=== PATIENT | female | born 1995 | race Caucasian/White ===

== ENCOUNTER 2023-05-21 21:19 | Outpatient (REF) | payer OTHER, SELFPAY | END 2023-05-21 21:20 | disposition home or self-care (01) | LOC: LAB 21:19 | PROVIDERS: Visit Provider Physician Assistant | DX: N64.52 Nipple discharge (principal) | CPT/HCPCS: 87070; 87075 ==

== ENCOUNTER 2023-05-25 13:10 | Outpatient (OUT) | payer SELFPAY ==
--- NOTE | 2023-05-25 | MM_ITS ---
Patient: RAPHAEL RICHARDSON Exam Date: 05/25/2023 : 1995 Gender:F Ordering : DR Keith Cervantes . Admission #: [id number] Family : MRS. DEBBIE COLE . Order #: [id number] CLICK HERE TO VIEW EXAM RADIOLOGY REPORT PROCEDURE: MM TOMOSYNTHESIS DIAGNOSTIC BI, 05/25/2023, 14:09 US BREAST LT LIMITED, 05/25/2023, 13:26 COMPARISON: None. INDICATIONS: LEFT BREAST MASS/ NIPPLE DISCHARGE N 63.20 N 64.52 Calculator Name NCI Breast Cancer Risk Assessment Tool 5 Year Breast Cancer Risk Not Applicable. Lifetime Breast Cancer Risk Not Applicable. Personal Breast Cancer No Personal Ovarian Cancer No Treatments None Family Cancers Grandmother-maternal with breast cancer at age 34; Mother with breast cancer at age 46; Mother with cervical cancer at age 39. LOCATION: [facility] BREAST COMPOSITION: Heterogeneously dense,which may obscure small masses. FINDINGS: DIAGNOSTIC CATEGORY 1--NEGATIVE. RIGHT BREAST: No significant suspicious finding. No significant change has occurred. LEFT BREAST: No significant suspicious finding. No significant change has occurred. No suspicious ultrasound findings in area of patient's palpable lump. RECOMMENDATIONS: CLINICAL EVALUATION. PLEASE NOTE: A NORMAL MAMMOGRAM DOES NOT EXCLUDE THE POSSIBILITY OF BREAST CANCER. A CLINICALLY SUSPICIOUS PALPABLE LUMP SHOULD BE BIOPSIED. Dictated by: Henri Rogers M.D. on 05/25/2023 at 14:41 Approved by: Henri Rogers M.D. on 05/25/2023 at 14:47
== END 2023-05-25 13:11 | disposition home or self-care (01) ==
LOC: US 13:14
PROVIDERS: PCP Nurse Practitioner; Visit Provider Obstetrics & Gynecology
DX: N63.20 Unspecified lump in the left breast, unspecified quadrant (principal); N64.52 Nipple discharge; Z80.3 Family history of malignant neoplasm of breast; Z80.8 Family history of malignant neoplasm of other organs or systems
CPT/HCPCS: 76642; 77066; G0279

== ENCOUNTER 2023-10-17 09:50 | Emergency (ER) | payer BC, SELFPAY ==
[2023-10-17 09:52] VITALS: BP 142/88; PULSE 84; RESP 18; TEMP 36.8; O2SAT 97; BMI 36.7
--- NOTE | 2023-10-17 11:06 | CT_ITS ---
The [address] [address] Patient Name: RAPHAEL RICHARDSON MRN: [id number] date: 1995 Sex: F Assigned Patient Location: ER Current Patient Location: ER Accession/Order Number: [id number] Exam Date: 10/17/2023 11:40 Report Date: 10/17/2023 12:18 At the request of: RAMÓN GARCIA Procedure: CT abdomen pelvis w con EXAM: CT abdomen pelvis w con HISTORY: left cva flank pain COMPARISON: CT abdomen and pelvis 07/11/2016. TECHNIQUE: Following intravenous administration of 99 cc of Omnipaque 300, axial soft tissue windows of the abdomen and pelvis were performed with coronal and sagittal reformats. CT dose reduction technique was used including Automated Exposure Control. Findings: ABDOMEN: Hepatic low-attenuation lesion, too small to characterize. The liver is enlarged. The gallbladder is surgically absent. The spleen, pancreas, adrenal glands and kidneys are unremarkable. The bilateral ureters are nondilated. Evaluation of the bowel is limited given the absence of oral contrast. No bowel obstruction. The appendix is nondilated. The aorta is normal caliber. No enlarged abdominal lymph nodes or free abdominal fluid. Pelvis: Mild circumferential bladder wall thickening. The bladder is nondistended likely relating to the wall thickening. No bladder calculi. The uterus is present and unremarkable within the limits of CT. No enlarged pelvic lymph nodes or free pelvic fluid. No aggressive sclerotic or lytic osseous lesions. CT/CT abdomen pelvis w con IMPRESSION: 1. No acute abdominal or pelvic abnormality. Electronically authenticated by: SOLE WELDON Date: 10/17/2023 12:18
--- NOTE | 2023-10-17 11:22 | ED.GENADUL1 ---
HPI - General Adult General Chief complaint: Skin/Abscess/Foreign Body Stated complaint: FEVER/L LEG SWELLING Time Seen by Provider: 10/17/23 10:34 Source: patient Mode of arrival: walk-in Limitations: no limitations History of Present Illness HPI narrative: Patient is a 28-year-old female who is presenting to the ER with chief complaint of painful nodules to the left anterior kinney with mild swelling. That started today. It was noted at work that patient had a fever low-grade, by a nurse at the [facility] in [facility]. Patient does not have a fever here. Patient is more concerned about left lower flank pain that radiates to left flank and left lower quadrant intermittently for the past 2 weeks. Patient says that she almost drinks a gallon of water a day. Patient has had decreased urination in the last 2 weeks. Patient states she is only had approximately 5 bowel movements in the past week when normally she goes 2 or 3 times a day with loose stool. Patient says she has had loose stools since she had her gallbladder taken out. Patient had a soft stool today, she has had no signs of constipation in the past 2 weeks. Patient feels like she is not urinating as much as she normally does, she is wondering if she has some type of obstruction or kidney stone. Patient has no history of kidney stone. Patient had uterine ablation, her is fixed, states that she is not . Patient is a G1, P0, patient had . No fever or chills. Patient has mild nausea, no vomiting, no other acute complaints All systems are negative except as noted/marked. All systems reviewed and otherwise negative. Nurses note and vital signs reviewed and patient is not hypoxic. General: The patient appears well and in no apparent distress. Patient is resting comfortably on cart. Patient is not toxic, lethargic, or listless Skin: Warm, dry, no pallor noted. There is no rash noted. No petechiae, purpura. Head: Normocephalic, atraumatic Eye: Normal conjunctiva, no drainage, EOMI. PERRL Ears, Nose, Mouth, and Throat: oral mucosa is moist. Nares patent. Mouth without vesicles. Cardiovascular: Regular Rate and Rhythm, no murmur, gallop, rub Respiratory: Patient is in no distress, no accessory muscle use, lungs are clear to auscultation, no wheezing, rales or rhonchi Back: non-tender, no right CVA tenderness to percussion. No CT LS midline pain GI: Patient has mild left CVA tenderness palpation, mild left flank tenderness to palpation, mild left lower quadrant tenderness to palpation, otherwise no tenderness to palpation, no masses appreciated. No rebound, guarding, or rigidity noted. No distention Musculoskeletal: Patient has full range of motion of all of the extremities, no motor, sensory, or focal neurological deficits Neurological: A&O x4, normal speech Psychiatric: Cooperative Related Data Allergies Allergy/AdvReac Type Severity Reaction Status Date / Time No Known Drug Allergies Allergy Verified 10/17/23 09:52 PFSH PFS Social History Smoking status: Current every day smoker Exam Constitutional Vital Signs, click to edit/add: Last Vital Signs Temp 98.2 F 10/17/23 09:52 Pulse 84 10/17/23 09:52 Resp 18 10/17/23 09:52 BP 142/88 H 10/17/23 09:52 Pulse Ox 97 10/17/23 09:52 O2 Del Method Room Air 10/17/23 09:52 Course Vital Signs Vital signs: Vital Signs Temperature 98.2 F 10/17/23 09:52 Pulse Rate 84 10/17/23 09:52 Respiratory Rate 18 10/17/23 09:52 Blood Pressure 142/88 H 10/17/23 09:52 Pulse Oximetry 97 10/17/23 09:52 Oxygen Delivery Method Room Air 10/17/23 09:52 Temperature 98.2 F 10/17/23 09:52 Pulse Rate 84 10/17/23 09:52 Respiratory Rate 18 10/17/23 09:52 Blood Pressure 142/88 H 10/17/23 09:52 Pulse Oximetry 97 10/17/23 09:52 Oxygen Delivery Method Room Air 10/17/23 09:52 Medical Decision Making MDM Narrative Medical decision making narrative: Patient's urine, lab work, urine and CT shows no acute findings. Patient will follow-up with PCP. Education was done at bedside and erythema nodosum, I do not have any instructions to print for that. Patient will follow-up with Dr. Pollack or Mckayla if needed. Patient will continue increase fluids, no questions at discharge. Lab Data Lab results reviewed: Yes I reviewed the patient's lab results Labs: Lab Results 10/17/23 10/17/23 10/17/23 Range/Units 11:15 11:18 11:19 WBC 11.9 H (4.0-11.0) 10^3/uL RBC 4.21 (4.20-5.40) 10^6/uL Hgb 12.6 (12.0-16.0) g/dL Hct 37.8 (36.0-48.0) % MCV 89.8 (81.0-99.0) fL MCH 29.9 (26.7-34.0) pg MCHC 33.3 (29.9-35.2) g/dL RDW 11.9 (11.0-15.0) % Plt Count 384 (150-450) 10^3/uL MPV 10.7 (9.5-13.5) fL Neut % (Auto) 55.2 (43.0-75.0) % Lymph % (Auto) 32.0 (20.5-60.0) % Luce % (Auto) 5.5 (1.7-12.0) % Eos % (Auto) 5.9 (0.9-7.0) % Baso % (Auto) 1.1 (0.2-2.0) % Neut # (Auto) 6.6 H (1.4-6.5) 10^3/uL Lymph # (Auto) 3.8 (1.2-3.8) 10^3/uL Luce # (Auto) 0.7 (0.3-0.8) 10^3/uL Eos # (Auto) 0.7 (0.0-0.7) 10^3/uL Baso # (Auto) 0.1 (0.0-0.1) 10^3/uL Abs Immat Gran (auto) 0.04 H (0.00-0.03) 10^3/uL Imm/Tot Granulo (auto) 0.3 (0.0-0.5) % Sodium 132 L (136-145) mmol/L Potassium 4.2 (3.5-5.1) mmol/L Chloride 102 (98-107) mmol/L Carbon Dioxide 26.2 (21.0-32.0) mmol/L Anion Gap 8.0 BUN 8.0 (7.0-18.0) mg/dL Creatinine 0.75 (0.55-1.02) mg/dL Est GFR ( Amer) >60 (>=60) Est GFR (Non-Af Amer) >60 (>=60) BUN/Creatinine Ratio 10.7 Glucose 94 (74-106) mg/dL Lactate 1.0 (0.4-2.0) mmol/L Calcium 8.7 (8.5-10.1) mg/dL Total Bilirubin 0.5 (0.2-1.0) mg/dL AST 37 (15-37) U/L ALT 34 (14-59) U/L Alkaline Phosphatase 56 (46-116) U/L Total Protein 7.0 (6.4-8.2) g/dL Albumin 3.4 (3.4-5.0) g/dL Globulin 3.6 g/dL Albumin/Globulin Ratio 0.9 Lipase 31.0 (16.0-77.0) U/L Urine HCG, Qual Negative (NEGATIVE) Imaging Data CT scan - abdomen: Radiologist's impression: ITS Impressions Abdomen/Pelvis CT 10/17/23 11:06 IMPRESSION: 1. No acute abdominal or pelvic abnormality. Electronically authenticated by: SOLE WELDON Date: 10/17/2023 12:18 Discharge Plan Discharge Chief Complaint: Skin/Abscess/Foreign Body Clinical Impression: Lower back pain, Left leg pain Patient Disposition: Home, Self-Care Time of Disposition Decision: 12:37 Condition: Fair Instructions: Acute Low Back Pain (ED), Leg Pain (ED) Additional Instructions: Continue to increase fluids. I do not have any printable education on erythema nodosum. This is a possible diagnosis for the pain to her left kinney and bumps that have occurred. This could be very painful. Continue to use anti-inflammatories, ibuprofen, Advil, or Motrin 800 mg 3 times a day. Use ice. Follow-up with PCP. Use ICE as well. If you continue to have any type of urological concerns, follow-up with Dr. Pollack or Dr. Block. Referrals: Ritesh Pollack MD [Physician] - 1 week DEBBIE COLE [Primary Care Provider] - 1 week Stand Alone Forms: Work/School Release, Portal Instructions
[2023-10-17 11:31] LABS: HCG Qualitative Urine* NEGATIVE (NEGATIVE)
[2023-10-17] MEDS: KETOROLAC TROMETHAMINE 30 MG/ML VIAL 15 MG IVP (11:32)
[2023-10-17] MEDS: 0.9 % SODIUM CHLORIDE 1,000 ML 999 ML IV (11:32)
[2023-10-17] MEDS: ONDANSETRON PF 4 MG/2 ML VIAL IV (11:32)
[2023-10-17 11:35] LABS: Basophils Absolute Auto 0.1 10^3/uL (0.0-0.1); Basophils Percent Auto 1.1 % (0.2-2.0); Eosinophils Absolute Auto 0.7 10^3/uL (0.0-0.7); Eosinophils Percent Auto 5.9 % (0.9-7.0); Hematocrit 37.8 % (36.0-48.0); Hemoglobin 12.6 g/dL (12.0-16.0); Immature Granulocytes Abs Auto 0.04 10^3/uL (0.00-0.03); Immature Granulocytes Pct Auto 0.3 % (0.0-0.5); Lymphocytes Absolute Auto 3.8 10^3/uL (1.2-3.8); Mean Corpuscular HGB Conc 33.3 g/dL (29.9-35.2); Mean Corpuscular Hemoglobin 29.9 pg (26.7-34.0); Mean Corpuscular Volume 89.8 fL (81.0-99.0); Mean Platelet Volume 10.7 fL (9.5-13.5); Monocytes Absolute Auto 0.7 10^3/uL (0.3-0.8); Monocytes Percent Auto 5.5 % (1.7-12.0); Neutrophils Absolute Auto 6.6 10^3/uL (1.4-6.5); Neutrophils Percent Auto 55.2 % (43.0-75.0); Platelet Count 384 10^3/uL (150-450); Red Blood Count 4.21 10^6/uL (4.20-5.40); Red Cell Distribution Width 11.9 % (11.0-15.0); White Blood Count 11.9 10^3/uL (4.0-11.0)
[2023-10-17 11:41] LABS: Alanine Aminotransferase 34 U/L (14-59); Albumin Globulin Ratio 0.9; Albumin Level 3.4 g/dL (3.4-5.0); Alkaline Phosphatase 56 U/L (46-116); Aspartate Amino Transferase 37 U/L (15-37); BUN Creatinine Ratio 10.7; Bilirubin Total 0.5 mg/dL (0.2-1.0); Calcium 8.7 mg/dL (8.5-10.1); Carbon Dioxide 26.2 mmol/L (21.0-32.0); Chloride 102 mmol/L (98-107); Estimated GFR (African America >60 (>=60); Estimated GFR (Non-African Ame >60 (>=60); Globulin 3.6 g/dL; Glucose 94 mg/dL (74-106); Potassium 4.2 mmol/L (3.5-5.1); Sodium 132 mmol/L (136-145)
[2023-10-17 12:50] VITALS: BP 113/76; PULSE 77; RESP 18; O2SAT 98
== END 2023-10-17 12:52 | disposition home or self-care (01) ==
PROVIDERS: Emergency Provider Emergency Medicine; PCP Nurse Practitioner
DX: M54.50 Low back pain, unspecified (principal); M79.605 Pain in left leg; Z90.49 Acquired absence of other specified parts of digestive tract; F17.200 Nicotine dependence, unspecified, uncomplicated
CPT/HCPCS: 36415; 74177; 80053; 83605; 83690; 84703; 85025; 96374; 96375; 99284; Q9967

== ENCOUNTER 2024-01-18 11:23 | Outpatient (OUT) | payer BC, SELFPAY ==
--- NOTE | 2024-01-18 11:25 | US_ITS ---
The [address] [address] Patient Name: RAPHAEL RICHARDSON MRN: [id number] date: 1995 Sex: F Assigned Patient Location: Current Patient Location: Accession/Order Number: [id number] Exam Date: 01/18/2024 11:26 Report Date: 01/21/2024 04:49 At the request of: PAULY CHAPMAN Procedure: US pelvis w/ transvaginal EXAMINATION: US pelvis w/ transvaginal HISTORY: Cyst of left ovary N83.202 COMPARISON: CT abdomen pelvis 10/17/2023, ultrasound pelvis 05/24/2022 TECHNIQUE: Transabdominal and/or transvaginal sonographic examination was performed as indicated by examination type. FINDINGS: UTERUS: Normal size and appearance. Uterus size: 7.0 x 3.9 x 4.1 cm ENDOMETRIUM: Normal homogeneous appearance. Endometrial thickness: 3 mm RIGHT OVARY: Contains a 1.6 cm dominant follicle versus cyst. Duplex Doppler demonstrates normal waveform and flow; resistive index 0.5. Ovary size: 4.4 x 2.9 x 3.2 cm LEFT OVARY: Not seen. No suspicious adnexal findings. CUL-DE-SAC: Unremarkable. No significant free fluid. BLADDER: Unremarkable. OTHER: None. US/US pelvis w/ transvaginal IMPRESSION: 1. The left ovary could not be identified during today's study. The ovary was also not able to be seen on the prior ultrasound study. 2. No suspicious pelvic findings. Electronically authenticated by: CHANCE ARMAS Date: 01/21/2024 04:49
[2024-01-18 12:20] LABS: Basophils Absolute Auto 0.1 10^3/uL (0.0-0.1); Basophils Percent Auto 0.8 % (0.2-2.0); Eosinophils Absolute Auto 0.4 10^3/uL (0.0-0.7); Eosinophils Percent Auto 3.4 % (0.9-7.0); Hematocrit 38.2 % (36.0-48.0); Hemoglobin 12.7 g/dL (12.0-16.0); Immature Granulocytes Abs Auto 0.06 10^3/uL (0.00-0.03); Immature Granulocytes Pct Auto 0.5 % (0.0-0.5); Lymphocytes Absolute Auto 3.5 10^3/uL (1.2-3.8); Lymphocytes Percent Auto 29.6 % (20.5-60.0); Mean Corpuscular HGB Conc 33.2 g/dL (29.9-35.2); Mean Corpuscular Hemoglobin 28.8 pg (26.7-34.0); Mean Corpuscular Volume 86.6 fL (81.0-99.0); Monocytes Absolute Auto 0.8 10^3/uL (0.3-0.8); Monocytes Percent Auto 6.4 % (1.7-12.0); Neutrophils Absolute Auto 7.1 10^3/uL (1.4-6.5); Neutrophils Percent Auto 59.3 % (43.0-75.0); Platelet Count 307 10^3/uL (150-450); Red Blood Count 4.41 10^6/uL (4.20-5.40); Red Cell Distribution Width 11.6 % (11.0-15.0)
[2024-01-18 12:25] LABS: Estimated Average Glucose 108 mg/dL; Glycohemoglobin A1C 5.4 % (4.5-6.2)
[2024-01-18 12:49] LABS: Free T4 0.88 ng/dL (0.76-1.46)
[2024-01-18 13:19] LABS: HCG Quantitative <1 mIU/mL; Thyroid Stimulating Hormone 2.063 uIU/mL (0.358-3.740)
[2024-01-19 04:08] LABS: FSH 4.6 mIU/mL (.); Luteinizing Hormone(LH) 13.8 mIU/mL (.)
== END 2024-01-18 11:24 | disposition home or self-care (01) ==
LOC: US 11:23
PROVIDERS: PCP Nurse Practitioner; Visit Provider Obstetrics & Gynecology
DX: N83.202 Unspecified ovarian cyst, left side (principal); R10.2 Pelvic and perineal pain; R63.5 Abnormal weight gain
CPT/HCPCS: 36415; 76830; 76856; 82626; 82627; 83001; 83002; 83036; 84439; 84443; 84702; 85025

== ENCOUNTER 2024-02-27 15:50 | Outpatient (REF) | payer BC, SELFPAY | END 2024-02-27 15:51 | disposition home or self-care (01) | LOC: LAB 15:50 | PROVIDERS: PCP Nurse Practitioner; Visit Provider Obstetrics & Gynecology | DX: N84.0 Polyp of corpus uteri (principal) | CPT/HCPCS: 88305 ==

== ENCOUNTER 2024-03-13 09:45 | Outpatient (OUT) | payer BC, SELFPAY ==
--- OUTSIDE RECORDS SUMMARY | 2024-03-13 09:53 | XMS_ITS | CCD ---
Author Organization [facility] Care Team Providers Care Shipping Clerk/Admin Name Role Phone Atiya Huerta Unavailable AN LR Attending Unavailable SELF, REFERRED Primary Care Unavailable SELF, REFERRED Referring Unavailable MEG, AN Admitting Unavailable MEG, AN Surgeon Unavailable [place] Procedure Practitioner Unavailab MIKE Griffiths Admitting Unavailable REQUEST, NONE LISTED Primary Care Unavaila MIKE Garcia Attending Unavailable MIKE PLATT Consulting Unavailable KARASIK ., DR FERNANDEZ Admitting Unavailabl e REQUEST, NONE LISTED Primary Care Unavaila ble KARASIK ., DR FERNANDEZ Attending Unavailabl e KARASIK ., DR FERNANDEZ Consulting Unavailabl e KARASIK ., DR FERNANDEZ Admitting Unavailabl e REQUEST, NONE LISTED Primary Care Unavaila ble KARASIK ., DR FERNANDEZ Attending Unavailabl e KARASIK ., DR FERNANDEZ Consulting Unavailabl e KARASIK ., DR FERNANDEZ Admitting Unavailabl e REQUEST, DR NONE LISTED Primary Care Unavaila ble KARASIK ., DR FERNANDEZ Attending Unavailleona e RAPHAEL ERAZO Consulting Unavailable CEZAR DIAMOND Consulting Unavailable KARASIK ., DR FERNANDEZ Attending Unavailabl e KARASIK ., DR FERNANDEZ Consulting Unavailabl e REQUEST, DR NONE LISTED Primary Care Unavaila ble KARASIK ., DR FERNANDEZ Admitting Unavailabl e KARASIK ., DR FERNANDEZ Attending Unavailabl e KARASIK ., DR FERNANDEZ Consulting Unavailabl e REQUEST, DR NONE LISTED Primary Care Unavaila ble KARASIK ., DR FERNANDEZ Admitting Unavailabl e ZIEBER, DR CHANCE Frank Consulting Unavailable HAY ., DR SHEN Admitting Unavailable REQUEST, NONE LISTED Primary Care Unavaila ble HAY ., DR SHEN Attending Unavailable HAY ., DR SHEN Consulting Unavailable GLENNY COLON Consulting Unavailable SHERIDAN, CHARLENE Attending Unavailable SHERIDAN, CHARLENE Attending Unavailable SHERIDAN, CHARLENE Attending Unavailable SHERIDAN, CHARLENE Referring Unavailable WAQAR MARS Referring Unavailable SHERIDAN, CHARLENE Attending Unavailable SHERIDAN, CHARLENE Attending Unavailable ALESIA APARICIO Attending Unavailable MADISYN, WAQAR Referring Unavailable Douglas, Debbie Butler Primary Care Physician Douglas, Debbie Butler Attending Unavailable Douglas, Debbie L Attending Unavailable Douglas, Debbie L Attending Unavailable Douglas, Debbie L Attending Unavailable Douglas, Debbie L Attending Unavailable Douglas, Debbie L Attending Unavailable Douglas, Debbie L Attending Unavailable Douglas, Debbie L Admitting Unavailable Douglas, Debbie L Attending Unavailable Douglas, Debbie L Attending Unavailable Douglas, Debbie L Admitting Unavailable Juanjose Toscano Attending Unavailable DOUGLAS, DEBBIE L Referring Unavailable NO PCP, NO PCP Primary Care Unavailable NO PCP, NO PCP Primary Care Unavailable ABRAHAM TORRES Attending Unavailable BRIAN, ABRAHAM Attending Unavailable ABRAHAM TORRES Referring Unavailable NO PCP, NO PCP Primary Care Unavailable NO PCP, NO PCP Primary Care Unavailable CHANCE HUIZAR Attending Unavailable NO FAMILY, PHYSICIAN Primary Care Provider Unava ilable DO Keith Cervantes Attending Provider KEITH CERVANTES Attending Unavailable KEITH CERVANTES Attending Unavailable NO FAMILY, PHYSICIAN Primary Care Unavailable Keith Cervantes Attending Unavailable Keith Cervantes Admitting Unavailable Allergies Allergy Classification Reported Allergen(s) Allergy Type Date of Onset Reaction(s) Facility (1 source) nickel Drug Allergy rash CryptoSeal Other (1 source) nickel Drug Allergy 06-20-2021 [facility] Repository Medications Current Medications Medication Drug Class(es) Dates Sig (Normalized) Sig (Original) [id number] 200 actuat albuterol 0.09 mg/actuat metered dose inhaler (1 source) beta2-Adrenergic Agonist Start: 06-20-2021 doxycycline monohydrate 100 mg oral tablet (1 source) Tetracycline-class Drug Start: 09-21-2023 End: 10-01-2023 take 1 tablet by mouth twice daily doxycycline monohydrate 100 mg oral tablet 100 mg = 1 tab(s), Oral, BID, X 10 day(s), # 20 tab(s), Refills(s) 0, Pharmacy: [facility]/pharmacy #[id number], 165.1, cm, 09/21/23 8:51:00 EST, Height/Length Dosing, 97.9, kg, 09/21/23 8:51:00 EST, Weight Dosing Start Date: 09/21/23 Stop Date: 10/01/23 Status: Ordered medroxyPROGESTERone (1 source) Progestin naproxen 500 mg delayed release oral tablet (2 sources) Nonsteroidal Anti-inflammatory Drug Start: 09-06-2023 take 1 tablet by mouth twice daily naproxen 500 mg oral enteric coated tablet 500 mg = 1 tab(s), Oral, BID, # 60 tab(s), Refills(s) 0, [id number] 164, cm, 08/07/23 9:50:00 EST, Height/Length Dosing, 96.4, kg, 08/07/23 9:50:00 EST, Weight Dosing Start Date: 09/06/23 Status: Ordered phentermine hydrochloride 37.5 mg oral tablet (2 sources) Sympathomimetic Amine Anorectic Start: 08-07-2023 take 1 tablet by mouth once daily phentermine 37.5 mg Tab 37.5 mg = 1 tab(s), Oral, Daily, # 30 tab(s), Refills(s) 0, [id number], 164, cm, 08/07/23 9:50:00 EST, Height/Length Dosing, 96.4, kg, 08/07/23 9:50:00 EST, Weight Dosing Start Date: 08/07/23 Status: Ordered Completed/Discontinued Medications Medication Drug Class(es) Dates Sig (Normalized) Sig (Original) cephalexin 500 mg oral capsule (1 source) Cephalosporin Antibacterial Start: 09-21-2023 take 1 capsule by mouth three times daily Keflex 500 mg Cap 500 mg = 1 cap(s), Oral, TID, Take one capsule by mouth three times a day for ten days, # 30 cap(s), Refills(s) 0, Pharmacy: [facility]/pharmacy #[id number], 165.1, cm, 09/21/23 8:51:00 EST, Height/Length Dosing, 97.9, kg, 09/21/23 8:51:00 EST, Weight Dosing Start Date: 09/21/23 Status: Ordered Vitamin D 50,000 intl units (1.25 mg) oral capsule (1 source) Start: 09-10-2023 take 1 capsule by mouth every week Vitamin D 50,000 intl units (1.25 mg) oral capsule 50,000 International_Uni t = 1 cap(s), Oral, qWeek, # 12 cap(s), Refills(s) 3, Pharmacy: [facility]/pharmacy #[id number], 164, cm, 09/07/23 8:25:00 EST, Height/Length Dosing, 98.6, kg, 09/07/23 8:25:00 EST, Weight Dosing Start Date: 09/10/23 Status: Ordered Problems Active Problems Problem Classification Problem Date Documented Date Episodic/Chronic Conditions associated with dizziness or vertigo (2 sources) Dizziness 09-07-2023 Episodic Diabetes mellitus without complication (2 sources) Hyperglycemia 09-07-2023 Episodic E Codes: Natural/environment (1 source) Bitten or stung by nonvenomous insect and other nonvenomous arthropods, initial encounter; Translations: [Bitten or stung by nonvenomous insect and other nonvenomous arthropods, initial encounter] Onset: 02-01-2024 Episodic Genitourinary symptoms and ill-defined conditions (3 sources) Polyuria 05-25-2023 Episodic Immunizations and screening for infectious disease (2 sources) Contact with and (suspected) exposure to other viral communicable diseases; Translations: [Encounter for screening for human papillomavirus (HPV)] Onset: 06-20-2021 Resolved: 06-20-2021 Episodic Malaise and fatigue (3 sources) Fatigue 05-25-2023 Episodic Menstrual disorders (5 sources) Excessive and frequent menstruation with regular cycle; Translations: [EXCESS FREQ MENSTRUATION W/REG CYCL] Onset: 04-30-2022 Chronic Other connective tissue disease (2 sources) Neuralgia and neuritis, unspecified; Translations: [Neuralgia and neuritis, unspecified] Onset: 12-08-2022 Episodic Other connective tissue disease (2 sources) Pain in right arm; Translations: [Pain in right arm] Onset: 12-15-2022 Episodic Other connective tissue disease (2 sources) Pain in left arm; Translations: [Pain in left arm] Onset: 12-15-2022 Episodic Other connective tissue disease (1 source) Pain in calf 09-21-2023 Episodic Other lower respiratory disease (2 sources) Cough 07-10-2023 Episodic Other nervous system disorders (2 sources) Carpal tunnel syndrome, right upper limb; Translations: [Carpal tunnel syndrome, right upper limb] Onset: 03-01-2023 Chronic Other nervous system disorders (2 sources) Other chronic pain; Translations: [Other chronic pain] Onset: 12-15-2022 Chronic Other nervous system disorders (2 sources) Complex regional pain syndrome I of left upper limb; Translations: [Complex regional pain syndrome i of left upper limb] Onset: 12-07-2022 Chronic Other nutritional; endocrine; and metabolic disorders (3 sources) Excessive thirst 05-25-2023 Episodic Other nutritional; endocrine; and metabolic disorders (2 sources) Abnormal weight gain 06-08-2023 Episodic Other screening for suspected conditions (not mental disorders or infectious disease) (4 sources) Encounter for screening for malignant neoplasm of cervix; Translations: [ENC SCREENING MALIG NEOPLASM CERV] Onset: 12-08-2022 Episodic Other skin disorders (2 sources) Mass of lower limb 08-07-2023 Episodic Other skin disorders (2 sources) Mass of subcutaneous tissue of right lower leg 08-07-2023 Episodic Other skin disorders (1 source) Localized swelling of left lower leg 09-21-2023 Episodic Other upper respiratory infections (2 sources) Sinusitis 07-10-2023 Chronic Residual codes; unclassified (3 sources) Family history of diabetes mellitus 05-25-2023 Episodic Skin and subcutaneous tissue infections (1 source) Cellulitis; Translations: [Cellulitis, unspecified] Onset: 09-21-2023 Episodic Spondylosis; intervertebral disc disorders; other back problems (5 sources) Radiculopathy, cervical region; Translations: [Dorsalgia, unspecified] Onset: 10-23-2022 Episodic Substance-related disorders (2 sources) Nicotine dependence, cigarettes, uncomplicated; Translations: [Smoker] Onset: 05-22-2022 09-21-2023 Chronic Comment on above: Added secondary to d ocumentation in Social History. Superficial injury; contusion (3 sources) Insect bite (nonvenomous) of right shoulder, initial encounter; Translations: [Insect bite (nonvenomous) of left shoulder, initial encounter] Onset: 02-01-2024 Episodic Unclassified (1 source) CONTACT W/AND (SUSP) EXPOS COVID-19; Translations: [CONTACT W/AND (SUSP) EXPOS COVID-19] Onset: 05-08-2022 Unclassified (2 sources) COUGH, UNSPECIFIED; Translations: [COUGH, UNSPECIFIED] Onset: 12-30-2021 Unclassified (2 sources) Presence of neurostimulator; Translations: [Presence of neurostimulator] Onset: 12-07-2022 Unclassified (5 sources) Patient encounter status 05-25-2023 Unclassified (1 source) Rash Onset: 02-01-2024 Past or Other Problems Problem Classification Problem Date Documented Date Episodic/Chronic Abdominal pain (8 sources) Left lower quadrant pain; Translations: [Pelvic and perineal pain] Onset: 05-15-2022 Episodic Benign neoplasm of uterus (1 source) Leiomyoma of uterus, unspecified; Translations: [LEIOMYOMA OF UTERUS UNSPECIFIED] Onset: 05-27-2022 Episodic Complication of device; implant or graft (2 sources) Other mechanical complication of implanted electronic neurostimulator of spinal cord electrode (lead), initial encounter; Translations: [Other mechanical complication of implanted electronic neurostimulator of spinal cord electrode (lead), initial encounter] Onset: 10-23-2022 Episodic Other connective tissue disease (2 sources) Impingement syndrome of left shoulder; Translations: [Impingement syndrome of left shoulder] Onset: 10-17-2022 Episodic Other skin disorders (1 source) Localized swelling, mass and lump, lower limb, bilateral; Translations: [Localized swelling, mass and lump, lower limb, bilateral] Onset: 08-08-2023 Episodic Other skin disorders (1 source) Localized swelling, mass and lump, right lower limb; Translations: [Localized swelling, mass and lump, right lower limb] Onset: 08-08-2023 Episodic Other upper respiratory infections (1 source) Acute upper respiratory infection, unspecified; Translations: [ACUTE UP RESPIRATORY INFECTION UNS] Onset: 12-30-2021 Episodic Residual codes; unclassified (1 source) Other specified postprocedural states; Translations: [OTH SPECIFIED POSTPROCEDURAL STATES] Onset: 05-17-2022 Episodic Residual codes; unclassified (1 source) Acquired absence of other specified parts of digestive tract; Translations: [ACQ ABSENCE OTH PART DIGESTV TRACT] Onset: 05-22-2022 Episodic Unclassified (1 source) COUGH, UNSPECIFIED; Translations: [COUGH, UNSPECIFIED] Onset: 12-29-2021 Viral infection (1 source) COVID-19 Onset: 06-20-2021 Resolved: 06-20-2021 Results Test Name Value Interpretation Reference Range Facility [facility] 02-27-2024 L Specimen: [id number] Received: 02/28/24 Status: KOFI Bergerkraig Num: [id number] Spec Type: Surgical Subm Dr: Keith Cervantes Tissues: A Endometrium - Biopsy (EMBX) Procedures: HE/2, Gross/Micro L4 Age/ Patient Sex Location Account Attending Physician Raphael Meehan / LABELL [id number] Keith Cervantes SPEC NUM: [id number] RECD: 02/28/24 STATUS: KOFI BERGERKraig NUM: [id number] [place]: 02/27/[address] [facility] [address]: Keith Cervantes ENTERED: 02/28/[address] [facility] [address]: [place],Lab SPEC TYPE: Surgical DEPT: [facility] ORDERED: HE/2, Gross/Micro L4 ORDERED: HE/2, Gross/Micro L4 Pathological Diagnosis Endometrium, biopsy: Features consistent with endometrial polyp(s). Clinical Information Failed ablation. Gross Description Received in formalin labeled with the patient's name, date of and EMB (per requisition) are multiple aguilar tissue fragments admixed with mucus measuring in aggregate 2.3 x 0.5 x 0.1 cm, entirely submitted in A1. CPT Codes 27632 -------- -------- Specimen: [id number] Received: 02/28/24-1250 Status: KOFI Nicolas Num: [id number] Spec Type: Surgical Subm Dr: Keith Cervantes Tissues: A Endometrium - Biopsy (EMBX) Procedures: HE/Ernestina, Gross/Micro L4 -------- Patient: Raphael Meehan [id number] (Continued) -------- Signed (signature on file) Diana Massey MD 03/03/24 175 Normal [facility] RAD - Ultrasound Reporton RAD - Ultrasound Report [id number]. 00TIFF Normal [facility] HCG ( test) Ql (U)o n 01-15-2024 Beta HCG ( test) Ql (U) Negative Normal NEG [facility] Comment on above: Performed By: #### 2 106-3 #### [facility] ([id number]) [address] [place] [address] 22144 URN MACROSCOPIC NURon 2023 BILIRUBIN DAINA Negative Normal NEG [facility] Comment on above: Performed By: #### N UM #### [facility] ([id number]) [address] [place] [address] 23862 BLOOD/HGB DAINA Small Abnormal NEG [facility] Comment on above: Performed By: #### N UM #### [facility] ([id number]) [address] [place] [address] 21834 GLUCOSE DAINA Negative Normal NEG [facility] Comment on above: Performed By: #### N UM #### [facility] ([id number]) [address] [place] [address] 46409 KETONES DAINA Negative Normal NEG [facility] Comment on above: Performed By: #### N UM #### [facility] ([id number]) [address] [place] [address] [place] [address] LEUKOCYTE ESTERASE DAINA Negative Normal NEG [facility] Comment on above: Performed By: #### N UM #### [facility] ([id number]) [address] [place] [address] 42403 NITRITE DAINA Negative Normal NEG [facility] Comment on above: Performed By: #### N UM #### [facility] ([id number]) [address] [place] [address] 64951 PH DAINA 6.5 Normal 5.0-8.[address] [facility] Comment on above: Performed By: #### N UM #### [facility] ([id number]) [address] [place] [address] 22130 PROTEIN DAINA Negative Normal NEG [facility] Comment on above: Performed By: #### N UM #### [facility] ([id number]) [address] [place] [address] 60701 SPECIFIC GRAVITY DAINA 1.025 Normal 1.003-1.035 [facility] Comment on above: Performed By: #### N UM #### [facility] ([id number]) [address] [place] [address] 56748 UROBILINOGEN DAINA 0.2 eu/dL Normal <1.1 [facility] Comment on above: Performed By: #### N UM #### [facility] ([id number]) [address] [place] [address] 00124 XR SPINE LUMBAR 2 OR 3 VWSon 01-15-2024 XR SPINE LUMBAR 2 OR 3 VWS XR SPINE LUMBAR 2 OR 3 VWS 2 views of the lumbar spine dated 01/15/2024 at 1:10 PM INDICATION: Back pain persisting for a few weeks. FINDINGS: Comparison is 02/03/2019. There is a dorsal stimulating device in place. Normal alignment of the lumbar spine. No acute fractures or subluxations. No lytic or sclerotic lesions. The intervertebral disc spaces are preserved. IMPRESSION: 1. No acute osseous abnormality seen in the lumbar spine. Finalized by Roro Galvez MD on 01/15/2024 1:20 PM Normal [facility] ED Note-Physicianon 10-17-19 ED Note-Physician [id number] .00TIFF Normal [facility] RAD - CT Reporton 10-17-2023 RAD - CT Report [id number] .00TIFF Normal [facility] ED Note-Physicianon 09-22-19 ED Note-Physician Basic Information Time Seen: Reece Oh PA-C 09/21/2023 08:52 Chief Complaint Pt reports LLE pain and swelling for 2-3 months. Patient reports skin lesions on LLE that are itchy. PCP concerned with increase in swelling. History of Present Illness 28-year old female comes to the ED for evaluation of leg pain. This has been a waxing waning issue for months. She been following with her PCP. She had increased swelling and redness recently. No trauma to the area. No fever, chills, nausea or vomiting. Her PCP was concerned with increased swelling and possibility of DVT and that is why she presents to the ED today. She has no DVT risk factors, non-smoker, no control, no other complaints or concerns. Review of Systems A 10 point review of systems is negative except as noted above. Medical and Surgical History: Reviewed and noted Social history: Lives at home Tobacco: Denies Physical Exam Vitals & Measurements T: 36.9 ?C(Oral) HR: 106(Peripheral) RR: 16 BP: 150/90 SpO2: 100% HT: 165.1 cm WT: 97.9 kg BMI: 35.92 Nurses notes and vital signs reviewed and patient is not hypoxic. General: The patient appears well, resting comfortably. Skin: Warm, dry. Head: Atraumatic. Neck: No JVD. Eye: Normal conjunctiva. Ears, Nose, Mouth, and Throat: Moist mucous membranes. Cardiovascular: Strong distal pulses. Chest wall: Respiratory: Respirations are nonlabored. Back: Normal range of motion. Musculoskeletal: Tenderness along the left leg with some mild soft tissue swelling. There are few discrete raised erythematous lesions over the tibia. These are tender. There is no fluctuance or induration. There is splotchy erythema about the leg. No significant calf swelling. Good distal pulses. Gastrointestinal: Urological: Neurological: Awake and alert. No focal deficits. Follows commands. Psychiatric: Cooperative. Medical Decision Making Patient resents with left leg swelling and erythema. This sounds to have been waxing waning but progressive over the last couple of months. On exam she does not appear to have acute neurovascular compromise. She has good distal pulses. There is no significant swelling. Ultrasound is negative for DVT. She started antibiotics for cellulitis and is discharged home with PCP follow-up. Patient was encouraged to return to the ED if symptoms worsen or change. Assessment/Plan Cellulitis (L03.90: Cellulitis, unspecified) Orders: cephalexin, 500 mg = 1 cap(s), Oral, TID, Take one capsule by mouth three times a day for ten days, # 30 cap(s), Refills(s) 0, Pharmacy: [facility]/pharmacy #[id number], 165.1, cm, 09/21/23 8:51:00 EST, Height/Length Dosing, 97.9, kg, 09/21/23 8:51:00 EST, Weight Dosing doxycycline, 100 mg = 1 tab(s), Oral, BID, X 10 day(s), # 20 tab(s), Refills(s) 0, Pharmacy: [facility]/pharmacy #[id number], 165.1, cm, 09/21/23 8:51:00 EST, Height/Length Dosing, 97.9, kg, 09/21/23 8:51:00 EST, Weight Dosing US LE Venous Duplex Left Disposition Plan Patient Discharge Condition Disposition: Discharged home Condition: Improved and stable Counseled: Patient and/or family were counseled to workup, results, treatment plan and follow-up recommendations Discharge Prescription List Prescriptions doxycycline monohydrate 100 mg oral tablet, 100 mg= 1 tab(s), Oral, BID Keflex 500 mg Cap, 500 mg= 1 cap(s), Oral, TID Follow-up With When Contact Information Debbie Cole In 3 days 09/24/[address] [facility] (1) Additional Instructions: Patient Education Cellulitis, Adult Attestation I performed a substantive part of the MDM during the patient?s E/M visit. I personally made or approved the documented management plan and acknowledge its risk of complications. (Independent Interpretation) My (EKG/X-Ray/US/CT) interpretation as above. (Discussion) Management/test interpretation discussed with APC. This report was transcribed using voice recognition software. Every effort was made to ensure accuracy, however, inadvertently computerized grinding wheel dresser mistakes may be present. Appropriate healthcare PPE was used in evaluating this patient. Problem List/Past Medical History Ongoing Abnormal weight gain Blood glucose elevated Cough Dizziness Encounter for weight management Excessive thirst Family history of diabetes mellitus Fatigue Localized swelling of left lower leg Pain of left calf Polyuria Sinusitis Smoker Subcutaneous mass of both lower legs Subcutaneous mass of right lower leg Wellness examination Historical No qualifying data Procedure/Surgical History Ablation, Cholecystectomy, Surgery, Surgery, Surgery. Medications Inpatient No active inpatient medications Home doxycycline monohydrate 100 mg oral tablet, 100 mg= 1 tab(s), Oral, BID Keflex 500 mg Cap, 500 mg= 1 cap(s), Oral, TID naproxen 500 mg oral enteric coated tablet, 500 mg= 1 tab(s), Oral, BID phentermine 37.5 mg Tab, 37.5 mg= 1 tab(s), Oral, Chloe (more content not included)... [facility] Comment on above: Result Comment: Elec tronically Signed By: Reece Oh PA-C\.br\Date and Time Signed: 09/21/23 09:59 EST\.br\Electronically Co-Signed By: Juanjose Toscano DO\.br\Date and Time Co-Signed: 09/22/23 07:13 EST Ambulatory Visit Summaryon 0 09-21-2023 Ambulatory Visit Summary PAT MEEHANDawson Butler :1995 Visit Date:09/21/2023 Ambulatory Visit Instructions Your Diagnosis BMI 35.0-35.9,adult Smoker Your Care Team Attending Physician - Debbie Bui Primary Care Physician - Debbie Bui This Is Your Medications List ergocalciferol (Vitamin D 50,000 intl units (1.25 mg) oral capsule) naproxen (naproxen 500 mg oral enteric coated tablet) phentermine (phentermine 37.5 mg Tab) Procedures Performed Ablation, Cholecystectomy, Surgery, Surgery, Surgery. Discharge Vitals Temperature (Tympanic) 36.6 ?C Heart Rate (Peripheral) 98 Respiratory Rate 18 Blood Pressure 130/84 Height 164 cm Height 65 in Weight 96.7 kg Weight 212.74 lb BMI 35.95 What to do next Scheduled Follow-Up Appointments Sunday 3:40 PM EST With: Debbie Bui Where: [facility] [place] [facility] Consent for Treatmenton Consent for Treatment [id number] .00TIFF [facility] Discharge Instructionson Discharge Instructions [id number] .00TIFF [facility] ED Clinical Summaryon 2023 ED Clinical Summary [place] [id number] ED Clinical Summary Person Information Name: RAPHAEL MEEHAN [facility] Age: 28 Years : 1995 Sex: Female Language: Sierra Leonean PCP: Debbie Bui Marital Status: Single Visit Id: Visit Reason: Skin problem; Leg pain-swelling; DR. COLE SENT OVER. POS BLOODCLOT IN LEFT LEG Speciality: Acuity: 4 Enc Type: Emergency Med Service: Emergency Arrival: 09/21/2023 08:45:38 Discharge: 09/21/2023 10:00:27 LOS: 000 01:15 Checkin: 09/21/2023 08:45:38 Checkout: 09/21/2023 10:00:27 Dispo Type: Home (Routine DC) EVENTS: Event Name Event Status Request Date/Time Start Date/Time Complete Date/Time Arrive Complete 09/21/2023 08:45:38 09/21/2023 08:45:38 09/21/2023 08:45:38 Document Home Meds Request 09/21/2023 08:45:38 Triage Complete 09/21/2023 08:45:38 09/21/2023 08:51:43 09/21/2023 08:51:43 Bed Assign Complete 09/21/2023 08:47:57 09/21/2023 08:47:57 09/21/2023 08:47:57 Dr Exam Complete 09/21/2023 08:47:57 09/21/2023 08:52:08 09/21/2023 08:52:08 RN Exam Complete 09/21/2023 08:47:57 09/21/2023 08:53:03 09/21/2023 08:53:03 Registration Complete 09/21/2023 08:48:50 09/21/2023 08:48:50 09/21/2023 08:48:50 Reg Complete Request 09/21/2023 08:48:50 Reg Bed Request Complete 09/21/2023 08:48:50 09/21/2023 08:48:50 09/21/2023 08:48:50 Registration Request 09/21/2023 08:52:08 US Complete 09/21/2023 08:52:26 09/21/2023 08:54:46 09/21/2023 09:31:34 Dr Exam Complete 09/21/2023 08:54:34 09/21/2023 08:54:34 09/21/2023 08:54:34 Discharge Complete 09/21/2023 09:53:29 09/21/2023 10:00:31 09/21/2023 10:00:31 Transfer Complete 09/21/2023 10:00:31 09/21/2023 10:00:31 09/21/2023 10:00:31 ADDRESS: [address] [place] [id number] PHYS DOC NOTES: MEDICAL INFORMATION: Prescriptions Given: New Medications [id number], [address], [place] [id number], [phone] cephalexin (Keflex 500 mg Cap) 1 Capsules By Mouth 3 times a day. Take one capsule by mouth three times a day for ten days. Refills: 0. doxycycline (doxycycline monohydrate 100 mg oral tablet) 1 Tablets By Mouth 2 times a day for 10 Days. Refills: 0. Medications to Continue with No Changes Other Medications ergocalciferol (Vitamin D 50,000 intl units (1.25 mg) oral capsule) 1 Capsules By Mouth every week. Refills: 3. naproxen (naproxen 500 mg oral enteric coated tablet) 1 Tablets By Mouth 2 times a day. Refills: 0. phentermine (phentermine 37.5 mg Tab) 1 Tablets By Mouth every day. Refills: 0. PATIENT EDUCATION INFORMATION: Instructions: Cellulitis, Adult Follow up: With: Address: When: Debbiejosh Lewisab [address] [place] [address] Business (1) In 3 days 09/24/2023 DIAGNOSIS: Cellulitis Normal [facility] ED Patient Education Noteon 09-21-2023 ED Patient Education Note Infectious Disease Cellulitis, Adult Cellulitis is a skin infection. The infected area is usually warm, red, swollen, and tender. This condition occurs most often in the arms and lower legs. The infection can travel to the muscles, blood, and underlying tissue and become serious. It is very important to get treated for this condition. What are the causes? Cellulitis is caused by bacteria. The bacteria enter through a break in the skin, such as a cut, burn, insect bite, open sore, or crack. What increases the risk? This condition is more likely to occur in people who: ? Have a weak body defense system (immune system). ? Have open wounds on the skin, such as cuts, garcia, bites, and scrapes. Bacteria can enter the body through these open wounds. ? Are older than 60 years of age. ? Have diabetes. ? Have a type of long-lasting (chronic) liver disease (cirrhosis) or kidney disease. ? Are obese. ? Have a skin condition such as: ? Itchy rash (eczema). ? Slow movement of blood in the veins (venous stasis). ? Fluid buildup below the skin (edema). ? Have had radiation therapy. ? Use IV drugs. What are the signs or symptoms? Symptoms of this condition include: ? Redness, streaking, or spotting on the skin. ? Swollen area of the skin. ? Tenderness or pain when an area of the skin is touched. ? Warm skin. ? A fever. ? Chills. ? Blisters. How is this diagnosed? This condition is diagnosed based on a medical history and physical exam. You may also have tests, including: ? Blood tests. ? Imaging tests. How is this treated? Treatment for this condition may include: ? Medicines, such as antibiotic medicines or medicines to treat allergies (antihistamines). ? Supportive care, such as rest and application of cold or warm cloths (compresses) to the skin. ? Hospital care, if the condition is severe. The infection usually starts to get better within 1?2 days of treatment. Follow these instructions at home: Medicines ? Take lmzw-gnn-wapcmkt and prescription medicines only as told by your health care provider. ? If you were prescribed an antibiotic medicine, take it as told by your health care provider. Do not stop taking the antibiotic even if you start to feel better. General instructions ? Drink enough fluid to keep your urine pale yellow. ? Do not touch or rub the infected area. ? Raise (elevate) the infected area above the level of your heart while you are sitting or lying down. ? Apply warm or cold compresses to the affected area as told by your health care provider. ? Keep all follow-up visits as told by your health care provider. This is important. These visits let your health care provider make sure a more serious infection is not developing. Contact a health care provider if: ? You have a fever. ? Your symptoms do not begin to improve within 1?2 days of starting treatment. ? Your bone or joint underneath the infected area becomes painful after the skin has healed. ? Your infection returns in the same area or another area. ? You notice a swollen bump in the infected area. ? You develop new symptoms. ? You have a general ill feeling (malaise) with muscle aches and pains. Get help right away if: ? Your symptoms get worse. ? You feel very sleepy. ? You develop vomiting or diarrhea that persists. ? You notice red streaks coming from the infected area. ? Your red area gets larger or turns dark in color. These symptoms may represent a serious problem that is an emergency. Do not wait to see if the symptoms will go away. Get medical help right away. Call your local emergency services (911 in the [place] Do not drive yourself to the hospital. Summary ? Cellulitis is a skin infection. This condition occurs most often in the arms and lower legs. ? Treatment for this condition may include medicines, such as antibiotic medicines or antihistamines. ? Take ukzo-ded-jgtcuhs and prescription medicines only as told by your health care provider. If you were prescribed an antibiotic medicine, do not stop taking the antibiotic even if you start to feel better. ? Contact a health care provider if your symptoms do not begin to improve within 1?2 days of starting treatment or your symptoms get worse. ? Keep all follow-up visits as told by your health care provider. This is important. These visits let your health care provider make sure that a more serious infection is not developing. This information is not intended to replace advice given to you by your health care provider. Make sure you discuss any questions you have with your health care provider. Document Revised: 05/10/2022 Document Reviewed: 05/11/2022 Elsevier Patient Education ? 2022 [employer] Normal [facility] ED Patient Summaryon 024 ED Patient Summary [address] [address] Patient Discharge Instructions Person Information Name: RAPHAEL MEEHAN Age: 28 Years Arrival Date: 09/21/2023 08:45:38 Discharge Diagnosis: Cellulitis Primary Care Physician: Debbie Bui Provider Information Primary Provider: Juanjose Toscano DO Advanced Baby Sitter:Reece Oh PA-C The exam and treatment you received in the Emergency Department were for an urgent problem and are not intended as complete care. It is important that you follow up with a doctor, nurse practitioner, or physician?s carpenter's assistant for ongoing care. If your symptoms become worse or you do not improve as expected and you are unable to reach your usual health care provider, you should return to the Emergency Department. We are available 24 hours a day. RAPHAEL MEEHAN has been given the following list of patient education materials, prescriptions and follow-up instructions: Follow-up Instructions: With: Address: When: Debbie Cole [address] [place], [place] [id number] Business (1) In 3 days 09/24/2023 In the event that this physician does not participate in your insurance network, please consult with your insurance company to find a nearby participating provider. Patient Education Materials: Cellulitis, Adult A MESSAGE TO ALL PATIENTS REGARDING OPIOIDS PRESCRIPTION OPIOIDS: WHAT YOU NEED TO KNOW Prescription opioids can be used to help relieve beydzxpf-kz-npifnf pain and are often prescribed following a surgery or injury, or for certain health conditions. These medications can be an important part of the treatment but also come with serious risks. It is important to work with your healthcare provider to make sure you are getting the safest, most effective care. WHAT ARE THE RISKS AND SIDE EFFECTS OF OPIOID USE? Prescription opioids carry serious risks of addiction and overdose, especially with prolonged use. An opioid overdose, often marked by slowed breathing, can cause sudden . The use of prescription opioids can have a number of side effects as well, even when taken as directed: ? Tolerance?meaning you might need to take more of the medication for the same pain relief ? Physical dependence?meaning you have symptoms of withdrawal when a medication is stopped ? Increased sensitivity to pain ? Constipation ? Nausea, vomiting, and dry mouth ? Sleepiness and dizziness ? Confusion ? Depression ? Low levels of testosterone that can result in lower sex drive, energy, and strength ? Itching and sweating RISKS ARE GREATER WITH: ? History of drug misuse, substance use disorder, or overdose ? Mental health conditions (such as depression or anxiety) ? Sleep apnea ? Older age (65 years and older) ? Avoid alcohol while taking prescription opioids. Also, unless specifically advised by your health care provider, medications to avoid include: ? Benzodiazepines (such as Xanax or Valium) ? Muscle relaxants (such as Soma or Flexeril) ? Hypnotics (such as Ambien or Lunesta) ? Other prescription opioids KNOW YOUR OPTIONS Talk to your health care provider about ways to manage your pain that don?t involve prescription opioids. Some of these options may actually work better and have fewer risks and side effects. Options may include: ? Pain relievers such as acetaminophen, ibuprofen, and naproxen ? Some medication that are also used for depression or seizures ? Physical therapy and exercise ? Cognitive behavioral therapy, a psychological, goal-directed approach, in which patients learn how to modify physical, behavioral, and emotional triggers of pain and stress. IF YOU ARE PRESCRIBED OPIOIDS FOR PAIN: ? Never take opioids in greater amounts or more often than prescribed. ? Follow up with your primary health care provider. o Work together to create a plan on how to manage your pain. o Talk about ways to help manage your pain that don?t involve prescription opioids. o Talk about any and all concerns and side effects. ? Help prevent misuse and abuse o Never sell or share prescription opioids. o Never use another person?s prescription opioids. ? Store prescription opioids in a secure place and out of reach of others (this may include visitors, children, friends, and family). ? Safely dispose of unused prescription opioids: Find your community drug take-back program or your pharmacy mail-back program, or flush them down the toilet, following guidance from the Food and Drug Administration (www.fda.gov/Drugs/Re sourcesForYou). ? Visit www.cdc.gov/drugoverd ose to learn about the risks of opioids abuse and overdose. ? If you believe you may be struggling with addiction, tell your health janitor caretaker and ask for guidance or call [facility]S National Helpline at 4-465-224-AQXD. v Source: [place] (more content not included)... Normal [facility] Medicine Office/Clini c Noteon 09-21-2023 Family Medicine Office/Clinic Note HPI Staff Raphael is a 28 year old female presenting for leg swelling Onset: 4 days ago Location: left leg No injury noted, has raised red rash to middle kinney c/o a lot of sharp/aching pain to area and itching. Swelling started when rash appeared and pain and rash has been getting worse. Tenderness to back of calf and throbbing to back of knee. feels leg gets very tight History of Present Illness pt presents today with red raised rash on kinney of left leg as well as redness, warmth, swelling and pain left lower thigh medially right above the knee. left calf is also very painful. positive Estrada's sign Review of Systems PHQ Score Initial Depression Screen Score: 0 SCORE ROS - Provider Constitutional: no fever, no chills, no sweats, no fatigue Respiratory: no shortness of breath, no cough, no orthopnea, no wheezing. Cardiovascular: no chest pain, no palpitations, no edema. Neurologic: no headache, no dizziness, no numbness, no weakness. Physical Exam Vitals & Measurements T: 36.6 ?C(Tympanic) HR: 98(Peripheral) RR: 18 BP: 130/84 SpO2: 98% HT: 65 in HT: 164 cm WT: 96.7 kg WT: 212.74 lb BMI: 35.95 General: alert, no acute distress ENMT: oral mucosa moist, no pharyngeal erythema or exudate Cardiovascular: regular rate and rhythm, normal peripheral perfusion Respiratory: Lungs CTA, respirations non labored Extremities: no deformity, no trauma Neurological: oriented x 4, LOC appropriate for age, CN II-XII intact, motor strength equal & normal bilaterally, speech normal Assessment/Plan 1. Pain of left calf (M79.662: Pain in left lower leg) positive Luciana's sign, will send pt to ER for vascular u/s of left leg to rule out DVT. not provided to excuse her from work today 2. Localized swelling of left lower leg (R22.42: Localized swelling, mass and lump, left lower limb) left mid to lower leg swollen on medial side. area is red, warm, swollen and painful. very painful to walk on it 3. BMI 35.0-35.9,adult (Z68.35: Body mass index [BMI] 35.0-35.9, adult) BMI education cmpleter 4. Smoker (F17.200: Nicotine dependence, unspecified, uncomplicated) consider not smoking Follow-up No qualifying data available Problem List/Past Medical History Ongoing Abnormal weight gain Blood glucose elevated Cough Dizziness Encounter for weight management Excessive thirst Family history of diabetes mellitus Fatigue Localized swelling of left lower leg Pain of left calf Polyuria Sinusitis Subcutaneous mass of both lower legs Subcutaneous mass of right lower leg Wellness examination Historical No qualifying data Procedure/Surgical History Ablation, Cholecystectomy, Surgery, Surgery, Surgery. Medications naproxen 500 mg oral enteric coated tablet, 500 mg= 1 tab(s), Oral, BID phentermine 37.5 mg Tab, 37.5 mg= 1 tab(s), Oral, Daily Vitamin D 50,000 intl units (1.25 mg) oral capsule, [address] International_Unit= 1 cap(s), Oral, qWeek, 3 refills Allergies No Known Allergies Social History Tobacco 5-9 cigarettes (between 1/4 to 1/2 pack)/day in last 30 days Tobacco Use:. Never Smokeless Tobacco Use:. Cigarettes, Ready to change: Yes. Household tobacco concerns: No. Yes, 09/21/2023 Family History Diabetes mellitus type 2: Brother, Grandparent and Uncle. Hypertension: Mother and Grandparent. Primary malignant neoplasm of female breast: Mother and Grandparent. Immunizations Vaccine Date Status Comments influenza virus vaccine, inactivated - Not Given Patient Refuses diphtheria/pertussis, acel/tetanus adult 07/09/2017 Recorded Normal [facility] Comment on above: Result Comment: Elec tronically Signed By: Debbie Bui\.br\Date and Time Signed: 09/21/23 08:30 EST Provider Letteron 09-21-2023 Provider Letter September 21, 2023 RAPHAEL MEEHAN [address] [place] [phone] : 1995 To Whom It May Concern, Please excuse above patient from work. Date of Illness: From: 09/21/2023 To: 09/21/2023 May Return to Work On: 09/24/2023 Restrictions: _ Comments: _ Sincerely, [place] [id number] Normal [facility] US LE Venous Duplex Lefton 0 09-21-2023 LE Venous Duplex Left Exam Date/Time: 09/21/2023 09:31 EST Reason for Exam: Swelling Report IMPRESSION: NO EVIDENCE OF VENOUS THROMBOSIS INVOLVING VISUALIZED DEEP VEINS OF THE LEFT LEG. CLINICAL HISTORY: Swelling COMMENT: On the left, the greater saphenous vein, common femoral vein, deep femoral vein, femoral vein, and popliteal vein demonstrate spontaneous phasic venous flow, with augmentation, competence, non-pulsatility, and compressibility every 2 cm. The left posterior tibial and peroneal veins of the deep venous system compress. The contralateral right common femoral vein demonstrates spontaneous phasic venous flow. Ordering Provider: Reece Oh FINAL REPORT Dictated: 09/21/2023 9:56 am Isaias Palma MD Signed (Electronic Signature): 09/21/2023 9:56 am Signed by: Isaias Palma MD Transcribed by: ILDA Technologist: [facility] Ambulatory Visit Summaryon 0 09-07-2023 Ambulatory Visit Summary RAPHAEL MEEHAN :1995 Visit Date:09/07/2023 Ambulatory Visit Instructions Your Diagnosis Dizziness Excessive thirst BMI 36.0-36.9,adult Fatigue Blood glucose elevated Your Care Team Attending Physician - Debbie Bui Primary Care Physician - Debbie Bui This Is Your Medications List naproxen (naproxen 500 mg oral enteric coated tablet) phentermine (phentermine 37.5 mg Tab) Procedures Performed Ablation, Cholecystectomy, Surgery, Surgery, Surgery. Discharge Vitals Heart Rate (Peripheral) 88 Respiratory Rate 18 Blood Pressure 128/86 Height 164.0 cm Height 65 in Weight 98.6 kg Weight 216.92 lb BMI 36.66 What to do next Scheduled Follow-Up Appointments Sunday 3:40 PM EST With: Debbie Bui Where: [facility] CBC w/ Auto Diffon 4 Basophil Absolute 0.1 E9/L Normal 0.0-0.2 [facility] Comment on above: Performed By: #### 2 [id number], [id number], [id number], 1906457, 8901169, [id number] ####[address] [address] Basophils/100 WBC (Bld) 0.8 % Normal 0.0-2.0 [facility] Comment on above: Performed By: #### 2 376544, 40070264, 128923658, 4692293, 7901165, [id number] ####[address] [address] Eos Absolute 0.9 E9/L High 0.0-0.5 [facility] Comment on above: Performed By: #### 2 180450, 56775102, 832875105, 3250117, 6638044, [id number] ####[address] [address] Eosinophils/100 WBC (Bld) 6.8 % Normal 0.0-8.0 [facility] Comment on above: Performed By: #### 2 535756, 48283817, 910205654, 5887468, 1666262, 327706593 ####[address] [address] Erythrocyte distribution width (RBC) [Ratio] 13.1 % Normal 10.9-14.2 [facility] Comment on above: Performed By: #### 2 191507, 10897801, 593794762, 5492810, 9361562, 810409077 ####[address] [address] Hematocrit (Bld) [Volume fraction] 39.0 % Normal 34.0-46.0 [facility] Comment on above: Performed By: #### 2 844606, 24617098, 831928728, 2529508, 3856357, [id number] ####[facility] [address] [place] [address] Hemoglobin (Bld) [Mass/Vol] 12.7 g/dL Normal 12.0-16.0 [facility] Comment on above: Performed By: #### 2 113267, 00594094, 076426910, 8557435, 0593444, 824881032 ####[address] [address] Lymph Absolute 4.0 E9/L Normal 1.0-4.0 [facility] Comment on above: Performed By: #### 2 606869, 70967891, 411713112, 7835003, 9880907, 311378865 ####[address] [address] Lymphocytes/100 WBC (Bld) 30.3 % Normal 14.0-50.0 [facility] Comment on above: Performed By: #### 2 858287, 27629016, 096703114, 6995490, 3162308, 125695772 ####[address] [address] MCH (RBC) [Entitic mass] 29.2 pg Normal 27.0-34.0 [facility] Comment on above: Performed By: #### 2 404565, 76712240, 925752988, 2350814, 6837401, 168020160 ####[address] [address] MCHC (RBC) [Mass/Vol] 32.7 g/dL Normal 31.4-36.0 [facility] Comment on above: Performed By: #### 2 495529, 40652865, 166931462, 7722604, 7098402, 905589617 ####[address] [address] MCV (RBC) [Entitic vol] 89.3 fL Normal 80.0-100.0 [facility] Comment on above: Performed By: #### 2 820005, 34100361, 726364856, 0919011, 4538711, 612622121 ####[facility] [address] [place] [address] [place] Absolute 0.9 E9/L Normal 0.2-1.0 [facility] Comment on above: Performed By: #### 2 723029, 03375658, 482181025, 0807872, 2755174, 402659294 ####[address] [address] Monocytes/100 WBC (Bld) 6.9 % Normal 4.0-14.0 [facility] Comment on above: Performed By: #### 2 860410, 18877854, 330714026, 6196188, 8925334, 109847807 ####[address] [address] Neutro Absolute 7.3 E9/L Normal 2.0-7.5 [facility] Comment on above: Performed By: #### 2 580025, 95027598, 311143900, 3205746, 0780650, 165007087 ####[address] [address] Neutro Auto 55.2 % Normal 36.0-75.0 [facility] Comment on above: Performed By: #### 2 207789, 95775088, 016926739, 3040888, 2396085, 783841414 ####[place] [address] [place] [address] Platelet 327.0 E9/L Normal 150.0-500.0 [facility] Comment on above: Performed By: #### 2 876511, 23670109, 644262720, 6559544, 3754392, 582329040 ####[facility] [address] [place] [address] Platelet mean volume (Bld) [Entitic vol] 8.8 fL Normal 6.4-10.8 [facility] Comment on above: Performed By: #### 2 875533, 33660989, 304774163, 0286612, 7156554, 097187632 ####[facility] [address] [place] [address] RBC 4.4 E12/L Normal 4.3-5.9 [facility] Comment on above: Performed By: #### 2 270750, 54809429, 709674004, 1902590, 6122568, 691197639 ####[facility] [address] [place] [address] WBC 13.2 E9/L High 4.0-11.0 [facility] Comment on above: Performed By: #### 2 242453, 68628998, 687802898, 7960586, 1677154, 488945900 ####[facility] [address] [place] [address] CHEMISTRYOrdered By: SYSTEM SYSTEM on 09-07-2023 Albumin [Mass/Vol] 3.6 g/dL Normal 3.3 - 5.0 gm/dL Remisol Chem Albumin/Globulin [Mass ratio] 1.9 {ratio} Normal 1.1 - 2.2 Remisol Chem Alk Phos 41 [iU]/d Normal 21 - 98 Int._Unit/L Remisol Chem ALT 29 [iU]/d Normal 6 - 46 Int._Unit/L Remisol Chem Anion gap [Moles/Vol] 12 mmol/L Normal 6 - 16 mEq/L R emisol Chem AST 25 [iU]/d Normal 5 - 43 Int._Unit/L Remisol Chem Bili Total 0.4 mg/dL Normal 0.0 - 1.1 mg/dL Remisol Chem Calcium [Mass/Vol] 8.3 mg/dL Low 8.9 - 11. 1 mg/dL Remisol Chem Chloride [Moles/Vol] 107 mmol/L Normal 101 - 1 11 mmol/L Remisol Chem CO2 [Moles/Vol] 24 mmol/L Normal 21 - 31 mmol/L Remisol Chem Cobalamin (Vitamin B12) [Mass/Vol] 294 pg/mL Normal 50 - 1500 pg/mL Remisol Chem Creatinine [Mass/Vol] 0.7 mg/dL Normal 0.5 - 1.3 mg/dL Remisol Chem eGFR 121 mL/min/1.73 m2 Normal >=59mL/mi n/1 .73 m2 Remisol Chem Globulin (S) [Mass/Vol] 1.9 g/dL Normal 1.4 - 4.0 gm/dL Remisol Chem Glucose [Mass/Vol] 91 mg/dL Normal 55 - 199 mg/dL Remisol Chem Potassium [Moles/Vol] 4.3 mmol/L Normal 3.5 - 5.3 mmol/L Remisol Chem Protein [Mass/Vol] 5.5 g/dL Low 6.0 - 7.8 gm/dL Remisol Chem Sodium [Moles/Vol] 139 mmol/L Normal 135 - 145 mmol/L Remisol Chem Urea nitrogen [Mass/Vol] 7 mg/dL Normal 5 - 21 mg/dL Remisol Chem Urea nitrogen/Creatinine [Mass ratio] 10 mg/mg Normal 10 - 20 Remisol Chem Vitamin D 25 Hydroxy 9.8 ng/mL Low 30.0 - 100.0 ng/mL Remisol Chem CHEMISTRYOrdered By: Dale reddy on 09-07-2023 HbA1c (Bld) [Mass fraction] 5.2 % Normal <=5.9% [facility] ChemAutoSS CMPon 09-07-2023 Albumin [Mass/Vol] 3.6 g/dL Normal 3.3-5.0 [facility] Comment on above: Performed By: #### 2 047355, 55021815, 799654839, 4788785, 1435560, 250863299 ####[facility] [address] [place] [address] Albumin/Globulin [Mass ratio] 1.9 {ratio} Normal 1.1-2.2 [facility] Comment on above: Performed By: #### 2 826029, 38062462, 933821870, 8825399, 7550653, 331062284 ####[facility] [address] [place] [address] Alk Phos 41 Int._Unit/L Normal 21-98 [facility] Comment on above: Performed By: #### 2 647534, 66961097, 939250396, 0053943, 7066458, 563962309 ####[facility] [address] [place] [address] ALT 29 Int._Unit/L Normal 6-46 [facility] Comment on above: Performed By: #### 2 659587, 12186620, 146932313, 0093686, 1826076, [id number] ####[facility] [address] [place] [address] Anion gap [Moles/Vol] 12 mmol/L Normal 6-16 [facility] Comment on above: Performed By: #### 2 328889, 48731655, [id number], [id number], [id number], [id number] ####[address] [place] [address] AST 25 Int._Unit/L Normal 5-43 [facility] Comment on above: Performed By: #### 2 041447, [id number], [id number], [id number], 7320631, [id number] ####[facility] [address] [place] [address] Bili Total 0.4 mg/dL Normal 0.0-1.1 [facility] Comment on above: Performed By: #### 2 959674, [id number], [id number], 1921174, 7992911, [id number] ####[facility] [address] [place] [address] BUN/Creat Ratio 10 No Units Normal 10-20 [facility] Comment on above: Performed By: #### 2 487044, 62913435, [id number], 0743483, 4908502, [id number] ####[facility] [address] [place] [address] Calcium [Mass/Vol] 8.3 mg/dL Low 8.9-11.1 [facility] Comment on above: Performed By: #### 2 182600, 15572341, [id number], 4685136, 9433105, [id number] ####[facility] [address] [place] [address] Chloride [Moles/Vol] 107 mmol/L Normal 101-111 [facility] Comment on above: Performed By: #### 2 468304, [id number], [id number], 0534980, 9171931, [id number] ####[facility] [address] [place] [address] CO2 [Moles/Vol] 24 mmol/L Normal 21-31 [facility] Comment on above: Performed By: #### 2 735173, 75298589, 858497231, 2239281, 6710168, [id number] ####[facility] [address] [place] [address] Creatinine [Mass/Vol] 0.7 mg/dL Normal 0.5-1.3 [facility] Comment on above: Performed By: #### 2 953089, 87440914, [id number], 7081395, 1817289, [id number] ####[facility] [address] [place] [address] Globulin (S) [Mass/Vol] 1.9 g/dL Normal 1.4-4.0 [facility] Comment on above: Performed By: #### 2 195421, 17602053, [id number], 3007253, 3584310, [id number] ####[facility] [address] [place] [address] Glucose [Mass/Vol] 91 mg/dL Normal 55-199 [facility] Comment on above: Performed By: #### 2 109337, 89773746, 212517751, 1755702, 7606022, [id number] ####[facility] [address] [place] [address] Potassium [Moles/Vol] 4.3 mmol/L Normal 3.5-5.3 [facility] Comment on above: Performed By: #### 2 579825, 35730591, [id number], 1143232, 5765743, [id number] ####[facility] [address] [place] [address] Protein [Mass/Vol] 5.5 g/dL Low 6.0-7.8 [facility] Comment on above: Performed By: #### 2 832010, 48212725, 694091649, 4541393, 1296374, [id number] ####[facility] [address] [place] [address] Sodium [Moles/Vol] 139 mmol/L Normal 135-145 [facility] Comment on above: Performed By: #### 2 199751, 24830400, 838625932, 8634017, 9533644, [id number] ####[facility] [address] [place] [address] Urea nitrogen [Mass/Vol] 7 mg/dL Normal 5-21 [facility] Comment on above: Performed By: #### 2 052519, 00252462, [id number], 0762474, 3969968, [id number] ####[facility] [address] [place] [address] Family Medicine Office/Clini c Noteon 09-07-2023 Family Medicine Office/Clinic Note HPI Staff Raphael is a 28 year old female presenting for 1 month follow up Weight management: Started Phentermine on 06/08/23 Sleeping well:Yes, 6-8 hours Chest pain:No Tremors:No Headaches:No Heart fluttering:No Blurred Vision:No Beginning weight: 224.4Ibs/ 102.0Kg Previous weight: 212.08/96.4kg Today's weight: 216.92 Ibs CARINA 08/07/23 Subcutaneous mass of both lower legs order US Bilateral LE. testing showed possible lipomas pt ordered anti-inflammatory and steroid Pt feels the lipomas are going down and then now more are appearing pt states she was at work 3 days ago and was seeing stars at work and nurse at work checked blood sugar and is over 500 , pt went to [facility] and states she just have iv fluids placed and the didn't check any lab work. pt states for about 2 years she will feel shaky and clammy and always thirsty. History of Present Illness pt having episodes of dizziness. BS was checked at she was told it was over 500. Went to [place] [facility] gave her IV fluids. Feels shaky, clammy and always thirsty Review of Systems PHQ Score Initial Depression Screen Score: 0 SCORE ROS - Provider Constitutional: no fever, no chills, no sweats, no fatigue Respiratory: no shortness of breath, no cough, no orthopnea, no wheezing. Cardiovascular: no chest pain, no palpitations, no edema. Neurologic: no headache, no dizziness, no numbness, no weakness. Physical Exam Vitals & Measurements HR: 88(Peripheral) RR: 18 BP: 128/86 SpO2: 98% HT: 65 in HT: 164.0 cm WT: 98.6 kg WT: 216.92 lb BMI: 36.66 General: alert, no acute distress ENMT: oral mucosa moist, no pharyngeal erythema or exudate Cardiovascular: regular rate and rhythm, normal peripheral perfusion Respiratory: Lungs CTA, respirations non labored Extremities: no deformity, no trauma Neurological: oriented x 4, LOC appropriate for age, CN II-XII intact, motor strength equal & normal bilaterally, speech normal Assessment/Plan 1. Dizziness (R42: Dizziness and giddiness) episodes of dizziness. will check labs today Ordered: CBC w/ Auto Diff Comprehensive Metabolic Panel HgbA1c Lab Specimen Collect 32396 Vitamin B12 Level Vitamin D 25 Hydroxy 2. Excessive thirst (R63.1: Polydipsia) excessively thirsty. will check labs today Ordered: CBC w/ Auto Diff Comprehensive Metabolic Panel HgbA1c Lab Specimen Collect 23527 Vitamin B12 Level Vitamin D 25 Hydroxy 3. Blood glucose elevated (R73.9: Hyperglycemia, unspecified) pt was dizzy at work. nurse checked BS ans was above 500. went to ER. received IV fluids. will check HGBA1C. last check was WNL Ordered: CBC w/ Auto Diff Comprehensive Metabolic Panel HgbA1c Lab Specimen Collect 23694 Vitamin B12 Level Vitamin D 25 Hydroxy 4. Fatigue (R53.83: Other fatigue) c/o worsening fatigue Ordered: CBC w/ Auto Diff Comprehensive Metabolic Panel HgbA1c Lab Specimen Collect 82477 Vitamin B12 Level Vitamin D 25 Hydroxy 5. BMI 36.0-36.9,adult (Z68.36: Body mass index [BMI] 36.0-36.9, adult) BMI educatoin complete Ordered: CBC w/ Auto Diff Comprehensive Metabolic Panel HgbA1c Vitamin B12 Level Vitamin D 25 Hydroxy Follow-up No qualifying data available Problem List/Past Medical History Ongoing Abnormal weight gain Blood glucose elevated Cough Dizziness Encounter for weight management Excessive thirst Family history of diabetes mellitus Fatigue Polyuria Sinusitis Subcutaneous mass of both lower legs Subcutaneous mass of right lower leg Wellness examination Historical No qualifying data Procedure/Surgical History Ablation, Cholecystectomy, Surgery, Surgery, Surgery. Medications naproxen 500 mg oral enteric coated tablet, 500 mg= 1 tab(s), Oral, BID phentermine 37.5 mg Tab, 37.5 mg= 1 tab(s), Oral, Daily Allergies No Known Allergies Social History Tobacco 5-9 cigarettes (between 1/4 to 1/2 pack)/day in last 30 days Tobacco Use:. Never Smokeless Tobacco Use:. Cigarettes, Ready to change: Yes. Household tobacco concerns: No. Yes, 09/07/2023 Family History Diabetes mellitus type 2: Brother, Grandparent and Uncle. Hypertension: Mother and Grandparent. Primary malignant neoplasm of female breast: Mother and Grandparent. Immunizations Vaccine Date Status Comments influenza virus vaccine, inactivated - Not Given Patient Refuses diphtheria/pertussis, acel/tetanus adult 07/09/2017 Recorded Normal [facility] Comment on above: Result Comment: Elec tronically Signed By: Debbie Bui\.br\Date and Time Signed: 09/07/23 12:26 EST HEMATOLOGYOrdered By: SYSTEM SYSTEM on 09-07-2023 Basophil Absolute 0.1 E9/L Normal 0.0 - 0.2 E9/L Remisol Heme Basophils/100 WBC (Bld) 0.8 % Normal 0.0 - 2.0 % Remisol Heme Eos Absolute 0.9 E9/L High 0.0 - 0.5 E9/L Remisol Heme Eosinophils/100 WBC (Bld) 6.8 % Normal 0.0 - 8.0 % Remisol Heme Erythrocyte distribution width (RBC) [Ratio] 13.1 % Normal 10.9 - 14.2 % Remisol Heme Hematocrit (Bld) [Volume fraction] 39.0 % Normal 34.0 - 46.0 % Remisol Heme Hemoglobin (Bld) [Mass/Vol] 12.7 g/dL Normal 12.0 - 16.0 gm/dL Remisol Heme Lymph Absolute 4.0 E9/L Normal 1.0 - 4.0 E9/L Remisol Heme Lymphocytes/100 WBC (Bld) 30.3 % Normal 14.0 - 50.0 % Remisol Heme MCH (RBC) [Entitic mass] 29.2 pg Normal 27.0 - 34.0 pg Remisol Heme MCHC (RBC) [Mass/Vol] 32.7 g/dL Normal 31.4 - 36.0 gm/dL Remisol Heme MCV (RBC) [Entitic vol] 89.3 fL Normal 80.0 - 100.0 fL Remisol Heme [place] Absolute 0.9 E9/L Normal 0.2 - 1.0 E9/L Remisol Heme Monocytes/100 WBC (Bld) 6.9 % Normal 4.0 - 14.0 % Remisol Heme Neutro Absolute 7.3 E9/L Normal 2.0 - 7.5 E9/L Remisol Heme Neutro Auto 55.2 % Normal 36.0 - 75.0 % Remisol Heme Platelet 327.0 E9/L Normal 150.0 - 500.0 E9/L Remisol Heme Platelet mean volume (Bld) [Entitic vol] 8.8 fL Normal 6.4 - 10.8 fL Remisol Heme RBC 4.4 E12/L Normal 4.3 - 5.9 E12/L Remisol Heme WBC 13.2 E9/L High 4.0 - 11.0 E9/L Remisol Heme DilP8xch 09-07-2023 HbA1c (Bld) [Mass fraction] 5.2 % Normal <=5.9 [facility] Comment on above: Performed By: #### 2 540614, [id number], [id number], 4982990, 7293991, [id number] ####[facility] [address] [place] [address] Vit B12on 09-07-2023 Cobalamin (Vitamin B12) [Mass/Vol] 294 pg/mL Normal 50-1500 [facility] Comment on above: Performed By: #### 2 379024, 38069141, [id number], 2657015, 3946735, [id number] ####[facility] [address] [place] [address] Vitamin D 25 Hydroxyon 09-07 Vitamin D 25 Hydroxy 9.8 ng/mL Low 30.0-100.0 [facility] Comment on above: Performed By: #### 2 152967, 00495700, 060165197, 8769131, 7325284, [id number] ####[facility] [address] [place] [address] eGFRon 09-07-2023 eGFR 121 mL/min/1.73 m2 Normal >=59 [facility] Comment on above: Order Comment: Order added by Discern Expert. Performed By: #### 2 702354, 72660463, 052348013, 2422042, 2535036, [id number] ####[facility] [address] [place] [address] RAD - Ultrasound Reporton RAD - Ultrasound Report [id number] Normal [facility] US EXT NON-VASC LT LIMITEDon 08-08-2023 US EXT NON-VASC LT LIMITED US EXT NON-VASC LT LIMITED History: Bilateral lower leg palpable lumps. Patient reports these are increasing in size and number. Exam/Technique: Focused ultrasound of bilateral lower leg palpable abnormalities. Comparison: None Findings: At the sites of palpable finding there appear to be multiple solid slightly hyperechoic nodules in the subcutaneous tissues with variably defined borders. The largest of these in the right leg measures 1.5 cm in its greatest dimension and on the left 2.0 cm IMPRESSION: Nonspecific prominence to palpable nodules in the left leg but appearance would be compatible with multiple small lipomas. Ultrasound cannot definitively distinguish fatty from other solid tissue. Finalized by Dedrick Granger MD on 08/08/2023 1:38 PM Normal [facility] US EXT NON-VASC RT LIMITEDon 08-08-2023 US EXT NON-VASC RT LIMITED US EXT NON-VASC RT LIMITED Clinical history: Palpable lumps for 5 months Findings: Multiplanar sonography was performed the area concern in each of the lower extremities. The palpable findings correspond to 2 masses just below the skin surface there isoechoic to surrounding fat. The first measures 1.5 x 1.3 x 0.7 cm and is located in the right lower extremity. The second is located within the left lower extremity measuring 2.0 x 1.7 x 2.7 cm. These masses are likely lipomas. No subcutaneous edema nor drainable fluid collection. Impression: Sonographically findings likely representing lipomas. Finalized by Dexter Valero MD on 08/08/2023 12:20 PM Normal [facility] Ambulatory Visit Summaryon 1 10-08-2022 Ambulatory Visit Summary AUGUSTINA MEEHANTANDawson Butler :1995 Visit Date:08/07/2023 Ambulatory Visit Instructions Your Diagnosis BMI 35.0-35.9,adult Non-smoker Subcutaneous mass of both lower legs Tests Performed US Extremity Non-Vascular Limited Left -- Results Pending -- US Extremity Non-Vascular Limited Right -- Results Pending -- Please visit your patient portal for your results or contact your primary care physician. Your Care Team Attending Physician - Debbie Bui Primary Care Physician - Debbie Bui This Is Your Medications List azithromycin (azithromycin 250 mg Tab) methylPREDNISolone (methylPREDNISolone 4 mg tab dosepak) phentermine (phentermine 37.5 mg Tab) Procedures Performed Ablation, Cholecystectomy, Surgery, Surgery, Surgery. Discharge Vitals Heart Rate (Peripheral) 70 Respiratory Rate 16 Blood Pressure 126/88 Height 164 cm Height 65 in Weight 96.4 kg Weight 212.08 lb BMI 35.84 What to do next Scheduled Follow-Up Appointments Sunday 3:20 PM EST With: Debbie Bui Where: [facility] [place] Normal [facility] Family Medicine Office/Clini c Noteon 08-07-2023 Family Medicine Office/Clinic Note HPI Staff Eldridge is a 28 year old female presenting for 1 month follow up Weight management: Started Phentermine on 06/08/23 Sleeping well:Yes, 6-8 hours Chest pain:No Tremors:No Headaches:No Heart fluttering:No Blurred Vision:No Beginning weight: 224.4Ibs/102.0kg Previous weight: 217.58Ibs/ 98.9kg Today's weight: 212.08Ibs/ 96.4 kg Questions/Concerns: Onset: 5 months Started having small red areas appearing all over bilateral legs pt states areas are hard and tender to touch. Denies any injury. History of Present Illness pt presents today for weight management. also c/o tender lumps on both lower legs. the area looks bruised/red above the lumps Review of Systems PHQ Score Initial Depression Screen Score: 0 SCORE ROS - Provider Constitutional: no fever, no chills, no sweats, no fatigue Respiratory: no shortness of breath, no cough, no orthopnea, no wheezing. Cardiovascular: no chest pain, no palpitations, no edema. Neurologic: no headache, no dizziness, no numbness, no weakness. Physical Exam Vitals & Measurements HR: 70(Peripheral) RR: 16 BP: 126/88 SpO2: 99% HT: 65 in HT: 164 cm WT: 96.4 kg WT: 212.08 lb BMI: 35.84 General: alert, no acute distress ENMT: oral mucosa moist, no pharyngeal erythema or exudate Cardiovascular: regular rate and rhythm, normal peripheral perfusion Respiratory: Lungs CTA, respirations non labored Extremities: no deformity, no trauma Neurological: oriented x 4, LOC appropriate for age, CN II-XII intact, motor strength equal & normal bilaterally, speech normal Assessment/Plan 1. Encounter for weight management (Z76.89: Persons encountering health services in other specified circumstances) pt presents today for weight management. has lost another 5 pounds. doing well. RTC 4 weeks 2. Subcutaneous mass of both lower legs (R22.43: Localized swelling, mass and lump, lower limb, bilateral) pt has has tender lumps of both lower legs for about 5 months. will order u/s of STEPHEN lower legs. Ordered: US Extremity Non-Vascular Limited Left US Extremity Non-Vascular Limited Right 3. BMI 35.0-35.9,adult (Z68.35: Body mass index [BMI] 35.0-35.9, adult) BMI education complete Ordered: US Extremity Non-Vascular Limited Right 4. Non-smoker (Z78.9: Other specified health status) continue not smoking Ordered: US Extremity Non-Vascular Limited Right Follow-up No qualifying data available Problem List/Past Medical History Ongoing Abnormal weight gain Cough Encounter for weight management Excessive thirst Family history of diabetes mellitus Fatigue Polyuria Sinusitis Subcutaneous mass of both lower legs Subcutaneous mass of right lower leg Wellness examination Historical No qualifying data Procedure/Surgical History Ablation, Cholecystectomy, Surgery, Surgery, Surgery. Medications azithromycin 250 mg Tab, 1 packet(s), Oral, As Directed methylPREDNISolone 4 mg tab dosepak, 1 packet(s), Oral, Once phentermine 37.5 mg Tab, 37.5 mg= 1 tab(s), Oral, Daily Allergies No Known Allergies Social History Tobacco 5-9 cigarettes (between 1/4 to 1/2 pack)/day in last 30 days Tobacco Use:. Never Smokeless Tobacco Use:. Cigarettes, Ready to change: Yes. Household tobacco concerns: No. Yes, 08/07/2023 Family History Diabetes mellitus type 2: Brother, Grandparent and Uncle. Hypertension: Mother and Grandparent. Primary malignant neoplasm of female breast: Mother and Grandparent. Immunizations Vaccine Date Status Comments influenza virus vaccine, inactivated - Not Given Patient Refuses diphtheria/pertussis, acel/tetanus adult 07/09/2017 Recorded Normal [facility] Comment on above: Result Comment: Elec tronically Signed By: Debbie Bui\.br\Date and Time Signed: 08/07/23 10:53 EST Family Medicine Office/Clini c Noteon 07-10-2023 Family Medicine Office/Clinic Note HPI Staff Raphael is a 28 year old female presenting for 1 month follow up Weight management: Started Phentermine on 06/08/23 Sleeping well:Yes, 6-8 hours Chest pain:No Tremors:No Headaches:No Heart fluttering:No Blurred Vision:No Beginning weight: 224.4Ibs/102.0kg Previous weight: same as above Today's weight:98.9k/ Questions/Concerns: Said she is concerned she is getting bronchitis today. also ?s about spots/red johnson on legs. History of Present Illness pt presents today for weight management. also having sinus symptoms and red areas on legs Review of Systems PHQ Score Initial Depression Screen Score: 0 SCORE ROS - Provider Constitutional: no fever, no chills, no sweats, no fatigue Respiratory: no shortness of breath, yes cough, no orthopnea, no wheezing., nasal congestion sinus pressure Cardiovascular: no chest pain, no palpitations, no edema. Neurologic: no headache, no dizziness, no numbness, no weakness. Physical Exam Vitals & Measurements HR: 97(Peripheral) RR: 18 BP: 128/82 SpO2: 97% HT: 65 in HT: 164 cm WT: 98.9 kg WT: 217.58 lb BMI: 36.77 General: alert, no acute distress ENMT: oral mucosa moist, no pharyngeal erythema or exudate Cardiovascular: regular rate and rhythm, normal peripheral perfusion Respiratory: Lungs CTA, respirations non labored Extremities: no deformity, no trauma Neurological: oriented x 4, LOC appropriate for age, CN II-XII intact, motor strength equal & normal bilaterally, speech normal Assessment/Plan 1. Encounter for weight management (Z76.89: Persons encountering health services in other specified circumstances) pt is down 7 more pounds. doing well. denies side effects Ordered: phentermine, 37.5 mg = 1 tab(s), Oral, Daily, # 30 tab(s), Refills(s) 0, Pharmacy: [facility]/pharmacy #[id number], 164, cm, 07/09/23 15:22:00 EST, Height/Length Dosing, 98.9, kg, 07/09/23 15:22:00 EST, Weight Dosing phentermine, 37.5 mg = 1 tab(s), Oral, Daily, # 30 tab(s), Refills(s) 0, Pharmacy: [facility]/pharmacy #[id number], 164.4, cm, 06/08/23 10:01:00 EDT, Height/Length Dosing, 102, kg, 06/08/23 10:01:00 EDT, Weight Dosing 2. Sinusitis (J32.9: Chronic sinusitis, unspecified) nasal congestion, sinus tenderness. will send antibiotics and medrol dose pack 3. Cough (R05.9: Cough, unspecified) will send medrol dose pack BMI 37.0-37.9, adult (Z68.37: Body mass index [BMI] 37.0-37.9, adult) bmi education complete Ordered: phentermine, 37.5 mg = 1 tab(s), Oral, Daily, # 30 tab(s), Refills(s) 0, [id number] 164, cm, 07/09/23 15:22:00 EST, Height/Length Dosing, 98.9, kg, 07/09/23 15:22:00 EST, Weight Dosing phentermine, 37.5 mg = 1 tab(s), Oral, Daily, # 30 tab(s), Refills(s) 0, [id number], 164.4, cm, 06/08/23 10:01:00 EDT, Height/Length Dosing, 102, kg, 06/08/23 10:01:00 EDT, Weight Dosing Smoker (F17.200: Nicotine dependence, unspecified, uncomplicated) consider not smoking Ordered: phentermine, 37.5 mg = 1 tab(s), Oral, Daily, # 30 tab(s), Refills(s) 0, Pharmacy: [facility] #[id number], 164, cm, 07/09/23 15:22:00 EST, Height/Length Dosing, 98.9, kg, 07/09/23 15:22:00 EST, Weight Dosing phentermine, 37.5 mg = 1 tab(s), Oral, Daily, # 30 tab(s), Refills(s) 0, Pharmacy: [facility] #[id number], 164.4, cm, 06/08/23 10:01:00 EDT, Height/Length Dosing, 102, kg, 06/08/23 10:01:00 EDT, Weight Dosing Orders: azithromycin, = 1 packet(s), Oral, As Directed, as directed on package labeling, X 5 day(s), # 6 tab(s), Refills(s) 0, [id number], 164, cm, 07/09/23 15:22:00 EST, Height/Length Dosing, 98.9, kg, 07/09/23 15:22:00 EST, Weight Dosing methylPREDNISolone, = 1 packet(s), Oral, As Directed, as directed on package labeling, X 6 day(s), # 21 tab(s), Refills(s) 0, Pharmacy: [facility]/pharmacy #[id number], 164, cm, 07/09/23 15:22:00 EST, Height/Length Dosing, 98.9, kg, 07/09/23 15:22:00 EST, Weight Dosing Follow-up No qualifying data available Problem List/Past Medical History Ongoing Abnormal weight gain Cough Encounter for weight management Excessive thirst Family history of diabetes mellitus Fatigue Polyuria Sinusitis Wellness examination Historical No qualifying data Procedure/Surgical History Ablation, Cholecystectomy, Surgery, Surgery, Surgery. Medications azithromycin 250 mg Tab, 1 packet(s), Oral, As Directed Medrol 4 mg Tab, 1 packet(s), Oral, As Directed phentermine 37.5 mg Tab, 37.5 mg= 1 tab(s), Oral, Daily Allergies No Known Allergies Social History Tobacco 5-9 cigarettes (between 1/4 to 1/2 pack)/day in last 30 days Tobacco Use:. Never Smokeless Tobacco Use:. Cigarettes, Ready to change: Yes. Household tobacco concerns: No. Yes, 07/09/2023 Family History Diabetes mellitus type 2: Brother, Grandparent and Uncle. Hypertension: Mother and Grandparent. Primary malignant neoplasm of female breast: Mother and Grandparent. Immunizations Vaccine Date Status Comments influenza virus vaccine, inactivated - Not Given P (more content not included)... Normal [facility] Comment on above: Result Comment: Elec tronically Signed By: Debbie Bui\.br\Date and Time Signed: 07/10/23 10:53 EST Ambulatory Visit Summaryon 1 09-08-2022 Ambulatory Visit Summary RAPHAEL MEEHAN :1995 Visit Date:07/09/2023 Ambulatory Visit Instructions Your Diagnosis BMI 37.0-37.9, adult Encounter for weight management Smoker Your Care Team Attending Physician - Debbie Bui Primary Care Physician - Debbie Bui This Is Your Medications List azithromycin (azithromycin 250 mg Tab) methylPREDNISolone (Medrol 4 mg Tab) phentermine (phentermine 37.5 mg Tab) Procedures Performed Ablation, Cholecystectomy, Surgery, Surgery, Surgery. Discharge Vitals Heart Rate (Peripheral) 97 Respiratory Rate 18 Blood Pressure 128/82 Height 164 cm Height 65 in Weight 98.9 kg Weight 217.58 lb BMI 36.77 What to do next Scheduled Follow-Up Appointments Sunday 3:00 PM EST With: Debbie Bui Where: [facility] Ambulatory Visit Summaryon 1 Ambulatory Visit Summary RAPHAEL MEEHAN :1995 Visit Date:06/08/2023 Ambulatory Visit Instructions Your Diagnosis Encounter for weight management Abnormal weight gain BMI 37.0-37.9, adult Smoker Your Care Team Attending Physician - Debbie Bui Primary Care Physician - Debbie Bui This Is Your Medications List phentermine (phentermine 37.5 mg Tab) Procedures Performed Ablation, Cholecystectomy, Surgery, Surgery, Surgery. Discharge Vitals Heart Rate (Peripheral) 78 Respiratory Rate 18 Blood Pressure 122/78 Height 164.4 cm Height 65 in Weight 102.0 kg Weight 224.4 lb BMI 37.74 What to do next Scheduled Follow-Up Appointments Sunday 3:20 PM EST With: Debbie Bui Where: [facility] Family Medicine Office/Clini c Noteon 06-08-2023 Family Medicine Office/Clinic Note HPI Staff Raphael is a 28 year old female presenting for 2 week check up Weight management: pt would like to discuss weight Sleeping well:Yes, 6-8 hours Chest pain:No Tremors:No Headaches:No Heart fluttering:No Blurred Vision:No Today's weight: Questions/Concerns: pt would like to go over labs from 05/25/23 pt states she is still feeling fatigued all the time and is drinking over a gallon of water a day Onset: 1 week ago felt a lump under right side of ear, denies any pain Onset: 4 days ago noticed 2 bumps on left kinney area is redness and does have some pain with touching area History of Present Illness pt presents today to go over labs and to discuss weight loss Review of Systems PHQ Score Initial Depression Screen Score: 0 ROS - Provider Constitutional: no fever, no chills, no sweats, yes fatigue Respiratory: no shortness of breath, no cough, no orthopnea, no wheezing. Cardiovascular: no chest pain, no palpitations, no edema. Neurologic: no headache, no dizziness, no numbness, no weakness. Physical Exam Vitals & Measurements HR: 78(Peripheral) RR: 18 BP: 122/78 SpO2: 97% HT: 65 in HT: 164.4 cm WT: 102.0 kg WT: 224.4 lb BMI: 37.74 General: alert, no acute distress ENMT: oral mucosa moist, no pharyngeal erythema or exudate Cardiovascular: regular rate and rhythm, normal peripheral perfusion Respiratory: Lungs CTA, respirations non labored Extremities: no deformity, no trauma Neurological: oriented x 4, LOC appropriate for age, CN II-XII intact, motor strength equal & normal bilaterally, speech normal Assessment/Plan 1. Encounter for weight management (Z76.89: Persons encountering health services in other specified circumstances) pt presents today to discuss weight management. pt would like to try adipex. medication agreement signed. pt encouaraged to make healthy food choices, smaller portions, increase water and exercise. all questions answered. RTC 4 weeks. pt still fatigued and excessively thirsty Ordered: phentermine, 37.5 mg = 1 tab(s), Oral, Daily, # 30 tab(s), Refills(s) 0, Pharmacy: [facility]/pharmacy #[id number], 164.4, cm, 06/08/23 10:01:00 EDT, Height/Length Dosing, 102, kg, 06/08/23 10:01:00 EDT, Weight Dosing 2. Abnormal weight gain (R63.5: Abnormal weight gain) see above 3. BMI 37.0-37.9, adult (Z68.37: Body mass index [BMI] 37.0-37.9, adult) BMI education complete Ordered: phentermine, 37.5 mg = 1 tab(s), Oral, Daily, # 30 tab(s), Refills(s) 0, Pharmacy: [facility]/pharmacy #[id number], 164.4, cm, 06/08/23 10:01:00 EDT, Height/Length Dosing, 102, kg, 06/08/23 10:01:00 EDT, Weight Dosing 4. Smoker (F17.200: Nicotine dependence, unspecified, uncomplicated) consider not smoking Ordered: phentermine, 37.5 mg = 1 tab(s), Oral, Daily, # 30 tab(s), Refills(s) 0, Pharmacy: [facility]/pharmacy #[id number], 164.4, cm, 06/08/23 10:01:00 EDT, Height/Length Dosing, 102, kg, 06/08/23 10:01:00 EDT, Weight Dosing Follow-up No qualifying data available Problem List/Past Medical History Ongoing Abnormal weight gain Encounter for weight management Excessive thirst Family history of diabetes mellitus Fatigue Polyuria Wellness examination Historical No qualifying data Procedure/Surgical History Ablation, Cholecystectomy, Surgery, Surgery, Surgery. Medications phentermine 37.5 mg Tab, 37.5 mg= 1 tab(s), Oral, Daily Allergies No Known Allergies Social History Tobacco 5-9 cigarettes (between 1/4 to 1/2 pack)/day in last 30 days Tobacco Use:. Ready to change: Yes. Household tobacco concerns: No. Yes, 06/08/2023 Family History Diabetes mellitus type 2: Brother, Grandparent and Uncle. Hypertension: Mother and Grandparent. Primary malignant neoplasm of female breast: Mother and Grandparent. Immunizations Vaccine Date Status Comments influenza virus vaccine, inactivated - Not Given Patient Refuses diphtheria/pertussis, acel/tetanus adult 07/09/2017 Recorded Normal [facility] Comment on above: Result Comment: Elec tronically Signed By: Debbie Bui\.br\Date and Time Signed: 06/08/23 10:34 EDT Medication Consenton 023 Medication Consent [id number] .[id number] Normal [facility] Outside Mammographyon 2022 Outside Mammography [id number] .00TIFF Normal [facility] Auto Diffon 05-25-2023 Basophils/100 WBC (Bld) 1.0 % Normal 0.0-2.0 [facility] Comment on above: Order Comment: Order Added by Discern Expert. Performed By: #### 2 759160, 65880288, 1708868, 323934373, 1256167, 2443519, 9248055 ####[facility] [address] [place] [address] Basophils/Leukocytes Auto (Bld) [Pure # fraction] 0.1 E9/L Normal 0.0-0.2 [facility] Comment on above: Order Comment: Order Added by Discern Expert. Performed By: #### 2 789328, 83173070, 5423785, 670978520, 2890369, 4178028, 2908973 ####[address] [address] Eosinophils/100 WBC (Bld) 2.9 % Normal 0.0-8.0 [facility] Comment on above: Order Comment: Order Added by Discern Expert. Performed By: #### 2 347026, 62042409, 9252908, 646772190, 8527717, 5632078, 0582749 ####[address] [address] Eosinophils/Leukocyte s Auto (Bld) [Pure # fraction] 0.3 E9/L Normal 0.0-0.5 [facility] Comment on above: Order Comment: Order Added by Kimberly Expert. Performed By: #### 2 564443, 78892149, 6182290, 827333658, 3135797, 2137365, 3499247 ####[address] [address] Lymphocytes/100 WBC (Bld) 35.4 % Normal 14.0-50.0 [facility] Comment on above: Order Comment: Order Added by Discern Expert. Performed By: #### 2 894686, 50063272, 8153124, 287856222, 9280912, 5617046, 7334451 ####[address] [address] Lymphocytes/Leukocyte s Auto (Bld) [Pure # fraction] 4.0 E9/L Normal 1.0-4.0 [facility] Comment on above: Order Comment: Order Added by Discern Expert. Performed By: #### 2 555261, 10098084, 9337439, 461305942, 4652234, 8001412, 9220065 ####[facility] [address] [place] [address] Monocytes/100 WBC (Bld) 8.2 % Normal 4.0-14.0 [facility] Comment on above: Order Comment: Order Added by Discern Expert. Performed By: #### 2 154765, 00334325, 5057491, 392640209, 5502278, 3688946, 4174405 ####[address] [place] [address] Monocytes/Leukocytes Auto (Bld) [Pure # fraction] 0.9 E9/L Normal 0.2-1.0 [facility] Comment on above: Order Comment: Order Added by Discern Expert. Performed By: #### 2 481954, 29511878, 5011620, 944071065, 1196695, 3815391, 8279357 ####[address] [address] Neutrophils/100 WBC (Bld) 52.5 % Normal 36.0-75.0 [facility] Comment on above: Order Comment: Order Added by Kimberly Expert. Performed By: #### 2 558127, 48685757, 6138374, 941186770, 0222093, 5688569, 1107364 ####[address] [place] [address] Neutrophils/Leukocyte s Auto (Bld) [Pure # fraction] 5.9 E9/L Normal 2.0-7.5 [facility] Comment on above: Order Comment: Order Added by Discern Expert. Performed By: #### 2 618192, 47531721, 1718155, 956451457, 8407080, 7144417, 2170797 ####[address] [address] Bili Directon 05-25-2023 Bilirubin.direct [Mass/Vol] mg/dL Normal 0.1-0.4 [facility] Comment on above: Order Comment: Order Added by Kimberly Expert. Performed By: #### 2 435892, 10684564, 4964865, 934953952, 7269032, 8888969, 7178346 ####[address] [place] [address] CBC w/ Auto Diffon 3 Erythrocyte distribution width (RBC) [Ratio] 12.4 % Normal 10.9-14.2 [facility] Comment on above: Performed By: #### 2 813571, 38727088, 0582826, 333547602, 9816635, 6145006, 1759424 ####[address] [place] [address] Hematocrit (Bld) [Volume fraction] 40.6 % Normal 34.0-46.0 [facility] Comment on above: Performed By: #### 2 755767, 19637452, 5470211, 601572025, 0809326, 6350804, 0867925 ####[address] [place] [address] Hemoglobin (Bld) [Mass/Vol] 13.4 g/dL Normal 12.0-16.0 [facility] Comment on above: Performed By: #### 2 595827, 71144377, 0963868, 708708078, 4093427, 9105413, 8141813 ####[address] [place] [address] MCH (RBC) [Entitic mass] 28.9 pg Normal 27.0-34.0 [facility] Comment on above: Performed By: #### 2 578884, 71936992, 4693901, 811411264, 0974815, 8862940, 1181243 ####[address] [place] [address] MCHC (RBC) [Mass/Vol] 33.0 g/dL Normal 31.4-36.0 [facility] Comment on above: Performed By: #### 2 431671, 15238595, 9799156, 344550931, 0538026, 9980349, 1573620 ####[address] [place] [address] MCV (RBC) [Entitic vol] 87.5 fL Normal 80.0-100.0 [facility] Comment on above: Performed By: #### 2 985769, 55466673, 8691978, 946415974, 1134807, 4190756, 9888110 ####[address] [address] Platelet mean volume (Bld) [Entitic vol] 8.7 fL Normal 6.4-10.8 [facility] Comment on above: Performed By: #### 2 850898, 39354398, 6534371, 619873247, 1633010, 9905079, 8598839 ####[address] Platelets (Bld) [#/Vol] 337.0 E9/L Normal 150.0-500.0 [facility] Comment on above: Performed By: #### 2 680764, 63679083, 1784196, 493778903, 3157111, 3018927, 7055578 ####[address] [address] RBC (Bld) [#/Vol] 4.6 E12/L Normal 4.3-5.9 [facility] Comment on above: Performed By: #### 2 783358, 19822056, 5761013, 238808944, 5604174, 0445386, 8885930 ####[address] [address] WBC corrected for nucl RBC Auto (Bld) [#/Vol] 11.3 E9/L High 4.0-11.0 [facility] Comment on above: Performed By: #### 2 955962, 41345932, 9774220, 905443695, 4295251, 4281810, 4608360 ####[address] [address] CHEMISTRYOrdered By: SYSTEM SYSTEM on 05-25-2023 Albumin [Mass/Vol] 3.3 g/dL Normal 3.3 - 5.0 gm/dL [facility] Albumin/Globulin [Mass ratio] 0.9 {ratio} Low 1.1 - 2.2 [facility] ALP [Catalytic activity/Vol] 43 [iU]/d Normal 21 - 98 Int._Unit/L [facility] ALT No additional P-5'-P [Catalytic activity/Vol] 29 [iU]/d Normal 6 - 46 Int._Unit/L [facility] Anion gap [Moles/Vol] 11 mmol/L Normal 6 - 16 mEq/L F [facility] AST [Catalytic activity/Vol] 27 [iU]/d Normal 5 - 43 Int._Unit/L [facility] Bilirubin [Mass/Vol] 0.3 mg/dL Normal 0.0 - 1 .1 mg/dL [facility] Bilirubin.direct [Mass/Vol] mg/dL Normal 0.1 - 0.4 mg/dL [facility] Calcium [Mass/Vol] 9.5 mg/dL Normal 8.9 - 11. 1 mg/dL [facility] Chloride [Moles/Vol] 111 mmol/L Normal 101 - 1 11 mmol/L [facility] CO2 [Moles/Vol] 26 mmol/L Normal 21 - 31 mmol/L [facility] Creatinine [Mass/Vol] 0.9 mg/dL Normal 0.5 - 1.3 mg/dL [facility] GFR/1.73 sq M.predicted among non-blacks MDRD (S/P/Bld) [Vol rate/Area] 90 mL/min/1.73 m2 Normal >=59mL/min/1 .73 m2 [facility] Comment on above: Interpretive Data: C hronic kidney disease could be indicated at eGFR's of less than 60 mL/min/1.73m2. Kidney failure is indicated at less than 15 mL/min/1.73m2. Globulin (S) [Mass/Vol] 3.6 g/dL Normal 1.4 - 4.0 gm/dL [facility] Glucose [Mass/Vol] 81 mg/dL Normal 55 - 199 mg/dL [facility] Comment on above: Interpretive Data: I f this glucose result represents a fasting glucose, interpretation should refer to the following reference range: 55-99 mg/dL Potassium [Moles/Vol] 4.4 mmol/L Normal 3.5 - 5.3 mmol/L [facility] Protein [Mass/Vol] 6.9 g/dL Normal 6.0 - 7.8 gm/dL [facility] Sodium [Moles/Vol] 144 mmol/L Normal 135 - 145 mmol/L [facility] TSH Qn 1.88 m[IU]/L Normal 0.34 - 5.60 mcIU/mL [facility] Urea nitrogen [Mass/Vol] 10 mg/dL Normal 5 - 21 mg/dL [facility] Urea nitrogen/Creatinine [Mass ratio] 11 mg/mg Normal 10 - 20 [facility] Remisol CHEMISTRYOrdered By: Debbie Brush on 05-25-2023 HbA1c (Bld) [Mass fraction] 5.3 % Normal <=5.9% [facility] ChemAutoSS CMPon 05-25-2023 Albumin [Mass/Vol] 3.3 g/dL Normal 3.3-5.0 [facility] Comment on above: Performed By: #### 2 430172, 66708479, 2068626, 460741498, 3159288, 7365048, 5369412 ####[facility] [address] [place] [address] Albumin/Globulin (S) [Mass conc ratio] 0.9 Low 1.1-2.2 [facility] Comment on above: Performed By: #### 2 751420, 65671489, 9895440, 882127705, 1132381, 3845527, 8645793 ####[facility] [address] [place] [address] ALP [Catalytic activity/Vol] 43 Int._Unit/L Normal 21-98 [facility] Comment on above: Performed By: #### 2 522335, 30468911, 5091246, 857935845, 3893862, 7547430, 4501505 ####[facility] [address] [place] [address] ALT No additional P-5'-P [Catalytic activity/Vol] 29 Int._Unit/L Normal 6-46 [facility] Comment on above: Performed By: #### 2 658326, 67755070, 4036813, 690796798, 8296994, 3308447, 7427709 ####[facility] [address] [place] [address] Anion gap [Moles/Vol] 11 mmol/L Normal 6-16 [facility] Comment on above: Performed By: #### 2 434967, 36137418, 0387725, 489459936, 5185760, 6210685, 4940535 ####[facility] [address] [place] [address] AST [Catalytic activity/Vol] 27 Int._Unit/L Normal 5-43 [facility] Comment on above: Performed By: #### 2 065392, 53226184, 0813142, 453239988, 8624890, 5966540, 5005612 ####[facility] [address] [place] [address] Bilirubin [Mass/Vol] 0.3 mg/dL Normal 0.0-1.1 [facility] Comment on above: Performed By: #### 2 749811, 68339665, 6292741, 117266108, 7533457, 5600895, 9684374 ####[address] [place] [address] Calcium [Mass/Vol] 9.5 mg/dL Normal 8.9-11.1 [facility] Comment on above: Performed By: #### 2 092560, 29369385, 3902746, 813015091, 5376195, 4248908, 5188670 ####[facility] [address] [place] [address] Chloride [Moles/Vol] 111 mmol/L Normal 101-111 [facility] Comment on above: Performed By: #### 2 550063, 26737075, 9869105, 540717242, 9137964, 5803704, 6548545 ####[facility] [address] [place] [address] CO2 [Moles/Vol] 26 mmol/L Normal 21-31 [facility] Comment on above: Performed By: #### 2 130404, 66926497, 2120004, 761251814, 7065583, 5143709, 0986456 ####[facility] [address] [place] [address] Creatinine [Mass/Vol] 0.9 mg/dL Normal 0.5-1.3 [facility] Comment on above: Performed By: #### 2 747567, 86167748, 5650289, 546366581, 7619889, 8692707, 0584153 ####[facility] [address] [place] [address] Globulin (S) [Mass/Vol] 3.6 g/dL Normal 1.4-4.0 [facility] Comment on above: Performed By: #### 2 210128, 68164771, 3321546, 888369800, 4314331, 7363491, 3033077 ####[facility] [address] [place] [address] Glucose [Mass/Vol] 81 mg/dL Normal 55-199 [facility] Comment on above: Result Comment: If t his glucose result represents a fasting glucose, interpretation should refer to the following reference range: 55-99 mg/dL Performed By: #### 2 979759, 91373003, 4526816, 938811744, 1677030, 3634435, 8754360 ####[facility] [address] [place] [address] Potassium [Moles/Vol] 4.4 mmol/L Normal 3.5-5.3 [facility] Comment on above: Performed By: #### 2 764367, 36250672, 0756799, 601706497, 1962055, 1088794, 9284192 ####[facility] [address] [place] [address] Protein [Mass/Vol] 6.9 g/dL Normal 6.0-7.8 [facility] Comment on above: Performed By: #### 2 075107, 49773738, 1995950, 791328211, 3045119, 3024318, 0370505 ####[facility] [address] [place] [address] Sodium [Moles/Vol] 144 mmol/L Normal 135-145 [facility] Comment on above: Performed By: #### 2 509176, 83552975, 7074954, 423060718, 6267552, 5356240, 0849161 ####[facility] [address] [place] [address] Urea nitrogen [Mass/Vol] 10 mg/dL Normal 5-21 [facility] Comment on above: Performed By: #### 2 018184, 57068635, 5466616, 833821029, 4591299, 5306169, 1386118 ####[facility] [address] [place] [address] Urea nitrogen/Creatinine [Mass ratio] 11 No Units Normal 10-20 [facility] Comment on above: Performed By: #### 2 085822, 00955999, 0375851, 062005285, 0648203, 0097647, 8701216 ####[facility] [address] [place] [address] Family Medicine Office/Clini c Noteon 05-25-2023 Family Medicine Office/Clinic Note HPI Staff Eldridge is a 28 year old female presenting to establish care Establish Care: History: Any previous diagnosis: n/a History of seeing any specialist: When was your last doctors visit: 13 years ago or more Last provider: unknown Any recent labs: none Flu: refused Health Maintenance UTD: Colonoscopy: no Mammogram: Has appt today for nikole has lump on left breast Pelvic/Pap: 01/2023 normal Acute: Current issues/complaints: Family Hx diabetes, pt states she can drink a lot of still be thirsty and after eating feels like she could go to sleep. Weight management: pt would like to discuss options for losing weight History of Present Illness pt presents today to establish care. has not been to a doctor since she was in [employer] Review of Systems PHQ Score Initial Depression Screen Score: 0 ROS - Provider Constitutional: no fever, no chills, no sweats, no fatigue Respiratory: no shortness of breath, no cough, no orthopnea, no wheezing. Cardiovascular: no chest pain, no palpitations, no edema. Neurologic: no headache, no dizziness, no numbness, no weakness. excessive thirst, fatigue, increased urination Physical Exam Vitals & Measurements HR: 76(Peripheral) RR: 18 BP: 146/90 SpO2: 98% HT: 65 in HT: 164.4 cm WT: 101.967 kg WT: 224.327 lb BMI: 37.73 General: alert, no acute distress ENMT: oral mucosa moist, no pharyngeal erythema or exudate Cardiovascular: regular rate and rhythm, normal peripheral perfusion Respiratory: Lungs CTA, respirations non labored Extremities: no deformity, no trauma Neurological: oriented x 4, LOC appropriate for age, CN II-XII intact, motor strength equal & normal bilaterally, speech normal Assessment/Plan 1. Wellness examination (Z00.00: Encounter for general adult medical examination without abnormal findings) pt has not seen provider since [facility]. pt concerned about diabetes. her 30 year old brother was just diagnosed with diabetes and is on insulin. pt has increased thirst, fatigue after eating and polyuria. will order labs today. pt will return in 2 weeks to go over labs and to discuss weight loss Ordered: CBC w/ Auto Diff Comprehensive Metabolic Panel HgbA1c Thyroid Stimulating Hormone 2. Fatigue (R53.83: Other fatigue) TSH checked today Ordered: CBC w/ Auto Diff Comprehensive Metabolic Panel HgbA1c Thyroid Stimulating Hormone 3. Excessive thirst (R63.1: Polydipsia) labs drawn in office today Ordered: CBC w/ Auto Diff Comprehensive Metabolic Panel HgbA1c Thyroid Stimulating Hormone 4. Polyuria (R35.89: Other polyuria) see above Ordered: CBC w/ Auto Diff Comprehensive Metabolic Panel HgbA1c Thyroid Stimulating Hormone 5. Family history of diabetes mellitus (Z83.3: Family history of diabetes mellitus) will check HGBA1C today Ordered: CBC w/ Auto Diff Comprehensive Metabolic Panel HgbA1c Thyroid Stimulating Hormone 6. BMI 37.0-37.9, adult (Z68.37: Body mass index [BMI] 37.0-37.9, adult) BMI education complete Ordered: CBC w/ Auto Diff Comprehensive Metabolic Panel HgbA1c Thyroid Stimulating Hormone 7. Non-smoker (Z78.9: Other specified health status) continue not smokiing Ordered: CBC w/ Auto Diff Comprehensive Metabolic Panel HgbA1c Thyroid Stimulating Hormone Follow-up No qualifying data available Problem List/Past Medical History Ongoing Excessive thirst Family history of diabetes mellitus Fatigue Polyuria Wellness examination Historical No qualifying data Procedure/Surgical History Ablation, Cholecystectomy, Surgery, Surgery, Surgery. Medications No active medications Allergies No Known Allergies Social History Tobacco Never (less than 100 in lifetime) Tobacco Use:. Never Smokeless Tobacco Use:. Household tobacco concerns: No., 05/25/2023 Family History Diabetes mellitus type 2: Brother, Grandparent and Uncle. Hypertension: Mother and Grandparent. Primary malignant neoplasm of female breast: Mother and Grandparent. Immunizations Vaccine Date Status Comments influenza virus vaccine, inactivated - Not Given Patient Refuses diphtheria/pertussis, acel/tetanus adult 07/09/2017 Recorded Normal [facility] Comment on above: Result Comment: Elec tronically Signed By: Debbie Bui\.br\Date and Time Signed: 05/25/23 10:50 EDT HEMATOLOGYOrdered By: SYSTEM SYSTEM on 05-25-2023 Basophils/100 WBC (Bld) 1.0 % Normal 0.0 - 2.0 % [facility]eAutoSS Basophils/Leukocytes Auto (Bld) [Pure # fraction] 0.1 E9/L Normal 0.0 - 0.2 E9/L [facility]eAutoSS Eosinophils/100 WBC (Bld) 2.9 % Normal 0.0 - 8.0 % [facility]eAutoSS Eosinophils/Leukocyte s Auto (Bld) [Pure # fraction] 0.3 E9/L Normal 0.0 - 0.5 E9/L [facility] HemeAutoSS Lymphocytes/100 WBC (Bld) 35.4 % Normal 14.0 - 50.0 % [facility]eAuto[facility] Lymphocytes/Leukocyte s Auto (Bld) [Pure # fraction] 4.0 E9/L Normal 1.0 - 4.0 E9/L [facility]eAutoSS Monocytes/100 WBC (Bld) 8.2 % Normal 4.0 - 14.0 % [facility]eAutoSS Monocytes/Leukocytes Auto (Bld) [Pure # fraction] 0.9 E9/L Normal 0.2 - 1.0 E9/L [facility]eAutoSS Neutrophils/100 WBC (Bld) 52.5 % Normal 36.0 - 75.0 % [facility]eAutoSS Neutrophils/Leukocyte s Auto (Bld) [Pure # fraction] 5.9 E9/L Normal 2.0 - 7.5 E9/L [facility] HemeAutoSS HEMATOLOGYOrdered By: Audelia Brush on 05-25-2023 Erythrocyte distribution width (RBC) [Ratio] 12.4 % Normal 10.9 - 14.2 % [facility]eAuto[facility] Hematocrit (Bld) [Volume fraction] 40.6 % Normal 34.0 - 46.0 % [facility]eAuto[facility] Hemoglobin (Bld) [Mass/Vol] 13.4 g/dL Normal 12.0 - 16.0 gm/dL [facility]eAuto[facility] MCH (RBC) [Entitic mass] 28.9 pg Normal 27.0 - 34.0 pg [facility]eAutoSS MCHC (RBC) [Mass/Vol] 33.0 g/dL Normal 31.4 - 36.0 gm/dL [facility]eAuto[facility] MCV (RBC) [Entitic vol] 87.5 fL Normal 80.0 - 100.0 fL [facility]eAuto[facility] Platelet mean volume (Bld) [Entitic vol] 8.7 fL Normal 6.4 - 10.8 fL [facility] HemeAutoSS Platelets (Bld) [#/Vol] 337.0 E9/L Normal 150.0 - 500.0 E9/L [facility]eAutoSS RBC (Bld) [#/Vol] 4.6 E12/L Normal 4.3 - 5.9 E12/L [facility]eAuto[facility] WBC corrected for nucl RBC Auto (Bld) [#/Vol] 11.3 E9/L High 4.0 - 11.0 E9/L [facility]eAutoSS [id number] 05-25-2023 HbA1c (Bld) [Mass fraction] 5.3 % Normal <=5.9 [facility] Comment on above: Performed By: #### 2 665653, 58139599, 9865403, 589534017, 5776181, 3028681, 4239604 ####[facility] [address] [place] [address] TSHon 05-25-2023 TSH Qn 1.88 m[IU]/L Normal 0.34-5.60 [facility] Comment on above: Performed By: #### 2 699325, 23609854, 5627583, 642081076, 0144963, 9482184, 9689333 ####[facility] [address] [place] [address] eGFRon 05-25-2023 GFR/1.73 sq M.predicted among non-blacks MDRD (S/P/Bld) [Vol rate/Area] 90 mL/min/1.73 m2 Normal >=59 [facility] Comment on above: Order Comment: Order added by Discern Expert. Result Comment: [employer] saleem kidney disease could be indicated at eGFR's of less than 60 mL/min/1.73m2. Kidney failure is indicated at less than 15 mL/min/1.73m2. Performed By: #### 2 989527, 84730862, 3608672, 784603812, 8451550, 6056943, 8778194 ####[facility] [address] [place] [address] HPon 01-16-2023 HP H&P reviewed. The patient was examined and there are no changes to the H&P. [facility] Orders Onlyon 01-15-2023 Orders Only [id number] Pat Meehany L 1995 F Date Provider Department Center 01/15/2023 ROM ORTEGA PAIN Medical [facility] Family History Family history unknown: Yes Normal [facility] Follow-Upon 01-04-2023 Follow-Up [id number] Meehan,Raphael L 1995 F Date Provider Department Center 01/04/2023 CHARLENE BYNUM PAIN [facility] Family History Family history unknown: Yes Level of Service:21210 [place] OFFICE/OUTPATIENT ESTABLISHED MOD MDM 30-39 MIN Reason for Visit and Comments: Shoulder Pain [859219] - Left shoulder down the arm Follow-up [402186] Normal [facility] HPon 01-04-2023 Pain Medicine [facility] [address] [place] [address] Subjective Patient ID: Raphael Meehan is a 27 y.o. female. Date:01/04/23 01/04/23 CC: Chief Complaint Patient presents with Shoulder Pain Left shoulder down the arm Follow-up SUBJECTIVE: Raphael Meehan is a 27 y.o. female who presents for follow up with a chief complaint of chronic neck and upper extremity pain. Since last visit patient reports pain is worsening. Most recently patient underwent a EMG/NCV with evidence of mild carpal tunnel on right WNL on the left. She states her SCS device does provide approx 50-60% pain relief of her radiating neck and arm pain but that her charge will at work and she is currently not allowed to take time to charge. She states she charges approx 1x per week but that her charge has been reduced requiring charging during the day. No side effects with recent start of gabapentin also no significant relief but slightly improved sleep. Right hand and wrist pain is the worst at this time and interferes with work. She has paperwork to fill to allow for office visits FMLA as well is requesting restrictions at work to allow for charging of her cervical SCS device when needed. Pain Assessment Pain Assessment: 0-10 Pain Score: 6 Pain Type: Chronic pain Pain Location: Shoulder Pain Orientation: Left Pain Radiating Towards: down the arm Pain Descriptors: Tingling, Throbbing, Numbness, Other (Comment) (weakness) Pain Frequency: Constant/continuous Pain Onset: Ongoing Clinical Progression: Not changed Aggravating Factors: Other (Comment) (lifting and laying down) Result of Injury: Yes Work-Related Injury: Yes Pain Interventions: Rest Past Medical History: Diagnosis Date Shoulder pain Past Surgical History: Procedure Laterality Date SPINAL CORD STIMULATOR IMPLANT Left Shoulder No Known Allergies Objective Ht 1.651 m (5' 5 ) Wt 96.6 kg (213 lb) BMI 35.45 kg/m??? General: well developed, well nourished, no acute distress Head: normocephalic and atraumatic Eyes: anicteric sclera, normal eye movements Ears: normal hearing Chest/Lungs: quiet, easy, unlabored breathing. Heart: no clubbing, cyanosis, edema Skin: intact without suspicious lesions or rashes Neuropsych: alert and cooperative; normal mood/affect articulates well RIGHT UE: + tinels + phalen, good capillary refill ROM full with pain on extension. Duck Bill Operator strength preserved. Gait: normal PROCEDURE NOTE: Risks and benefits of the EMG / NCS were discussed verbally including bleeding, infection and pain. Patient was agreeable to proceed with testing. Please see the scanned copy of the EMG report int he chart for additional details regarding the findings on today's electrodiagnostic study. Median: Right prolonged sensory latency and decreased amplitude. R motor and L sensory motor study intact. Ulnar: Intact bilateral sensory and motor study Needle study: No neurogenic findings in upper extremities Impression: Right mild carpal tunnel syndrome There is no other evidence of peripheral nerve entrapment, plexopathy, radiculopathy or peripheral neuropathy. Assessment/Plan Diagnoses and all orders for this visit: Carpal tunnel syndrome of right wrist Neuralgia and neuritis Comments: Pending EMG. Restart gabapentin lowest effecitve dose. Complex regional pain syndrome type 1 of left upper extremity Presence of neurostimulator Discussed chronic pain, medication use, treatment goals. Medication risk and benefits discussed. The Spine Diagram and Test results were used to explain the condition. PLAN: 1. Right wrist median nerve injection with ultrasound guidance 2. Gabapentin refill 300mg at bedtime 1 refill 3. MAPS/OARRS pulled and reviewed. 4. FMLA paperwork for ongoing Dr Garcia q2-3 months needs date on paperwork and fax to number on form. Okay to include allowance for SCS charging once per week. 5. Discussed role of carpal tunnel release surgery with Dr Blair should conservative measures fail 6. RTC in 6-8 weeks All questions are answered, and the patient expresses a full understanding. Available imaging was reviewed with patient. Discussed medication dosage, usage, goals of therapy, and side effects. Written instructions and verbal health teaching given to patient, patient verbalizes understanding and agrees with the treatment plan. Please note that portions of this note were generated using voice recognition M*Modal dictation software. Although every effort was made to ensure the accuracy of this automated grinding wheel dresser, some errors in grinding wheel dresser may have occurred. Normal [facility] PAP ACOG PANEL 2: 21 to 29on 12-18-2022 . . Normal [facility] Comment on above: Result Comment: Perf ormed at: [facility] Performed By: #### [id number] #### [facility] [address] [place] [address] Dr. Michele Gallo Age Gdln ACOG Testing 21-29 Normal [facility] Comment on above: Performed By: #### [id number] #### [facility] [address] [place] [address] Dr. Michele Gallo DIAGNOSIS: Comment Normal [facility] Comment on above: Result Comment: NEGA TIVE FOR INTRAEPITHELIAL LESION OR MALIGNANCY. Performed at: [facility] Performed By: #### [id number] #### [facility] [address] [place] [address] Dr. Michele Gallo Methodology: Comment Normal [facility] Comment on above: Result Comment: This liquid based ThinPrep(R) pap test was screened with the use of an image guided system. Performed at: [facility] Performed By: #### [id number] #### [facility] [address] [place] [address] Dr. Michele Gallo Note: Comment Normal [facility] Comment on above: Result Comment: The Pap smear is a screening test designed to aid in the detection of premalignant and malignant conditions of the uterine cervix. It is not a diagnostic procedure and should not be used as the sole means of detecting cervical cancer. Both false-positive and false-negative reports do occur. . Performed at: [facility] Performed By: #### [id number] #### [facility] [address] [place] [address] Dr. Michele Gallo Performed by: Comment Normal [facility] Comment on above: Result Comment: [employer] (ASCP) Performed at: [facility] Performed By: #### [id number] #### [facility] [address] [place] [address] Dr. Michele Gallo Reflex Criteria: Comment [facility] Comment on above: Result Comment: The HPV DNA reflex criteria were not met with this specimen result therefore, no HPV testing was performed. . Performed at: [facility] Performed By: #### [id number] #### [facility] [address] [place] [address] Dr. Michele Gallo Specimen adequacy: Comment Normal [facility] Comment on above: Result Comment: Sati sfactory for evaluation. Endocervical and/or squamous metaplastic cells (endocervical component) are present. Performed at: [facility] Performed By: #### [id number] #### [facility] [address] [place] [address] Dr. Michele Gallo Procedure Visiton 12-15-2022 Procedure Visit [id number] Raphael Meehan 1995 F Date Provider Department Center 12/15/2022 ALESIA PAGE MP PHYS [facility] Family History Family history unknown: Yes Level of Service:04026 [place] OFFICE/OUTPT VISIT,PROCEDURE ONLY Reason for Visit and Comments: EMG [Other] - BUE [facility] Follow-Upon 12-07-2022 Follow-Up [id number] Raphael Meehan Carrie 1995 Provider Department Center 12/07/2022 CHARLENE BYNUM MP PAIN [facility] Family History Family history unknown: Yes Level of Service:63571 [place] OFFICE/OUTPATIENT ESTABLISHED MOD MDM 30-39 MIN Reason for Visit and Comments: Follow-up [478834] - SCS (BS) follow up [facility] Follow-Upon 10-23-2022 Follow-Up [id number] Raphael Meehan 1995 Provider Department Center 10/23/2022 CHARLENE BYNUM MP PAIN [facility] Family History Family history unknown: Yes Level of Service:02988 [place] OFFICE/OUTPATIENT ESTABLISHED LOW MDM 20-29 MIN Reason for Visit and Comments: Follow-up [055472] - SCS (BS) [facility] US PELVIS AND TRANSVAGon US PELVIS AND TRANSVAG EXAMINATION: US PELVIS AND TRANSVAG HISTORY: Pelvic and perineal pain ; left lower quadrant pain since an lesion on 05/08/2022 COMPARISON: Ultrasound pelvis 05/15/2022 TECHNIQUE: Transabdominal and transvaginal sonographic examination. FINDINGS: UTERUS: Small right and left fundal myometrial leiomyomas, 0.8 and 1.5 cm in diameter. Uterus size: 8.5 x 3.5 x 5.6 cm ENDOMETRIUM: Trace amount of fluid within endometrial cavity. Endometrial thickness: 5 mm RIGHT OVARY: Normal size and appearance. Duplex Doppler demonstrates normal waveform and flow; resistive index 0.6. Ovary size: 4.5 x 2.2 x 3.8 cm LEFT OVARY: Not seen. No suspicious adnexal findings. CUL-DE-SAC: Unremarkable. No significant free fluid. BLADDER: Unremarkable. OTHER: None. IMPRESSION: 1. Trace amount of endometrial fluid, nonspecific; decreased since prior study. 2. 2 small fundal myometrial leiomyomas. Electronically authenticated by: CHANCE ARMAS Date: 2022-05-24 13:13 Normal [facility] CBC AUTO DIFFon 05-15-2022 BASO # 0.1 103/ul Normal 0.0-0.1 [facility] Comment on above: Performed By: #### P REG #### [facility] [address] [place] [address] Dr. Michele Gallo Basophils/100 WBC (Bld) 1.0 % Normal 0.2-2.0 [facility] Comment on above: Performed By: #### P REG #### [facility] [address] [place] [address] Dr. Michele Gallo EO # 0.3 103/ul Normal 0.0-0.7 [facility] Comment on above: Performed By: #### P REG #### [facility] [address] [place] [address] Dr. Michele Gallo Eosinophils/100 WBC (Bld) 2.0 % Normal 0.9-7.0 [facility] Comment on above: Performed By: #### P REG #### [facility] [address] [place] [address] Dr. Michele Gallo Erythrocyte distribution width (RBC) [Ratio] 11.7 % Normal 11.0-15.0 [facility] Comment on above: Performed By: #### P REG #### [facility] [address] [place] [address] Dr. Michele Gallo Hematocrit (Bld) [Volume fraction] 39.4 % Normal 36.0-48.0 [facility] Comment on above: Performed By: #### P REG #### [facility] [address] [place] [address] Dr. Michele Gallo Hemoglobin (Bld) [Mass/Vol] 13.2 g/dL Normal 12.0-16.0 [facility] Comment on above: Performed By: #### P REG #### [facility] [address] [address] [address] Michele Gallo IG # 0.11 10e3/ul Critically high 0.00-0.03 [facility] Comment on above: Performed By: #### P REG #### [facility] [address] [address] [address] Michele Gallo IG % 0.8 % Critically high 0.0-0.5 [facility] Comment on above: Performed By: #### P REG #### [facility] [address] [place] [address] Dr. Michele Gallo LYMPH # 4.5 103/ul Critically high 1.2-3.8 [facility] Comment on above: Performed By: #### P REG #### [facility] [address] [place] [address] Dr. Michele Gallo Lymphocytes/100 WBC (Bld) 33.3 % Normal 20.5-60.0 [facility] Comment on above: Performed By: #### P REG #### [facility] [address] [place] [address] Dr. Michele Gallo MANUAL DIFF REQ NO Normal [facility] Comment on above: Performed By: #### P REG #### [facility] [address] [place] [address] Dr. Michele Gallo MCH (RBC) [Entitic mass] 29.7 pg Normal 26.7-34.0 [facility] Comment on above: Performed By: #### P REG #### [facility] [address] [place] [address] Dr. Michele Gallo MCHC (RBC) [Mass/Vol] 33.5 g/dL Normal 29.9-35.2 [facility] Comment on above: Performed By: #### P REG #### [facility] [address] [place] [address] Dr. Michele Gallo MCV (RBC) [Entitic vol] 88.7 fL Normal 81.0-99.0 [facility] Comment on above: Performed By: #### P REG #### [facility] [address] [place] [address] Dr. Michele Gallo MONO # 0.8 103/ul Normal 0.3-0.8 [facility] Comment on above: Performed By: #### P REG #### [facility] [address] [place] [address] Dr. Michele Gallo Monocytes/100 WBC (Bld) 6.3 % Normal 1.7-12.0 [facility] Comment on above: Performed By: #### P REG #### [facility] [address] [place] [address] Dr. Michele Gallo NEUT # 7.6 103/ul Critically high 1.4-6.5 [facility] Comment on above: Performed By: #### P REG #### [facility] [address] [place] [address] Dr. Michele Gallo Neutrophils/100 WBC (Bld) 56.6 % Normal 43.0-75.0 [facility] Comment on above: Performed By: #### P REG #### [facility] [address] [place] [address] Dr. Michele Gallo Platelet mean volume (Bld) [Entitic vol] 10.3 fL Normal 9.5-13.5 [facility] Comment on above: Performed By: #### P REG #### [facility] [address] [place] [address] Dr. Michele Gallo PLT 363 103/ul Normal 150-450 [facility] Comment on above: Performed By: #### P REG #### [facility] [address] [place] [address] Dr. Michele Gallo RBC 4.44 106/ul Normal 4.20-5.40 [facility] Comment on above: Performed By: #### P REG #### [facility] [address] [place] [address] Dr. Michele Gallo WBC 13.4 103/ul Critically high 4.0-11.0 [facility] Comment on above: Performed By: #### P REG #### [facility] [address] [place] [address] Dr. Michele Gallo CULTURE BLOODon 05-15-2022 Microscopic examination of blood, culture Culture Observations: No growth at 5 days. Normal [facility] Comment on above: Performed By: #### P REG #### [facility] [address] [place] [address] Dr. Michele Gallo Microscopic examination of blood, culture Culture Observations: No growth at 5 days. Normal [facility] Comment on above: Performed By: #### B [id number] #### [facility] [address] [place] [address] Dr. Michele Gallo ER URINE PROFILEon Bilirubin Ql (U) Negative Normal NEGATIVE [facility] Comment on above: Performed By: #### U MICRO, ERUR #### [facility] [address] [place] [address] Dr. Michele Gallo Clarity (U) CLEAR Normal CLEAR [facility] Comment on above: Performed By: #### U MICRO, ERUR #### [facility] [address] [place] [address] Dr. Michele Gallo Color (U) LT. YELLOW Normal YELLOW [facility] Comment on above: Performed By: #### U MICRO, ERUR #### [facility] [address] [place] [address] Dr. Michele Gallo ERUAHD A micrscopic examination will be performed if indicated. Normal [facility] Comment on above: Performed By: #### U MICRO, ERUR #### [facility] [address] [place] [address] Dr. Michele Gallo Glucose Ql (U) Negative Normal NEGATIVE [facility] Comment on above: Performed By: #### U MICRO, ERUR #### [facility] [address] [place] [address] Dr. Michele Gallo Hemoglobin Ql (U) MODERATE Abnormal NEGATIVE [facility] Comment on above: Performed By: #### U MICRO, ERUR #### [facility] [address] [place] [address] Dr. Michele Gallo Ketones Ql (U) Negative Normal NEGATIVE [facility] Comment on above: Performed By: #### U MICRO, ERUR #### [facility] [address] [address] [address] Michele Gallo LEUKOCYTES Negative Normal NEGATIVE [facility] Comment on above: Performed By: #### U MICRO, ERUR #### [facility] [address] [address] [address] Michele Gallo Nitrite Ql (U) Negative Normal NEGATIVE [facility] Comment on above: Performed By: #### U MICRO, ERUR #### [facility] [address] [address] [address] Michele Gallo pH (U) 7.0 [pH] Normal 5-9 [facility] Comment on above: Performed By: #### U MICRO, ERUR #### [facility] [address] [place] [address] Dr. Michele Gallo SPEC GRAVITY 1.020 Normal 1.005-<=1.02 5 [facility] Comment on above: Performed By: #### U MICRO, ERUR #### [facility] [address] [address] [address] Michele Gallo UA PROTEIN TRACE Normal NEGATIVE/ TRACE [facility] Comment on above: Performed By: #### U MICRO, ERUR #### [facility] [address] [place] [address] Dr. Michele Gallo UR MICRO IND INDICATED Normal [facility] Comment on above: Performed By: #### U MICRO, ERUR #### [facility] [address] [place] [address] Dr. Michele Gallo Urobilinogen Qn (U) 0.2 {Norm'U}/dL Normal 0.2 - 1. 0 [facility] Comment on above: Performed By: #### U MICRO, ERUR #### [facility] [address] [place] [address] Dr. Michele Gallo PROF CHEM 8 (BAS METB)on Anion gap [Moles/Vol] 14.8 mmol/L Normal [facility] Comment on above: Performed By: #### B MP #### [facility] [address] [address] [address] Michele Gallo Calcium [Mass/Vol] 9.0 mg/dL Normal 8.5-10.1 [facility] Comment on above: Performed By: #### B MP #### [facility] [address] [address] [address] Michele Gallo Chloride [Moles/Vol] 102 mmol/L Normal 98-107 [facility] Comment on above: Performed By: #### B MP #### [facility] [address] [address] [address] Michele Gallo CO2 [Moles/Vol] 24.2 mmol/L Normal 21.0-32.0 [facility] Comment on above: Performed By: #### B MP #### [facility] [address] [address] [address] Michele Gallo Creatinine [Mass/Vol] 0.89 mg/dL Normal 0.55-1.02 [facility] Comment on above: Performed By: #### B MP #### [facility] [address] [address] [address] Michele Gallo EGFR-AF GERMAN >60 Normal >=60 [facility] Comment on above: Performed By: #### B MP #### [facility] [address] [address] [address] Michele Gallo EGFR-NON AF GERMAN >60 Normal >=60 [facility] Comment on above: Performed By: #### B MP #### [facility] [address] [address] [address] Michele Gallo Glucose [Mass/Vol] 100 mg/dL Normal 74-106 [facility] Comment on above: Performed By: #### B MP #### [facility] [address] [address] [address] Michele Gallo Potassium [Moles/Vol] 4.0 mmol/L Normal 3.5-5.1 [facility] Comment on above: Performed By: #### B MP #### [facility] [address] [address] [address] Michele Gallo Sodium [Moles/Vol] 137 mmol/L Normal 136-145 [facility] Comment on above: Performed By: #### B MP #### [facility] [address] [place] [address] Dr. Michele Gallo Urea nitrogen [Mass/Vol] 15.0 mg/dL Normal 7.0-18.0 [facility] Comment on above: Performed By: #### B MP #### [facility] [address] [place] [address] Dr. Michele Gallo Urea nitrogen/Creatinine [Mass ratio] 16.9 mg/mg Normal [facility] Comment on above: Performed By: #### B MP #### [facility] [address] [place] [address] Dr. Michele Gallo URINE MICROSCOPIC ONLYon BACTERIA NONE SEEN Normal NONE SEEN [facility] Comment on above: Performed By: #### U MICRO, ERUR #### [facility] [address] [place] [address] Dr. Michele Gallo Bacteria identified Cx Nom (U) NOT INDICATED Normal [facility] Comment on above: Performed By: #### U MICRO, ERUR #### [facility] [address] [place] [address] Dr. Michele Gallo CAST NONE SEEN Normal NONE SEEN [facility] Comment on above: Performed By: #### U MICRO, ERUR #### [facility] [address] [place] [address] Dr. Michele Gallo Crystals LM Nom (Urine sed) NONE SEEN Normal NONE SEEN [facility] Comment on above: Performed By: #### U MICRO, ERUR #### [facility] [address] [place] [address] Dr. Michele Gallo Epithelial cells LM Ql (Urine sed) MANY Abnormal NONE SEEN /RARE [facility] Comment on above: Performed By: #### U MICRO, ERUR #### [facility] [address] [place] [address] Dr. Michele Gallo MUCOUS TRACE Abnormal NONE SEEN [facility] Comment on above: Performed By: #### U MICRO, ERUR #### [facility] [address] [address] [address] Michele Gallo RBC 10- Abnormal 0-2 [facility] Comment on above: Performed By: #### U MICRO, ERUR #### [facility] [address] [address] [address] Michele Gallo WBC NONE SEEN Normal NONE SEEN [facility] Comment on above: Performed By: #### U MICRO, ERUR #### [facility] [address] [address] [address] Michele Gallo US PELVIS TRANSVAGon 022 US PELVIS TRANSVAG PELVIC ULTRASOUND. HISTORY: Acute pelvic pain COMPARISON: None available. TECHNIQUE: Transabdominal and endovaginal pelvic ultrasound. FINDINGS: UTERUS: 8.3 x 3.8 x 5.0 cm. No intrauterine masses are identified. ENDOMETRIUM: 10 mm. There is no increased color Doppler flow. There is a small amount of hypoechoic heterogeneous fluid. RIGHT OVARY: 1.9 x 2.2 x 1.8 cm. Normal echotexture, without cysts or masses. Normal arterial and venous blood flow. LEFT OVARY: Not visualized. ADNEXA: No masses. No free fluid. IMPRESSION: 1. Small amount of heterogeneous fluid in the endometrial canal, which is nonspecific and may represent blood products. 2. Unremarkable right ovary. 3. Left ovary is not visualized Electronically authenticated by: GLENNY COLON Date: 2022-05-15 14:07 Normal [facility] CBC AUTO DIFFon 05-08-2022 BASO # 0.1 103/ul Normal 0.0-0.1 [facility] Comment on above: Performed By: #### C BC #### [facility] [address] [address] [address] Michele Gallo Basophils/100 WBC (Bld) 1.3 % Normal 0.2-2.0 [facility] Comment on above: Performed By: #### C BC #### [facility] [address] [address] [address] Michele Gallo EO # 0.4 103/ul Normal 0.0-0.7 [facility] Comment on above: Performed By: #### C BC #### [facility] [address] [place] [address] Dr. Michele Gallo Eosinophils/100 WBC (Bld) 3.9 % Normal 0.9-7.0 [facility] Comment on above: Performed By: #### C BC #### [facility] [address] [place] [address] Dr. Michele Gallo Erythrocyte distribution width (RBC) [Ratio] 11.6 % Normal 11.0-15.0 [facility] Comment on above: Performed By: #### C BC #### [facility] [address] [place] [address] Dr. Michele Gallo Hematocrit (Bld) [Volume fraction] 37.3 % Normal 36.0-48.0 [facility] Comment on above: Performed By: #### C BC #### [facility] [address] [place] [address] Dr. Michele Gallo Hemoglobin (Bld) [Mass/Vol] 12.6 g/dL Normal 12.0-16.0 [facility] Comment on above: Performed By: #### C BC #### [facility] [address] [place] [address] Dr. Michele Gallo IG # 0.05 10e3/ul Critically high 0.00-0.03 [facility] Comment on above: Performed By: #### C BC #### [facility] [address] [place] [address] Dr. Michele Gallo IG % 0.5 % Normal 0.0-0.5 [facility] Comment on above: Performed By: #### C BC #### [facility] [address] [place] [address] Dr. Michele Gallo LYMPH # 3.1 103/ul Normal 1.2-3.8 [facility] Comment on above: Performed By: #### C BC #### [facility] [address] [place] [address] Dr. Michele aGllo Lymphocytes/100 WBC (Bld) 30.3 % Normal 20.5-60.0 [facility] Comment on above: Performed By: #### C BC #### [facility] [address] [place] [address] Dr. Michele Gallo MANUAL DIFF REQ NO Normal [facility] Comment on above: Performed By: #### C BC #### [facility] [address] [place] [address] Dr. Michele Gallo MCH (RBC) [Entitic mass] 29.9 pg Normal 26.7-34.0 [facility] Comment on above: Performed By: #### C BC #### [facility] [address] [place] [address] Dr. Michele Gallo MCHC (RBC) [Mass/Vol] 33.8 g/dL Normal 29.9-35.2 [facility] Comment on above: Performed By: #### C BC #### [facility] [address] [place] [address] Dr. Michele Gallo MCV (RBC) [Entitic vol] 88.6 fL Normal 81.0-99.0 [facility] Comment on above: Performed By: #### C BC #### [facility] [address] [place] [address] Dr. Michele Gallo MONO # 0.7 103/ul Normal 0.3-0.8 [facility] Comment on above: Performed By: #### C BC #### [facility] [address] [place] [address] Dr. Michele Gallo Monocytes/100 WBC (Bld) 7.2 % Normal 1.7-12.0 [facility] Comment on above: Performed By: #### C BC #### [facility] [address] [place] [address] Dr. Michele Gallo NEUT # 5.8 103/ul Normal 1.4-6.5 [facility] Comment on above: Performed By: #### C BC #### [facility] [address] [place] [address] Dr. Michele Gallo Neutrophils/100 WBC (Bld) 56.8 % Normal 43.0-75.0 [facility] Comment on above: Performed By: #### C BC #### [facility] [address] [address] [address] Michele Gallo Platelet mean volume (Bld) [Entitic vol] 10.0 fL Normal 9.5-13.5 [facility] Comment on above: Performed By: #### C BC #### [facility] [address] [place] [address] Dr. Michele Gallo PLT 311 103/ul Normal 150-450 [facility] Comment on above: Performed By: #### C BC #### [facility] [address] [place] [address] Dr. Michele Gallo RBC 4.21 106/ul Normal 4.20-5.40 [facility] Comment on above: Performed By: #### C BC #### [facility] [address] [place] [address] Dr. Michele Gallo WBC 10.3 103/ul Normal 4.0-11.0 [facility] Comment on above: Performed By: #### C BC #### [facility] [address] [place] [address] Dr. Michele Gallo PREG HCG QUALon 05-08-2022 , QUAL Negative Normal NEGATIVE [facility] Comment on above: Performed By: #### P REG #### [facility] [address] [place] [address] Dr. Michele Gall[facility] SARS-CoV-2 (COVID-19) RNA TARAH+probe Ql (Unsp spec) Not detected Normal NOT DETECTED [facility] Comment on above: Result Comment: This test is not yet approved or cleared by the [place] FDA. When there are no FDA-approved or cleared tests available, and other criteria are met, FDA can make tests available under an emergency access mechanism called an Emergency Use Authorization (EUA). The EUA for this test is supported by the Photoresist Contact Printer of Health and Human Service's (HHS's) declaration that circumstances exist to justify the emergency use of in vitro diagnostics for the detection and/or diagnosis of the virus that causes COVID-19. This EUA will remain in effect (meaning this test can be used) for the duration of the COVID-19 declaration justifying emergency of IVDs, unless it is terminated or revoked by FDA (after which the test may no longer be used). When diagnostic testing is negative, the possibility of a false negative should be considered in the context of a patient's recent exposures and the presence of clinical signs and symptoms consistent with SARS-CoV-2. Performed By: #### C VDTB #### [facility] [address] [place] [address] Dr. Michele Gallo COVID Quick Testingon 2020 Result Positive [facility] Other Operative Reporton 1 Operative Report MR#: [id number] [facility] Pt. Name: Raphael Meehan Room #: 0C Discharge Date: Birthdate: 1995 OPERATIVE REPORT DATE OF SURGERY: 04/26/2021 SURGEON: An Lr M.D. ASSISTANTS: None SEDATION: Monitored Anesthesia Care provided by Anesthesiology service.. PREOPERATIVE DIAGNOSIS: Complex regional pain syndrome Type 1 of the left upper limb PROCEDURE: 1. Spinal cord stimulator implant.with placement of octad electrodes x2 to the top of C2 vertebra. 2. Placement of a pulse generator. 3. Examination under fluoroscopy. 4. Intraoperative and postoperative programming, complex. POSTOPERATIVE DIAGNOSIS: Complex regional pain syndrome Type 1 of the left upper limb ESTIMATED BLOOD COUNT: Minimal COMPLICATIONS: None. SPECIMENS: None. MONITORS: Standard ASA monitors were placed during the entire procedure and the immediate postoperative period. The patient was communicating with us throughout the whole entire procedure. PREPARATION OF THE PROCEDURE: Oxygen saturation and vital signs were monitored continuously throughout the entire procedure in order to interact and give feedback. The x-ray crystal growing technician was supervised and instructed to operate the fluoroscopy machine. PROCEDURE: After written consent was obtained, the patient was brought to the procedure room and was placed in the prone position with all pressure points padded appropriately. The patient was prepped and draped in the usual sterile fashion using chlorhexidine, and Ioban dressing was placed over the skin. After appropriate time-out and confirmation of preoperative antibiotics, fluoroscopy was used to identify the T4-T5 interlaminar space, which was the planned entry point and was marked out approximately 5 cm on the skin. This area was then anesthetized with 20 mL of equal mixture of 1% lidocaine and 0.25% bupivacaine through a 27-gauge needle in the track leading towards the prevertebral fascia and also under the subcutaneous skin. Then a 10-blade scalpel was used to incise the skin. Then sharp and blunt dissection was done down to the prevertebral fascia using electrocautery for hemostasis. Once the prevertebral fascia was encountered, there were two 14-gauge Tuohy needles that were used to advance into the epidural space using loss of resistance to air and using fluoroscopic guidance to place the needle tips in the AP and lateral views. Once the epidural space was entered, there was advancement of the 2 electrodes under live fluoroscopy to the intervertebral space to the top of the C2 vertebra. The electrodes were then connected and programmed to cover the patient's painful areas, which were functioning appropriately. The needles and stylets from the leads were then removed with confirmation of no lead migration using fluoroscopy. Then 2 anchors were advanced over the electrodes and secured to the electrodes using the torque wrench provided by commercial litigation associate and then they were secured to the prevertebral fascia using fixate device provided by commercial litigation associate on each anchor. Then a planned left lateral pocket site was created for the pulse generator. Another 10 mL of 1% lidocaine plus 0.25% bupivacaine was injected through a 27-gauge needle in approximately a 6-cm long planned incision in the subcutaneous skin and also deep to the skin. The skin was incised with a 10-blade. Then sharp and blunt dissection was performed with electrocautery for hemostasis to create a pocket approximately the size of pulse generator, approximately 1-inch deep to the skin. The pocket was then connected to the midline incision using a tunneler provided by commercial litigation associate. The permanent leads were then tunneled through to the pocket, to the generator site, connected to the generator with confirmation, and the entire system was working. The permanent leads were then secured to the generator using the torque wrench provided by [employer] and both pockets were then irrigated with bacitracin solution. Care was taken to ensure that there was hemostasis, which was adequate. Then there was closure of both pockets with interrupted 2-0 Vicryl, followed by continuous running 3-0 biosyn, followed by skin glue at the skin. The impedances were then also confirmed to be functioning appropriately and the system was functioning entirely after closure of the pockets. The patient was placed in the supine position with an abdominal binder and taken to the recovery room for postoperative programming. The patient tolerated the procedure well, received monitored anesthesia care, and was hemodynamically stable throughout the entire process. POSTPROCEDURE INSTRUCTIONS: Postprocedure vital signs and oximetry were stable. The patient was discharged with instructions to ice the injection site as needed for 15-20 minutes, as frequently as twice per hour for the next day and to avoid (more content not included)... Normal [facility] POC GLUCOSE LABon 04-26-2021 Glucose [Mass/Vol] 111 mg/dL High 70-100 [facility] Comment on above: Performed By: #### 8 [id number] #### [address] POC URINE PREGNANCYon 2020 Beta HCG ( test) Ql (U) Negative Normal NEGATIVE [facility] Comment on above: Result Comment: Perf ormed in PACU Performed By: #### 8 [id number] #### [address] THORACIC SPINEon 04-26-2021 THORACIC SPINE [facility] Department of Radiology [address] [place] [id number] Patient Name: RAPHAEL MEEHAN : 1995 Sex: F Age: Race: White Pt. Location: OUT Patient Status: Ordered Date: 04/26/2021 2:30:00 PM Completed Date: 04/26/2021 04:26 PM Requesting Provider: AN LR Attending Provider: AN LR Report Copy To: Signs & Symptoms: SPINAL CORD STIMULATOR PLACEMENT History: Comments: SPINAL CORD STIMULATOR PLACEMENT Exam: THORACIC SPINE THORACIC SPINE 04/26/2021 4:26 PM CLINICAL INDICATIONS: SPINAL CORD STIMULATOR PLACEMENT TECHNOLOGIST COMMENTS: SPINAL CORD STIMULATOR PLACEMENT with Dr. Lr. fluoro time 4 minutes and 12 seconds. 11 images,9.3056 mGY. bronze c-arm. QUESTION FOR THE RADIOLOGIST: SPINAL CORD STIMULATOR PLACEMENT PROTOCOL: AP(PA) and Lateral views were obtained. COMPARISON: None FINDINGS: 7 fluoroscopic images were obtained during spinal cord stimulator placement using fluoroscopic guidance. Total prostate time is 4 minutes and 12 seconds. Total radiation exposure is 9.3 mGy. Images are referred to the clinical service for correlation. IMPRESSION: Images are obtained for documentation purposes. Electronically signed: Bill Rapp. Transcribed by: [email or web address], User Resident: Electronically Signed by: BILL RAPP @ 04/27/2021 03:18 PM Normal [facility] Comment on above: Order Comment: SPINA L CORD STIMULATOR PLACEMENT *MRSA/MSSA DNA NASALon 04-14 *MRSA/MSSA DNA NASAL Clinical Report: (D ) Specimen: NASAL SWAB Collected: 04/14/2021 08:50 Status: Final Last Updated: 04/14/2021 15:28 MSSA DNA (Final) Negative MRSA DNA (Final) Negative Normal [facility] Comment on above: Performed By: #### 3 1595 #### [place] [address] [place] [address], [facility] APTTon 04-14-2021 aPTT Coag (Bld) [Time] 26.3 s Normal 25.0-35.0 [facility] Comment on above: Result Comment: ALL RESULTS MUST BE INTERPRETED WITH RESPECT TO BLOOD DRAWING ARTIFACT OR DILUTION ERROR OF ANTICOAGULANT AT THE TIME OF SAMPLING. THE APTT SHOULD NOT BE USED TO MONITOR UNFRACTIONATED HEPARIN THERAPY, THIS LABORATORY NO LONGER HAS AN ESTABLISHED THERAPEUTIC RANGE BASED ON THE APTT. IT IS RECOMMENDED THAT THE UFH - HEPARIN ASSAY (ANTI-XA ACTIVITY) BE USED FOR THIS PURPOSE. Performed By: #### 5 [id number], [id number] #### [place] [address] [place] [address], [facility] BASIC METABOLIC PANELon 09-0 -2020 Calcium [Mass/Vol] 9.2 mg/dL Normal 8.6-10.3 [facility] Comment on above: Performed By: #### 0 0071 #### [place] [address] [place] [address], [facility] Chloride [Moles/Vol] 107 mmol/L Normal 98-107 [facility] Comment on above: Performed By: #### 0 0071 #### [place] [address] [place] [address], [facility] CO2 [Moles/Vol] 23 mmol/L Normal 21-31 [facility] Comment on above: Performed By: #### 0 0071 #### [place] [address] [place] [address], [facility] Creatinine [Mass/Vol] 0.90 mg/dL Normal 0.60-1.20 [facility] Comment on above: Performed By: #### 0 0071 #### [place] [address] [place] [address], [facility] GFR/1.73 sq M.predicted among blacks MDRD (S/P/Bld) [Vol rate/Area] mL/min/{1.73_m2} Normal >60 [facility] Comment on above: Performed By: #### 0 0071 #### [place] [address] [place] [id number], [facility] GFR/1.73 sq M.predicted among non-blacks MDRD (S/P/Bld) [Vol rate/Area] mL/min/{1.73_m2} Normal >60 [facility] Comment on above: Performed By: #### 0 0071 #### [place] [address] [place] [id number], [facility] Glucose [Mass/Vol] 94 mg/dL Normal 70-100 The [facility] Comment on above: Performed By: #### 0 0071 #### [place] [address] [place] [id number], [facility] Potassium [Moles/Vol] 4.2 mmol/L Normal 3.5-5.1 [facility] Comment on above: Performed By: #### 0 1 #### [place] [address] [facility] [place] [address], [facility] Sodium [Moles/Vol] 139 mmol/L Normal 136-145 [facility] Comment on above: Performed By: #### 0 1 #### [place] [address] [facility] [place] [address], [facility] Urea nitrogen [Mass/Vol] 8 mg/dL Normal 7-25 [facility] Comment on above: Performed By: #### 0 1 #### [place] [address] [facility] [place] [address], [facility] CBC W/DIFFon 04-14-2021 ABS IMM GRANS 0.1 10*3/uL Normal 0.0-0.[address] [facility] Comment on above: Performed By: #### 5 102 #### [place] [address] [place] [address], [facility] ABS NEUTROPHILS 5.5 10*3/uL Normal 1.6-7.6 [facility] Comment on above: Performed By: #### 102 #### [place] [address] [place] [address], [facility] Basophils (Bld) [#/Vol] 0.1 10*3/uL Normal 0.0-0.2 [facility] Comment on above: Performed By: #### 5 102 #### [place] [address] [facility] [place] [address], [facility] Basophils/100 WBC (Bld) 1.4 % High 0.0-1.0 [facility] Comment on above: Performed By: #### 5 0103 #### [place] [address] [facility] [place] [address], [facility] Eosinophils (Bld) [#/Vol] 0.5 10*3/uL Normal 0.0-0.5 [facility] Comment on above: Performed By: #### 5 0103 #### [place] [address] [place] [address], [facility] Eosinophils/100 WBC (Bld) 4.7 % Normal 0.0-6.0 [facility] Comment on above: Performed By: #### 5 3 #### [place] [address] Erythrocyte distribution width (RBC) [Ratio] 11.9 % Normal 11.5-15.0 [facility] Comment on above: Performed By: #### 5 0103 #### [place] [address] Hematocrit (Bld) [Volume fraction] 45.7 % High 36.0-45.0 [facility] Comment on above: Performed By: #### 5 3 #### [place] [address] Hemoglobin (Bld) [Mass/Vol] 15.6 g/dL High 12.0-15.0 [facility] Comment on above: Performed By: #### 5 0103 #### [place] [address] [place] [address], [facility] IMMATURE GRANS 0.7 % Normal 0.0-1.0 [facility] Comment on above: Performed By: #### 5 3 #### [place] [address] [facility] [place] [address], [facility] Lymphocytes (Bld) [#/Vol] 2.9 10*3/uL Normal 1.2-4.0 [facility] Comment on above: Performed By: #### 5 102 #### [place] [address] [facility] [place] [address], [facility] Lymphocytes/100 WBC (Bld) 29.2 % Normal 20.0-45.0 [facility] Comment on above: Performed By: #### 5 3 #### [place] [address] [place] [address], [facility] MCH (RBC) [Entitic mass] 30.2 pg Normal 27.0-33.0 [facility] Comment on above: Performed By: #### 102 #### [place] [address] [facility]. [address] MCHC (RBC) [Mass/Vol] 34.1 g/dL Normal 32.0-35.0 [facility] Comment on above: Performed By: #### 5 102 #### [place] [address] [place] [address], [facility] MCV (RBC) [Entitic vol] 88.6 fL Normal 82.0-98.0 [facility] Comment on above: Performed By: #### 5 3 #### [place] [address] [facility] [address], [facility] Monocytes (Bld) [#/Vol] 1.0 10*3/uL Normal 0.1-1.0 [facility] Comment on above: Performed By: #### 5 3 #### [place] [address] [facility] [address], [facility] MONOS 9.4 % Normal 5.0-12.0 [facility] Comment on above: Performed By: #### 5 3 #### [place] [address] [place] [address], [facility] Neutrophils/100 WBC (Bld) 54.6 % Normal 40.0-72.0 [facility] Comment on above: Performed By: #### 5 0103 #### [place] [address] [place] [address], [facility] Nucleated RBC/100 WBC (Bld) [Ratio] 0 % Normal 0-0 [facility] Comment on above: Performed By: #### 5 0103 #### [place] [address] [place] [address], [facility] PLAT CNT 290 10*3/uL Normal 150-400 [facility] Comment on above: Performed By: #### 5 0103 #### [place] [address] [place] [address], [facility] RBC (Bld) [#/Vol] 5.16 10*6/uL High 3.80-5.00 [facility] Comment on above: Performed By: #### 5 0103 #### [place] [address] [place] [address], [facility] WBC (Bld) [#/Vol] 10.07 10*3/uL Normal 4.00-10.60 [facility] Comment on above: Performed By: #### 5 0103 #### [place] [address] PROTHROMBIN TIMEon 1 INR Coag (PPP) [Relative time] 0.98 {INR} Normal 0.91-1.16 [facility] Comment on above: Result Comment: ACCC P RECOMMENDED INR FOR WARFARIN THERAPY -------- ------- CONDITION INR PROPHYLAXIS OF VENOUS THROMBOSIS 2-3 (HIGH-RISK SURGERY) TREATMENT OF VENOUS THROMBOSIS 2-3 TREATMENT OF PULMONARY EMBOLISM 2-3 PREVENTION OF SYSTEMIC EMBOLISM: 2-3 ACUTE MYOCARDIAL INFARCTION TISSUE HEART VALVES VALVULAR HEART DISEASE ATRIAL FIBRILLATION RECURRENT SYSTEMIC EMBOLISM MECHANICAL HEART VALVE 2.5-3.5 FROM: ORAL ANTICOAGULANTS. MECHANISM OF ACTION, CLINICAL EFFECTIVENESS, AND OPTIMAL THERAPEUTIC RANGE. CHEST 1995;108:231S-246S. Performed By: #### 5 [id number], [id number] #### [place] [address] [facility]. [address] PT Coag (PPP) [Time] 13.0 s Normal 12.3-14.8 [facility] Comment on above: Result Comment: ALL RESULTS MUST BE INTERPRETED WITH RESPECT TO BLOOD DRAWING ARTIFACT OR DILUTION ERROR OF ANTICOAGULANT AT THE TIME OF SAMPLING. Performed By: #### 5 7307, [id number] #### [place] [address] [employer] [address] Vital Signs Date Time Vital Sign Value Performing Clinician Facility 09-21-2023 08:48-0500 Body temperature 98.42 [degF] Juanjose De Jesuse [facility] 09-21-2023 08:48-0500 Diastolic blood pressure 90 mm[Hg] Juanjose De Jesuse [facility] 09-21-2023 08:48-0500 Heart rate 106 /min Juanjose [employer] [facility] 09-21-2023 08:48-0500 Respiratory rate 16 /min Juanjose De Jesuse [facility] 09-21-2023 08:48-0500 SaO2% (BldA) [Mass fraction] 100 % Juanjose [employer] [facility] 09-21-2023 08:48-0500 Systolic blood pressure 150 mm[Hg] Juanjose Toscano [facility] 06-20-2021 12:15-0500 Body height 165.1 cm Atiya Huerta Other [facility] Other 06-20-2021 12:15-0500 Body mass index (BMI) [Ratio] 35.94 kg/m2 Atiya Gilault Other [facility] Other 06-20-2021 12:15-0500 Body temperature 100.3 [degF] Atiya Gilault Other [facility] Other 06-20-2021 12:15-0500 Body weight 97.98 kg Atiya Gilault Other [facility] Other 06-20-2021 12:15-0500 SaO2% (BldA) [Mass fraction] 98 % Atiya Huerta Other [facility] Other Encounters Encounter Date Encounter Type Care Provider Facility Start: 02-27-2024 End: 02-27-2024 Departed Referred PHYSICIAN NO [facility] Start: 02-27-2024 End: 02-27-2024 ambulatory PHYSICIAN NO [facility] Work Phone: Start: 02-01-2024 End: 02-01-2024 Emergency department patient visit NO PCP NO PCP [facility] Start: 01-16-2024 End: 01-16-2024 ambulatory KEITH CERVANTES Not Available Start: 01-15-2024 End: 01-16-2024 Emergency department patient visit ABRAHAM TORRES [facility] Start: 10-16-2023 End: 10-16-2023 ambulatory Debbie Cole Facility:[facility] Verónica glass Start: 09-21-2023 End: 09-21-2023 Emergency department patient visit Juanjose Toscano [facility] Start: 09-21-2023 End: 09-21-2023 ambulatory Debbie L Douglas Facility: [facility] Start: 09-07-2023 End: 09-07-2023 Lab Drop off Debbie L Douglas [facility] Start: 09-07-2023 End: 09-07-2023 ambulatory Debbie L Douglas Facility:[facility] Start: 08-08-2023 End: 08-08-2023 ambulatory DEBBIE L DOUGLAS [facility] Start: 08-07-2023 End: 08-07-2023 ambulatory Debbie L Douglas Facility: [facility] Start: 08-02-2023 ambulatory Debbie Douglas Facility:[facility] Start: 07-09-2023 End: 07-09-2023 ambulatory Debbie L Douglas Facility: [facility] Start: 06-08-2023 End: 06-08-2023 ambulatory Debbie L Douglas Facility: [facility] Start: 05-25-2023 End: 05-25-2023 Lab Drop off Debbie L Douglas [facility] Start: 05-25-2023 End: 05-25-2023 ambulatory Debbie L Douglas Facility:[facility] Start: 03-01-2023 End: 03-01-2023 ambulatory [facility] Start: 01-16-2023 End: 01-17-2023 ambulatory [facility] Start: 01-04-2023 ambulatory [facility] Start: 12-15-[address] [facility] Start: 12-08-2022 End: 12-08-[address] REBECCA MANN . Facility: Start: 12-07-[address] [facility] Start: 10-23-2022 End: 10-24-2022 ambulatory WAQAR MADISYN [facility] Start: 05-24-2022 End: 05-25-[address] REBECCA MANN . Facility:[facility] Start: 05-15-2022 End: 05-15-[address] HERMELINDA JACKSON . Facility:[facility] Start: 05-08-2022 Encounter for preprocedural laboratory examination DR REBECCA MANN . [facility] Start: 05-08-2022 End: 05-08-[address] REBECCA MANN . Facility:[facility] Start: 05-04-2022 End: 05-05-[address] REBECCA MANN . Facility:[facility] Start: 05-04-2022 End: 05-05-2022 Encounter for preprocedural laboratory examination DR REBECCA MANN . Facility:[facility] Start: 04-30-2022 Encounter for other preprocedural examination DR REBECCA MANN . [facility] Start: 04-26-2022 End: 04-27-[address] REBECCA MANN . Facility:[facility] Start: 04-26-2022 End: 04-27-2022 Encounter for other preprocedural examination DR REBECCA MANN . Facility:[facility] Start: 12-29-2021 End: 12-29-2021 ambulatory MIKE PLATT Facility: Start: 06-20-2021 (URG) Urgent Care Visit Atiya loving [facility] Start: 06-20-2021 End: 06-20-2021 ambulatory Atiya Huerta Other [facility] Other Start: 04-26-2021 End: 04-27-2021 ambulatory AN LR Facility:[facility] Procedures Date Procedure Procedure Detail Performing Clinician Start: 04-26-2021 ANESTH PERC IMG TX SP PROC AN LR Start: 04-26-2021 IMPLANT NEUROELECTRODES AN LR Start: 04-26-2021 INSRT/REDO SPINE N GENERATOR AN LR Ablation - action (q ualifier value) Debbie Cole Cholecystectomy Debbie Douglas Surgery (qualifier value) Yolis di Douglas Surgical procedure Debbie Schw ab Immunizations Immunization Date Immunization Notes Care Provider Garry patterson 07-09-2017 tetanus toxoid, reduced diphtheria toxoid, and acellular pertussis vaccine, adsorbed Debbie Douglas [facility] NEGATED: Highlighted row has not occurred!05-25-2023 influenza virus vaccine, unspecified formulation Debbie Douglas [facility] Payers Date Payer Category Payer Self-pay 2023 Unknown [id number] 1996 Unknown [id number] [id number] 1996 Unknown [id number] 2.16.840.1.342211.3.579.2.593 1996 Unknown [id number] 2.16.840.1.695142.3.579.2.593 1996 Unknown [id number] 2.16.840.1.067955.3.579.2.593 1996 Unknown [id number] 2.16.840.1.145091.3.579.2.593 1996 Unknown [id number] 2.16.840.1.130924.3.579.2.593 1996 Unknown [id number] 2.16.840.1.522798.3.579.2.593 1996 Unknown [id number] 2.16.840.1.802817.3.579.2.593 1996 Unknown [id number] 2.16.840.1.260668.3.579.2.727 1996 Unknown [id number] 2.16.840.1.513925.3.579.2. 1996 Unknown [id number] 2.16.840.1.084498.3.579.2. 1996 Unknown [id number] 2.16.840.1.390370.3.579.2. 1996 Unknown [id number] 2.16.840.1.628148.3.579.2. 1996 Unknown [id number] 2.16.840.1.180928.3.579.2. 1996 Unknown [id number] 2.16.840.1.642975.3.579.2. 1996 Unknown [id number] 2.16840.1.474947.3.579.2. 1996 Unknown [id number] 2.16840.1.106305.3.579.2. 1996 Unknown [id number] 2.16840.1.987977.3.579.2. 1996 Unknown [id number] 2.16.840.1.545691.3.579.2.1285 1996 Unknown [id number] 2.16.840.1.511952.3.579.2.1285 1996 Unknown [id number] 2.16840.1.692653.3.579.2.1285 1996 Unknown [id number] 2.16840.1.403575.3.579.2.1285 1996 Unknown [id number] 2.16.840.1.539251.3.579.2.1258 1996 Unknown [id number] 2.16840.1.548699.3.579.2.9 1959 Unknown [id number] 2.16. 840.1.710025.19 Unknown [facility] [id number] Unknown Financial Counselor [id number] a Unknown HCAP/HFA/FAP Active [id number] Unknown [id number] 2.16.840.1.703395.3.579.2.531 Social History Date Type Detail Facility Unknown if ever smoked [facility] Other Start: 05-25-2023 Tobacco smoking status Never s moked tobacco (finding) [facility] Tobacco smoking status Never [facility] Sex Assigned At Female [facility] Start: 09-07-2023 End: 09-21-2023 Tobacco smoking status Light tobacco smoker (finding) [facility] Start: 1995 Sex Assigned At Female F [facility] Functional Status Date Assessment Result Facility 09-21-2023 Functional Status N/A [facility] Clinical Notes 10-23-2022 to 09-21-2023 Note Date & Type Note Facility 09-21-2023 Hospital Discharge instructions Patient Education 09/21/2023 10:00:32 Cellulitis, Adult Cellulitis, Adult Cellulitis is a skin infection. The infected area is usually warm, red, swollen, and tender. This condition occurs most often in the arms and lower legs. The infection can travel to the muscles, blood, and underlying tissue and become serious. It is very important to get treated for this condition. What are the causes? Cellulitis is caused by bacteria. The bacteria enter through a break in the skin, such as a cut, burn, insect bite, open sore, or crack. What increases the risk? This condition is more likely to occur in people who: Have a weak body defense system (immune system). Have open wounds on the skin, such as cuts, garcia, bites, and scrapes. Bacteria can enter the body through these open wounds. Are older than 60 years of age. Have diabetes. Have a type of long-lasting (chronic) liver disease (cirrhosis) or kidney disease. Are obese. Have a skin condition such as: ?Itchy rash (eczema). ?Slow movement of blood in the veins (venous stasis). ?Fluid buildup below the skin (edema). Have had radiation therapy. Use IV drugs. What are the signs or symptoms? Symptoms of this condition include: Redness, streaking, or spotting on the skin. Swollen area of the skin. Tenderness or pain when an area of the skin is touched. Warm skin. A fever. Chills. Blisters. How is this diagnosed? This condition is diagnosed based on a medical history and physical exam. You may also have tests, including: Blood tests. Imaging tests. How is this treated? Treatment for this condition may include: Medicines, such as antibiotic medicines or medicines to treat allergies (antihistamines). Supportive care, such as rest and application of cold or warm cloths (compresses) to the skin. Hospital care, if the condition is severe. The infection usually starts to get better within 1 2 days of treatment. Follow these instructions at home: Medicines Take koal-ety-tjrekwh and prescription medicines only as told by your health care provider. If you were prescribed an antibiotic medicine, take it as told by your health care provider. Do not stop taking the antibiotic even if you start to feel better. General instructions Drink enough fluid to keep your urine pale yellow. Do not touch or rub the infected area. Raise (elevate) the infected area above the level of your heart while you are sitting or lying down. Apply warm or cold compresses to the affected area as told by your health care provider. Keep all follow-up visits as told by your health care provider. This is important. These visits let your health care provider make sure a more serious infection is not developing. Contact a health care provider if: You have a fever. Your symptoms do not begin to improve within 1 2 days of starting treatment. Your bone or joint underneath the infected area becomes painful after the skin has healed. Your infection returns in the same area or another area. You notice a swollen bump in the infected area. You develop new symptoms. You have a general ill feeling (malaise) with muscle aches and pains. Get help right away if: Your symptoms get worse. You feel very sleepy. You develop vomiting or diarrhea that persists. You notice red streaks coming from the infected area. Your red area gets larger or turns dark in color. These symptoms may represent a serious problem that is an emergency. Do not wait to see if the symptoms will go away. Get medical help right away. Call your local emergency services (911 in the [place] Do not drive yourself to the hospital. Summary Cellulitis is a skin infection. This condition occurs most often in the arms and lower legs. Treatment for this condition may include medicines, such as antibiotic medicines or antihistamines. Take gvsa-otl-qrgmzvx and prescription medicines only as told by your health care provider. If you were prescribed an antibiotic medicine, do not stop taking the antibiotic even if you start to feel better. Contact a health care provider if your symptoms do not begin to improve within 1 2 days of starting treatment or your symptoms get worse. Keep all follow-up visits as told by your health care provider. This is important. These visits let your health care provider make sure that a more serious infection is not developing. This information is not intended to replace advice given to you by your health care provider. Make sure you discuss any questions you have with your health care provider. Document Revised: 05/10/2022 Document Reviewed: 05/11/2022 [employer] Patient Education 2022 [employer]. Follow Up Care 09/21/2023 08:47:27 With:Debbie Cole Address: [address] [place] [address] Business (1) When:09/24/2023 09:54:01 [facility] 01-17-2023 Note Subjective s/p Rt wr ist inj median nerve Patient reports Pain Level 2. Pre-procedure pain level 7 on 01/16/23. Denies complications, side effects, problems, or any questions about discharge instruction. Next appointment on 03/01/23 at 1300. [facility] 01-04-2023 Note Pain Medicine Medical [address] [address] Subjective Patient ID: Raphael Meehan is a 27 y.o. female. Date:01/04/23 01/04/23 CC: Chief Complaint Patient presents with Shoulder Pain Left shoulder down the arm Follow-up SUBJECTIVE: Raphael Meehan is a 27 y.o. female who presents for follow up with a chief complaint of chronic neck and upper extremity pain. Since last visit patient reports pain is worsening. Most recently patient underwent a EMG/NCV with evidence of mild carpal tunnel on right WNL on the left. She states her SCS device does provide approx 50-60% pain relief of her radiating neck and arm pain but that her charge will at work and she is currently not allowed to take time to charge. She states she charges approx 1x per week but that her charge has been reduced requiring charging during the day. No side effects with recent start of gabapentin also no significant relief but slightly improved sleep. Right hand and wrist pain is the worst at this time and interferes with work. She has paperwork to fill to allow for office visits FMLA as well is requesting restrictions at work to allow for charging of her cervical SCS device when needed. Pain Assessment Pain Assessment: 0-10 Pain Score: 6 Pain Type: Chronic pain Pain Location: Shoulder Pain Orientation: Left Pain Radiating Towards: down the arm Pain Descriptors: Tingling, Throbbing, Numbness, Other (Comment) (weakness) Pain Frequency: Constant/continuous Pain Onset: Ongoing Clinical Progression: Not changed Aggravating Factors: Other (Comment) (lifting and laying down) Result of Injury: Yes Work-Related Injury: Yes Pain Interventions: Rest Past Medical History: Diagnosis Date Shoulder pain Past Surgical History: Procedure Laterality Date SPINAL CORD STIMULATOR IMPLANT Left Shoulder No Known Allergies Objective Ht 1.651 m (5' 5 ) Wt 96.6 kg (213 lb) BMI 35.45 kg/m??? General: well developed, well nourished, no acute distress Head: normocephalic and atraumatic Eyes: anicteric sclera, normal eye movements Ears: normal hearing Chest/Lungs: quiet, easy, unlabored breathing. Heart: no clubbing, cyanosis, edema Skin: intact without suspicious lesions or rashes Neuropsych: alert and cooperative; normal mood/affect articulates well RIGHT UE: + tinels + phalen, good capillary refill ROM full with pain on extension. Duck Bill Operator strength preserved. Gait: normal PROCEDURE NOTE: Risks and benefits of the EMG / NCS were discussed verbally including bleeding, infection and pain. Patient was agreeable to proceed with testing. Please see the scanned copy of the EMG report int he chart for additional details regarding the findings on today's electrodiagnostic study. Median: Right prolonged sensory latency and decreased amplitude. R motor and L sensory motor study intact. Ulnar: Intact bilateral sensory and motor study Needle study: No neurogenic findings in upper extremities Impression: Right mild carpal tunnel syndrome There is no other evidence of peripheral nerve entrapment, plexopathy, radiculopathy or peripheral neuropathy. Assessment/Plan Diagnoses and all orders for this visit: Carpal tunnel syndrome of right wrist Neuralgia and neuritis Comments: Pending EMG. Restart gabapentin lowest effecitve dose. Complex regional pain syndrome type 1 of left upper extremity Presence of neurostimulator Discussed chronic pain, medication use, treatment goals. Medication risk and benefits discussed. The Spine Diagram and Test results were used to explain the condition. PLAN: 1. Right wrist median nerve injection with ultrasound guidance 2. Gabapentin refill 300mg at bedtime 1 refill 3. MAPS/OARRS pulled and reviewed. 4. FMLA paperwork for ongoing Dr Garcia q2-3 months needs date on paperwork and fax to number on form. Okay to include allowance for SCS charging once per week. 5. Discussed role of carpal tunnel release surgery with Dr Blair should conservative measures fail 6. RTC in 6-8 weeks All questions are answered, and the patient expresses a full understanding. Available imaging was reviewed with patient. Discussed medication dosage, usage, goals of therapy, and side effects. Written instructions and verbal health teaching given to patient, patient verbalizes understanding and agrees with the treatment plan. Please note that portions of this note were generated using voice recognition [employer] dictation software. Although every effort was made to ensure the accuracy of this automated grinding wheel dresser, some errors in grinding wheel dresser may have occurred. [facility] 12-15-2022 Note Attestation signed by Alesia Aparicio MD at 12/15/2022 9:46 AM By using the attestations below, the signing clinician agrees that I have read and verify that the documentation has been personally reviewed by me and ensure that the documentation accurately reflects the encounter. Office Visit Attestation GC: I personally saw this patient on the day of the encounter, performed the alberto portion(s) of the service and participated in the management and confirm the resident's documentation. Please note there may be an additional personal documentation from me. Procedure Attestation Level of Attending Supervision for Procedure I was present for the entire procedure Performed with Dr. Johnson Agree with above. Patient is a 27-year-old female with bilateral upper extremity pain presenting for EMG/NCS of the bilateral upper extremities. Testing was consistent with mild right carpal tunnel syndrome. Left upper extremity testing was within normal limits. ASSESSMENT/PLAN: Assessment: 27 y/o F referred by Dr. Sheridan for bilateral upper extremity EMG #Right mild carpal tunnel syndrome There is no other evidence of peripheral nerve entrapment, plexopathy, radiculopathy or peripheral neuropathy. Plan: Follow up with Dr. Sheridan for further management. Risks, benefits, and alternatives to all new medications were discussed with patient. Continue all other medications as prescribed. All questions answered to patient's satisfaction. The patient was instructed to call if symptoms are worsening or not improving. The patient was counseled regarding impressions, instructions for management and importance of compliance with treatment. No follow-ups on file. Jean Johnson MD SUBJECTIVE: Raphael Meehan is a 27 y.o. female who presents to [facility] today for bilateral upper extremity EMG HPI: 27 y/o F with work related LUE injury with resulting CRPS s/p 04/[address] 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 No hx of T2DM Review of Systems (+) for bilateral upper extremity numbness Patient Active Problem List Diagnosis Biceps tendinitis Impingement syndrome of left shoulder region Neuralgia and neuritis Presence of neurostimulator Complex regional pain syndrome type 1 of left upper extremity Outpatient Medications Prior to Visit Medication Sig Dispense Refill azithromycin (Zithromax) 250 mg tablet TAKE 2 TABLETS THE FIRST DAY THEN 1 TABLET EVERY DAY FOR 4 DAYS. benzonatate (Tessalon) 100 mg capsule TAKE 1 CAP BY MOUTH IN THE MORNING, AT NOON, & IN THE EVENING NEEDED FOR COUGH FOR UP TO 30 DAYS. dimethicone (4-N-1 No Rinse Wash) 1 % cream Topical Cream #4 CMPD Colchicine 0.01%, Topiramate 3%, Verapamil 5%, Lidocaine 2%, Prilocaine 2%, DMSO 3.5% Topical Cream Apply 0.5-1 gm to area of pain BID-QID PRN massaging in well. Repeat application after 10 minutes. gabapentin (Neurontin) 300 mg capsule Take 1 capsule (300 mg) by mouth at bedtime. 30 capsule 0 ibuprofen 800 mg tablet Take 800 mg by mouth every 6 (six) hours if needed. predniSONE (Deltasone) 10 mg tablet TAKE 4 TABLETS BY MOUTH DAILY FOR 3 DAYS, THEN 3 TABS 3 DAYS, 2 TABS FOR 3 DAYS, 1 TAB FOR 3 DAYS No facility-administered medications prior to visit. No Known Allergies OBJECTIVE: Vitals: 12/15/22 0808 BP: 131/90 BP Location: Right arm Patient Position: Sitting BP Cuff Size: Adult Pulse: 71 Weight: 96.6 kg (213 lb) Height: 1.651 m (5' 5 ) Body mass index is 35.45 kg/m???. Physical Exam: General: Pleasant, sitting comfortably in the room in no acute distress HEENT:No obvious deformities CVS: extremities well perfused, no peripheral cyanosis in exposed areas Lung: normal effort of breathing, no accessory muscle usage Psyche: mood and affect appropriate and normal Skin: there is no petechiae, purpura noted.Skin is also warm and dry to touch. Neurologically: Alert, oriented, followed commands Musculoskeletal exam: Moves all extremities spontaneously. Studies: PROCEDURE NOTE: Risks and benefits of the EMG / NCS were discussed verbally including bleeding, infection and pain. Patient was agreeable to proceed with testing. Please see the scanned copy of the EMG report int he chart for additional details regarding the findings on today's electrodiagnostic study. Median: Right prolonged sensory latency and decreased amplitude. R motor and L sensory motor study intact. Ulnar: Intact bilateral sensory and motor study Needle study: No neurogenic findings in upper extremities Impression: Right mild carpal tunnel syndrome There is no other evide (more content not included)... [facility] 12-07-2022 Note Pain Medicine Medical [address] [address] Subjective Patient ID: Raphael Meehan is a 27 y.o. female. Date:12/08/22 12/08/22 CC: Chief Complaint Patient presents with Follow-up SCS (BS) follow up SUBJECTIVE: Raphael Meehan is a 27 y.o. female who presents for follow up with a chief complaint of numbness and tingling in bilateral arms. Since last visit patient reports pain in her left shoulder and arm with the use of her cervical SCS but she reports severe numbness that is concerning her the most. This numbness is constant and in no dermatomal distrubution in both upper extremities. She has turned her SCS off and it has not improved as well as her neuropathic pain worsening during the time without stimulation. She does have upcoming EMG/NCV. She denies any focal weakness, balance issues or bowel or bladder dysfunction. We reviewed her Cervical films xrays and MRI in office today. Pain Assessment Pain Assessment: 0-10 Pain Score: 4 Pain Type: Chronic pain Pain Location: Shoulder Pain Orientation: Left Pain Radiating Towards: Arm Pain Descriptors: Tingling, Throbbing, Numbness, Other (Comment) (Weakness) Pain Frequency: Constant/continuous Pain Onset: Ongoing Clinical Progression: Gradually improving Aggravating Factors: Other (Comment) (Lifting and lying down) Pain Interventions: Other (Comment) (Sitting) Response to Interventions: SCS Past Medical History: Diagnosis Date Shoulder pain Past Surgical History: Procedure Laterality Date SPINAL CORD STIMULATOR IMPLANT Left Shoulder No Known Allergies Objective BP 125/76 (BP Location: Right arm, Patient Position: Sitting, BP Cuff Size: Large adult) Pulse 89 Ht 1.651 m (5' 5 ) Wt 96.6 kg (213 lb) BMI 35.45 kg/m??? General: well developed, well nourished, no acute distress Head: normocephalic and atraumatic Eyes: anicteric sclera, normal eye movements Ears: normal hearing Chest/Lungs: quiet, easy, unlabored breathing. Heart: no clubbing, cyanosis, edema Skin: intact without suspicious lesions or rashes Neuropsych: alert and cooperative; normal mood/affect articulates well Cervical SPINE ROM: Cervical spine reveals there is not restriction in forward flexion to chin to chest. There is no restriction in right rotation, There is no restriction in left rotation. There is no restriction in extension. There is no pain in extension/rotation/flexion. PALPATION: Paravertebral spasm is not present. There is not central spine pain to palpation. There is not facet tenderness. There is not paraspinal tenderness. SKIN: Intact without rashes, lesions or ulcerations. NEURO: Spurlings test is negative. Tinels test is negative. Neurologic exam reveals 2+/4 triceps reflexes, 1+/4 Biceps reflexes, 1+/4 brachioradialis. Focal neurologic deficits are not Noted symmetric manager garden strength VASC: Cap refill less than 2 sec. Radial pulse +2 equal MUSC: Left UE - 5/5 Deltoid, 5/5 Triceps, 5/5 Biceps, 5/5 Wrist flexion, 5/5 Wrist Extension, 5/5 Finger extension, 5/5 Intrinsics, 4/5 Duck Bill Operator Right UE -5/5 Deltoid, 5/5 Triceps, 5/5 Biceps, 5/5 Wrist flexion, 5/5 Wrist Extension, 5/5 Finger extension, 5/5 Intrinsics, 4/5 Duck Bill Operator GAIT: The patient stands with a normal spinal contour. The patient walks with normal, balanced GAIT. SPECIAL TESTS: negative Hoffmans reflex, negative Babinski, negative Clonus, negative Lhermittes sign. Waddells signs is not present. Assessment/Plan Diagnoses and all orders for this visit: Neuralgia and neuritis Comments: Pending EMG. Restart gabapentin lowest effecitve dose. Orders: - gabapentin (Neurontin) 300 mg capsule; Take 1 capsule (300 mg) by mouth at bedtime. Presence of neurostimulator Comments: [employer] cervical SCS functioning properly Complex regional pain syndrome type 1 of left upper extremity Comments: chronic stable. Cervical SCS with >80% pain reduction. Progressive numbness without weakness continue to monitor Discussed chronic pain, medication use, treatment goals. Medication risk and benefits discussed. The Spine Diagram and Test results were used to explain the condition. PLAN: 1. Start Gabapentin 300mg at bedtime 1 week increase to 600mg if ineffective 2. [facility] paperwork for medical evaluations, doctors visits, PT and testing 3. MAPS/OARRS pulled and reviewed. 4. EMG next week. Continue SCS optimization. Will consider advanced imaging pending EMG results 5. Continue lumbar and core strengthening 6. RTC in 4 weeks All questions are answered, and the patient expresses a full understanding. Available imaging was reviewed with patient. Discussed medication dosage, usage, goals of therapy, and side effects. Written instructions and verbal health teaching given to patient, patient verbalizes understanding and agrees with the treatment plan. Please note that portions of this note were ge (more content not included)... [facility] 10-23-2022 Note HPI: Raphael Meehan is a 27 y.o. 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 She had a spinal cord stimulator placed in 04/26/2021 with [employer] in which she got 90% relief. She states she recently have noticed a bulge in her incision. She states when she pushes on it it causes shocks in her arms. She states she also has noted that she is waking up with numbness in both her arms after sleeping. She states she works with her hands and she get numbness at times in her arms. Her current pain level is a 4/10 in her left shoulder that is constant but is relieved by SCS and rest. 10/23/22 CC: Chief Complaint Patient presents with Follow-up SCS (BS) Pain Assessment Pain Assessment: 0-10 Pain Score: 4 Pain Type: Chronic pain Pain Location: Shoulder Pain Orientation: Left Pain Descriptors: Sharp, Stabbing, Shooting, Tingling, Throbbing, Numbness Pain Frequency: Constant/continuous Pain Onset: Ongoing Clinical Progression: Gradually improving Aggravating Factors: Other (Comment) (Lifting) Result of Injury: No Work-Related Injury: No Pain Interventions: Medication (See MAR), Rest, Other (Comment) (Sitting and lying down) Response to Interventions: SCS Past History of Treatments: Patient has tried other professional care of PT, orthopedics eval. Medications: Currently taking: ibuprofen Procedures performed previously: - 06/2020 left shoulder arthroscopy, subacromial decompression with bursectomy, and open biceps tenodesis - 10/2020 left stellate ganglion block x 3 with short-lived relief - 02/16/2021 SCS trial with 90% relief - 04/26/21 SCS implant [employer] with > 90% relief Imaging: XR CERVICAL SPINE 2-3 VIEWS 10/23/2022 8:34 AM CLINICAL INDICATIONS: Chronic cervical neck pain spinal stimulator COMPARISON: 04/26/2020 FINDINGS: Cervical spine stimulator device in place (level of the C2 posterior elements. No prevertebral soft tissue swelling or acute process. IMPRESSION: Electrical stimulator leads in place without evidence of acute process. 05/2020 MRI C-spine: Negative/normal cervical spine MRI. OARRS: checked and reviewed last medication filled Physical Exam Gen: NAD, sitting comfortably in chair. HEENT: EOMI CVS: extremities well perfused, no peripheral cyanosis in exposed areas Lung: normal effort of breathing, no accessory muscle usage MSK: RUE strength 5/5, LUE strength 5/5 + tinel's test and Phalen test bilateral Gait: WNL Skin: no erythema, swelling or ecchymosis appreciated in exposed areas Neuro: sensation intact to light touch. Psych: normal mood and affect Assessment: 27 year old female with CRPS type 1 in left upper extremity with SCS. Nehemiah in office to optimize SCS and determine if SCS causing numbness. She states she continues to have numbness in her bilateral arms when waking up and certain activities at work cause her numbness. She had xray cervical spine done today which did not show lead migrations. Nehemiah states SCS optimized and no conduction problems. ordered EMG testing to further investigate numbness in bilateral arms consider MRI cervical spine. Assessment/Plan Diagnoses and all orders for this visit: Malfunction of spinal cord stimulator, initial encounter ([facility]) Impingement syndrome of left shoulder region Plan: Physical Therapy- completed. Imaging- xray cervical spine reviewed, no lead migration noted. Consults-none Interventions- ordered EMG testing and consider MRI cervical to determine if other pathology causing numbness in bilateral arms. Medications- none Return to clinic-4 weeks OARRS reviewed [facility] Evaluation + Plan note Future Appointments Appointment Date:06/08/2023 10:00:00 AM Scheduled Provider:Debbie Bui Location:[facility] [place] Appointment Type:[facility] Evaluation + Plan note Future Appointments Appointment Date:10/10/2023 03:40:00 PM Scheduled Provider:Debbie Bui Location:[facility] ([facility] Appointment Type: Open [facility] Evaluation note [facility] [employer] Other Evaluation note No assessment inform ation available [facility] Work Phone: History general Narrative - Reported [facility] [employer] Other Hospital course Narrative No data available for this section [facility] Hospital Discharge instructions No data available for this section [facility] Progress note No data available for this section [facility] Summary Purpose Family History No Family History Records Found Relationship Condition Age at Onset Recorded Date/T tong mother Hypertension Unknown Advance Directives No Advanced Directives Records FoundNo Advanced Directives Records FoundNo Advanced Directives Records FoundNo Advanced Directives Records FoundNo Advanced Directives Records FoundNo Advanced Directives Records FoundNo Advanced Directives Records Found Additional Source Comments INFORMATION SOURCE (unrecogn ized section and content) DATE CREATED AUTHOR 03/02/2022 [facility] DATE CREATED AUTHOR AUTHOR'S ORGANIZ ATION 12/19/2022 [facility] DATE CREATED AUTHOR AUTHOR'S ORGANIZ ATION 03/02/2023 [facility] DATE CREATED AUTHOR AUTHOR'S ORGANIZ ATION 01/21/2024 [facility] DATE CREATED AUTHOR AUTHOR'S ORGANIZ ATION 02/03/2024 [facility] DATE CREATED AUTHOR AUTHOR'S ORGANIZ ATION 03/02/2024 [facility] DATE CREATED AUTHOR AUTHOR'S ORGANIZ ATION 03/06/2024 [facility] Patient Care team informatio n (unrecognized section and content) Team Status: Active Member Role Status Dates PHYSICIAN NO FAMILY Primary Care Provider Active Team Status: Inactive Member Role Status Dates PHYSICIAN NO FAMILY Primary Care Provider Active Start: February 27, 2024 End: February 27, 2024 Keith Cervantes DO Attending Provider Active Start : February 27, 2024 End: February 27, 2024 Goals (unrecognized section and content) Goals may be documented in a n alternate section FOR RECORDS PERTAINING TO PATIENTS WHO ARE OR HAVE BEEN ENROLLED IN A CHEMICAL DEPENDENCY/SUBSTANCEABUSE PROGRAM, SOME INFORMATION MAY BE OMITTED. This clinical summary was aggregated from multiple sources. Caution should be exercised in using it in the provision of clinical care. This summary normalizes information from multiple sources, and as a consequence, information in this document may materially change the coding, format and clinical context of patient data. In addition, data may be omitted in some cases. CLINICAL DECISIONS SHOULD BE BASED ON THE PRIMARY CLINICAL RECORDS. [employer] [facility] provides no warranty or guarantee of the accuracy or completeness of information in this document.
[2024-03-13 10:48] LABS: Basophils Absolute Auto 0.1 10^3/uL (0.0-0.1); Eosinophils Absolute Auto 0.3 10^3/uL (0.0-0.7); Hematocrit 39.7 % (36.0-48.0); Hemoglobin 13.5 g/dL (12.0-16.0); Immature Granulocytes Abs Auto 0.06 10^3/uL (0.00-0.03); Immature Granulocytes Pct Auto 0.6 % (0.0-0.5); Lymphocytes Absolute Auto 3.2 10^3/uL (1.2-3.8); Lymphocytes Percent Auto 31.2 % (20.5-60.0); Mean Corpuscular Hemoglobin 30.3 pg (26.7-34.0); Mean Platelet Volume 10.7 fL (9.5-13.5); Monocytes Absolute Auto 0.8 10^3/uL (0.3-0.8); Monocytes Percent Auto 8.2 % (1.7-12.0); Neutrophils Absolute Auto 5.7 10^3/uL (1.4-6.5); Platelet Count 317 10^3/uL (150-450); Red Blood Count 4.46 10^6/uL (4.20-5.40); Red Cell Distribution Width 12.3 % (11.0-15.0); White Blood Count 10.1 10^3/uL (4.0-11.0)
[2024-03-13 11:04] LABS: BUN Creatinine Ratio 10.1; Calcium 8.9 mg/dL (8.5-10.1); Carbon Dioxide 24.3 mmol/L (21.0-32.0); Chloride 104 mmol/L (98-107); Estimated GFR (African America >60 (>=60); Estimated GFR (Non-African Ame >60 (>=60); Glucose 92 mg/dL (74-106); Potassium 4.3 mmol/L (3.5-5.1); Sodium 138 mmol/L (136-145)
[2024-03-13 11:16] LABS: INR 0.96; Partial Thromboplastin Time 26.2 sec (22.3-36.2); Prothrombin Time 10.2 sec (9.0-11.6)
[2024-03-13 11:25] LABS: Alanine Aminotransferase 47 U/L (14-59); Albumin Globulin Ratio 1.2; Albumin Level 3.5 g/dL (3.4-5.0); Alkaline Phosphatase 47 U/L (46-116); Aspartate Amino Transferase 26 U/L (15-37); Bilirubin Direct 0.1 mg/dL (0.0-0.2); Bilirubin Total 0.4 mg/dL (0.2-1.0); Total Protein 6.5 g/dL (6.4-8.2)
== END 2024-03-13 09:46 | disposition home or self-care (01) ==
LOC: PST 09:46
PROVIDERS: PCP Nurse Practitioner; Visit Provider Obstetrics & Gynecology
DX: Z01.812 Encounter for preprocedural laboratory examination (principal); N92.0 Excessive and frequent menstruation with regular cycle; R10.2 Pelvic and perineal pain; N94.6 Dysmenorrhea, unspecified; N94.10 Unspecified dyspareunia
CPT/HCPCS: 80048; 80076; 85025; 85610; 85730

== ENCOUNTER 2024-03-25 15:03 | Outpatient (OUT) | payer BC, SELFPAY | END 2024-03-25 15:04 | disposition home or self-care (01) | LOC: LAB 15:03 | PROVIDERS: PCP Nurse Practitioner; Visit Provider Obstetrics & Gynecology | DX: Z01.812 Encounter for preprocedural laboratory examination (principal); N92.0 Excessive and frequent menstruation with regular cycle; R10.2 Pelvic and perineal pain; N94.6 Dysmenorrhea, unspecified; N94.10 Unspecified dyspareunia | CPT/HCPCS: 36415; 86850; 86900; 86901 ==

== ENCOUNTER 2024-03-27 11:14 | Day surgery (SDC) | payer BC, SELFPAY ==
[2024-03-13 10:40] VITALS: BP 127/86; PULSE 85; TEMP 36.6; O2SAT 97; BMI 38.5
[2024-03-27] VITALS (14 sets, daily range): BP systolic 119–141; BP diastolic 74–103; PULSE 80–111; TEMP 36.1–36.8; O2SAT 93–97; BMI 38.5
[2024-03-27 11:22] LABS: Basophils Absolute Auto 0.1 10^3/uL (0.0-0.1); Basophils Percent Auto 0.9 % (0.2-2.0); Eosinophils Absolute Auto 0.4 10^3/uL (0.0-0.7); Eosinophils Percent Auto 2.8 % (0.9-7.0); Hematocrit 39.2 % (36.0-48.0); Hemoglobin 13.4 g/dL (12.0-16.0); Immature Granulocytes Abs Auto 0.17 10^3/uL (0.00-0.03); Immature Granulocytes Pct Auto 1.2 % (0.0-0.5); Lymphocytes Absolute Auto 4.4 10^3/uL (1.2-3.8); Lymphocytes Percent Auto 31.8 % (20.5-60.0); Mean Corpuscular HGB Conc 34.2 g/dL (29.9-35.2); Mean Corpuscular Hemoglobin 30.1 pg (26.7-34.0); Mean Corpuscular Volume 88.1 fL (81.0-99.0); Mean Platelet Volume 10.2 fL (9.5-13.5); Monocytes Percent Auto 7.1 % (1.7-12.0); Neutrophils Absolute Auto 7.7 10^3/uL (1.4-6.5); Neutrophils Percent Auto 56.2 % (43.0-75.0); Platelet Count 344 10^3/uL (150-450); Red Blood Count 4.45 10^6/uL (4.20-5.40); Red Cell Distribution Width 11.8 % (11.0-15.0); White Blood Count 13.7 10^3/uL (4.0-11.0)
--- OUTSIDE RECORDS SUMMARY | 2024-03-27 11:24 | XMS_ITS | CCD ---
Author Organization [facility] Care Team Providers Care Chopped Strand Operator Name Role Phone Atiya Huerta Unavailable AN LR Attending Unavailable SELF, REFERRED Primary Care Unavailable SELF, REFERRED Referring Unavailable MEG, AN Admitting Unavailable MEG, AN Surgeon Unavailable MS Procedure Practitioner Unavailab MIKE Griffiths Admitting Unavailable [...] Unava ilable DO Keith Cervantes Attending Provider [phone] KEITH CERVANTES Attending Unavailable KEITH CERVANTES Attending Unavailable NO FAMILY, PHYSICIAN Primary Care Unavailable Keith Cervantes Attending Unavailable Keith Cervantes Admitting Unavailable Allergies Allergy Classification Reported Allergen(s) Allergy Type Date of Onset Reaction(s) Facility (1 source) nickel Drug Allergy rash Razz Other (1 source) nickel Drug Allergy 06-20-2021 [facility] Repository Medications Current Medications Medication Drug Class(es) Dates Sig (Normalized) Sig (Original) [id number] 200 actuat albuterol 0.09 mg/actuat metered dose inhaler (1 source) beta2-Adrenergic Agonist Start: 06-20-2021 doxycycline monohydrate 100 mg oral tablet (1 source) Tetracycline-class Drug Start: 09-21-2023 End: 10-01-2023 take 1 tablet by mouth twice daily doxycycline monohydrate 100 mg oral tablet 100 mg = 1 tab(s), Oral, BID, X 10 day(s), # 20 tab(s), Refills(s) 0, Pharmacy: [facility]/pharmacy #[id number], 165.1, cm, 09/21/23 8:51:00 EST, Height/Length [...] BID, # 60 tab(s), Refills(s) 0, [id number], 164, cm, 08/07/23 9:50:00 EST, Height/Length Dosing, 96.4, kg, 08/07/23 9:50:00 EST, Weight Dosing Start Date: 09/06/23 Status: Ordered phentermine hydrochloride 37.5 mg oral tablet (2 sources) Sympathomimetic Amine Anorectic Start: 08-07-2023 take 1 tablet by mouth once daily phentermine 37.5 mg Tab 37.5 mg = 1 tab(s), Oral, Daily, # 30 tab(s), Refills(s) 0, [id number], 164, cm, 08/07/23 9:50:00 EST, Height/Length [...] # 30 cap(s), Refills(s) 0, Pharmacy: [facility]/pharmacy #[id number], 165.1, cm, 09/21/23 8:51:00 EST, Height/Length [...] # 12 cap(s), Refills(s) 3, Pharmacy: [facility]/pharmacy #[id number], 164, cm, 09/07/23 8:25:00 EST, Height/Length [...] Test Name Value Interpretation Reference Range Facility [facility] 02-27-2024 L Specimen: [id number] Received: 02/28/24 Status: KOFI Bergerkraig Num: [id number] Spec Type: Surgical Subm Dr: Keith Cervantes Tissues: A Endometrium - Biopsy (EMBX) Procedures: HE/2, Gross/Micro L4 Age/ Patient Sex Location Account Attending Physician Raphael Meehan / LABELL [id number] Keith Cervantes SPEC NUM: [id number] RECD: 02/28/24 STATUS: KOFI BERGERKraig NUM: [id number] [place]: 02/27/[address] [facility] [address]: Keith Cervantes ENTERED: 02/28/[address] [facility] [address]: [place],Lab SPEC TYPE: Surgical DEPT: [facility] [...] cm, entirely submitted in A1. CPT Codes 73526 -------- -------- Specimen: [id number] Received: 02/28/24-1250 Status: KOFI Nicolas Num: [id number] Spec Type: Surgical Subm Dr: Keith Cervantes Tissues: A Endometrium - Biopsy (EMBX) Procedures: HE/Ernestina, Gross/Micro L4 -------- Patient: Raphael Meehan [id number] (Continued) -------- Signed (signature on file) Diana Massey MD 03/03/24 175 Normal [facility] RAD - Ultrasound Reporton RAD - Ultrasound Report [id number]. 00TIFF Normal [facility] HCG ( test) Ql (U)o n 01-15-2024 Beta HCG ( test) Ql (U) Negative Normal NEG [facility] Comment on above: Performed By: #### 2 106-3 #### [facility] ([id number]) [address] [place] [address] 56788 URN MACROSCOPIC NURon 2023 BILIRUBIN DAINA Negative Normal NEG [facility] Comment on above: Performed By: #### N UM #### [facility] ([id number]) [address] [place] [address]289 BLOOD/HGB DAINA Small Abnormal NEG [facility] Comment on above: Performed By: #### N UM #### [facility] ([id number]) [address] [place] [address] 87848 GLUCOSE DAINA Negative Normal NEG [facility] Comment on above: Performed By: #### N UM #### [facility] ([id number]) [address] [place] [address] 48198 KETONES DAINA Negative Normal NEG [facility] Comment on above: Performed By: #### N UM #### [facility] ([id number]) [address] [place] [address] [place] [address] LEUKOCYTE ESTERASE DAINA Negative Normal NEG [facility] Comment on above: Performed By: #### N UM #### [facility] ([id number]) [address] [place] [address] 30563 NITRITE DAINA Negative Normal NEG [facility] Comment on above: Performed By: #### N UM #### [facility] ([id number]) [address] [place] [address] 71340 PH DAINA 6.5 Normal 5.0-8.5 [facility] Comment on above: Performed By: #### N UM #### [facility] ([id number]) [address] [place] [address] 36850 PROTEIN DAINA Negative Normal NEG [facility] Comment on above: Performed By: #### N UM #### [facility] ([id number]) [address] [place] [address] 06589 SPECIFIC GRAVITY DAINA 1.025 Normal 1.003-1.035 [facility] Comment on above: Performed By: #### N UM #### [facility] ([id number]) [address] [place] [address] 68856 UROBILINOGEN DAINA 0.2 eu/dL Normal <1.1 [facility] Comment on above: Performed By: #### N UM #### [facility] ([id number]) [address] [place] [address] 35675 XR SPINE LUMBAR 2 OR 3 VWSon [...] Galvez MD on 01/15/2024 1:20 PM Normal [facility] ED Note-Physicianon 10-17-19 ED Note-Physician [id number] .00TIFF Normal [facility] RAD - CT Reporton 10-17-2023 RAD - CT Report [id number]#1 .00TIFF Normal [facility] ED Note-Physicianon 09-22-19 ED Note-Physician Basic [...] # 30 cap(s), Refills(s) 0, Pharmacy: [facility]/pharmacy #[id number], 165.1, cm, 09/21/23 8:51:00 EST, Height/Length Dosing, 97.9, kg, 09/21/23 8:51:00 EST, Weight Dosing doxycycline, 100 mg = 1 tab(s), Oral, BID, X 10 day(s), # 20 tab(s), Refills(s) 0, Pharmacy: [facility]/pharmacy #[id number], 165.1, cm, 09/21/23 8:51:00 EST, Height/Length [...] Information Debbie Cole In 3 days 09/24/[address] [facility] (1) Additional Instructions: Patient Education Cellulitis, Adult [...] made to ensure accuracy, however, inadvertently computerized game trapper mistakes may be present. Appropriate healthcare PPE [...] tab(s), Oral, Chloe (more content not included)... [facility] Comment on above: Result Comment: Elec tronically [...] 3:40 PM EST With: Debbie Bui Where: [facility] [place] [facility] Consent for Treatmenton Consent for Treatment [id number] .00TIFF [facility] Discharge Instructionson Discharge Instructions [id number] .00TIFF [facility] ED Clinical Summaryon 2023 ED Clinical Summary [place] [id number] ED Clinical Summary Person Information Name: [facility] Age: 28 Years : 1995 Sex: Female Language: St Helenian PCP: Debbie Bui Marital Status: Single Visit [...] 09/21/2023 10:00:31 09/21/2023 10:00:31 09/21/2023 10:00:31 ADDRESS: [address] [place] [id number] PHYS DOC NOTES: MEDICAL INFORMATION: Prescriptions Given: New Medications [id number], [address], [place] [id number], [phone] cephalexin (Keflex 500 mg Cap) 1 Capsules [...] Follow up: With: Address: When: Debbiejosh Lewisab [address] [place] [address] Business (1) In 3 days 09/24/2023 DIAGNOSIS: Cellulitis Normal [facility] ED Patient Education Noteon 09-21-2023 ED [...] these instructions at home: Medicines ? Take ubui-wri-ihrjtza and prescription medicines only as told by [...] as antibiotic medicines or antihistamines. ? Take fttk-rfa-xfiggnt and prescription medicines only as told by [...] Reviewed: 05/11/2022 Elsevier Patient Education ? 2022 [employer] Normal [facility] ED Patient Summaryon 024 ED Patient Summary [address] [address] Patient Discharge Instructions Person Information Name: RAPHAEL MEEHAN Age: 28 Years Arrival Date: 09/21/2023 08:45:38 Discharge Diagnosis: Cellulitis Primary Care Physician: Debbie Bui Provider Information Primary Provider: Juanjose Toscano DO Advanced Fundraising Director:Reece Oh PA-C The exam and treatment you received in the Emergency Department were for an urgent problem and are not intended as complete care. It is important that you follow up with a doctor, nurse practitioner, or physician?s medical office assistant for ongoing care. If your symptoms [...] Follow-up Instructions: With: Address: When: Debbie Cole [address] [place], [place] [id number] Business (1) In 3 days 09/24/2023 In the event that this physician does not participate in your insurance network, please consult with your insurance company to find a nearby participating provider. Patient Education Materials: Cellulitis, Adult A MESSAGE TO ALL PATIENTS REGARDING OPIOIDS PRESCRIPTION OPIOIDS: WHAT YOU NEED TO KNOW Prescription opioids can be used to help relieve jhxccnnn-eg-gffzxi pain and are often prescribed following a [...] be struggling with addiction, tell your health live in caregiver and ask for guidance or call [facility]S National Helpline at 2-153-368-BBZT. v Source: [place] (more content not included)... Normal [facility] Medicine Office/Clini c Noteon 09-21-2023 Family [...] 50,000 intl units (1.25 mg) oral capsule, 6[address] International_Unit= 1 cap(s), Oral, qWeek, 3 refills [...] Refuses diphtheria/pertussis, acel/tetanus adult 07/09/2017 Recorded Normal [facility] Comment on above: Result Comment: Elec tronically Signed By: Debbie Bui\.br\Date and Time Signed: 09/21/23 08:30 EST Provider Letteron 09-21-2023 Provider Letter September 21, 2023 RAPHAEL MEEHAN [address] [place] [id number] : 1995 To Whom It May Concern, Please excuse above patient from work. Date of Illness: From: 09/21/2023 To: 09/21/2023 May Return to Work On: 09/24/2023 Restrictions: _ Comments: _ Sincerely, [place] [id number] Normal [facility] US LE Venous Duplex Lefton 0 [...] Isaias Palma MD Transcribed by: ILDA Technologist: [facility] Ambulatory Visit Summaryon 0 09-07-2023 Ambulatory [...] 3:40 PM EST With: Debbie Bui Where: [facility]3] CBC w/ Auto Diffon 4 Basophil Absolute 0.1 E9/L Normal 0.0-0.2 [facility] Comment on above: Performed By: #### 2 485000, 74143574, 776919993, 8199893, 5026332, 905396041 ####[address] [address] Basophils/100 WBC (Bld) 0.8 % Normal 0.0-2.0 [facility] Comment on above: Performed By: #### 2 153894, 82170818, 328843642, 2374513, 1830225, 391597566 ####[address] [address] Eos Absolute 0.9 E9/L High 0.0-0.5 [facility] Comment on above: Performed By: #### 2 612941, 25117729, 991609682, 3102853, 1926153, 136405671 ####[address] [address] Eosinophils/100 WBC (Bld) 6.8 % Normal 0.0-8.0 [facility] Comment on above: Performed By: #### 2 473962, 90379500, 018420048, 0219800, 6202691, 844066556 ####[address] [address] Erythrocyte distribution width (RBC) [Ratio] 13.1 % Normal 10.9-14.2 [facility] Comment on above: Performed By: #### 2 199213, 72769560, 204409988, 1397637, 1525197, 038116404 ####[address] [address] Hematocrit (Bld) [Volume fraction] 39.0 % Normal 34.0-46.0 [facility] Comment on above: Performed By: #### 2 652953, 91131433, 492726328, 4539441, 8715103, 820792654 ####[facility] [address] [place] [address] Hemoglobin (Bld) [Mass/Vol] 12.7 g/dL Normal 12.0-16.0 [facility] Comment on above: Performed By: #### 2 419083, 82016035, 485968178, 5598367, 7105664, 984550824 ####[address] [address] Lymph Absolute 4.0 E9/L Normal 1.0-4.0 [facility] Comment on above: Performed By: #### 2 483963, 40852861, 457181253, 7851150, 5541725, 968663585 ####[address] [address] Lymphocytes/100 WBC (Bld) 30.3 % Normal 14.0-50.0 [facility] Comment on above: Performed By: #### 2 014874, 28181338, 505243667, 2948456, 3779756, 068122599 ####[address] [address] MCH (RBC) [Entitic mass] 29.2 pg Normal 27.0-34.0 [facility] Comment on above: Performed By: #### 2 147947, 72761623, 880057943, 9548923, 9009354, 430164418 ####[address] [address] MCHC (RBC) [Mass/Vol] 32.7 g/dL Normal 31.4-36.0 [facility] Comment on above: Performed By: #### 2 790575, 32599920, 029746844, 3412138, 3767717, 991002138 ####[address] [address] MCV (RBC) [Entitic vol] 89.3 fL Normal 80.0-100.0 [facility] Comment on above: Performed By: #### 2 437015, 99424787, 579448772, 8709820, 2776347, 054304405 ####[facility] [address] [place] [address] Boundary Absolute 0.9 E9/L Normal 0.2-1.0 [facility] Comment on above: Performed By: #### 2 775765, 16680564, 030302743, 2481735, 4010173, 246464702 ####[address] [address] Monocytes/100 WBC (Bld) 6.9 % Normal 4.0-14.0 [facility] Comment on above: Performed By: #### 2 482731, 66588629, 659636126, 2089189, 5946470, 473920670 ####[address] [address] Neutro Absolute 7.3 E9/L Normal 2.0-7.5 [facility] Comment on above: Performed By: #### 2 646817, 21703899, 080059736, 2891833, 4491152, 697918494 ####[address] [address] Neutro Auto 55.2 % Normal 36.0-75.0 [facility] Comment on above: Performed By: #### 2 592319, 63862915, 631174068, 9157125, 9453575, 060741123 ####[place] [address] [place] [address] Platelet 327.0 E9/L Normal 150.0-500.0 [facility] Comment on above: Performed By: #### 2 841414, 42580288, 265814923, 3757603, 1963491, 019874265 ####[facility] [address] [place] [address] Platelet mean volume (Bld) [Entitic vol] 8.8 fL Normal 6.4-10.8 [facility] Comment on above: Performed By: #### 2 622558, 21631660, 092998100, 5089793, 2350985, 065815131 ####[facility] [address] [place] [address] RBC 4.4 E12/L Normal 4.3-5.9 [facility] Comment on above: Performed By: #### 2 479885, 95497960, 455478679, 4875703, 3963408, 514216329 ####[facility] [address] [place] [address] WBC 13.2 E9/L High 4.0-11.0 [facility] Comment on above: Performed By: #### 2 989947, 98064518, 180180154, 5698603, 9330528, 857286287 ####[facility] [address] [place] [address] CHEMISTRYOrdered By: SYSTEM SYSTEM on 09-07-2023 Albumin [...] (Bld) [Mass fraction] 5.2 % Normal <=5.9% [facility] ChemAutoSS CMPon 09-07-2023 Albumin [Mass/Vol] 3.6 g/dL Normal 3.3-5.0 [facility] Comment on above: Performed By: #### 2 993872, 78512329, 199900372, 1681875, 0088659, 699896212 ####[facility] [address] [place] [address] Albumin/Globulin [Mass ratio] 1.9 {ratio} Normal 1.1-2.2 [facility] Comment on above: Performed By: #### 2 102858, 03482758, 007438506, 2554808, 6284130, 510315401 ####[facility] [address] [place] [address] Alk Phos 41 Int._Unit/L Normal 21-98 [facility] Comment on above: Performed By: #### 2 998579, 12685188, 915106153, 8099946, 1520705, 376401750 ####[facility] [address] [place] [address] ALT 29 Int._Unit/L Normal 6-46 [facility] Comment on above: Performed By: #### 2 129951, 85600855, 709630589, 3053074, 8368713, 879564295 ####[facility] [address] [place] [address] Anion gap [Moles/Vol] 12 mmol/L Normal 6-16 [facility] Comment on above: Performed By: #### 2 722503, 85833507, 572850192, 6692280, 3166031, 820180714 ####[place] [address] [place] [address] AST 25 Int._Unit/L Normal 5-43 [facility] Comment on above: Performed By: #### 2 593618, 26432641, 124228674, 2697596, 1257363, 572431065 ####[facility] [address] [place] [address] Bili Total 0.4 mg/dL Normal 0.0-1.1 [facility] Comment on above: Performed By: #### 2 936047, 66639612, 819046589, 9369251, 6205736, 995082802 ####[facility] [address] [place] [address] BUN/Creat Ratio 10 No Units Normal 10-20 [facility] Comment on above: Performed By: #### 2 876589, 29522883, 974845010, 4313378, 3657913, 145658966 ####[facility] [address] [place] [address] Calcium [Mass/Vol] 8.3 mg/dL Low 8.9-11.1 [facility] Comment on above: Performed By: #### 2 432038, 17656865, 333067841, 8034029, 3749460, 334002050 ####[facility] [address] [place] [address] Chloride [Moles/Vol] 107 mmol/L Normal 101-111 [facility] Comment on above: Performed By: #### 2 753403, 27443991, 737922569, 5340159, 1460939, 196253875 ####[facility] [address] [place] [address] CO2 [Moles/Vol] 24 mmol/L Normal 21-31 [facility] Comment on above: Performed By: #### 2 815176, 91240545, 014048623, 7343877, 3647105, 121891523 ####[facility] [address] [place] [address] Creatinine [Mass/Vol] 0.7 mg/dL Normal 0.5-1.3 [facility] Comment on above: Performed By: #### 2 798231, 10202091, 003005744, 3700444, 2768539, 465962893 ####[facility] [address] [place] [address] Globulin (S) [Mass/Vol] 1.9 g/dL Normal 1.4-4.0 [facility] Comment on above: Performed By: #### 2 840175, 51660980, 198330919, 1339300, 5838843, 411033367 ####[facility] [address] [place] [address] Glucose [Mass/Vol] 91 mg/dL Normal 55-199 [facility] Comment on above: Performed By: #### 2 619140, 74575928, 507750322, 6151318, 9096865, 828486208 ####[facility] [address] [place] [address] Potassium [Moles/Vol] 4.3 mmol/L Normal 3.5-5.3 [facility] Comment on above: Performed By: #### 2 822586, 22379825, 325197025, 7303318, 6504660, 638507248 ####[facility] [address] [place] [address] Protein [Mass/Vol] 5.5 g/dL Low 6.0-7.8 [facility] Comment on above: Performed By: #### 2 559348, 60203448, 147129182, 3991176, 8245928, 998651147 ####[facility] [address] [place] [address] Sodium [Moles/Vol] 139 mmol/L Normal 135-145 [facility] Comment on above: Performed By: #### 2 596566, 06860426, 818411587, 7842773, 0783124, 141009301 ####[facility] [address] [place] [address] Urea nitrogen [Mass/Vol] 7 mg/dL Normal 5-21 [facility] Comment on above: Performed By: #### 2 914469, 47052428, 510912712, 6741696, 6944919, 395783074 ####[facility] [address] [place] [address] Family Medicine Office/Clini c Noteon 09-07-2023 Family [...] is over 500 , pt went to [facility] and states she just have iv fluids placed and the didn't check any lab work. pt states for about 2 years she will feel shaky and clammy and always thirsty. History of Present Illness pt having episodes of dizziness. BS was checked at she was told it was over 500. Went to [place] [facility] gave her IV fluids. Feels shaky, [...] Comprehensive Metabolic Panel HgbA1c Lab Specimen Collect 72564 Vitamin B12 Level Vitamin D 25 Hydroxy 2. Excessive thirst (R63.1: Polydipsia) excessively thirsty. will check labs today Ordered: CBC w/ Auto Diff Comprehensive Metabolic Panel HgbA1c Lab Specimen Collect 03690 Vitamin B12 Level Vitamin D 25 Hydroxy 3. Blood glucose elevated (R73.9: Hyperglycemia, unspecified) pt was dizzy at work. nurse checked BS ans was above 500. went to ER. received IV fluids. will check HGBA1C. last check was WNL Ordered: CBC w/ Auto Diff Comprehensive Metabolic Panel HgbA1c Lab Specimen Collect 19108 Vitamin B12 Level Vitamin D 25 Hydroxy 4. Fatigue (R53.83: Other fatigue) c/o worsening fatigue Ordered: CBC w/ Auto Diff Comprehensive Metabolic Panel HgbA1c Lab Specimen Collect 30735 Vitamin B12 Level Vitamin D 25 Hydroxy [...] Refuses diphtheria/pertussis, acel/tetanus adult 07/09/2017 Recorded Normal [facility] Comment on above: Result Comment: Elec [...] Normal 80.0 - 100.0 fL Remisol Heme Boundary Absolute 0.9 E9/L Normal 0.2 - 1.0 [...] High 4.0 - 11.0 E9/L Remisol Heme [id number] 09-07-2023 HbA1c (Bld) [Mass fraction] 5.2 % Normal <=5.9 [facility] Comment on above: Performed By: #### 2 537052, 27482839, 806000473, 9504809, 3335290, 766215238 ####[facility] [address] [place] [address] Vit B12on 09-07-2023 Cobalamin (Vitamin B12) [Mass/Vol] 294 pg/mL Normal 50-1500 [facility] Comment on above: Performed By: #### 2 419039, 14751641, 651718003, 3388257, 9329414, 000755569 ####[facility] [address] [place] [address] Vitamin D 25 Hydroxyon 09-07 Vitamin D 25 Hydroxy 9.8 ng/mL Low 30.0-100.0 Fish [facility] Comment on above: Performed By: #### 2 551788, 62506047, 604039071, 2144409, 8307774, 710081474 ####[facility] [address] [place] [address] eGFRon 09-07-2023 eGFR 121 mL/min/1.73 m2 Normal >=59 [facility] Comment on above: Order Comment: Order added by Discern Expert. Performed By: #### 2 140634, 23812190, 121338378, 0755254, 8316045, 134033876 ####[facility] [address] [place] [address] RAD - Ultrasound Reporton RAD - Ultrasound Report [id number] .00TIFF Normal [facility] US EXT NON-VASC LT LIMITEDon 08-08-2023 [...] Granger MD on 08/08/2023 1:38 PM Normal [facility] US EXT NON-VASC RT LIMITEDon 08-08-2023 US [...] Valero MD on 08/08/2023 12:20 PM Normal [facility] Ambulatory Visit Summaryon 1 10-08-2022 Ambulatory Visit [...] 3:20 PM EST With: Debbie Bui Where: [facility] [place] Normal [facility] Family Medicine Office/Clini c Noteon 08-07-2023 [...] Refuses diphtheria/pertussis, acel/tetanus adult 07/09/2017 Recorded Normal [facility] Comment on above: Result Comment: Elec [...] # 30 tab(s), Refills(s) 0, Pharmacy: [facility]/pharmacy #3471, 164, cm, 07/09/23 15:22:00 EST, Height/Length Dosing, 98.9, kg, 07/09/23 15:22:00 EST, Weight Dosing phentermine, 37.5 mg = 1 tab(s), Oral, Daily, # 30 tab(s), Refills(s) 0, [facility] [facility]/pharmacy #[id number], 164.4, cm, 06/08/23 10:01:00 EDT, Height/Length [...] Daily, # 30 tab(s), Refills(s) 0, [id number], 164, cm, 07/09/23 15:22:00 EST, Height/Length Dosing, 98.9, kg, 07/09/23 15:22:00 EST, Weight Dosing phentermine, 37.5 mg = 1 tab(s), Oral, Daily, # 30 tab(s), Refills(s) 0, [id number], 164.4, cm, 06/08/23 10:01:00 EDT, Height/Length Dosing, 102, kg, 06/08/23 10:01:00 EDT, Weight Dosing Smoker (F17.200: Nicotine dependence, unspecified, uncomplicated) consider not smoking Ordered: phentermine, 37.5 mg = 1 tab(s), Oral, Daily, # 30 tab(s), Refills(s) 0, Pharmacy: [facility] #[id number], 164, cm, 07/09/23 15:22:00 EST, Height/Length Dosing, 98.9, kg, 07/09/23 15:22:00 EST, Weight Dosing phentermine, 37.5 mg = 1 tab(s), Oral, Daily, # 30 tab(s), Refills(s) 0, Pharmacy: [facility] #[id number], 164.4, cm, 06/08/23 10:01:00 EDT, Height/Length Dosing, 102, kg, 06/08/23 10:01:00 EDT, Weight Dosing Orders: azithromycin, = 1 packet(s), Oral, As Directed, as directed on package labeling, X 5 day(s), # 6 tab(s), Refills(s) 0, [id number], 164, cm, 07/09/23 15:22:00 EST, Height/Length [...] Given P (more content not included)... Normal [facility] Comment on above: Result Comment: Elec [...] 3:00 PM EST With: Debbie Bui Where: [facility] Ambulatory Visit Summaryon 1 Ambulatory Visit [...] 3:20 PM EST With: Debbie Bui Where: [facility] Family Medicine Office/Clini c Noteon 06-08-2023 [...] Daily, # 30 tab(s), Refills(s) 0, Pharmacy: [facility]/pharmacy #[id number], 164.4, cm, 06/08/23 10:01:00 EDT, Height/Length Dosing, 102, kg, 06/08/23 10:01:00 EDT, Weight Dosing 2. Abnormal weight gain (R63.5: Abnormal weight gain) see above 3. BMI 37.0-37.9, adult (Z68.37: Body mass index [BMI] 37.0-37.9, adult) BMI education complete Ordered: phentermine, 37.5 mg = 1 tab(s), Oral, Daily, # 30 tab(s), Refills(s) 0, Pharmacy: [facility]/pharmacy #3471, 164.4, cm, 06/08/23 10:01:00 EDT, Height/Length Dosing, 102, kg, 06/08/23 10:01:00 EDT, Weight Dosing 4. Smoker (F17.200: Nicotine dependence, unspecified, uncomplicated) consider not smoking Ordered: phentermine, 37.5 mg = 1 tab(s), Oral, Daily, # 30 tab(s), Refills(s) 0, Pharmacy: [facility]/pharmacy #[id number], 164.4, cm, 06/08/23 10:01:00 EDT, Height/Length [...] Refuses diphtheria/pertussis, acel/tetanus adult 07/09/2017 Recorded Normal [facility] Comment on above: Result Comment: Elec tronically Signed By: Debbie Bui\.br\Date and Time Signed: 06/08/23 10:34 EDT Medication Consenton 023 Medication Consent [id number] .[id number] Normal [facility] Outside Mammographyon 2022 Outside Mammography [id number] .00TIFF Normal [facility] Auto Diffon 05-25-2023 Basophils/100 WBC (Bld) 1.0 % Normal 0.0-2.0 [facility] Comment on above: Order Comment: Order Added by Discern Expert. Performed By: #### 2 654104, 09761290, 6566159, 098761589, 4351199, 5732677, 4421563 ####[facility] [address] [place] [address] Basophils/Leukocytes Auto (Bld) [Pure # fraction] 0.1 E9/L Normal 0.0-0.2 [facility] Comment on above: Order Comment: Order Added by Discern Expert. Performed By: #### 2 350048, 69191117, 5111031, 905538360, 3299911, 6286807, 4557047 ####[address] [address] Eosinophils/100 WBC (Bld) 2.9 % Normal 0.0-8.0 [facility] Comment on above: Order Comment: Order Added by Discern Expert. Performed By: #### 2 082554, 77829906, 0222443, 854548377, 3312844, 0475980, 9714404 ####[address] [address] Eosinophils/Leukocyte s Auto (Bld) [Pure # fraction] 0.3 E9/L Normal 0.0-0.5 [facility] Comment on above: Order Comment: Order Added by Kimberly Expert. Performed By: #### 2 119961, 30459234, 0170395, 737284669, 2328868, 9635004, 6090033 ####[address] [address] Lymphocytes/100 WBC (Bld) 35.4 % Normal 14.0-50.0 [facility] Comment on above: Order Comment: Order Added by Discern Expert. Performed By: #### 2 898850, 30058190, 3923089, 762356772, 9789431, 5140494, 9157024 ####[address] [address] Lymphocytes/Leukocyte s Auto (Bld) [Pure # fraction] 4.0 E9/L Normal 1.0-4.0 [facility] Comment on above: Order Comment: Order Added by Discern Expert. Performed By: #### 2 805014, 26970151, 9878579, 913260515, 1694870, 7982412, 2625723 ####[facility] [address] [place] [address] Monocytes/100 WBC (Bld) 8.2 % Normal 4.0-14.0 [facility] Comment on above: Order Comment: Order Added by Discern Expert. Performed By: #### 2 681397, 41459094, 6940162, 087841731, 2969320, 4035528, 2927535 ####[address] [place] [address] Monocytes/Leukocytes Auto (Bld) [Pure # fraction] 0.9 E9/L Normal 0.2-1.0 [facility] Comment on above: Order Comment: Order Added by Discern Expert. Performed By: #### 2 663741, 76868924, 1492944, 558071398, 0658869, 5717575, 1007071 ####[address] [address] Neutrophils/100 WBC (Bld) 52.5 % Normal 36.0-75.0 [facility] Comment on above: Order Comment: Order Added by Kimberly Expert. Performed By: #### 2 346789, 83593292, 0331235, 200029670, 0230350, 4757096, 7739368 ####[address] [place] [address] Neutrophils/Leukocyte s Auto (Bld) [Pure # fraction] 5.9 E9/L Normal 2.0-7.5 [facility] Comment on above: Order Comment: Order Added by Discern Expert. Performed By: #### 2 651926, 72013817, 8353167, 291392293, 3499276, 2717290, 6480676 ####[address] [address] Bili Directon 05-25-2023 Bilirubin.direct [Mass/Vol] mg/dL Normal 0.1-0.4 [facility] Comment on above: Order Comment: Order Added by Kimberly Expert. Performed By: #### 2 746076, 35260724, 6172597, 407209622, 8892924, 4200597, 8187664 ####[address] [place] [address] CBC w/ Auto Diffon 3 Erythrocyte distribution width (RBC) [Ratio] 12.4 % Normal 10.9-14.2 [facility] Comment on above: Performed By: #### 2 368067, 06993972, 9760152, 086290617, 9281987, 7690728, 1915118 ####[address] [place] [address] Hematocrit (Bld) [Volume fraction] 40.6 % Normal 34.0-46.0 [facility] Comment on above: Performed By: #### 2 350661, 55643146, 5006767, 472068946, 9353558, 1259727, 6466981 ####[address] [place] [address] Hemoglobin (Bld) [Mass/Vol] 13.4 g/dL Normal 12.0-16.0 [facility] Comment on above: Performed By: #### 2 582150, 75809325, 6295824, 937044973, 8359558, 1929771, 0414053 ####[address] [place] [address] MCH (RBC) [Entitic mass] 28.9 pg Normal 27.0-34.0 [facility] Comment on above: Performed By: #### 2 636789, 78973264, 6247648, 878856747, 4608165, 7312589, 6959755 ####[address] [place] [address] MCHC (RBC) [Mass/Vol] 33.0 g/dL Normal 31.4-36.0 [facility] Comment on above: Performed By: #### 2 175909, 88957165, 9373657, 529153127, 2004174, 6113953, 9676718 ####[address] [place] [address] MCV (RBC) [Entitic vol] 87.5 fL Normal 80.0-100.0 [facility] Comment on above: Performed By: #### 2 250353, 31765841, 0974615, 144526326, 3128771, 0114928, 3918359 ####[address] [address] Platelet mean volume (Bld) [Entitic vol] 8.7 fL Normal 6.4-10.8 [facility] Comment on above: Performed By: #### 2 041229, 96544329, 3029154, 157302196, 7116428, 9997436, 3316379 ####[address] Platelets (Bld) [#/Vol] 337.0 E9/L Normal 150.0-500.0 [facility] Comment on above: Performed By: #### 2 822687, 48027539, 3188520, 651703688, 8783696, 5128527, 0510343 ####[address] [address] RBC (Bld) [#/Vol] 4.6 E12/L Normal 4.3-5.9 [facility] Comment on above: Performed By: #### 2 927143, 70732479, 9423517, 774864243, 8680594, 4213683, 5427192 ####[address] [address] WBC corrected for nucl RBC Auto (Bld) [#/Vol] 11.3 E9/L High 4.0-11.0 [facility] Comment on above: Performed By: #### 2 025028, 50700753, 0956723, 770425468, 6118331, 5500036, 7637528 ####[address] [address] CHEMISTRYOrdered By: SYSTEM SYSTEM on 05-25-2023 Albumin [...] 90 mL/min/1.73 m2 Normal >=59mL/min/1 .73 m2 [facility] Comment on above: Interpretive Data: [...] ratio] 11 mg/mg Normal 10 - 20 [facility] Remisol CHEMISTRYOrdered By: Debbie Brush on 05-25-2023 HbA1c (Bld) [Mass fraction] 5.3 % Normal <=5.9% [facility] ChemAutoSS CMPon 05-25-2023 Albumin [Mass/Vol] 3.3 g/dL Normal 3.3-5.0 [facility] Comment on above: Performed By: #### 2 822421, 60855647, 8808121, 078605218, 1052981, 9612717, 1185532 ####[facility] [address] [place] [address] Albumin/Globulin (S) [Mass conc ratio] 0.9 Low 1.1-2.2 [facility] Comment on above: Performed By: #### 2 562476, 31089222, 0601615, 532943068, 2170198, 3937955, 4160520 ####[facility] [address] [place] [address] ALP [Catalytic activity/Vol] 43 Int._Unit/L Normal 21-98 [facility] Comment on above: Performed By: #### 2 658160, 23106472, 0238541, 284083312, 4100717, 1501064, 4299352 ####[facility] [address] [place] [address] ALT No additional P-5'-P [Catalytic activity/Vol] 29 Int._Unit/L Normal 6-46 [facility] Comment on above: Performed By: #### 2 516927, 11639882, 4065458, 509773472, 9514043, 3486093, 4838190 ####[facility] [address] [place] [address] Anion gap [Moles/Vol] 11 mmol/L Normal 6-16 [facility] Comment on above: Performed By: #### 2 866604, 25929949, 8325165, 796145949, 8663938, 2856964, 4071878 ####[facility] [address] [place] [address] AST [Catalytic activity/Vol] 27 Int._Unit/L Normal 5-43 [facility] Comment on above: Performed By: #### 2 178359, 06506465, 0639483, 017902415, 6757712, 6470592, 5979629 ####[facility] [address] [place] [address] Bilirubin [Mass/Vol] 0.3 mg/dL Normal 0.0-1.1 [facility] Comment on above: Performed By: #### 2 183924, 46782495, 1538131, 685472515, 7774254, 0400780, 1985259 ####[address] [place] [address] Calcium [Mass/Vol] 9.5 mg/dL Normal 8.9-11.1 [facility] Comment on above: Performed By: #### 2 381286, 92696379, 9790543, 459010499, 4441038, 0377626, 3205074 ####[facility] [address] [place] [address] Chloride [Moles/Vol] 111 mmol/L Normal 101-111 [facility] Comment on above: Performed By: #### 2 384528, 68696556, 9548748, 546296221, 9479873, 8984934, 7329767 ####[facility] [address] [place] [address] CO2 [Moles/Vol] 26 mmol/L Normal 21-31 [facility] Comment on above: Performed By: #### 2 591036, 13458845, 9906504, 649328710, 1415924, 8566297, 1275695 ####[facility] [address] [place] [address] Creatinine [Mass/Vol] 0.9 mg/dL Normal 0.5-1.3 [facility] Comment on above: Performed By: #### 2 190029, 45728584, 5060355, 308840652, 3865798, 9371663, 3101019 ####[facility] [address] [place] [address] Globulin (S) [Mass/Vol] 3.6 g/dL Normal 1.4-4.0 [facility] Comment on above: Performed By: #### 2 063574, 16099359, 4239242, 878414356, 2076612, 8699043, 4727940 ####[facility] [address] [place] [address] Glucose [Mass/Vol] 81 mg/dL Normal 55-199 [facility] Comment on above: Result Comment: If t his glucose result represents a fasting glucose, interpretation should refer to the following reference range: 55-99 mg/dL Performed By: #### 2 170310, 22991017, 4642715, 844353660, 4074927, 9815175, 6651072 ####[facility] [address] [place] [address] Potassium [Moles/Vol] 4.4 mmol/L Normal 3.5-5.3 [facility] Comment on above: Performed By: #### 2 259319, 79156777, 5158673, 892501760, 1715592, 2528018, 0661971 ####[facility] [address] [place] [address] Protein [Mass/Vol] 6.9 g/dL Normal 6.0-7.8 [facility] Comment on above: Performed By: #### 2 764447, 78667499, 1201669, 934423638, 3794713, 3787830, 6820666 ####[facility] [address] [place] [address] Sodium [Moles/Vol] 144 mmol/L Normal 135-145 [facility] Comment on above: Performed By: #### 2 115240, 40916934, 4220923, 830197413, 2618787, 2525748, 4886256 ####[facility] [address] [place] [address] Urea nitrogen [Mass/Vol] 10 mg/dL Normal 5-21 [facility] Comment on above: Performed By: #### 2 502250, 33431610, 0897223, 093119777, 5418020, 5059126, 3697738 ####[facility] [address] [place] [address] Urea nitrogen/Creatinine [Mass ratio] 11 No Units Normal 10-20 [facility] Comment on above: Performed By: #### 2 590287, 24903063, 2536008, 293322336, 7655861, 8605472, 6418341 ####[facility] [address] [place] [address] Family Medicine Office/Clini c Noteon 05-25-2023 Family [...] findings) pt has not seen provider since [facility]. pt concerned about diabetes. her 31 [...] Refuses diphtheria/pertussis, acel/tetanus adult 07/09/2017 Recorded Normal [facility] Comment on above: Result Comment: Elec [...] High 4.0 - 11.0 E9/L [facility] HemeAutoSS [id number] 05-25-2023 HbA1c (Bld) [Mass fraction] 5.3 % Normal <=5.9 [facility] Comment on above: Performed By: #### 2 262786, 82412620, 5144125, 963871787, 0673724, 3465690, 1183580 ####[facility] [address] [place] [address] TSHon 05-25-2023 TSH Qn 1.88 m[IU]/L Normal 0.34-5.60 [facility] Comment on above: Performed By: #### 2 712109, 80874597, 0897677, 030745668, 5350003, 7191440, 0188608 ####[facility] [address] [place] [address] eGFRon 05-25-2023 GFR/1.73 sq M.predicted among non-blacks MDRD (S/P/Bld) [Vol rate/Area] 90 mL/min/1.73 m2 Normal >=59 [facility] Comment on above: Order Comment: Order added by Discern Expert. Result Comment: Child Care Lead Teacher saleem kidney disease could be indicated at eGFR's of less than 60 mL/min/1.73m2. Kidney failure is indicated at less than 15 mL/min/1.73m2. Performed By: #### 2 632363, 17374842, 2692342, 919188982, 3498710, 5689678, 2693745 ####[facility] [address] [place] [address] HPon 01-16-2023 HP H&P reviewed. The patient was examined and there are no changes to the H&P. [facility] Orders Onlyon 01-15-2023 Orders Only [id number] Pat Meehany L 1995 F Date Provider Department Center 01/15/2023 ROM ORTEGA PAIN Medical [facility] Family History Family history unknown: Yes Normal [facility] Follow-Upon 01-04-2023 Follow-Up [id number] Meehan,Raphael L 1995 F Date Provider Department Center 01/04/2023 CHARLENE BYNUM PAIN [facility] Family History Family history unknown: Yes Level of Service:62368 MS OFFICE/OUTPATIENT ESTABLISHED MOD MDM 30-39 MIN Reason for Visit and Comments: Shoulder Pain [502918] - Left shoulder down the arm Follow-up [959474] Normal [facility] HPon 01-04-2023 Pain Medicine Medical [place] [address] [place] [address] Subjective Patient ID: Raphael Meehan is a [...] refill ROM full with pain on extension. Welfare Specialist strength preserved. Gait: normal PROCEDURE NOTE: Risks [...] to ensure the accuracy of this automated game trapper, some errors in game trapper may have occurred. Normal [facility] PAP ACOG PANEL 2: 22 to 29on 12-18-2022 . . Normal [facility] Comment on above: Result Comment: Perf ormed at: [facility] Performed By: #### 4 414863 #### [facility] [address] [place] [address] Dr. Michele Gallo Age Gdln ACOG Testing 21-29 Normal [facility] Comment on above: Performed By: #### 4 569809 #### [facility] [address] [place] [address] Dr. Michele Gallo DIAGNOSIS: Comment Normal [facility] Comment on above: Result Comment: NEGA TIVE FOR INTRAEPITHELIAL LESION OR MALIGNANCY. Performed at: [facility] Performed By: #### 4 587393 #### [facility] [address] [place] [address] Dr. Michele Gallo Methodology: Comment Normal [facility] Comment on above: Result Comment: This liquid based ThinPrep(R) pap test was screened with the use of an image guided system. Performed at: [facility] Performed By: #### 4 369502 #### [facility] [address] [place] [address] Dr. Michele Gallo Note: Comment Normal [facility] Comment on above: Result Comment: The Pap smear is a screening test designed to aid in the detection of premalignant and malignant conditions of the uterine cervix. It is not a diagnostic procedure and should not be used as the sole means of detecting cervical cancer. Both false-positive and false-negative reports do occur. . Performed at: [facility] Performed By: #### 4 212471 #### [facility] [address] [place] [address] Dr. Micheel Gallo Performed by: Comment Normal [facility] Comment on above: Result Comment: Elmer Collins Crop Adjuster (ASCP) Performed at: [facility] Performed By: #### 4 622464 #### [facility] [address] [place] [address] Dr. Michele Gallo Reflex Criteria: Comment [facility] Comment on above: Result Comment: The HPV DNA reflex criteria were not met with this specimen result therefore, no HPV testing was performed. . Performed at: [facility] Performed By: #### 4 097074 #### [facility] [address] [place] [address] Dr. Mcihele Gallo Specimen adequacy: Comment Normal [facility] Comment on above: Result Comment: Sati sfactory for evaluation. Endocervical and/or squamous metaplastic cells (endocervical component) are present. Performed at: [facility] Performed By: #### 4 961041 #### [facility] [address] [place] [address] Dr. Michele Gallo Procedure Visiton 12-15-2022 Procedure Visit [id number] Raphael Meehan 1995 F Date Provider Department Center 12/15/2022 ALESIA PAGE MP PHYS MED [facility] Family History Family history unknown: Yes Level of Service:47851 MS OFFICE/OUTPT VISIT,PROCEDURE ONLY Reason for Visit and Comments: EMG [Other] - BUE [facility] Follow-Upon 12-07-2022 Follow-Up [id number] Raphael Meehan Carrie 1995 Provider Department Center 12/07/2022 CHARLENE BYNUM MP PAIN [facility] Family History Family history unknown: Yes Level of Service:98181 MS OFFICE/OUTPATIENT ESTABLISHED MOD MDM 30-39 MIN Reason for Visit and Comments: Follow-up [386514] - SCS (BS) follow up [facility] Follow-Upon 10-23-2022 Follow-Up [id number] Raphael Meehan 1995 Provider Department Center 10/23/2022 CHARLENE BYNUM MP PAIN [facility] Family History Family history unknown: Yes Level of Service:21978 MS OFFICE/OUTPATIENT ESTABLISHED LOW MDM 20-29 MIN Reason for Visit and Comments: Follow-up [486529] - SCS (BS) [facility] US PELVIS AND TRANSVAGon US PELVIS AND [...] small fundal myometrial leiomyomas. Electronically authenticated by: CAHNCE ARMAS Date: 2022-05-24 13:13 Normal [facility] CBC AUTO DIFFon 05-15-2022 BASO # 0.1 103/ul Normal 0.0-0.1 [facility] Comment on above: Performed By: #### P REG #### [facility] [address] [place] [address] Dr. Michele Gallo Basophils/100 WBC (Bld) 1.0 % Normal 0.2-2.0 [facility] Comment on above: Performed By: #### P REG #### [facility] [address] [place] [address] Dr. Michele Gallo EO # 0.3 103/ul Normal 0.0-0.7 [facility] Comment on above: Performed By: #### P REG #### [facility] [address] [place] [address] Dr. Michele Gallo Eosinophils/100 WBC (Bld) 2.0 % Normal 0.9-7.0 [facility] Comment on above: Performed By: #### P REG #### [facility] [address] [place] [address] Dr. Michele Gallo Erythrocyte distribution width (RBC) [Ratio] 11.7 % Normal 11.0-15.0 [facility] Comment on above: Performed By: #### P REG #### [facility] [address] [place] [address] Dr. Michele Gallo Hematocrit (Bld) [Volume fraction] 39.4 % Normal 36.0-48.0 [facility] Comment on above: Performed By: #### P REG #### [facility] [address] [place] [address] Dr. Michele Gallo Hemoglobin (Bld) [Mass/Vol] 13.2 g/dL Normal 12.0-16.0 [facility] Comment on above: Performed By: #### P REG #### [facility] [address] [address] [address] Michele Gallo IG # 0.11 10e3/ul Critically high 0.00-0.03 [facility] Comment on above: Performed By: #### P REG #### [facility] [address] [address] [address] Michele Gallo IG % 0.8 % Critically high 0.0-0.5 [facility] Comment on above: Performed By: #### P REG #### [facility] [address] [place] [address] Dr. Michele Gallo LYMPH # 4.5 103/ul Critically high 1.2-3.8 [facility] Comment on above: Performed By: #### P REG #### [facility] [address] [place] [address] Dr. Michele Gallo Lymphocytes/100 WBC (Bld) 33.3 % Normal 20.5-60.0 [facility] Comment on above: Performed By: #### P REG #### [facility] [address] [place] [address] Dr. Michele Gallo MANUAL DIFF REQ NO Normal [facility] Comment on above: Performed By: #### P REG #### [facility] [address] [place] [address] Dr. Michele Gallo MCH (RBC) [Entitic mass] 29.7 pg Normal 26.7-34.0 [facility] Comment on above: Performed By: #### P REG #### [facility] [address] [place] [address] Dr. Michele Gallo MCHC (RBC) [Mass/Vol] 33.5 g/dL Normal 29.9-35.2 [facility] Comment on above: Performed By: #### P REG #### [facility] [address] [place] [address] Dr. Michele Gallo MCV (RBC) [Entitic vol] 88.7 fL Normal 81.0-99.0 [facility] Comment on above: Performed By: #### P REG #### [facility] [address] [place] [address] Dr. Michele Gallo MONO # 0.8 103/ul Normal 0.3-0.8 [facility] Comment on above: Performed By: #### P REG #### [facility] [address] [place] [address] Dr. Michele Gallo Monocytes/100 WBC (Bld) 6.3 % Normal 1.7-12.0 [facility] Comment on above: Performed By: #### P REG #### [facility] [address] [place] [address] Dr. Michele Gallo NEUT # 7.6 103/ul Critically high 1.4-6.5 [facility] Comment on above: Performed By: #### P REG #### [facility] [address] [place] [address] Dr. Michele Gallo Neutrophils/100 WBC (Bld) 56.6 % Normal 43.0-75.0 [facility] Comment on above: Performed By: #### P REG #### [facility] [address] [place] [address] Dr. Michele Gallo Platelet mean volume (Bld) [Entitic vol] 10.3 fL Normal 9.5-13.5 [facility] Comment on above: Performed By: #### P REG #### [facility] [address] [place] [address] Dr. Michele Gallo PLT 363 103/ul Normal 150-450 [facility] Comment on above: Performed By: #### P REG #### [facility] [address] [place] [address] Dr. Michele Gallo RBC 4.44 106/ul Normal 4.20-5.40 [facility] Comment on above: Performed By: #### P REG #### [facility] [address] [place] [address] Dr. Michele Gallo WBC 13.4 103/ul Critically high 4.0-11.0 [facility] Comment on above: Performed By: #### P REG #### [facility] [address] [place] [address] Dr. Michele Gallo CULTURE BLOODon 05-15-2022 Microscopic examination of blood, culture Culture Observations: No growth at 5 days. Normal [facility] Comment on above: Performed By: #### P REG #### [facility] [address] [place] [address] Dr. Michele Gallo Microscopic examination of blood, culture Culture Observations: No growth at 5 days. Normal [facility] Comment on above: Performed By: #### B LDCX1 #### [facility] [address] [place] [address] Dr. Michele Gallo ER URINE PROFILEon Bilirubin Ql (U) Negative Normal NEGATIVE [facility] Comment on above: Performed By: #### U MICRO, ERUR #### [facility] [address] [place] [address] Dr. Michele Gallo Clarity (U) CLEAR Normal CLEAR [facility] Comment on above: Performed By: #### U MICRO, ERUR #### [facility] [address] [place] [address] Dr. Michele Gallo Color (U) LT. YELLOW Normal YELLOW [facility] Comment on above: Performed By: #### U MICRO, ERUR #### [facility] [address] [place] [address] Dr. Michele Gallo ERUAHD A micrscopic examination will be performed if indicated. Normal [facility] Comment on above: Performed By: #### U MICRO, ERUR #### [facility] [address] [place] [address] Dr. Michele Gallo Glucose Ql (U) Negative Normal NEGATIVE [facility] Comment on above: Performed By: #### U MICRO, ERUR #### [facility] [address] [place] [address] Dr. Michele Gallo Hemoglobin Ql (U) MODERATE Abnormal NEGATIVE [facility] Comment on above: Performed By: #### U MICRO, ERUR #### [facility] [address] [place] [address] Dr. Michele Gallo Ketones Ql (U) Negative Normal NEGATIVE [facility] Comment on above: Performed By: #### U MICRO, ERUR #### [facility] [address] [address] [address] Michele Gallo LEUKOCYTES Negative Normal NEGATIVE [facility] Comment on above: Performed By: #### U MICRO, ERUR #### [facility] [address] [address] [address] Michele Gallo Nitrite Ql (U) Negative Normal NEGATIVE [facility] Comment on above: Performed By: #### U MICRO, ERUR #### [facility] [address] [address] [address] Michele Gallo pH (U) 7.0 [pH] Normal 5-9 [facility] Comment on above: Performed By: #### U MICRO, ERUR #### [facility] [address] [place] [address] Dr. Michele Gallo SPEC GRAVITY 1.020 Normal 1.005-<=1.02 5 [facility] Comment on above: Performed By: #### U MICRO, ERUR #### [facility] [address] [address] [address] Michele Gallo UA PROTEIN TRACE Normal NEGATIVE/ TRACE [facility] Comment on above: Performed By: #### U MICRO, ERUR #### [facility] [address] [place] [address] Dr. Michele Gallo UR MICRO IND INDICATED Normal [facility] Comment on above: Performed By: #### U MICRO, ERUR #### [facility] [address] [place] [address] Dr. Michele Gallo Urobilinogen Qn (U) 0.2 {Norm'U}/dL Normal 0.2 - 1. 0 [facility] Comment on above: Performed By: #### U MICRO, ERUR #### [facility] [address] [place] [address] Dr. Michele Gallo PROF CHEM 8 (BAS METB)on Anion gap [Moles/Vol] 14.8 mmol/L Normal Th [facility] Comment on above: Performed By: #### B MP #### [facility] [address] [address] [address] Michele Gallo Calcium [Mass/Vol] 9.0 mg/dL Normal 8.5-10.1 [facility] Comment on above: Performed By: #### B MP #### [facility] [address] [address] [address] Michele Gallo Chloride [Moles/Vol] 102 mmol/L Normal 98-107 [facility] Comment on above: Performed By: #### B MP #### [facility] [address] [address] [address] Michele Gallo CO2 [Moles/Vol] 24.2 mmol/L Normal 21.0-32.0 [facility] Comment on above: Performed By: #### B MP #### [facility] [address] [address] [address] Michele Gallo Creatinine [Mass/Vol] 0.89 mg/dL Normal 0.55-1.02 [facility] Comment on above: Performed By: #### B MP #### [facility] [address] [address] [address] Michele Gallo EGFR-AF TURKS AND [place] ISLANDER >60 Normal >=60 [facility] Comment on above: Performed By: #### B MP #### [facility] [address] [address] [address] Michele Gallo EGFR-NON AF TURKS AND CA[place] ISLANDER >60 Normal >=60 [facility] Comment on above: Performed By: #### B MP #### [facility] [address] [address] [address] Michele Gallo Glucose [Mass/Vol] 100 mg/dL Normal 74-106 [facility] Comment on above: Performed By: #### B MP #### [facility] [address] [address] [address] Michele Gallo Potassium [Moles/Vol] 4.0 mmol/L Normal 3.5-5.1 [facility] Comment on above: Performed By: #### B MP #### [facility] [address] [address] [address] Michele Gallo Sodium [Moles/Vol] 137 mmol/L Normal 136-145 [facility] Comment on above: Performed By: #### B MP #### [facility] [address] [place] [address] Dr. Michele Gallo Urea nitrogen [Mass/Vol] 15.0 mg/dL Normal 7.0-18.0 [facility] Comment on above: Performed By: #### B MP #### [facility] [address] [place] [address] Dr. Michele Gallo Urea nitrogen/Creatinine [Mass ratio] 16.9 mg/mg Normal [facility] Comment on above: Performed By: #### B MP #### [facility] [address] [place] [address] Dr. Michele Gallo URINE MICROSCOPIC ONLYon BACTERIA NONE SEEN Normal NONE SEEN [facility] Comment on above: Performed By: #### U MICRO, ERUR #### [facility] [address] [place] [address] Dr. Michele Gallo Bacteria identified Cx Nom (U) NOT INDICATED Normal [facility] Comment on above: Performed By: #### U MICRO, ERUR #### [facility] [address] [place] [address] Dr. Michele Gallo CAST NONE SEEN Normal NONE SEEN [facility] Comment on above: Performed By: #### U MICRO, ERUR #### [facility] [address] [place] [address] Dr. Michele Gallo Crystals LM Nom (Urine sed) NONE SEEN Normal NONE SEEN [facility] Comment on above: Performed By: #### U MICRO, ERUR #### [facility] [address] [place] [address] Dr. Michele Gallo Epithelial cells LM Ql (Urine sed) MANY Abnormal NONE SEEN /RARE [facility] Comment on above: Performed By: #### U MICRO, ERUR #### [facility] [address] [place] [address] Dr. Michele Gallo MUCOUS TRACE Abnormal NONE SEEN [facility] Comment on above: Performed By: #### U MICRO, ERUR #### [facility] [address] [address] [address] Michele Gallo RBC 10- Abnormal 0-2 [facility] Comment on above: Performed By: #### U MICRO, ERUR #### [facility] [address] [address] [address] Michele Gallo WBC NONE SEEN Normal NONE SEEN [facility] Comment on above: Performed By: #### U MICRO, ERUR #### [facility] [address] [address] [address] Michele Gallo US PELVIS TRANSVAGon 022 [...] GLENNY COLON Date: 2022-05-15 14:07 Normal [facility] CBC AUTO DIFFon 05-08-2022 BASO # 0.1 103/ul Normal 0.0-0.1 [facility] Comment on above: Performed By: #### C BC #### [facility] [address] [address] [address] Michele Gallo Basophils/100 WBC (Bld) 1.3 % Normal 0.2-2.0 [facility] Comment on above: Performed By: #### C BC #### [facility] [address] [address] [address] Michele aGllo EO # 0.4 103/ul Normal 0.0-0.7 [facility] Comment on above: Performed By: #### C BC #### [facility] [address] [place] [address] Dr. Michele Gallo Eosinophils/100 WBC (Bld) 3.9 % Normal 0.9-7.0 [facility] Comment on above: Performed By: #### C BC #### [facility] [address] [place] [address] Dr. Michele Gallo Erythrocyte distribution width (RBC) [Ratio] 11.6 % Normal 11.0-15.0 [facility] Comment on above: Performed By: #### C BC #### [facility] [address] [place] [address] Dr. Michele Gallo Hematocrit (Bld) [Volume fraction] 37.3 % Normal 36.0-48.0 [facility] Comment on above: Performed By: #### C BC #### [facility] [address] [place] [address] Dr. Michele Gallo Hemoglobin (Bld) [Mass/Vol] 12.6 g/dL Normal 12.0-16.0 [facility] Comment on above: Performed By: #### C BC #### [facility] [address] [place] [address] Dr. Michele Gallo IG # 0.05 10e3/ul Critically high 0.00-0.03 [facility] Comment on above: Performed By: #### C BC #### [facility] [address] [place] [address] Dr. Michele Gallo IG % 0.5 % Normal 0.0-0.5 [facility] Comment on above: Performed By: #### C BC #### [facility] [address] [place] [address] Dr. Michele Gallo LYMPH # 3.1 103/ul Normal 1.2-3.8 [facility] Comment on above: Performed By: #### C BC #### [facility] [address] [place] [address] Dr. Michele Gallo Lymphocytes/100 WBC (Bld) 30.3 % Normal 20.5-60.0 [facility] Comment on above: Performed By: #### C BC #### [facility] [address] [place] [address] Dr. Michele Gallo MANUAL DIFF REQ NO Normal [facility] Comment on above: Performed By: #### C BC #### [facility] [address] [place] [address] Dr. Michele Gallo MCH (RBC) [Entitic mass] 29.9 pg Normal 26.7-34.0 [facility] Comment on above: Performed By: #### C BC #### [facility] [address] [place] [address] Dr. Michele Gallo MCHC (RBC) [Mass/Vol] 33.8 g/dL Normal 29.9-35.2 [facility] Comment on above: Performed By: #### C BC #### [facility] [address] [place] [address] Dr. Michele Gallo MCV (RBC) [Entitic vol] 88.6 fL Normal 81.0-99.0 [facility] Comment on above: Performed By: #### C BC #### [facility] [address] [place] [address] Dr. Michele Gallo MONO # 0.7 103/ul Normal 0.3-0.8 [facility] Comment on above: Performed By: #### C BC #### [facility] [address] [place] [address] Dr. Michele Gallo Monocytes/100 WBC (Bld) 7.2 % Normal 1.7-12.0 [facility] Comment on above: Performed By: #### C BC #### [facility] [address] [place] [address] Dr. Michele Gallo NEUT # 5.8 103/ul Normal 1.4-6.5 [facility] Comment on above: Performed By: #### C BC #### [facility] [address] [place] [address] Dr. Michele Gallo Neutrophils/100 WBC (Bld) 56.8 % Normal 43.0-75.0 [facility] Comment on above: Performed By: #### C BC #### [facility] [address] [address] [address] Michele Gallo Platelet mean volume (Bld) [Entitic vol] 10.0 fL Normal 9.5-13.5 [facility] Comment on above: Performed By: #### C BC #### [facility] [address] [place] [address] Dr. Michele Gallo PLT 311 103/ul Normal 150-450 [facility] Comment on above: Performed By: #### C BC #### [facility] [address] [place] [address] Dr. Michele Gallo RBC 4.21 106/ul Normal 4.20-5.40 [facility] Comment on above: Performed By: #### C BC #### [facility] [address] [place] [address] Dr. Michele Gallo WBC 10.3 103/ul Normal 4.0-11.0 [facility] Comment on above: Performed By: #### C BC #### [facility] [address] [place] [address] Dr. Michele Gallo PREG HCG QUALon 05-08-2022 , QUAL Negative Normal NEGATIVE [facility] Comment on above: Performed By: #### P REG #### [facility] [address] [place] [address] Dr. Michele Gallo [facility] SARS-CoV-2 (COVID-19) RNA TARAH+probe Ql (Unsp spec) Not detected Normal NOT DETECTED [facility] Comment on above: Result Comment: This test is not yet approved or cleared by the [place] FDA. When there are no FDA-approved or cleared tests available, and other criteria are met, FDA can make tests available under an emergency access mechanism called an Emergency Use Authorization (EUA). The EUA for this test is supported by the [place] Operator of Health and Human Service's (HHS's) declaration [...] SARS-CoV-2. Performed By: #### C VDTB #### [facility] [address] [place] [address] Dr. Michele Gallo COVID Quick Testingon 2020 Result Positive Razz Other Operative Reporton 1 Operative Report MR#: [id number] [facility] Pt. Name: Raphael Meehan Room #: [...] to interact and give feedback. The x-ray paint laboratory technician was supervised and instructed to operate [...] electrodes using the torque wrench provided by community resource consultant and then they were secured to the prevertebral fascia using fixate device provided by community resource consultant on each anchor. Then a planned left [...] midline incision using a tunneler provided by community resource consultant. The permanent leads were then tunneled through to the pocket, to the generator site, connected to the generator with confirmation, and the entire system was working. The permanent leads were then secured to the generator using the torque wrench provided by [employer] and both pockets were then irrigated with [...] avoid (more content not included)... Normal [facility] POC GLUCOSE LABon 04-26-2021 Glucose [Mass/Vol] 111 mg/dL High 70-100 [facility] Comment on above: Performed By: #### 8 [id number] #### [address] POC URINE PREGNANCYon 2020 Beta HCG ( test) Ql (U) Negative Normal NEGATIVE [facility] Comment on above: Result Comment: Perf ormed in PACU Performed By: #### 8 [id number] #### [address] THORACIC SPINEon 04-26-2021 THORACIC SPINE [facility] Department of Radiology [address] [place] [id number] Patient Name: RAPHAEL MEEHAN : 1995 [...] purposes. Electronically signed: Bill Rapp. Transcribed by: [email or web address], User Resident: Electronically Signed by: BILL RAPP @ 04/27/2021 03:18 PM Normal [facility] Comment on above: Order Comment: SPINA L CORD STIMULATOR PLACEMENT *MRSA/MSSA DNA NASALon 04-14 *MRSA/MSSA DNA NASAL Clinical Report: (D ) Specimen: NASAL SWAB Collected: 04/14/2021 08:50 Status: Final Last Updated: 04/14/2021 15:28 MSSA DNA (Final) Negative MRSA DNA (Final) Negative Normal [facility] Comment on above: Performed By: #### 3 [id number] #### [facility] [address] [place] [address], [facility] APTTon 04-14-2021 aPTT Coag (Bld) [Time] 26.3 s Normal 25.0-35.0 [facility] Comment on above: Result Comment: ALL [...] THIS PURPOSE. Performed By: #### 5 [id number], [id number] #### [facility] [address] [place] [address], [facility] BASIC METABOLIC PANELon 09-0 -2020 Calcium [Mass/Vol] 9.2 mg/dL Normal 8.6-10.3 [facility] Comment on above: Performed By: #### 0 0071 #### [facility] [address] [place] [address], [facility] Chloride [Moles/Vol] 107 mmol/L Normal 98-107 [facility] Comment on above: Performed By: #### 0 0071 #### [facility] [address] [place] [address], [facility] CO2 [Moles/Vol] 23 mmol/L Normal 21-31 [facility] Comment on above: Performed By: #### 0 0071 #### [facility] [address] [place] [address], [facility] Creatinine [Mass/Vol] 0.90 mg/dL Normal 0.60-1.20 [facility] Comment on above: Performed By: #### 0 0071 #### [facility] [address] [place] [address], [facility] GFR/1.73 sq M.predicted among blacks MDRD (S/P/Bld) [Vol rate/Area] mL/min/{1.73_m2} Normal >60 [facility] Comment on above: Performed By: #### 0 0071 #### [facility] [address] [place] [id number], [facility] GFR/1.73 sq M.predicted among non-blacks MDRD (S/P/Bld) [Vol rate/Area] mL/min/{1.73_m2} Normal >60 [facility] Comment on above: Performed By: #### 0 0071 #### [facility] [address] [place] [id number], [facility] Glucose [Mass/Vol] 94 mg/dL Normal 70-[address] [facility] Comment on above: Performed By: #### 0 0071 #### [facility] [address] [place] [id number], [facility] Potassium [Moles/Vol] 4.2 mmol/L Normal 3.5-5.1 [facility] Comment on above: Performed By: #### 0 1 #### [facility] [address] [place] [address], [facility] Sodium [Moles/Vol] 139 mmol/L Normal 136-[address] [facility] Comment on above: Performed By: #### 0 1 #### [facility] [address] [place] [address], [facility] Urea nitrogen [Mass/Vol] 8 mg/dL Normal 7-25 [facility] Comment on above: Performed By: #### 0 1 #### [facility] [address] [place] [address], [facility] CBC W/DIFFon 04-14-2021 ABS IMM GRANS 0.1 10*3/uL Normal 0.0-0.2 [facility] Comment on above: Performed By: #### 5 102 #### [facility] [address] [place] [address], [facility] ABS NEUTROPHILS 5.5 10*3/uL Normal 1.6-7.6 [facility] Comment on above: Performed By: #### 102 #### [facility] [address] [place] [address], [facility] Basophils (Bld) [#/Vol] 0.1 10*3/uL Normal 0.0-0.2 [facility] Comment on above: Performed By: #### 5 102 #### [facility] [address] [address], [facility] Basophils/100 WBC (Bld) 1.4 % High 0.0-1.0 [facility] Comment on above: Performed By: #### 5 0103 #### [facility] [address] [place] [address], [facility] Eosinophils (Bld) [#/Vol] 0.5 10*3/uL Normal 0.0-0.5 [facility] Comment on above: Performed By: #### 5 0103 #### [facility] [address] [place] [address], [facility] Eosinophils/100 WBC (Bld) 4.7 % Normal 0.0-6.0 [facility] Comment on above: Performed By: #### 5 3 #### [facility] [address] Erythrocyte distribution width (RBC) [Ratio] 11.9 % Normal 11.5-15.0 [facility] Comment on above: Performed By: #### 5 0103 #### [facility] [address] Hematocrit (Bld) [Volume fraction] 45.7 % High 36.0-45.0 [facility] Comment on above: Performed By: #### 5 3 #### [facility] [address] Hemoglobin (Bld) [Mass/Vol] 15.6 g/dL High 12.0-15.0 [facility] Comment on above: Performed By: #### 5 0103 #### [facility] [address] [place] [address], [facility] IMMATURE GRANS 0.7 % Normal 0.0-1.0 [facility] Comment on above: Performed By: #### 5 3 #### [facility] [address] [address], [facility] Lymphocytes (Bld) [#/Vol] 2.9 10*3/uL Normal 1.2-4.0 [facility] Comment on above: Performed By: #### 5 102 #### [facility] [address] [facility] [place] [address], [facility] Lymphocytes/100 WBC (Bld) 29.2 % Normal 20.0-45.0 [facility] Comment on above: Performed By: #### 5 3 #### [facility] [address] [place] [address], [facility] MCH (RBC) [Entitic mass] 30.2 pg Normal 27.0-33.0 [facility] Comment on above: Performed By: #### 102 #### [facility] [address] [facility]. [address] MCHC (RBC) [Mass/Vol] 34.1 g/dL Normal 32.0-35.0 [facility] Comment on above: Performed By: #### 5 102 #### [facility] [address] [place] [address], [facility] MCV (RBC) [Entitic vol] 88.6 fL Normal 82.0-98.0 [facility] Comment on above: Performed By: #### 5 3 #### [facility] [address] [facility] [place] [address], [facility] Monocytes (Bld) [#/Vol] 1.0 10*3/uL Normal 0.1-1.0 [facility] Comment on above: Performed By: #### 5 3 #### [facility] [address] [facility] [place] [address], [facility] MONOS 9.4 % Normal 5.0-12.0 [facility] Comment on above: Performed By: #### 5 3 #### [facility] [address] [place] [address], [facility] Neutrophils/100 WBC (Bld) 54.6 % Normal 40.0-72.0 [facility] Comment on above: Performed By: #### 5 0103 #### [facility] [address] [place] [address], [facility] Nucleated RBC/100 WBC (Bld) [Ratio] 0 % Normal 0-0 [facility] Comment on above: Performed By: #### 5 0103 #### [facility] [address] [place] [address], [facility] PLAT CNT 290 10*3/uL Normal 150-400 [facility] Comment on above: Performed By: #### 5 0103 #### [facility] [address] [place] [address], [facility] RBC (Bld) [#/Vol] 5.16 10*6/uL High 3.80-5.[address] [facility] Comment on above: Performed By: #### 5 [id number] #### [facility] [address] [place] [address], [facility] WBC (Bld) [#/Vol] 10.07 10*3/uL Normal 4.00-10.60 [facility] Comment on above: Performed By: #### 5 0103 #### [facility] [address] PROTHROMBIN TIMEon 1 INR Coag (PPP) [Relative time] 0.98 {INR} Normal 0.91-1.16 [facility] Comment on above: Result Comment: ACCC [...] CHEST 1995;108:231S-246S. Performed By: #### 5 [id number], 70986 #### [facility] 3000 [facility]. [address] PT Coag (PPP) [Time] 13.0 s Normal 12.3-14.8 [facility] Comment on above: Result Comment: ALL RESULTS MUST BE INTERPRETED WITH RESPECT TO BLOOD DRAWING ARTIFACT OR DILUTION ERROR OF ANTICOAGULANT AT THE TIME OF SAMPLING. Performed By: #### 5 [id number], 09286 #### [facility] [address] [employer] Vital Signs Date Time Vital Sign Value Performing Clinician Facility 09-21-2023 08:48-0500 Body temperature 98.42 [degF] Juanjose De Jesuse [facility] 09-21-2023 08:48-0500 Diastolic blood pressure 90 mm[Hg] Juanjose De Jesuse [facility] 09-21-2023 08:48-0500 Heart rate 106 /min Juanjose [facility] 09-21-2023 08:48-0500 Respiratory rate 16 /min Juanjose De Jesuse [facility] 09-21-2023 08:48-0500 SaO2% (BldA) [Mass fraction] 100 % Juanjose Bath [facility] 09-21-2023 08:48-0500 Systolic blood pressure 150 mm[Hg] Juanjose Toscano [facility] 06-20-2021 12:15-0500 Body height 165.1 cm Atiya Huerta Other [facility] 06-20-2021 12:15-0500 Body mass index (BMI) [Ratio] 35.94 kg/m2 Atiya Gilault Other [facility] 06-20-2021 12:15-0500 Body temperature 100.3 [degF] Atiya Gilault Other [facility] 06-20-2021 12:15-0500 Body weight 97.98 kg Atiya Gilault Other [facility] 06-20-2021 12:15-0500 SaO2% (BldA) [Mass fraction] 98 % Atiya Huerta Other [facility] Other Encounters Encounter Date Encounter Type Care Provider Facility Start: 02-27-2024 End: 02-27-2024 Departed Referred PHYSICIAN NO [facility] Start: 02-27-2024 End: 02-27-2024 ambulatory PHYSICIAN NO [facility] Work Phone: Start: 02-01-2024 End: 02-01-2024 Emergency department patient visit NO PCP NO PCP [facility] Start: 01-16-2024 End: 01-16-2024 ambulatory KEITH CERVANTES Not Available Start: 01-15-2024 End: 01-16-2024 Emergency department patient visit ABRAHAM TORRES [facility] Start: 10-16-2023 End: 10-16-2023 ambulatory Debbie Cole Facility:[facility] Verónica glass Start: 09-21-2023 End: 09-21-2023 Emergency department patient visit Juanjose Toscano [facility] Start: 09-21-2023 End: 09-21-2023 ambulatory Debbie L Douglas Facility: [facility] Start: 09-07-2023 End: 09-07-2023 Lab Drop off Debbie L Douglas [facility] Start: 09-07-2023 End: 09-07-2023 ambulatory Debbie L Douglas [facility] Start: 08-08-2023 End: 08-08-2023 ambulatory DEBBIE L DOUGLAS [facility] Start: 08-07-2023 End: 08-07-2023 ambulatory Debbie L Douglas Facility: [facility] Start: 08-02-2023 ambulatory Debbie Douglas Facility:[facility] Start: 07-09-2023 End: 07-09-2023 ambulatory Debbie L Douglas [facility]: [facility] Start: 06-08-2023 End: 06-08-2023 ambulatory Debbie L Douglas Facility: [facility] Start: 05-25-2023 End: 05-25-2023 Lab Drop off Debbie L Douglas [facility] Start: 05-25-2023 End: 05-25-2023 ambulatory Debbie L Douglas Facility:[facility] Start: 03-01-2023 End: 03-01-2023 ambulatory [facility] Start: 01-16-2023 End: 01-17-2023 ambulatory [facility] Start: 01-04-2023 ambulatory [facility] Start: 12-15-2022 ambulatory ALESIA APARICIO [facility] Start: 12-08-2022 End: 12-08-[address] REBECCA MANN . Facility: Start: 12-07-2022 ambulatory [facility] Start: 10-23-2022 End: 10-24-2022 ambulatory WAQAR MADISYN [facility] Start: 05-24-2022 End: 05-25-[address] REBECCA MANN . Facility:[facility] Start: 05-15-2022 End: 05-15-[address] HERMELINDA JACKSON . Facility:[facility] Start: 05-08-2022 Encounter for preprocedural laboratory examination DR REBECCA MANN . [facility] Start: 05-08-2022 End: 05-08-[address] REBECCA MANN . Facility:[facility] Start: 05-04-2022 End: 05-05-[address] REBECCA MANN . Facility:[facility] Start: 05-04-2022 End: 05-05-2022 Encounter for preprocedural laboratory examination DR REBECCA MANN . Facility:[facility] Start: 04-30-2022 Encounter for other preprocedural examination DR REBECCA MANN . [facility] Start: 04-26-2022 End: 04-27-[address] REBECCA MANN . Facility:[facility] Start: 04-26-2022 End: 04-27-2022 Encounter for other preprocedural examination DR REBECCA MANN . Facility:[facility] Start: 12-29-2021 End: 12-29-2021 ambulatory MIKE PLATT Facility: Start: 06-20-2021 (URG) Urgent Care Visit Aitya loving [facility] Start: 06-20-2021 End: 06-20-2021 ambulatory Atiya Huerta Other [facility] Other Start: 04-26-2021 End: 04-27-2021 ambulatory AN LR Facility:[facility] Procedures Date Procedure Procedure Detail Performing Clinician [...] and acellular pertussis vaccine, adsorbed Debbie Douglas [facility] NEGATED: Highlighted row has not occurred!05-25-2023 influenza virus vaccine, unspecified formulation Debbie Douglas [facility] Payers Date Payer Category Payer Self-pay 2023 Unknown [id number] 1996 Unknown [id number] 1996 Unknown [id number] 2.16.840.1.192484.3.579.2.593 1996 Unknown [id number] 2.16.840.1.206616.3.579.2.593 1996 Unknown [id number] 2.16.840.1.721929.3.579.2.593 1996 Unknown [id number] 2.16.840.1.132030.3.579.2.593 1996 Unknown [id number] 2.16.840.1.231551.3.579.2.593 1996 Unknown [id number] 2.16.840.1.612211.3.579.2.593 1996 Unknown [id number] 2.16.840.1.758194.3.579.2.593 1996 Unknown [id number] 2.16.840.1.062171.3.579.2.727 1996 Unknown [id number] 2.16.840.1.890481.3.579.2. 1996 Unknown [id number] 2.16.840.1.867435.3.579.2. 1996 Unknown [id number] 2.16.840.1.760125.3.579.2. 1996 Unknown [id number] 2.16.840.1.502858.3.579.2. 1996 Unknown [id number] 2.16.840.1.232721.3.579.2. 1996 Unknown [id number] 2.16.840.1.939771.3.579.2. 1996 Unknown [id number] 2.16840.1.101286.3.579.2. 1996 Unknown [id number] 2.16840.1.353165.3.579.2. 1996 Unknown [id number] 2.16840.1.453952.3.579.2. 1996 Unknown [id number] 2.16.840.1.867676.3.579.2.1285 1996 Unknown [id number] 2.16.840.1.598659.3.579.2.1285 1996 Unknown [id number] 2.16840.1.125648.3.579.2.1285 1996 Unknown [id number] 2.16840.1.791694.3.579.2.1285 1996 Unknown [id number] 2.16.840.1.741087.3.579.2.1258 1996 Unknown [id number] 2.16840.1.375796.3.579.2.9 1959 Unknown [id number] 2.16. 840.1.549008.19 Unknown [facility] [id number] Unknown Financial Counselor [id number] a Unknown HCAP/HFA/FAP Active [id number] Unknown [id number] 2.16.840.1.370267.3.579.2.531 Social History Date Type Detail Facility Unknown if ever smoked [facility] Other Start: 05-25-2023 Tobacco smoking status Never s moked tobacco (finding) [facility] Tobacco smoking status Never [facility] Sex Assigned At Female [facility] Start: 09-07-2023 End: 09-21-2023 Tobacco smoking status Light tobacco smoker (finding) [facility] Start: 1995 Sex Assigned At Female F [facility] Functional Status Date Assessment Result Facility 09-21-2023 Functional Status N/A [facility] Clinical Notes 10-23-2022 to 09-21-2023 Note Date [...] Follow these instructions at home: Medicines Take ymmi-jap-qamnxvw and prescription medicines only as told by [...] such as antibiotic medicines or antihistamines. Take gqpk-dzv-orrdrbj and prescription medicines only as told by [...] provider. Document Revised: 05/10/2022 Document Reviewed: 05/11/2022 [employer] Patient Education 2022 [employer]. Follow Up Care 09/21/2023 08:47:27 With:Debbie Cole Address: [address] [place] [address] Business (1) When:09/24/2023 09:54:01 [facility] 01-17-2023 Note Subjective s/p Rt wr ist inj median nerve Patient reports Pain Level 2. Pre-procedure pain level 7 on 01/16/23. Denies complications, side effects, problems, or any questions about discharge instruction. Next appointment on 03/01/23 at 1300. [facility] 01-04-2023 Note Pain Medicine Medical [address] [address] Subjective Patient ID: Raphael Meehan is a [...] refill ROM full with pain on extension. Welfare Specialist strength preserved. Gait: normal PROCEDURE NOTE: Risks [...] this note were generated using voice recognition [employer] dictation software. Although every effort was made to ensure the accuracy of this automated game trapper, some errors in game trapper may have occurred. [facility] 12-15-2022 Note Attestation signed by Alesia Aparicio MD at 12/15/2022 9:46 AM By using the attestations below, the signing clinician agrees that I have read and verify that the documentation has been personally reviewed by me and ensure that the documentation accurately reflects the encounter. Office Visit Attestation GC: I personally saw this patient on the day of the encounter, performed the alebrto portion(s) of the service and participated in [...] a 27 y.o. female who presents to [facility] today for bilateral upper [...] no other evide (more content not included)... [facility] 12-07-2022 Note Pain Medicine Medical [address] [address] Subjective Patient ID: Raphael Meehan is a [...] Focal neurologic deficits are not Noted symmetric audiovisual production specialist strength VASC: Cap refill less than 2 sec. Radial pulse +2 equal MUSC: Left UE - 5/5 Deltoid, 5/5 Triceps, 5/5 Biceps, 5/5 Wrist flexion, 5/5 Wrist Extension, 5/5 Finger extension, 5/5 Intrinsics, 4/5 Welfare Specialist Right UE -5/5 Deltoid, 5/5 Triceps, 5/5 Biceps, 5/5 Wrist flexion, 5/5 Wrist Extension, 5/5 Finger extension, 5/5 Intrinsics, 4/5 Welfare Specialist GAIT: The patient stands with a normal [...] mouth at bedtime. Presence of neurostimulator Comments: [employer] cervical SCS functioning properly Complex regional [...] week increase to 600mg if ineffective 2. [facility] paperwork for medical evaluations, doctors visits, PT [...] note were ge (more content not included)... [facility] 10-23-2022 Note HPI: Raphael Meehan is a 27 y.o. 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 She had a spinal cord stimulator placed in 04/26/2021 with [employer] in which she got 90% relief. She [...] with 90% relief - 04/26/21 SCS implant [employer] with > 90% relief Imaging: XR [...] Malfunction of spinal cord stimulator, initial encounter ([facility]) Impingement syndrome of left shoulder region Plan: Physical Therapy- completed. Imaging- xray cervical spine reviewed, no lead migration noted. Consults-none Interventions- ordered EMG testing and consider MRI cervical to determine if other pathology causing numbness in bilateral arms. Medications- none Return to clinic-4 weeks OARRS reviewed [facility] Evaluation + Plan note Future Appointments Appointment Date:06/08/2023 10:00:00 AM Scheduled Provider:Debbie Bui Location:[facility] Appointment Type:[facility] Evaluation + Plan note Future Appointments Appointment Date:10/10/2023 03:40:00 PM Scheduled Provider:Debbie Bui Location:[facility] Appointment Type: Open [facility] Evaluation note [facility] [employer] Other Evaluation note No assessment inform ation available [facility] Work Phone: History general Narrative - Reported [facility] [employer] Other Hospital course Narrative No data available [...] and content) DATE CREATED AUTHOR 03/02/2022 [facility] DATE CREATED AUTHOR AUTHOR'S ORGANIZ ATION 12/19/2022 [facility] DATE CREATED AUTHOR AUTHOR'S ORGANIZ ATION 03/02/2023 [facility] DATE CREATED AUTHOR AUTHOR'S ORGANIZ ATION 01/21/2024 [facility] DATE CREATED AUTHOR AUTHOR'S ORGANIZ ATION 02/03/2024 [facility] DATE CREATED AUTHOR AUTHOR'S ORGANIZ ATION 03/02/2024 [facility] DATE CREATED AUTHOR AUTHOR'S ORGANIZ ATION 03/06/2024 [facility] ysician [facility] Patient Care team informatio n [...] BE BASED ON THE PRIMARY CLINICAL RECORDS. [employer] [facility]. provides no warranty or guarantee of the accuracy or completeness of information in this document.
[2024-03-27 11:44] LABS: HCG Quantitative <1 mIU/mL
[2024-03-27] MEDS: LACTATED RINGER'S SOLUTION 1,000 ML 50 ML IV ×2 (12:00→13:55)
[2024-03-27] MEDS: CEFAZOLIN SODIUM 2 GM/50 ML D5W PREMIX IV (12:38)
--- NOTE | 2024-03-27 15:05 | P.ON_ITS ---
Brief Operative Note Date of procedure: 03/27/24 Pre-op diagnosis general: pelvic pain, dysmenorrhea, dyspareunia, aub, lt ovar jorgito cyst Post-op diagnosis: same as pre-op Procedure: NAME OF PROCEDURE: ? Robotic assisted laparoscopic hysterectomy with cystoscopy, bilateral salpingectomy, lt ovarian cystectomy PROCEDURE:? The patient was taken back to the operating room, where she was prepped and draped in the normal sterile fashion after being placed in the dorsal lithotomy position.? Patient?s anesthesia was found to be adequate.? Surgical timeout was performed using two patient identifiers.? SCDs were on and in place.? Two grams of Ancef were given prior to the surgery.? Sterile Morton catheter was inserted.? Standard size VCare was secured to the uterine cervix and the surgeon changed gloves.? Attention then was turned to the patient's abdomen, where a supraumbilical incision was then made.? Two S retractors were used to identify the patient?s fascia.? The fascia was then tented up using Debbie clamps and the patient?s fascia was incised sharply.? Patient?s abdomen was identified and entered bluntly.? The patient had the trocar placed and a pneumoperitoneum was obtained.? Approximately 4 liters of CO2 gas was used.? The camera was then placed through the trocar.? At this time, two robot trocars were placed in the patient?s left and right side, two hand widths from the midline, and this was placed under direct visualization.? The patient?s tube on the right side was tented up and the vessel sealer was then used to come across the mesosalpinx, and this was carried down to the uterine ovarian ligament.? The vessel sealer was carried down serially to the broad ligament, to the area of the bladder flap, which was then created anteriorly, and the uterine arteries were skeletonized and sealed using the vessel sealer.? The colpotomy was made using the monopolar cautery on cut, and this was carried circumferentially, posteriorly to anteriorly, until the uterus was amputated.? The specimen was then removed intact through the vagina, without difficulty.? The vagina was then closed using two running V-Loc in a non-lock fashion.? The robot was undocked.? The abdomen was desufflated.? The skin defects were closed using 4-0 Vicryl.? Please note, the fascia was closed using 0 Vicryl.? Sponge, lap and needle counts were correct x2.? Patient was taken to recovery room in stable condition.? The patient was awakened by Anesthesia first.? Patient tolerated procedure well.??Please note left ovarian cystectomy was performed using the vessel sealer Anesthesia: JONES Surgeon: Keith Cervantes Roll Forming Machine Set Up Mechanic: Yasmin Fang Estimated blood loss (mL): 50 Pathology: other (uterus, cervix, tubes, lt ovarian cyst wall) Condition: stable Disposition: PACU Urinary Catheter Management Urinary Catheter Management Urethral: Cath placed during this visit: no
[2024-03-27] MEDS: HYDROMORPHONE HCL 0.5 MG/0.5 ML SYRINGE IV ×2 (15:40→15:50)
[2024-03-27] MEDS: LACTATED RINGER'S SOLUTION 1,000 ML 125 ML IV (15:41)
--- NOTE | 2024-03-27 16:10 | PC.NURSE ---
gave prescriptions to pts significant other per pts wishes.
[2024-03-27] MEDS: OXYCODONE HCL/ACETAMINOPHEN 5MG/325MG 2 TAB PO (17:23)
[2024-03-27] MEDS: CEFAZOLIN SODIUM/DEXTROSE,ISO 2 GM/50 ML PIGGYBACK IV (19:50)
[2024-03-27] MEDS: KETOROLAC TROMETHAMINE 30 MG/ML VIAL IVP (20:53)
[2024-03-27 21:08] LABS: Basophils Absolute Auto 0.1 10^3/uL (0.0-0.1); Basophils Percent Auto 0.4 % (0.2-2.0); Eosinophils Percent Auto 0.1 % (0.9-7.0); Hematocrit 35.7 % (36.0-48.0); Hemoglobin 11.9 g/dL (12.0-16.0); Immature Granulocytes Abs Auto 0.14 10^3/uL (0.00-0.03); Immature Granulocytes Pct Auto 0.7 % (0.0-0.5); Lymphocytes Absolute Auto 1.7 10^3/uL (1.2-3.8); Lymphocytes Percent Auto 8.7 % (20.5-60.0); Mean Corpuscular HGB Conc 33.3 g/dL (29.9-35.2); Mean Corpuscular Hemoglobin 29.8 pg (26.7-34.0); Mean Corpuscular Volume 89.3 fL (81.0-99.0); Mean Platelet Volume 10.4 fL (9.5-13.5); Monocytes Absolute Auto 0.9 10^3/uL (0.3-0.8); Monocytes Percent Auto 4.4 % (1.7-12.0); Neutrophils Absolute Auto 17.1 10^3/uL (1.4-6.5); Neutrophils Percent Auto 85.7 % (43.0-75.0); Platelet Count 314 10^3/uL (150-450); Red Cell Distribution Width 11.9 % (11.0-15.0); White Blood Count 19.9 10^3/uL (4.0-11.0)
--- NOTE | 2024-03-27 21:38 | PC.NURSE ---
pt given discharge packet and educated on activity restriction, and signs of infection. RN told pt she could call the doctor's office or the hospital if she has any concerns or questions. Pt denied questions at this time. Belle wheeled patient down to family member's car at this time.
== END 2024-03-27 21:40 | disposition home or self-care (01) ==
LOC: SURGOUT 15:12 → MS 16:46
PROVIDERS: PCP Nurse Practitioner; Visit Provider Obstetrics & Gynecology
PROC: (CPT 840; principal; 2024-03-27 12:30)
DX: N92.0 Excessive and frequent menstruation with regular cycle (principal); R10.2 Pelvic and perineal pain; N94.6 Dysmenorrhea, unspecified; N94.10 Unspecified dyspareunia; N83.202 Unspecified ovarian cyst, left side; N93.9 Abnormal uterine and vaginal bleeding, unspecified; N80.03 Adenomyosis of the uterus; F17.210 Nicotine dependence, cigarettes, uncomplicated; Z90.49 Acquired absence of other specified parts of digestive tract; K21.9 Gastro-esophageal reflux disease without esophagitis
CPT/HCPCS: 58571; 58662; 36415; 84702; 85025; 88307; 94667; J0131; J0690; J1100; J1170; J1885; J2250; J2371; J2405; J2704; J3010

== ENCOUNTER 2024-04-18 16:07 | Emergency (ER) | payer BC, SELFPAY ==
[2024-04-18 16:12] VITALS: BP 152/105; PULSE 88; TEMP 37.1; O2SAT 96; BMI 38.3
--- OUTSIDE RECORDS SUMMARY | 2024-04-18 16:15 | XMS_ITS | CCD ---
Author Organization [facility] Care Team Providers Care Faculty I On Call Medical Assistant Name Role Phone Atiya Huerta Unavailable AN LR Attending Unavailable SELF, REFERRED Primary Care Unavailable SELF, REFERRED Referring Unavailable MEG, AN Admitting Unavailable MEG AN Surgeon Unavailable IA Procedure Practitioner Unavailab MIKE Griffiths Admitting Unavailable [...] SHEN Consulting Unavailable GLENNY COLON Consulting Unavailable SHERIDANCHARLENE TOTH Attending Unavailable SHERIDAN, CHARLENE Attending Unavailable SHERIDAN, CHARLENE Attending Unavailable SHERIDAN, CHARLENE Referring Unavailable WAQAR MARS Referring Unavailable SHERIDAN, CHARLENE Attending Unavailable SHERIDAN, CHARLENE Attending Unavailable ALESIA APARICIO Attending Unavailable MADISYN, WAQAR Referring Unavailable DouglasDebbie vincent Primary Care Physician Douglas, Debbie Butler Attending [...] Unava ilable DO Keith Cervantes Attending Provider BILLYISABELLA BAGLEYY Attending Unavailable BILLY, KEITH Attending Unavailable LORENE REEVES Attending Unavailable Billy, Keith Admitting Unavailable Billy, Keith Attending Unavailable NO FAMILY, PHYSICIAN Primary Care Unavailable Billy, Keith Admitting Unavailable Billy, Keith Attending Unavailable Allergies Allergy Classification Reported Allergen(s) Allergy Type Date of Onset Reaction(s) Facility (1 source) [facility] Drug Allergy rash [facility] Other (1 source) nickel Drug Allergy 06-20-2021 [facility] Repository Medications Current Medications Medication Drug Class(es) Dates Sig (Normalized) Sig (Original) [id number] 200 actuat albuterol 0.09 mg/actuat metered dose inhaler (1 source) beta2-Adrenergic Agonist Start: 06-20-2021 doxycycline monohydrate 100 mg oral tablet (1 source) Tetracycline-class Drug Start: 09-21-2023 End: 10-01-2023 take 1 tablet by mouth twice daily doxycycline monohydrate 100 mg oral tablet 100 mg = 1 tab(s), Oral, BID, X 10 day(s), # 20 tab(s), Refills(s) 0, [id number] 165.1, cm, 09/21/23 8:51:00 EST, Height/Length [...] BID, # 60 tab(s), Refills(s) 0, [id number], 164, cm, 08/07/23 9:50:00 EST, Height/Length Dosing, 96.4, kg, 08/07/23 9:50:00 EST, Weight Dosing Start Date: 09/06/23 Status: Ordered phentermine hydrochloride 37.5 mg oral tablet (2 sources) Sympathomimetic Amine Anorectic Start: 08-07-2023 take 1 tablet by mouth once daily phentermine 37.5 mg Tab 37.5 mg = 1 tab(s), Oral, Daily, # 30 tab(s), Refills(s) 0, [id number], 164, cm, 08/07/23 9:50:00 EST, Height/Length [...] days, # 30 cap(s), Refills(s) 0, [facility], 165.1, cm, 09/21/23 8:51:00 EST, Height/Length [...] # 12 cap(s), Refills(s) 3, [facility]: [id number], 164, cm, 09/07/23 8:25:00 EST, Height/Length [...] Test Name Value Interpretation Reference Range Facility [facility] 03-30-2024 L Specimen: [id number] Received: 03/31/24 Status: KOFI Req Num: [id number] Spec Type: Surgical Subm Dr: Keith Cervantes Tissues: A Uterus w/ or w/o tubes ovaries except neoplastic or prolap (UTERUS, CERVIX B Soft Tissue Mass - Biopsy (LEFT OVARIAN CYST WALL) Procedures: HE/13, Gross/Micro L5/2 Age/ Patient Sex Location Account Attending Physician Raphael Meeahn 29/F LABELL [id number] Keith Cervantes SPEC NUM: [id number] RECD: 03/31/24 STATUS: KOFI BERGER NUM: [id number] CHELSEA: 03/30/[address]: Keith Cervantes ENTERED: 03/31/24 [facility] DR: SPEC TYPE: Surgical DEPT: [facility] ENTERED BY: [id number] RECV BY: [id number] ORDERED: HE/13, Gross/Micro L5/2 ORDERED: HE/13, Gross/Micro L5/2 Pathological Diagnosis Uterus, Cervix, Bilateral Tubes, Hysterectomy: Uterus: Leiomyomata. Adenomyosis. Cervix: Unremarkable. Fallopian Tubes: Unremarkable. Hemorrhagic corpus luteum. Clinical Information Menorrhagia, pelvic pain, dyspareunia, path pending. Gross Description Part A was received in formalin with the patient's name and uterus and cervix, bilateral fallopian tubes and consists of a 97 g uterus and cervix measuring 8.5 from superior to inferior 5.5 cm from cornu to cornu, 4.0 cm from anterior to posterior. The serosal surface is aguilar-pink smooth with 2 subserosal leiomyomas measuring 0.4 and 0.6 cm in greatest dimension. The cervix measures 4.0 cm in length with a diameter of 3.7 cm. The mucosal surface of the cervix is aguilar-pink and focally hemorrhagic with a external os measuring 1.3 cm in diameter. The endocervical canal has a length of 4.5 cm. The endometrial cavity measures 2.0 cm from superior to inferior and 1.1 cm from cornu to cornu. The anterior endomyometrium has a thickness of 2.2 cm and the posterior has a thickness of 2.3 cm. The endometrium has a thickness of 0.2 cm throughout. Received in the same container are 2 unattached fimbriated fallopian tubes. The first -------- Specimen: [id number] Received: 03/31/24 Status: KOFI Nicolas Num: [id number] Spec Type: Surgical Subm Dr: Keith Cervantes Tissues: A Uterus w/ or w/o tubes ovaries except neoplastic or prolap (UTERUS, CERVIX B Soft Tissue Mass - Biopsy (LEFT OVARIAN CYST WALL) Procedures: HAMIDA/Brigida, Gross/Micro L5/2 -------- Patient: Raphael Meehan [id number] (Continued) -------- Specimen: [id number] Received: 03/31/24 (Continued) Gross Description (Continued) Signed (signature on file) Diana Massey MD 04/03/24 1648 -------- Specimen: [id number] Received: 03/31/24 Status: KOFI Nicolas Num: [id number] Spec Type: Surgical Subm Dr: Keith Cervantes Tissues: A Uterus w/ or w/o tubes ovaries except neoplastic or prolap (UTERUS, CERVIX B Soft Tissue Mass - Biopsy (LEFT OVARIAN CYST WALL) Procedures: , Gross/Micro L5/2 -------- Patient: Raphael Meehan [id number] (Continued) -------- Specimen: [id number] Received: 03/31/24 (Continued) Gross Description (Continued) fallopian tube measures 6.0 cm in length with diameter 0.5 cm, and the fimbria measures 1.5 x 0.5 x 0.5 cm. There is a paratubal cyst measuring 0.6 cm in greatest dimension filled with a clear fluid. The second fallopian tube measures 6.5 cm in length with a diameter of 0.9 cm, and the fimbria measures 2.0 x 1.5 x 1.0 cm. Orthotics Technician sections are as follows: A1 anterior cervix A2 calcified vessels from the anterior cervix A3 anterior endomyometrium A4 anterior leiomyomas A5 posterior cervix A6 posterior endomyometrium A7 posterior leiomyomas A8 first fimbria serially sectioned A 9 technical service representative sections of the first fallopian tube A 10-second fimbria serially sectioned A11 technical service representative sections of the second fallopian tube Part B received in formalin with the patient's name and left ovarian cyst wall and consists of 2 irregular shaped portions of aguilar fibrous soft tissue ranging in size from 0.5 to 1.5 cm in greatest dimension. The largest portions is trisected. The specimen is entirely submitted in cassette B1. CPT Codes 09747 -------- -------- Specimen: [id number] Received: 03/31/24 Status: KOFI Nicolas Num: [id number] Spec Type: Surgical (more content not included)... Normal [facility] Physician [facility] 02-27-2024 L Specimen: [id number] Received: 02/28/24 Status: KOFI Nicolas Num: [id number] Spec Type: Surgical Subm Dr: Keith Cervantes Tissues: A Endometrium - Biopsy (EMBX) Procedures: HE/2, Gross/Micro L4 Age/ Patient Sex Location Account Attending Physician MeehanRaphael ledbetter LABELL [id number] Keith Cervantes SPEC NUM: [id number] RECD: 02/28/24 STATUS: KOFI NICOLAS NUM: [id number] CHELSEA: 02/27/[address]: Keith Cervantes ENTERED: 02/28/24 [facility] DR: [place],Lab SPEC TYPE: Surgical DEPT: [facility] [...] cm, entirely submitted in A1. CPT Codes 81775 -------- -------- Specimen: [id number] Received: 02/28/24 Status: KOFI Nicolas Num: [id number] Spec Type: Surgical Subm Dr: Keith Cervantes Tissues: A Endometrium - Biopsy (EMBX) Procedures: HE/2, Gross/Micro L4 -------- Patient: Raphael Meehan [id number] (Continued) -------- Signed (signature on file) Diana Massey MD 03/03/24 1751 Normal [facility] RAD - Ultrasound Reporton RAD - Ultrasound Report [id number]. 00TIFF Normal [facility] HCG ( test) Ql (U)o n 01-15-2024 Beta HCG ( test) Ql (U) Negative Normal [facility] Comment on above: Performed By: #### 2 106-3 #### [facility] ([id number]) [address] [place] [address] 84152 URN MACROSCOPIC NURon 2023 BILIRUBIN DAINA Negative Normal [facility] Comment on above: Performed By: #### N UM #### [facility] ([id number]) [address] [place] [address] 00183 BLOOD/HGB DAINA Small Abnormal [facility] Comment on above: Performed By: #### N UM #### [facility] ([id number]) [address] [place] [address] 96699 GLUCOSE DAINA Negative Normal [facility] Comment on above: Performed By: #### N UM #### [facility] ([id number]) [address] [place] [address] 42339 KETONES DAINA Negative Normal [facility] Comment on above: Performed By: #### N UM #### [facility] ([id number]) [address] [place] [address] 94639 LEUKOCYTE ESTERASE DAINA Negative Normal [facility] Comment on above: Performed By: #### N UM #### [facility] ([id number]) [address] [place] [address] 47438 NITRITE DAINA Negative Normal [facility] Comment on above: Performed By: #### N UM #### [facility] ([id number]) [address] [place] [address] 52365 PH DAINA 6.5 Normal 5.0-8.5 [facility] Comment on above: Performed By: #### N UM #### [facility] ([id number]) [address] [place] [address] 90156 PROTEIN DAINA Negative Normal [facility] Comment on above: Performed By: #### N UM #### [facility] ([id number]) [address] [place] [address] 32044 SPECIFIC GRAVITY DAINA 1.025 Normal 1.003-1.035 [facility] Comment on above: Performed By: #### N UM #### [facility] ([id number]) [address] [place] [address] 25199 UROBILINOGEN DAINA 0.2 eu/dL Normal <1.1 [facility] Comment on above: Performed By: #### N UM #### [facility] ([id number]) [address] [place] [address] 74004 XR SPINE LUMBAR 2 OR 3 VWSon [...] Galvez MD on 01/15/2024 1:20 PM Normal [facility] ED Note-Physicianon 10-17-19 ED Note-Physician [id number] .00TIFF Normal [facility] RAD - CT Reporton 10-17-2023 RAD - CT Report [id number] .00TIFF Normal [facility] ED Note-Physicianon 09-22-19 ED Note-Physician Basic [...] # 30 cap(s), Refills(s) 0, Pharmacy: [facility][id number], 165.1, cm, 09/21/23 8:51:00 EST, Height/Length Dosing, 97.9, kg, 09/21/23 8:51:00 EST, Weight Dosing doxycycline, 100 mg = 1 tab(s), Oral, BID, X 10 day(s), # 20 tab(s), Refills(s) 0, Pharmacy: [facility]/pharmacy #3471, 165.1, cm, 09/21/23 8:51:00 EST, Height/Length [...] Information Debbie Cole In 3 days 09/24/[address] [place] [address] Business (1) Additional Instructions: Patient Education Cellulitis, Adult [...] made to ensure accuracy, however, inadvertently computerized press secretary mistakes may be present. Appropriate healthcare PPE [...] tab(s), Oral, Chloe (more content not included)... Normal [facility] Comment on above: Result Comment: Elec tronically Signed By: Reece Oh PA-C\.br\Date and Time Signed: 09/21/23 09:59 EST\.br\Electronically Co-Signed By: Juanjose Toscano DO\.rudy\Date and Time Co-Signed: 09/22/23 07:13 EST Ambulatory Visit Summaryon 0 09-21-2023 Ambulatory Visit Summary RAPHAEL MEEHAN :1995 Visit Date:09/21/2023 Ambulatory Visit Instructions Your [...] 3:40 PM EST With: Debbie Bui Where: [facility] [place] Normal [facility] Consent for Treatmenton Consent for Treatment [id number] .00TIFF [facility] Discharge Instructionson Discharge Instructions [id number] .00TIFF [facility] ED Clinical Summaryon 2023 ED Clinical Summary [place] [id number] ED Clinical Summary Person Information Name: RAPHAEL MEEHAN [facility] Age: 28 Years : 1995 Sex: Female Language: Uzbek PCP: Debbie Bui Marital Status: Single Visit [...] 09/21/2023 10:00:31 09/21/2023 10:00:31 09/21/2023 10:00:31 ADDRESS: [address] [place] [id number] PHYS DOC NOTES: MEDICAL INFORMATION: Prescriptions Given: New Medications [id number], [address] [place], [place] [id number], [phone] cephalexin (Keflex 500 mg Cap) 1 Capsules [...] Cellulitis, Adult Follow up: With: Address: When: Debbie Cole [address] [place], [place] [id number] Business (1) In 3 days 09/24/2023 DIAGNOSIS: Cellulitis Normal [facility] ED Patient Education Noteon 09-21-2023 ED [...] these instructions at home: Medicines ? Take tqjs-ljy-fystpnq and prescription medicines only as told by [...] as antibiotic medicines or antihistamines. ? Take vryu-faj-shuzzcx and prescription medicines only as told by [...] provider. Document Revised: 05/10/2022 Document Reviewed: 05/11/2022 [employer] Patient Education ? 2022 [employer] Normal [facility] ED Patient Summaryon 024 ED Patient Summary [place] [id number] Patient Discharge Instructions Person Information Name: RAPHAEL MEEHAN Age: 28 Years Arrival Date: 09/21/2023 08:45:38 Discharge Diagnosis: Cellulitis Primary Care Physician: Debbie Bui Provider Information Primary Provider: Juanjose Toscano DO [facility] [employer] Operator:Reece Oh PA-C The exam and treatment you received in the Emergency Department were for an urgent problem and are not intended as complete care. It is important that you follow up with a doctor, nurse practitioner, or physician?s assistant director of nursing for ongoing care. If your symptoms become worse or you do not improve as expected and you are unable to reach your usual health care provider, you should return to the Emergency Department. We are available 24 hours a day. RAPHAEL MEEHAN has been given the following list of patient education materials, prescriptions and follow-up instructions: Follow-up Instructions: With: Address: When: Debbie Cole [address] [place] [address] Business (1) In 3 days 09/24/2023 In the event that this physician does not participate in your insurance network, please consult with your insurance company to find a nearby participating provider. Patient Education Materials: Cellulitis, Adult A MESSAGE TO ALL PATIENTS REGARDING OPIOIDS PRESCRIPTION OPIOIDS: WHAT YOU NEED TO KNOW Prescription opioids can be used to help relieve zonhyekd-sd-vhewtn pain and are often prescribed following a [...] be struggling with addiction, tell your health medication care manager and ask for guidance or call [facility] National Helpline at 6-530-380-HELP. v Source: US Depart (more content not included)... Normal [facility] Family Medicine Office/Clini c Noteon 09-21-2023 Family Medicine [...] 50,000 intl units (1.25 mg) oral capsule, 17207 International_Unit= 1 cap(s), Oral, qWeek, 3 refills [...] Refuses diphtheria/pertussis, acel/tetanus adult 07/09/2017 Recorded Normal [facility] Comment on above: Result Comment: Elec tronically Signed By: Debbie Bui\.br\Date and Time Signed: 09/21/23 08:30 EST Provider Letteron 09-21-2023 Provider Letter September 21, [address] [address] : 1995 To Whom It May Concern, Please excuse above patient from work. Date of Illness: From: 09/21/2023 To: 09/21/2023 May Return to Work On: 09/24/2023 Restrictions: _ Comments: _ Sincerely, [place] [address] Normal [facility] US LE Venous Duplex Lefton 0 [...] Isaias Palma MD Transcribed by: ILDA Technologist: Normal [facility] Ambulatory Visit Summaryon 0 09-07-2023 Ambulatory [...] 3:40 PM EST With: Debbie Bui Where: [facility] [place] Normal [facility] CBC w/ Auto Diffon 4 Basophil Absolute 0.1 E9/L Normal 0.0-0.2 [facility] Comment on above: Performed By: #### 2 382807, 18725328, 482862984, 1199523, 8029366, 923092329 ####[facility] [address] [place] [address] Basophils/100 WBC (Bld) 0.8 % Normal 0.0-2.0 [facility] Comment on above: Performed By: #### 2 286531, 52105451, 894690821, 8348983, 4280377, 897094474 ####[facility] [address] [place] [address] Eos Absolute 0.9 E9/L High 0.0-0.5 [facility] Comment on above: Performed By: #### 2 789840, 60247389, 950532620, 9320567, 6468461, 709552972 ####[address] [address] Eosinophils/100 WBC (Bld) 6.8 % Normal 0.0-8.0 [facility] Comment on above: Performed By: #### 2 011345, 55700878, 780456357, 2170908, 5752505, 211136811 ####[address] [address] Erythrocyte distribution width (RBC) [Ratio] 13.1 % Normal 10.9-14.2 [facility] Comment on above: Performed By: #### 2 736822, 63293491, 240058240, 9967226, 9312446, 904469245 ####[address] [address] Hematocrit (Bld) [Volume fraction] 39.0 % Normal 34.0-46.0 [facility] Comment on above: Performed By: #### 2 301385, 83927942, 619981189, 8760338, 4644065, 587571483 ####[address] [address] Hemoglobin (Bld) [Mass/Vol] 12.7 g/dL Normal 12.0-16.0 [facility] Comment on above: Performed By: #### 2 911102, 54879064, 748773400, 4369938, 3664902, 216409320 ####[address] [address] Lymph Absolute 4.0 E9/L Normal 1.0-4.0 [facility] Comment on above: Performed By: #### 2 918909, 49093691, 046692666, 9481369, 6964742, 477725961 ####[address] [address] Lymphocytes/100 WBC (Bld) 30.3 % Normal 14.0-50.0 [facility] Comment on above: Performed By: #### 2 376704, 82815107, 742863695, 7096263, 8545952, 508071776 ####[address] [address] MCH (RBC) [Entitic mass] 29.2 pg Normal 27.0-34.0 [facility] Comment on above: Performed By: #### 2 990266, 52079577, 458803856, 1264211, 4250853, 077971794 ####[address] [address] MCHC (RBC) [Mass/Vol] 32.7 g/dL Normal 31.4-36.0 [facility] Comment on above: Performed By: #### 2 157641, 16899380, 716979517, 0020221, 5484697, 557264266 ####[address] [address] MCV (RBC) [Entitic vol] 89.3 fL Normal 80.0-100.0 [facility] Comment on above: Performed By: #### 2 177809, 49816390, 810502217, 5080465, 0590355, 488793768 ####[place] [address] [place] [address] Mcpherson Absolute 0.9 E9/L Normal 0.2-1.0 [facility] Comment on above: Performed By: #### 2 396542, 94822151, 613770938, 0665675, 7538498, 104771199 ####[address] [address] Monocytes/100 WBC (Bld) 6.9 % Normal 4.0-14.0 [facility] Comment on above: Performed By: #### 2 487278, 02736131, 882347525, 0880479, 6838632, 755592504 ####[facility] [address] [place] [address] Neutro Absolute 7.3 E9/L Normal 2.0-7.5 [facility] Comment on above: Performed By: #### 2 159760, 55331294, 697697761, 6008863, 6679698, 868511780 ####[place] [address] [place] [address] Neutro Auto 55.2 % Normal 36.0-75.0 [facility] Comment on above: Performed By: #### 2 129637, 65290988, 389480942, 2292649, 4112551, 869678459 ####[address] [address] Platelet 327.0 E9/L Normal 150.0-500.0 [facility] Comment on above: Performed By: #### 2 998626, 39806953, 091979993, 4110504, 2820368, 998687027 ####[address] [address] Platelet mean volume (Bld) [Entitic vol] 8.8 fL Normal 6.4-10.8 [facility] Comment on above: Performed By: #### 2 804045, 34173456, 428276414, 8680727, 4249235, 286363731 ####[place] [address] [place] [address] RBC 4.4 E12/L Normal 4.3-5.9 [facility] Comment on above: Performed By: #### 2 059469, 17967778, 393531411, 5108298, 4073445, 026034598 ####[place] [address] [place] [address] WBC 13.2 E9/L High 4.0-11.0 [facility] Comment on above: Performed By: #### 2 093094, 13397214, 688981254, 9167758, 3267894, 707302575 ####[facility] [address] [place] [address] CHEMISTRYOrdered By: SYSTEM SYSTEM on 09-07-2023 Albumin [...] (Bld) [Mass fraction] 5.2 % Normal <=5.9% [facility] ChemAutoSS CMPon 09-07-2023 Albumin [Mass/Vol] 3.6 g/dL Normal 3.3-5.0 [facility] Comment on above: Performed By: #### 2 833214, 50945171, 559085182, 6923069, 3643882, 145597679 ####[facility] [address] [place] [address] Albumin/Globulin [Mass ratio] 1.9 {ratio} Normal 1.1-2.2 [facility] Comment on above: Performed By: #### 2 184639, 18616462, 847748522, 0620370, 0527998, 804458363 ####[facility] [address] [place] [address] Alk Phos 41 Int._Unit/L Normal 21-98 [facility] Comment on above: Performed By: #### 2 893735, 67878955, 736619841, 0043846, 2826790, 427925644 ####[facility] [address] [place] [address] ALT 29 Int._Unit/L Normal 6-46 [facility] Comment on above: Performed By: #### 2 831125, 12214741, 688434045, 3182038, 4555621, 056440372 ####[facility] [address] [place] [address] Anion gap [Moles/Vol] 12 mmol/L Normal 6-16 [facility] Comment on above: Performed By: #### 2 908506, 91387832, 067030358, 3154975, 7576685, 674591929 ####[facility] [address] [place] [address] AST 25 Int._Unit/L Normal 5-43 [facility] Comment on above: Performed By: #### 2 431304, 00335588, 918100917, 6112189, 3927603, 708585254 ####[facility] [address] [place] [address] Bili Total 0.4 mg/dL Normal 0.0-1.1 [facility] Comment on above: Performed By: #### 2 485718, 63861564, 584973404, 4818088, 9390138, 682983695 ####[facility] [address] [place] [address] BUN/Creat Ratio 10 No Units Normal 10-20 [facility] Comment on above: Performed By: #### 2 073153, 27687090, 739606813, 2488173, 4684079, 576406805 ####[facility] [address] [place] [address] Calcium [Mass/Vol] 8.3 mg/dL Low 8.9-11.1 [facility] Comment on above: Performed By: #### 2 130083, 68178780, 556536899, 2723698, 1090425, 054119211 ####[facility] [address] [place] [address] Chloride [Moles/Vol] 107 mmol/L Normal 101-111 [facility] Comment on above: Performed By: #### 2 250715, 78711910, 531550146, 3407614, 3717337, 624841046 ####[facility] [address] [place] [address] CO2 [Moles/Vol] 24 mmol/L Normal 21-31 [facility] Comment on above: Performed By: #### 2 038445, 07870512, 383572617, 1499041, 1958880, 933973594 ####[facility] [address] [place] [address] Creatinine [Mass/Vol] 0.7 mg/dL Normal 0.5-1.3 [facility] Comment on above: Performed By: #### 2 773700, 59064499, 754659287, 8108311, 3634637, 485853975 ####[facility] [address] [place] [address] Globulin (S) [Mass/Vol] 1.9 g/dL Normal 1.4-4.0 [facility] Comment on above: Performed By: #### 2 189599, 76819514, 290056407, 2119458, 5373776, 194475432 ####[facility] [address] [place] [address] Glucose [Mass/Vol] 91 mg/dL Normal 55-199 [facility] Comment on above: Performed By: #### 2 153142, 22118404, 092242381, 9876400, 4779252, 071832462 ####[place] [address] [place] [address] Potassium [Moles/Vol] 4.3 mmol/L Normal 3.5-5.3 [facility] Comment on above: Performed By: #### 2 574482, 68473116, 894364389, 8334054, 3762296, 477230639 ####[facility] [address] [place] [address] Protein [Mass/Vol] 5.5 g/dL Low 6.0-7.8 [facility] Comment on above: Performed By: #### 2 025721, 07966301, 433843573, 5433600, 0729184, [id number] ####[address] [place] [address] Sodium [Moles/Vol] 139 mmol/L Normal 135-145 [facility] Comment on above: Performed By: #### 2 429208, 94420705, 675338373, 7516371, 3065616, 204362242 ####[facility] [address] [place] [address] Urea nitrogen [Mass/Vol] 7 mg/dL Normal 5-21 [facility] Comment on above: Performed By: #### 2 519553, 00199295, 790485581, 5072185, 2933688, 115245626 ####[facility] [address] [place] [address] Family Medicine Office/Clini c Noteon 09-07-2023 Family [...] is over 500 , pt went to [facility] and states she just have iv fluids placed and the didn't check any lab work. pt states for about 2 years she will feel shaky and clammy and always thirsty. History of Present Illness pt having episodes of dizziness. BS was checked at she was told it was over 500. Went to [place] [facility] gave her IV fluids. Feels shaky, [...] Comprehensive Metabolic Panel HgbA1c Lab Specimen Collect 85118 Vitamin B12 Level Vitamin D 25 Hydroxy 2. Excessive thirst (R63.1: Polydipsia) excessively thirsty. will check labs today Ordered: CBC w/ Auto Diff Comprehensive Metabolic Panel HgbA1c Lab Specimen Collect 20170 Vitamin B12 Level Vitamin D 25 Hydroxy 3. Blood glucose elevated (R73.9: Hyperglycemia, unspecified) pt was dizzy at work. nurse checked BS ans was above 500. went to ER. received IV fluids. will check HGBA1C. last check was WNL Ordered: CBC w/ Auto Diff Comprehensive Metabolic Panel HgbA1c Lab Specimen Collect 69879 Vitamin B12 Level Vitamin D 25 Hydroxy 4. Fatigue (R53.83: Other fatigue) c/o worsening fatigue Ordered: CBC w/ Auto Diff Comprehensive Metabolic Panel HgbA1c Lab Specimen Collect 69933 Vitamin B12 Level Vitamin D 25 Hydroxy [...] Refuses diphtheria/pertussis, acel/tetanus adult 07/09/2017 Recorded Normal [facility] Comment on above: Result Comment: Elec [...] Normal 80.0 - 100.0 fL Remisol Heme Mcpherson Absolute 0.9 E9/L Normal 0.2 - 1.0 [...] High 4.0 - 11.0 E9/L Remisol Heme [id number] 09-07-2023 HbA1c (Bld) [Mass fraction] 5.2 % Normal <=5.9 [facility] Comment on above: Performed By: #### 2 070730, 47626035, 173516019, 8197929, 3126709, 926462134 ####[facility] [address] [place] [address] Vit B12on 09-07-2023 Cobalamin (Vitamin B12) [Mass/Vol] 294 pg/mL Normal 50-1500 [facility] Comment on above: Performed By: #### 2 693213, 57917906, 464180075, 9784696, 7934365, 544385296 ####[facility] [address] [place] [address] Vitamin D 25 Hydroxyon 09-07 Vitamin D 25 Hydroxy 9.8 ng/mL Low 30.0-100.0 [facility] Comment on above: Performed By: #### 2 125715, 41200628, 441644271, 9511669, 1196089, 208967625 ####[facility] [address] [place] [address] eGFRon 09-07-2023 eGFR 121 mL/min/1.73 m2 Normal >=59 [facility] Comment on above: Order Comment: Order added by Discern Expert. Performed By: #### 2 492059, 97522870, 304026571, 9534050, 1674562, 998955029 ####[facility] [address] [place] [address] RAD - Ultrasound Reporton RAD - Ultrasound Report [id number] .00TIFF Normal [facility] US EXT NON-VASC LT LIMITEDon 08-08-2023 [...] Granger MD on 08/08/2023 1:38 PM Normal [facility] US EXT NON-VASC RT LIMITEDon 08-08-2023 [...] Valero MD on 08/08/2023 12:20 PM Normal [facility] Ambulatory Visit Summaryon 1 10-08-2022 Ambulatory Visit Summary RAPHAEL MEEHAN :1995 Visit Date:08/07/2023 Ambulatory Visit Instructions Your [...] 3:20 PM EST With: Debbie Bui Where: [facility] [place] Normal [facility] Family Medicine Office/Clini c Noteon 08-07-2023 Family Medicine Office/Clinic Note HPI Staff Raphael [...] Refuses diphtheria/pertussis, acel/tetanus adult 07/09/2017 Recorded Normal [facility] Comment on above: Result Comment: Elec tronically Signed By: Douglas DYSON, Debbie Butler\.br\Date and Time Signed: 08/07/23 10:53 EST Family [...] # 30 tab(s), Refills(s) 0, [id number], 164, cm, 07/09/23 15:22:00 EST, Height/Length Dosing, 98.9, kg, 07/09/23 15:22:00 EST, Weight Dosing phentermine, 37.5 mg = 1 tab(s), Oral, Daily, # 30 tab(s), Refills(s) 0, [facility], 164.4, cm, 06/08/23 10:01:00 EDT, Height/Length [...] # 30 tab(s), Refills(s) 0, [facility], 164, cm, 07/09/23 15:22:00 EST, Height/Length Dosing, 98.9, kg, 07/09/23 15:22:00 EST, Weight Dosing phentermine, 37.5 mg = 1 tab(s), Oral, Daily, # 30 tab(s), Refills(s) 0, [facility], 164.4, cm, 06/08/23 10:01:00 EDT, Height/Length Dosing, 102, kg, 06/08/23 10:01:00 EDT, Weight Dosing Smoker (F17.200: Nicotine dependence, unspecified, uncomplicated) consider not smoking Ordered: phentermine, 37.5 mg = 1 tab(s), Oral, Daily, # 30 tab(s), Refills(s) 0, [facility], 164, cm, 07/09/23 15:22:00 EST, Height/Length Dosing, 98.9, kg, 07/09/23 15:22:00 EST, Weight Dosing phentermine, 37.5 mg = 1 tab(s), Oral, Daily, # 30 tab(s), Refills(s) 0, [facility], 164.4, cm, 06/08/23 10:01:00 EDT, Height/Length Dosing, 102, kg, 06/08/23 10:01:00 EDT, Weight Dosing Orders: azithromycin, = 1 packet(s), Oral, As Directed, as directed on package labeling, X 5 day(s), # 6 tab(s), Refills(s) 0, [facility], 164, cm, 07/09/23 15:22:00 EST, Height/Length Dosing, 98.9, kg, 07/09/23 15:22:00 EST, Weight Dosing methylPREDNISolone, = 1 packet(s), Oral, As Directed, as directed on package labeling, X 6 day(s), # 21 tab(s), Refills(s) 0, [id number], 164, cm, 07/09/23 15:22:00 EST, Height/Length [...] Not Given P (more content not included)... [facility] Comment on above: Result Comment: Elec tronically Signed By: Debbie Bui\.br\Date and Time Signed: 07/10/23 10:53 EST Ambulatory Visit Summaryon 09-08-2022 Ambulatory Visit Summary RAPHAEL MEEHAN :1995 [...] 3:00 PM EST With: Debbie Bui Where: [facility] Normal [facility] Ambulatory Visit Summaryon 1 Ambulatory Visit [...] 3:20 PM EST With: Debbie Bui Where: [facility] Medicine Office/Clini c Noteon 06-08-2023 Family Medicine [...] Daily, # 30 tab(s), Refills(s) 0, [facility]acy: [facility], 164.4, cm, 06/08/23 10:01:00 EDT, Height/Length Dosing, 102, kg, 06/08/23 10:01:00 EDT, Weight Dosing 2. Abnormal weight gain (R63.5: Abnormal weight gain) see above 3. BMI 37.0-37.9, adult (Z68.37: Body mass index [BMI] 37.0-37.9, adult) BMI education complete Ordered: phentermine, 37.5 mg = 1 tab(s), Oral, Daily, # 30 tab(s), Refills(s) 0, [facility]: [facility], 164.4, cm, 06/08/23 10:01:00 EDT, Height/Length Dosing, 102, kg, 06/08/23 10:01:00 EDT, Weight Dosing 4. Smoker (F17.200: Nicotine dependence, unspecified, uncomplicated) consider not smoking Ordered: phentermine, 37.5 mg = 1 tab(s), Oral, Daily, # 30 tab(s), Refills(s) 0, Pharmacy: [facility], 164.4, cm, 06/08/23 10:01:00 EDT, Height/Length [...] Refuses diphtheria/pertussis, acel/tetanus adult 07/09/2017 Recorded Normal [facility] Comment on above: Result Comment: Elec tronically Signed By: Debbie Bui\.br\Date and Time Signed: 06/08/23 10:34 EDT Medication Consenton 023 Medication Consent [id number] .00TIFF Normal [facility] Outside Mammographyon 2022 Outside Mammography [id number] .00TIFF Normal [facility] Auto Diffon 05-25-2023 Basophils/100 WBC (Bld) 1.0 % Normal 0.0-2.0 [facility] Comment on above: Order Comment: Order Added by Discern Expert. Performed By: #### 2 286526, 54253169, 0052704, 997628571, 6838082, 7380334, 5131077 ####[facility] [address] [place] [address] Basophils/Leukocytes Auto (Bld) [Pure # fraction] 0.1 E9/L Normal 0.0-0.2 [facility] Comment on above: Order Comment: Order Added by Discern Expert. Performed By: #### 2 623729, 05811984, 6210442, 087999918, 5199045, 7370076, 0981572 ####[facility] [address] [place] [address] Eosinophils/100 WBC (Bld) 2.9 % Normal 0.0-8.0 [facility] Comment on above: Order Comment: Order Added by Discern Expert. Performed By: #### 2 981133, 02414837, 7753068, 022994564, 0011937, 3720753, 8059672 ####[address] [place] [address] Eosinophils/Leukocyte s Auto (Bld) [Pure # fraction] 0.3 E9/L Normal 0.0-0.5 [facility] Comment on above: Order Comment: Order Added by Discern Expert. Performed By: #### 2 235313, 15106696, 8218346, 432131678, 4779305, 9623810, 0852557 ####[address] [place] [address] Lymphocytes/100 WBC (Bld) 35.4 % Normal 14.0-50.0 [facility] Comment on above: Order Comment: Order Added by Kimberly Expert. Performed By: #### 2 139302, 34565318, 7775031, 790045981, 7006481, 3492653, 6455427 ####[address] [address] Lymphocytes/Leukocyte s Auto (Bld) [Pure # fraction] 4.0 E9/L Normal 1.0-4.0 [facility] Comment on above: Order Comment: Order Added by Kimberly Expert. Performed By: #### 2 465544, 61987174, 0354922, 757820519, 3685769, 8502602, 9741185 ####[address] [place] [address] Monocytes/100 WBC (Bld) 8.2 % Normal 4.0-14.0 [facility] Comment on above: Order Comment: Order Added by Kimberly Expert. Performed By: #### 2 487805, 04319420, 5716892, 560174589, 3756695, 3004040, 1539284 ####[address] [place] [address] Monocytes/Leukocytes Auto (Bld) [Pure # fraction] 0.9 E9/L Normal 0.2-1.0 [facility] Comment on above: Order Comment: Order Added by Discern Expert. Performed By: #### 2 824047, 51097606, 6679410, 809065686, 5565125, 6321228, 6184435 ####[facility] [address] [place] [address] Neutrophils/100 WBC (Bld) 52.5 % Normal 36.0-75.0 [facility] Comment on above: Order Comment: Order Added by Discern Expert. Performed By: #### 2 894435, 28665282, 4727938, 955755215, 1217182, 5056795, 6189424 ####[facility] [address] [place] [address] Neutrophils/Leukocyte s Auto (Bld) [Pure # fraction] 5.9 E9/L Normal 2.0-7.5 [facility] Comment on above: Order Comment: Order Added by Discern Expert. Performed By: #### 2 368593, 02361099, 3130340, 494611647, 9846295, 1234269, 8829788 ####[facility] [address] [place] [address] Bili Directon 05-25-2023 Bilirubin.direct [Mass/Vol] mg/dL Normal 0.1-0.4 [facility] Comment on above: Order Comment: Order Added by Discern Expert. Performed By: #### 2 895290, 41024210, 2796970, 687528527, 2692054, 7306645, 1521755 ####[facility] [address] [place] [address] CBC w/ Auto Diffon Erythrocyte distribution width (RBC) [Ratio] 12.4 % Normal 10.9-14.2 [facility] Comment on above: Performed By: #### 2 550854, 37928355, 8097936, 186422405, 9700701, 5483117, 5795656 ####[facility] [address] [place] [address] Hematocrit (Bld) [Volume fraction] 40.6 % Normal 34.0-46.0 [facility] Comment on above: Performed By: #### 2 525977, 75451456, 2368383, 528936746, 6110471, 1414754, 8997234 ####[facility] [address] [place] [address] Hemoglobin (Bld) [Mass/Vol] 13.4 g/dL Normal 12.0-16.0 [facility] Comment on above: Performed By: #### 2 585334, 38989468, 1392397, 194378711, 7595782, 6644364, 4764049 ####[address] [place] [address] MCH (RBC) [Entitic mass] 28.9 pg Normal 27.0-34.0 [facility] Comment on above: Performed By: #### 2 492596, 18800219, 6515309, 037421763, 4945904, 5820573, 3439058 ####[facility] [address] [place] [address] MCHC (RBC) [Mass/Vol] 33.0 g/dL Normal 31.4-36.0 [facility] Comment on above: Performed By: #### 2 482702, 21382451, 4398907, 964299441, 7327361, 9643727, 3611578 ####[address] [place] [address] MCV (RBC) [Entitic vol] 87.5 fL Normal 80.0-100.0 [facility] Comment on above: Performed By: #### 2 289789, 94692473, 9731406, 222832776, 9241706, 8265785, 8729975 ####[address] [place] [address] Platelet mean volume (Bld) [Entitic vol] 8.7 fL Normal 6.4-10.8 [facility] Comment on above: Performed By: #### 2 846579, 74775159, 0080339, 429001419, 2949666, 3171508, 0592739 ####[facility] [address] [place] [address] Platelets (Bld) [#/Vol] 337.0 E9/L Normal 150.0-500.0 [facility] Comment on above: Performed By: #### 2 534801, 41967176, 5530635, 411449538, 5364872, 1562320, 1306288 ####[facility] [address] [place] [address] RBC (Bld) [#/Vol] 4.6 E12/L Normal 4.3-5.9 [facility] Comment on above: Performed By: #### 2 041048, 97390240, 5517155, 343557762, 5351099, 7124498, 9698541 ####[facility] [address] [place] [address] WBC corrected for nucl RBC Auto (Bld) [#/Vol] 11.3 E9/L High 4.0-11.0 [facility] Comment on above: Performed By: #### 2 977409, 88503472, 5702414, 627380005, 3314593, 8568018, 1975976 ####[facility] [address] [place] [address] CHEMISTRYOrdered By: SYSTEM SYSTEM on 05-25-2023 Albumin [...] 0.9 mg/dL Normal 0.5 - 1.3 mg/dL [facility] Remisol GFR/1.73 sq M.predicted among non-blacks MDRD (S/P/Bld) [Vol rate/Area] 90 mL/min/1.73 m2 Normal >=59mL/min/1 .73 m2 [facility] Chem S Comment on above: Interpretive Data: [...] 4.4 mmol/L Normal 3.5 - 5.3 mmol/L [facility] Remisol Protein [Mass/Vol] 6.9 g/dL Normal 6.0 - 7.8 gm/dL [facility] Remisol Sodium [Moles/Vol] 144 mmol/L Normal 135 - 145 mmol/L [facility] Remisol TSH Qn 1.88 m[IU]/L Normal 0.34 - 5.60 mcIU/mL [facility] Remisol Urea nitrogen [Mass/Vol] 10 mg/dL Normal 5 - 21 mg/dL [facility] Remisol Urea nitrogen/Creatinine [Mass ratio] 11 mg/mg Normal - [facility] Remisol CHEMISTRYOrdered By: Debbie Brush on 05-25-2023 HbA1c (Bld) [Mass fraction] 5.3 % Normal <=5.9% [facility] ChemAutoSS CMPon 05-25-2023 Albumin [Mass/Vol] 3.3 g/dL Normal 3.3-5.0 [facility] Comment on above: Performed By: #### 2 533219, 01000958, 1027299, 565547025, 6171724, 5608539, 1977842 ####[facility] [address] [place] [address] Albumin/Globulin (S) [Mass conc ratio] 0.9 Low 1.1-2.2 [facility] Comment on above: Performed By: #### 2 846015, 85411040, 3032678, 378659633, 9614575, 6628712, 1077927 ####[facility] [address] [place] [address] ALP [Catalytic activity/Vol] 43 Int._Unit/L Normal 21-98 [facility] Comment on above: Performed By: #### 2 083816, 81088427, 8061182, 231465185, 8820747, 2490696, 5808008 ####[facility] [address] [place] [address] ALT No additional P-5'-P [Catalytic activity/Vol] 29 Int._Unit/L Normal 6-46 [facility] Comment on above: Performed By: #### 2 121615, 21554417, 1632624, 412609307, 7067773, 5067818, 9056415 ####[facility] [address] [place] [address] Anion gap [Moles/Vol] 11 mmol/L Normal 6-16 [facility] Comment on above: Performed By: #### 2 363337, 85323230, 5325843, 821103737, 9443491, 6542828, 4860350 ####[facility] [address] [place] [address] AST [Catalytic activity/Vol] 27 Int._Unit/L Normal 5-43 [facility] Comment on above: Performed By: #### 2 894193, 32506342, 4264278, 489214256, 0142773, 3113923, 3341118 ####[facility] [address] [place] [address] Bilirubin [Mass/Vol] 0.3 mg/dL Normal 0.0-1.1 [facility] Comment on above: Performed By: #### 2 494945, 08497073, 3254200, 501323167, 0440385, 2716287, 2073836 ####[facility] [address] [place] [address] Calcium [Mass/Vol] 9.5 mg/dL Normal 8.9-11.1 [facility] Comment on above: Performed By: #### 2 373673, 74904711, 9692459, 287689501, 0278515, 0765997, 6154234 ####[facility] [address] [place] [address] Chloride [Moles/Vol] 111 mmol/L Normal 101-111 [facility] Comment on above: Performed By: #### 2 737438, 28117411, 4926571, 319200029, 3957013, 7007700, 2801600 ####[facility] [address] [place] [address] CO2 [Moles/Vol] 26 mmol/L Normal 21-31 [facility] Comment on above: Performed By: #### 2 274740, 06533270, 0440288, 011375382, 8620388, 7194660, 8840138 ####[facility] [address] [place] [address] Creatinine [Mass/Vol] 0.9 mg/dL Normal 0.5-1.3 [facility] Comment on above: Performed By: #### 2 100016, 89679821, 7420278, 865728962, 2738547, 6611619, 5891295 ####[facility] [address] [place] [address] Globulin (S) [Mass/Vol] 3.6 g/dL Normal 1.4-4.0 [facility] Comment on above: Performed By: #### 2 023501, 89065764, 0849648, 054856829, 9185566, 6436827, 9515030 ####[facility] [address] [place] [address] Glucose [Mass/Vol] 81 mg/dL Normal 55-199 [facility] Comment on above: Result Comment: If t his glucose result represents a fasting glucose, interpretation should refer to the following reference range: 55-99 mg/dL Performed By: #### 2 653161, 21816608, 7238757, 280832912, 9336035, 2891505, 7608280 ####[facility] [address] [place] [address] Potassium [Moles/Vol] 4.4 mmol/L Normal 3.5-5.3 [facility] Comment on above: Performed By: #### 2 020665, 81201708, 0040527, 949710643, 1417362, 4047921, 1144042 ####[facility] [address] [place] [address] Protein [Mass/Vol] 6.9 g/dL Normal 6.0-7.8 [facility] Comment on above: Performed By: #### 2 231846, 99414949, 9847495, 725401073, 0458076, 0657896, 0318000 ####[facility] [address] [place] [address] Sodium [Moles/Vol] 144 mmol/L Normal 135-145 [facility] Comment on above: Performed By: #### 2 467169, 02603836, 4077646, 003294037, 2975905, 0194459, 3342848 ####[facility] [address] [place] [address] Urea nitrogen [Mass/Vol] 10 mg/dL Normal 5-21 [facility] Comment on above: Performed By: #### 2 881060, 51318633, 0891367, 967503424, 5210797, 6669063, 1209239 ####[facility] [address] [place] [address] Urea nitrogen/Creatinine [Mass ratio] 11 No Units Normal 10-20 [facility] Comment on above: Performed By: #### 2 733759, 92997744, 9251461, 021302867, 0450191, 3571343, 8422031 ####[facility] [address] [place] [address] Family Medicine Office/Clini c Noteon 05-25-2023 Family [...] to a doctor since she was in [facility] Review of Systems PHQ Score Initial Depression [...] findings) pt has not seen provider since Jr. Reich. pt concerned about diabetes. her 31 year [...] Refuses diphtheria/pertussis, acel/tetanus adult 07/09/2017 Recorded Normal [facility] Comment on above: Result Comment: Elec tronically Signed By: Douglas DYSON, Debbie Dennis.br\Date and Time Signed: 05/25/23 10:50 EDT HEMATOLOGYOrdered [...] High 4.0 - 11.0 E9/L [facility] HemeAutoSS [id number] 05-25-2023 HbA1c (Bld) [Mass fraction] 5.3 % Normal <=5.9 [facility] Comment on above: Performed By: #### 2 439493, 84808316, 1133868, 431549768, 9844631, 9202305, 5238430 ####[facility] [address] [place] [address] TSHon 05-25-2023 TSH Qn 1.88 m[IU]/L Normal 0.34-5.60 [facility] Comment on above: Performed By: #### 2 705701, 37524798, 4113571, 257991553, 8357076, 8215324, 5549505 ####[facility] [address] [place] [address] eGFRon 05-25-2023 GFR/1.73 sq M.predicted among non-blacks MDRD (S/P/Bld) [Vol rate/Area] 90 mL/min/1.73 m2 Normal >=59 [facility] Comment on above: Order Comment: Order added by Discern Expert. Result Comment: Forklift Operator saleem kidney disease could be indicated at eGFR's of less than 60 mL/min/1.73m2. Kidney failure is indicated at less than 15 mL/min/1.73m2. Performed By: #### 2 033811, 14149651, 5643030, 965272778, 3644760, 3061908, 1393345 ####[facility] [address] [place] [address] HPon 01-16-2023 H&P reviewed. The patient was examined and there are no changes to the H&P. [facility] Orders Onlyon 01-15-2023 Orders Only [id number] Raphael Meehan 1995 F Date Provider Department Center 01/15/2023 Elvira-ROM FOX PAIN [facility] Family History Family history unknown: Yes [facility] Follow-Upon 01-04-2023 Follow-Up [id number] Raphael Meehan 1995 F Date Provider Department Center 01/04/2023 CHARLENE BYNUM [facility] Family History Family history unknown: Yes Level of Service:51967 [place] OFFICE/OUTPATIENT ESTABLISHED MOD MDM 30-39 MIN Reason for Visit and Comments: Shoulder Pain [681547] - Left shoulder down the arm [facility] [address] [address] Subjective Patient ID: Raphael Meehan is a [...] refill ROM full with pain on extension. University Professor strength preserved. Gait: normal PROCEDURE NOTE: Risks [...] this note were generated using voice recognition [employer] dictation software. Although every effort was made to ensure the accuracy of this automated press secretary, some errors in press secretary may have occurred. Normal [facility] PAP ACOG PANEL 2: 22 to 30on 12-18-2022 . . [facility] Comment on above: Result Comment: Perf ormed at: [facility] Performed By: #### 4 056663 #### [facility] [address] [place] [address] Dr. Michele Gallo Age Gdln ACOG Testing - [facility] Comment on above: Performed By: #### 4 321318 #### [facility] [address] [address] [address] Michele Gallo DIAGNOSIS: Comment [facility] Comment on above: Result Comment: NEGA TIVE FOR INTRAEPITHELIAL LESION OR MALIGNANCY. Performed at: [facility] Performed By: #### 4 219961 #### [facility] [address] [address] [address] Michele Gallo Methodology: Comment [facility] Comment on above: Result Comment: This liquid based ThinPrep(R) pap test was screened with the use of an image guided system. Performed at: [facility] Performed By: #### 4 771007 #### [facility] [address] [place] [address] Dr. Michele Gallo Note: Comment Normal [facility] Comment on above: Result Comment: The Pap smear is a screening test designed to aid in the detection of premalignant and malignant conditions of the uterine cervix. It is not a diagnostic procedure and should not be used as the sole means of detecting cervical cancer. Both false-positive and false-negative reports do occur. . Performed at: [facility] Performed By: #### 4 018540 #### [facility] [address] [place] [address] Dr. Michele Gallo Performed by: Comment Normal [facility] Comment on above: Result Comment: Elmer Collins, Filter Press Pumper (ASCP) Performed at: [facility] Performed By: #### 4 296622 #### [facility] [address] [place] [address] Dr. Michele Gallo Reflex Criteria: Comment Normal [facility] Comment on above: Result Comment: The HPV DNA reflex criteria were not met with this specimen result therefore, no HPV testing was performed. . Performed at: [facility] Performed By: #### 4 899748 #### [facility] [address] [place] [address] Dr. Michele Gallo Specimen adequacy: Comment Normal [facility] Comment on above: Result Comment: Sati sfactory for evaluation. Endocervical and/or squamous metaplastic cells (endocervical component) are present. Performed at: [facility] Performed By: #### 4 824758 #### [facility] [address] [place] [address] Dr. Michele Gallo Procedure Visiton 12-15-2022 Procedure Visit [id number] Raphael Meehan 1995 F Date Provider Department Center 12/15/2022 Elisa-ALESIA APARICIO [facility] [facility] Family History Family history unknown: Yes Level of Service:97760 [place] OFFICE/OUTPT VISIT,PROCEDURE ONLY Reason for Visit and Comments: EMG [Other] - BUE Normal [facility] Follow-Upon 12-07-2022 Follow-Up [id number] Raphael Meehan 1995 F Date Provider Department Center 12/07/2022 CHARLENE BYNUM PAIN [facility] Family History Family history unknown: Yes Level of Service:03690 [place] OFFICE/OUTPATIENT ESTABLISHED MOD MDM 30-39 MIN Reason for Visit and Comments: Follow-up [10991013] - SCS (BS) follow up Normal [facility] Follow-Upon 10-23-2022 Follow-Up [id number] Raphael Meehan 1995 F Date Provider Department Center 10/23/2022 CHARLENE BYNUM PAIN [facility] Family History Family history unknown: Yes Level of Service:69754 [place] OFFICE/OUTPATIENT ESTABLISHED LOW MDM 20-29 MIN Reason for Visit and Comments: Follow-up [10991013] - SCS (BS) [facility] US PELVIS AND TRANSVAGon US PELVIS AND [...] CHANCE ARMAS Date: 2022-05-24 13:13 Normal [facility] CBC AUTO DIFFon 05-15-2022 BASO # 0.1 103/ul Normal 0.0-0.1 [facility] Comment on above: Performed By: #### P REG #### [facility] [address] [address] [address] Michele Gallo Basophils/100 WBC (Bld) 1.0 % Normal 0.2-2.0 [facility] Comment on above: Performed By: #### P REG #### [facility] [address] [address] [address] Michele Gallo EO # 0.3 103/ul Normal 0.0-0.7 [facility] Comment on above: Performed By: #### P REG #### [facility] [address] [address] [address] Michele Gallo Eosinophils/100 WBC (Bld) 2.0 % Normal 0.9-7.0 [facility] Comment on above: Performed By: #### P REG #### [facility] [address] [address] [address] Michele Gallo Erythrocyte distribution width (RBC) [Ratio] 11.7 % Normal 11.0-15.0 [facility] Comment on above: Performed By: #### P REG #### [facility] [address] [address] [address] Michele Gallo Hematocrit (Bld) [Volume fraction] 39.4 % Normal 36.0-48.0 [facility] Comment on above: Performed By: #### P REG #### [facility] [address] [address] [address] Michele Gallo Hemoglobin (Bld) [Mass/Vol] 13.2 g/dL Normal 12.0-16.0 [facility] Comment on above: Performed By: #### P REG #### [facility] [address] [address] [address] Michele Gallo IG # 0.11 10e3/ul Critically high 0.00-0.[address] [facility] Comment on above: Performed By: #### P REG #### [facility] [address] [address] [address] Michele Gallo IG % 0.8 % Critically high 0.0-0.5 [facility] Comment on above: Performed By: #### P REG #### [facility] [address] [address] [address] Michele Gallo LYMPH # 4.5 103/ul Critically high 1.2-3.8 [facility] Comment on above: Performed By: #### P REG #### [facility] [address] [place] [address] Dr. Michele Gallo Lymphocytes/100 WBC (Bld) 33.3 % Normal 20.5-60.0 [facility] Comment on above: Performed By: #### P REG #### [facility] [address] [place] [address] Dr. Michele Gallo MANUAL DIFF REQ NO Normal [facility] Comment on above: Performed By: #### P REG #### [facility] [address] [place] [address] Dr. Michele Gallo MCH (RBC) [Entitic mass] 29.7 pg Normal 26.7-34.0 [facility] Comment on above: Performed By: #### P REG #### [facility] [address] [place] [address] Dr. Michele Gallo MCHC (RBC) [Mass/Vol] 33.5 g/dL Normal 29.9-35.2 [facility] Comment on above: Performed By: #### P REG #### [facility] [address] [place] [address] Dr. Michele Gallo MCV (RBC) [Entitic vol] 88.7 fL Normal 81.0-99.0 [facility] Comment on above: Performed By: #### P REG #### [facility] [address] [place] [address] Dr. Michele Gallo MONO # 0.8 103/ul Normal 0.3-0.8 [facility] Comment on above: Performed By: #### P REG #### [facility] [address] [place] [address] Dr. Michele Gallo Monocytes/100 WBC (Bld) 6.3 % Normal 1.7-12.0 [facility] Comment on above: Performed By: #### P REG #### [facility] [address] [place] [address] Dr. Michele Gallo NEUT # 7.6 103/ul Critically high 1.4-6.5 [facility] Comment on above: Performed By: #### P REG #### [facility] [address] [place] [address] Dr. Michele Gallo Neutrophils/100 WBC (Bld) 56.6 % Normal 43.0-75.0 [facility] Comment on above: Performed By: #### P REG #### [facility] [address] [place] [address] Dr. Michele Gallo Platelet mean volume (Bld) [Entitic vol] 10.3 fL Normal 9.5-13.5 [facility] Comment on above: Performed By: #### P REG #### [facility] [address] [place] [address] Dr. Michele Gallo PLT 363 103/ul Normal 150-450 [facility] Comment on above: Performed By: #### P REG #### [facility] [address] [place] [address] Dr. Michele Gallo RBC 4.44 106/ul Normal 4.20-5.40 [facility] Comment on above: Performed By: #### P REG #### [facility] [address] [place] [address] Dr. Michele Gallo WBC 13.4 103/ul Critically high 4.0-11.0 [facility] Comment on above: Performed By: #### P REG #### [facility] [address] [place] [address] Dr. Michele Gallo CULTURE BLOODon 05-15-2022 Microscopic examination of blood, culture Culture Observations: No growth at 5 days. [facility] Comment on above: Performed By: #### P REG #### [facility] [address] [place] [address] Dr. Michele Gallo Microscopic examination of blood, culture Culture Observations: No growth at 5 days. Normal [facility] Comment on above: Performed By: #### B LDCX1 #### [facility] [address] [address] [address] Michele Gallo ER URINE PROFILEon 2 Bilirubin Ql (U) Negative Normal NEGATIVE [facility] Comment on above: Performed By: #### U MICRO, ERUR #### [facility] [address] [address] [address] Michele Gallo Clarity (U) CLEAR Normal CLEAR [facility] Comment on above: Performed By: #### U MICRO, ERUR #### [facility] [address] [address] [address] Michele Gallo Color (U) LT. YELLOW Normal YELLOW [facility] Comment on above: Performed By: #### U MICRO, ERUR #### [facility] [address] [place] [address] Dr. Michele GALINDOD A micrscopic examination will be performed if indicated. Normal [facility] Comment on above: Performed By: #### U MICRO, ERUR #### [facility] [address] [address] [address] Michele Gallo Glucose Ql (U) Negative Normal NEGATIVE [facility] Comment on above: Performed By: #### U MICRO, ERUR #### [facility] [address] [place] [address] Dr. Michele Gallo Hemoglobin Ql (U) MODERATE Abnormal NEGATIVE [facility] Comment on above: Performed By: #### U MICRO, ERUR #### [facility] [address] [address] [address] Michele Gallo Ketones Ql (U) Negative Normal NEGATIVE [facility] Comment on above: Performed By: #### U MICRO, ERUR #### [facility] [address] [address] [address] Mcihele Gallo LEUKOCYTES Negative Normal NEGATIVE [facility] Comment on above: Performed By: #### U MICRO, ERUR #### [facility] [address] [place] [address] Dr. Michele Gallo Nitrite Ql (U) Negative Normal NEGATIVE [facility] Comment on above: Performed By: #### U MICRO, ERUR #### [facility] [address] [address] [address] Michele Gallo pH (U) 7.0 [pH] Normal 5-9 [facility] Comment on above: Performed By: #### U MICRO, ERUR #### [facility] [address] [address] [address] Michele Gallo SPEC GRAVITY 1.020 Normal 1.005-<=1.02 5 [facility] Comment on above: Performed By: #### U MICRO, ERUR #### [facility] [address] [address] [address] Michele Gallo UA PROTEIN TRACE Normal NEGATIVE/ TRACE [facility] Comment on above: Performed By: #### U MICRO, ERUR #### [facility] [address] [place] [address] Dr. Michele Gallo UR MICRO IND INDICATED Normal [facility] Comment on above: Performed By: #### U MICRO, ERUR #### [facility] [address] [address] [address] Michele Gallo Urobilinogen Qn (U) 0.2 {Norm'U}/dL Normal 0.2 - 1. 0 [facility] Comment on above: Performed By: #### U MICRO, ERUR #### [facility] [address] [place] [address] Dr. Michele Gallo PROF CHEM 8 (BAS METB)on Anion gap [Moles/Vol] 14.8 mmol/L Normal [facility] Comment on above: Performed By: #### B MP #### [facility] [address] [place] [address] Dr. Michele Gallo Calcium [Mass/Vol] 9.0 mg/dL Normal 8.5-10.1 [facility] Comment on above: Performed By: #### B MP #### [facility] [address] [place] [address] Dr. Michele Gallo Chloride [Moles/Vol] 102 mmol/L Normal 98-107 [facility] Comment on above: Performed By: #### B MP #### [facility] [address] [address] [address] Michele Gallo CO2 [Moles/Vol] 24.2 mmol/L Normal 21.0-32.0 [facility] Comment on above: Performed By: #### B MP #### [facility] [address] [address] [address] Michele Gallo Creatinine [Mass/Vol] 0.89 mg/dL Normal 0.55-1.02 [facility] Comment on above: Performed By: #### B MP #### [facility] [address] [address] [address] Michele Gallo EGFR-AF CITIZEN OF [place] >60 Normal >=60 [facility] Comment on above: Performed By: #### B MP #### [facility] [address] [place] [address] Dr. Michele Gallo EGFR-NON AF CITIZEN OF [place] >60 Normal >=60 [facility] Comment on above: Performed By: #### B MP #### [facility] [address] [address] [address] Michele Gallo Glucose [Mass/Vol] 100 mg/dL Normal 74-106 [facility] Comment on above: Performed By: #### B MP #### [facility] [address] [place] [address] Dr. Michele Gallo Potassium [Moles/Vol] 4.0 mmol/L Normal 3.5-5.1 [facility] Comment on above: Performed By: #### B MP #### [facility] [address] [address] [address] Michele Gallo Sodium [Moles/Vol] 137 mmol/L Normal 136-145 [facility] Comment on above: Performed By: #### B MP #### [facility] [address] [place] [address] Dr. Michele Gallo Urea nitrogen [Mass/Vol] 15.0 mg/dL Normal 7.0-18.0 [facility] Comment on above: Performed By: #### B MP #### [facility] [address] [place] [address] Dr. Michele Gallo Urea nitrogen/Creatinine [Mass ratio] 16.9 mg/mg Normal [facility] Comment on above: Performed By: #### B MP #### [facility] [address] [place] [address] Dr. Michele Gallo URINE MICROSCOPIC ONLYon BACTERIA NONE SEEN Normal NONE SEEN [facility] Comment on above: Performed By: #### U MICRO, ERUR #### [facility] [address] [place] [address] Dr. Michele Gallo Bacteria identified Cx Nom (U) NOT INDICATED Normal [facility] Comment on above: Performed By: #### U MICRO, ERUR #### [facility] [address] [place] [address] Dr. Michele Gallo CAST NONE SEEN Normal NONE SEEN [facility] Comment on above: Performed By: #### U MICRO, ERUR #### [facility] [address] [place] [address] Dr. Michele Gallo Crystals LM Nom (Urine sed) NONE SEEN Normal NONE SEEN [facility] Comment on above: Performed By: #### U MICRO, ERUR #### [facility] [address] [place] [address] Dr. Michele Gallo Epithelial cells LM Ql (Urine sed) MANY Abnormal NONE SEEN /RARE [facility] Comment on above: Performed By: #### U MICRO, ERUR #### [facility] [address] [place] [address] Dr. Michele Gallo MUCOUS TRACE Abnormal NONE SEEN [facility] Comment on above: Performed By: #### U MICRO, ERUR #### [facility] [address] [place] [address] Dr. Michele Gallo RBC 10-20 Abnormal 0-2 [facility] Comment on above: Performed By: #### U MICRO, ERUR #### [facility] [address] [place] [address] Dr. Michele Gallo WBC NONE SEEN Normal NONE SEEN [facility] Comment on above: Performed By: #### U MICRO, ERUR #### [facility] [address] [place] [address] Dr. Michele Gallo US PELVIS TRANSVAGon 022 [...] GLENNY COLON Date: 2022-05-15 14:07 Normal [facility] CBC AUTO DIFFon 05-08-2022 BASO # 0.1 103/ul Normal 0.0-0.1 [facility] Comment on above: Performed By: #### C BC #### [facility] [address] [place] [address] Dr. Michele Gallo Basophils/100 WBC (Bld) 1.3 % Normal 0.2-2.0 [facility] Comment on above: Performed By: #### C BC #### [facility] [address] [place] [address] Dr. Michele Gallo EO # 0.4 103/ul Normal 0.0-0.7 [facility] Comment on above: Performed By: #### C BC #### [facility] [address] [address] [address] Michele Gallo Eosinophils/100 WBC (Bld) 3.9 % Normal 0.9-7.0 [facility] Comment on above: Performed By: #### C BC #### [facility] [address] [place] [address] Dr. Michele Gallo Erythrocyte distribution width (RBC) [Ratio] 11.6 % Normal 11.0-15.0 [facility] Comment on above: Performed By: #### C BC #### [facility] [address] [place] [address] Dr. Michele Gallo Hematocrit (Bld) [Volume fraction] 37.3 % Normal 36.0-48.0 [facility] Comment on above: Performed By: #### C BC #### [facility] [address] [place] [address] Dr. Michele Gallo Hemoglobin (Bld) [Mass/Vol] 12.6 g/dL Normal 12.0-16.0 [facility] Comment on above: Performed By: #### C BC #### [facility] [address] [place] [address] Dr. Michele Gallo IG # 0.05 10e3/ul Critically high 0.00-0.[address] [facility] Comment on above: Performed By: #### C BC #### [facility] [address] [place] [address] Dr. Michele Gallo IG % 0.5 % Normal 0.0-0.5 [facility] Comment on above: Performed By: #### C BC #### [facility] [address] [place] [address] Dr. Michele Gallo LYMPH # 3.1 103/ul Normal 1.2-3.8 [facility] Comment on above: Performed By: #### C BC #### [facility] [address] [place] [address] Dr. Michele Gallo Lymphocytes/100 WBC (Bld) 30.3 % Normal 20.5-60.0 [facility] Comment on above: Performed By: #### C BC #### [facility] [address] [place] [address] Dr. Michele Gallo MANUAL DIFF REQ NO Normal [facility] Comment on above: Performed By: #### C BC #### [facility] [address] [place] [address] Dr. Michele Gallo MCH (RBC) [Entitic mass] 29.9 pg Normal 26.7-34.0 [facility] Comment on above: Performed By: #### C BC #### [facility] [address] [place] [address] Dr. Michele Gallo MCHC (RBC) [Mass/Vol] 33.8 g/dL Normal 29.9-35.2 [facility] Comment on above: Performed By: #### C BC #### [facility] [address] [place] [address] Dr. Michele Gallo MCV (RBC) [Entitic vol] 88.6 fL Normal 81.0-99.0 [facility] Comment on above: Performed By: #### C BC #### [facility] [address] [place] [address] Dr. Michele Gallo MONO # 0.7 103/ul Normal 0.3-0.8 [facility] Comment on above: Performed By: #### C BC #### [facility] [address] [place] [address] Dr. Michele Gallo Monocytes/100 WBC (Bld) 7.2 % Normal 1.7-12.0 [facility] Comment on above: Performed By: #### C BC #### [facility] [address] [place] [address] Dr. Michele Gallo NEUT # 5.8 103/ul Normal 1.4-6.5 [facility] Comment on above: Performed By: #### C BC #### [facility] [address] [place] [address] Dr. Michele Gallo Neutrophils/100 WBC (Bld) 56.8 % Normal 43.0-75.0 [facility] Comment on above: Performed By: #### C BC #### [facility] [address] [place] [address] Dr. Michele Gallo Platelet mean volume (Bld) [Entitic vol] 10.0 fL Normal 9.5-13.5 [facility] Comment on above: Performed By: #### C BC #### [facility] [address] [place] [address] Dr. Michele Gallo PLT 311 103/ul Normal 150-450 [facility] Comment on above: Performed By: #### C BC #### [facility] [address] [place] [address] Dr. Michele Gallo RBC 4.21 106/ul Normal 4.20-5.40 [facility] Comment on above: Performed By: #### C BC #### [facility] [address] [place] [address] Dr. Michele Gallo WBC 10.3 103/ul Normal 4.0-11.0 [facility] Comment on above: Performed By: #### C BC #### [facility] [address] [place] [address] Dr. Michele Gallo PREG HCG QUALon 05-08-2022 , QUAL Negative Normal NEGATIVE [facility] Comment on above: Performed By: #### P REG #### [facility] [address] [place] [address] Dr. Michele Gallo Covid-19 PCR (CVDTB)on 04-14 SARS-CoV-2 (COVID-19) RNA TARAH+probe Ql (Unsp spec) Not detected Normal NOT DETECTED [facility] Comment on above: Result Comment: This test is not yet approved or cleared by the [place] FDA. When there are no FDA-approved or cleared tests available, and other criteria are met, FDA can make tests available under an emergency access mechanism called an Emergency Use Authorization (EUA). The EUA for this test is supported by the [employer] of Health and Human Service's (HHS's) declaration [...] consistent with SARS-CoV-2. Performed By: #### C VDTBH #### [facility] [address] [place] [address] Dr. Michele Gallo COVID Quick Testingon 2020 Result Positive [facility] Other Operative Reporton Operative Report MR#: [id number] S [facility] Pt. Name: Raphael Meehan Room #: [...] to interact and give feedback. The x-ray debug technician was supervised and instructed to operate [...] electrodes using the torque wrench provided by cogeneration technician and then they were secured to the prevertebral fascia using fixate device provided by cogeneration technician on each anchor. Then a planned left [...] midline incision using a tunneler provided by cogeneration technician. The permanent leads were then tunneled through to the pocket, to the generator site, connected to the generator with confirmation, and the entire system was working. The permanent leads were then secured to the generator using the torque wrench provided by [employer] and both pockets were then irrigated with [...] avoid (more content not included)... Normal [facility] POC GLUCOSE LABon 04-26-2021 Glucose [Mass/Vol] 111 mg/dL High 70-100 [facility] Comment on above: Performed By: #### 8 [id number] #### [address] POC URINE PREGNANCYon 2020 Beta HCG ( test) Ql (U) Negative Normal NEGATIVE [facility] Comment on above: Result Comment: Perf ormed in PACU Performed By: #### 8 [id number] #### [facility] [address] [place], [place] [id number] [place] [address] THORACIC SPINEon 04-26-2021 THORACIC SPINE [facility] Department of Radiology [address] [place] [address] [id number] Patient Name: RAPHAEL MEEHAN : 1995 Sex: F Age: Race: White Pt. Location: OUTP Patient Status: Ordered Date: 04/26/2021 2:30:00 PM [...] purposes. Electronically signed: Bill Rapp. Transcribed by: [email or web address], User Resident: Electronically Signed by: BILL RAPP @ 04/27/2021 03:18 PM Normal [facility] Comment on above: Order Comment: SPINA L CORD STIMULATOR PLACEMENT *MRSA/MSSA DNA NASALon 04-14 *MRSA/MSSA DNA NASAL Clinical Report: (D ) Specimen: NASAL SWAB Collected: 04/14/2021 08:50 Status: Final Last Updated: 04/14/2021 15:28 MSSA DNA (Final) Negative MRSA DNA (Final) Negative Normal [facility] Comment on above: Performed By: #### 3 [id number] #### [facility] [address] APTTon 04-14-2021 aPTT Coag (Bld) [Time] 26.3 s Normal 25.0-35.0 [facility] Comment on above: Result Comment: ALL [...] THIS PURPOSE. Performed By: #### 5 [id number], [id number] #### [facility] [address] [facility] [place] [address], [facility] BASIC METABOLIC PANELon Calcium [Mass/Vol] 9.2 mg/dL Normal 8.6-10.3 [facility] Comment on above: Performed By: #### 0 0071 #### [facility] [address] [place] [id number], [facility] Chloride [Moles/Vol] 107 mmol/L Normal 98-107 [facility] Comment on above: Performed By: #### 0 0071 #### [facility] [address] [place] [address], [place] CO2 [Moles/Vol] 23 mmol/L Normal 21-31 [facility] Comment on above: Performed By: #### 0 0071 #### [facility] [address] [place] [address], [place] Creatinine [Mass/Vol] 0.90 mg/dL Normal 0.60-1.20 [facility] Comment on above: Performed By: #### 0 0071 #### [facility] [address] [place] [address], [place] GFR/1.73 sq M.predicted among blacks MDRD (S/P/Bld) [Vol rate/Area] mL/min/{1.73_m2} Normal >60 [facility] Comment on above: Performed By: #### 0 0071 #### [facility] [address] [facility] [place] [address], [place] GFR/1.73 sq M.predicted among non-blacks MDRD (S/P/Bld) [Vol rate/Area] mL/min/{1.73_m2} Normal >60 [facility] Comment on above: Performed By: #### 0 0071 #### [facility] [address] [place] [address], [place] Glucose [Mass/Vol] 94 mg/dL Normal 70-100 [facility] Comment on above: Performed By: #### 0 0071 #### [facility] [address] [place] [address], [place] Potassium [Moles/Vol] 4.2 mmol/L Normal 3.5-5.1 [facility] Comment on above: Performed By: #### 0 0071 #### [facility] [address] [place] [address], [facility] Sodium [Moles/Vol] 139 mmol/L Normal 136-145 [facility] Comment on above: Performed By: #### 0 70 #### [facility] [address] [place] [address], [facility] Urea nitrogen [Mass/Vol] 8 mg/dL Normal 7-25 [facility] Comment on above: Performed By: #### 0 70 #### [facility] [address] [place] [address], [facility] CBC W/DIFFon 04-14-2021 ABS IMM GRANS 0.1 10*3/uL Normal 0.0-0.[address] [facility] Comment on above: Performed By: #### 102 #### [facility] [address] ABS NEUTROPHILS 5.5 10*3/uL Normal 1.6-7.6 The [facility] Comment on above: Performed By: #### 5 102 #### [facility] [address] [place] [address], [facility] Basophils (Bld) [#/Vol] 0.1 10*3/uL Normal 0.0-0.2 The [facility] Comment on above: Performed By: #### 5 102 #### [facility] [address] [place] [address], [facility] Basophils/100 WBC (Bld) 1.4 % High 0.0-1.0 The [facility] Comment on above: Performed By: #### 5 102 #### [facility] [address] [place] [address], [facility] Eosinophils (Bld) [#/Vol] 0.5 10*3/uL Normal 0.0-0.5 The [facility] Comment on above: Performed By: #### 5 102 #### [facility] 3000 [facility] [place] [address], [facility] Eosinophils/100 WBC (Bld) 4.7 % Normal 0.0-6.0 The [facility] Comment on above: Performed By: #### 5 3 #### [facility] [address] [facility] [place] [address], [facility] Erythrocyte distribution width (RBC) [Ratio] 11.9 % Normal 11.5-15.0 The [facility] Comment on above: Performed By: #### 5 3 #### [facility] 3000 [facility] [place] [address], [facility] Hematocrit (Bld) [Volume fraction] 45.7 % High 36.0-45.0 The [facility] Comment on above: Performed By: #### 102 #### [facility] 3000 [facility]. [address] Hemoglobin (Bld) [Mass/Vol] 15.6 g/dL High 12.0-15.0 The [facility] Comment on above: Performed By: #### 5 3 #### [facility] [address] [place] [address], [facility] IMMATURE GRANS 0.7 % Normal 0.0-1.[address] [facility] Comment on above: Performed By: #### 5 3 #### [facility] 3000 [facility] [place] [address], [facility] Lymphocytes (Bld) [#/Vol] 2.9 10*3/uL Normal 1.2-4.0 The [facility] Comment on above: Performed By: #### 5 3 #### [facility] 3000 [facility] [place] [address], [facility] Lymphocytes/100 WBC (Bld) 29.2 % Normal 20.0-45.0 The [facility] Comment on above: Performed By: #### 5 3 #### [facility] 3000 [facility] [place] [address], [facility] MCH (RBC) [Entitic mass] 30.2 pg Normal 27.0-33.0 The [facility] Comment on above: Performed By: #### 5 0103 #### [facility] [address] [place] [place] [address], [facility] MCHC (RBC) [Mass/Vol] 34.1 g/dL Normal 32.0-35.0 The [facility] Comment on above: Performed By: #### 5 0103 #### [facility] [address] [place] [address], [facility] MCV (RBC) [Entitic vol] 88.6 fL Normal 82.0-98.0 The [facility] Comment on above: Performed By: #### 0103 #### [facility] [address] [place] [address], [facility] Monocytes (Bld) [#/Vol] 1.0 10*3/uL Normal 0.1-1.0 The [facility] Comment on above: Performed By: #### 5 0103 #### [facility] [address] MONOS 9.4 % Normal 5.0-12.0 The [facility] Comment on above: Performed By: #### 5 0103 #### [facility] 3000 [facility] [place] [address], [facility] Neutrophils/100 WBC (Bld) 54.6 % Normal 40.0-72.0 The [facility] Comment on above: Performed By: #### 5 0103 #### [facility] [address] [place] [address], [facility] Nucleated RBC/100 WBC (Bld) [Ratio] 0 % Normal 0-0 The [facility] Comment on above: Performed By: #### 5 0103 #### [facility] [address] PLAT CNT 290 10*3/uL Normal 150-400 The [facility] Comment on above: Performed By: #### 5 0103 #### [facility] [address] [place] [address], [facility] RBC (Bld) [#/Vol] 5.16 10*6/uL High 3.80-5.00 [facility] Comment on above: Performed By: #### 5 0103 #### [facility] [address] [place] [address], [facility] WBC (Bld) [#/Vol] 10.07 10*3/uL Normal 4.00-10.60 [facility] Comment on above: Performed By: #### 5 0103 #### [facility] [address] PROTHROMBIN TIMEon 1 INR Coag (PPP) [Relative time] 0.98 {INR} Normal 0.91-1.16 [facility] Comment on above: Result Comment: ACCC P [...] CHEST 1995;[id number]. Performed By: #### 5 7307, [id number] #### [facility] [address] [place] [address], [facility] PT Coag (PPP) [Time] 13.0 s Normal 12.3-14.8 The [facility] Comment on above: Result Comment: ALL RESULTS MUST BE INTERPRETED WITH RESPECT TO BLOOD DRAWING ARTIFACT OR DILUTION ERROR OF ANTICOAGULANT AT THE TIME OF SAMPLING. Performed By: #### 5 7307, [id number] #### [facility] [address] Vital Signs Date Time Vital Sign Value Performing Clinician Facility 09-21-2023 08:48-0500 Body temperature 98.42 [degF] Juanjose [facility] 09-21-2023 08:48-0500 Diastolic blood pressure 90 mm[Hg] Juanjose [employer] [facility] 09-21-2023 08:48-0500 Heart rate 106 /min [employer] [facility] 09-21-2023 08:48-0500 Respiratory rate 16 /min Juanjose [employer] [facility] 09-21-2023 08:48-0500 SaO2% (BldA) [Mass fraction] 100 % Juanjose [employer] [facility] 09-21-2023 08:48-0500 Systolic blood pressure 150 mm[Hg] Juanjose [employer] [facility] 06-20-2021 12:15-0500 Body height 165.1 cm Atiya Huerta Other [facility] Other 06-20-2021 12:15-0500 Body mass index (BMI) [Ratio] 35.94 kg/m2 Atiya Huerta Other [facility] Other 06-20-2021 12:15-0500 Body temperature 100.3 [degF] Atiya Huerta Other [facility] Other 06-20-2021 12:15-0500 Body weight 97.98 kg Atiya Huerta Other [facility] Other 06-20-2021 12:15-0500 SaO2% (BldA) [Mass fraction] 98 % Atiya Huerta Other [facility] Other Encounters Encounter Date Encounter Type Care Provider Facility Start: 04-02-2024 End: 04-02-2024 ambulatory LORENE REEVES Not Available Start: 03-27-2024 End: 03-27-2024 ambulatory PHYSICIAN NO [facility] Work Phone: Start: 03-27-2024 End: 03-27-2024 Departed Referred PHYSICIAN NO [facility] Start: 02-27-2024 End: 02-27-2024 Departed Referred PHYSICIAN NO [facility] Start: 02-27-2024 End: 02-27-2024 ambulatory PHYSICIAN NO [facility] Work Phone: Start: 02-01-2024 End: 02-01-2024 Emergency department patient visit NO PCP NO [facility] Start: 01-16-2024 End: 01-16-2024 ambulatory KEITH CERVANTES Not Available Start: 01-15-2024 End: 01-16-2024 Emergency department patient visit ABRAHAM TORRES [facility] Start: 10-16-2023 End: 10-16-2023 ambulatory Debbie Cole Facility:[facility] Verónica glass Start: 09-21-2023 End: 09-21-2023 Emergency department patient visit Juanjose [facility] Start: 09-21-2023 End: 09-21-2023 ambulatory Debbie L Douglas Facility: [facility] [place] [facility] Start: 09-07-2023 End: 09-07-2023 Lab Drop off Debbie L Douglas [facility] Start: 09-07-2023 End: 09-07-2023 ambulatory Debbie L Douglas Facility:[facility] Start: 08-08-2023 End: 08-08-2023 ambulatory DEBBIE L DOUGLAS [facility] Start: 08-07-2023 End: 08-07-2023 ambulatory Debbie L Douglas Facility:[facility] [place] [facility] Start: 08-02-2023 ambulatory Debbie Douglas Facility: [facility] Start: 07-09-2023 End: 07-09-2023 ambulatory Debbie L Douglas Facility: [facility] [place] [facility] Start: 06-08-2023 End: 06-08-2023 ambulatory Debbie L Douglas Facility:[facility] [place] [facility] Start: 05-25-2023 End: 05-25-2023 Lab Drop off Debbie L Douglas [facility] Start: 05-25-2023 End: 05-25-2023 ambulatory Debbie L Douglas Facility:[facility] Start: 03-01-2023 End: 03-01-2023 ambulatory [facility] Start: 01-16-2023 End: 01-17-2023 ambulatory [facility] Start: 01-04-2023 ambulatory [facility] Start: 12-15-2022 ambulatory [address]ESIA APARICIO [facility] Start: 12-08-2022 End: 12-08-[address] REBECCA MANN . Facility: Start: 12-07-2022 ambulatory [facility] Start: 10-23-2022 End: 10-24-2022 ambulatory WAQAR MARS [facility] Start: 05-24-2022 End: 05-25-[address] REBECCA MANN . Facility:[facility] Start: 05-15-2022 End: 05-15-[address] HERMELINDA JACKSON . Facility:[facility] Start: 05-08-2022 Encounter for preprocedural laboratory examination DR REBECCA MANN . [facility] Start: 05-08-2022 End: 05-08-[address] REBECCA MANN . Facility:[facility] Start: 05-04-2022 End: 05-05-[address] REBECCA MANN . Facility:[facility] Start: 05-04-2022 End: 05-05-2022 Encounter for preprocedural laboratory examination DR REBECCA MANN . Facility:[facility] Start: 04-30-2022 Encounter for other preprocedural examination DR REBECCA MANN . [facility] Start: 04-26-2022 End: 04-27-[address] REBECCA MANN . Facility:[facility] Start: 04-26-2022 End: 04-27-2022 Encounter for other preprocedural examination DR REBECCA MANN . Facility:[facility] Start: 12-29-2021 End: 12-29-2021 ambulatory MIKE PLATT Facility:[facility] Start: 06-20-2021 (URG) Urgent Care Visit Atiya loving [facility] Start: 06-20-2021 End: 06-20-2021 ambulatory Atiya Huerta Other [facility] Other Start: 04-26-2021 End: 04-27-2021 ambulatory AN LR Facility:[facility] Procedures Date Procedure Procedure Detail Performing Clinician Start: 04-26-2021 ANESTH PERC IMG TX SP PROC AN LR Start: 04-26-2021 IMPLANT NEUROELECTRODES AN LR Start: 04-26-2021 INSRT/REDO SPINE N GENERATOR AN LR Ablation - action (q ualifier value) Debbie Douglas Cholecystectomy Debbie Douglas Surgery (qualifier value) Yolis di Douglas Surgical procedure Debbie Schw ab Immunizations Immunization Date Immunization Notes Care Provider Garry patterson 07-09-2017 tetanus toxoid, reduced diphtheria toxoid, and acellular pertussis vaccine, adsorbed Debbie Cole [facility] NEGATED: Highlighted row has not occurred!05-25-2023 influenza virus vaccine, unspecified formulation Debbie Cole [facility] Payers Date Payer Category Payer Self-pay 2023 Unknown [id number] 1996 Unknown [id number] [id number]7 1996 Unknown [id number] 2.16.840.1.477352.3.579.2.593 1996 Unknown [id number] 2.16.840.1.829238.3.579.2.593 1996 Unknown [id number] 2.16.840.1.570768.3.579.2.593 1996 Unknown [id number] 2.16.840.1.948147.3.579.2.593 1996 Unknown [id number] 2.16.840.1.643462.3.579.2.593 1996 Unknown [id number] 2.16.840.1.833463.3.579.2.593 1996 Unknown [id number] 2.16.840.1.900791.3.579.2.593 1996 Unknown [id number] 2.16.840.1.927619.3.579.2.727 1996 Unknown [id number] 2.16.840.1.658716.3.579.2.727 1996 Unknown [id number] 2.16.840.1.775486.3.579.2.727 1996 Unknown [id number] 2.16.840.1.149614.3.579.2.727 1996 Unknown [id number] 2.16.840.1.718235.3.579.2. 1996 Unknown [id number] 2.16.840.1.886630.3.579.2. 1996 Unknown [id number] 2.16.840.1.860311.3.579.2. 1996 Unknown [id number] 2.16.840.1.502712.3.579.2. 1996 Unknown [id number] 2.16.840.1.992423.3.579.2. 1996 Unknown [id number] 2.16.840.1.755804.3.579.2. 1996 Unknown [id number] 2.16.840.1.477018.3.579.2.1285 1996 Unknown [id number] 2.16.840.1.167441.3.579.2.1285 1996 Unknown [id number] 2.16.840.1.706951.3.579.2.1285 1996 Unknown [id number] 2.16.840.1.045876.3.579.2.1285 1996 Unknown [id number] 2.16.840.1.214254.3.579.2.1258 1996 Unknown [id number] 2.16.840.1.511414.3.579.2.1258 1996 Unknown [id number] 2.16.840.1.040382.3.579.2.1259 1959 Unknown [id number] 2.16. 840.1.174982.19 Unknown [facility] [id number] Unknown [employer] Counsel[employer] [id number] a Unknown HCAP/HFA/FAP Active [id number] Unknown [id number] 2.16.840.1.086880.3.579.2.531 Unknown [id number] 2.16.840.1.132224.3.579.2.531 Social History Date Type Detail Facility Unknown if ever smoked [facility] Other Start: 05-25-2023 Tobacco smoking status Never s moked tobacco (finding) [facility] Tobacco smoking status Never [facility] Sex Assigned At Female [facility] Start: 09-07-2023 End: 09-21-2023 Tobacco smoking status Light tobacco smoker (finding) [facility] Start: 1995 Sex Assigned At Female F [facility] Functional Status Date Assessment Result Facility 09-21-2023 Functional Status N/A [facility] Clinical Notes 10-23-2022 to 09-21-2023 Note Date [...] Follow these instructions at home: Medicines Take mgkk-myc-vhivtmg and prescription medicines only as told by [...] such as antibiotic medicines or antihistamines. Take [id number] and prescription medicines only as told by [...] provider. Document Revised: 05/10/2022 Document Reviewed: 05/11/2022 [email or web address] Patient Education 2022 [email or web address]. Follow Up Care 09/21/2023 08:47:27 With:Debbie Cole Address: [address] [place] [address] Business (1) When:09/24/2023 09:54:01 [facility] 01-17-2023 Note Subjective s/p Rt wr ist inj median nerve Patient reports Pain Level 2. Pre-procedure pain level 7 on 01/16/23. Denies complications, side effects, problems, or any questions about discharge instruction. Next appointment on 03/01/23 at 1300. [facility] 01-04-2023 Note Pain Medicine Medical [address] [address] Subjective Patient ID: Raphael Meehan is a [...] refill ROM full with pain on extension. University Professor strength preserved. Gait: normal PROCEDURE NOTE: Risks [...] this note were generated using voice recognition [employer] dictation software. Although every effort was made to ensure the accuracy of this automated press secretary, some errors in press secretary may have occurred. [facility] 12-15-2022 Note Attestation signed by Alesia [...] a 27 y.o. female who presents to [facility] today for bilateral upper extremity [...] no other evide (more content not included)... [facility] 12-07-2022 Note Pain Medicine [address] [address] Subjective Patient ID: Raphael Meehan is a [...] Focal neurologic deficits are not Noted symmetric creative specialist strength VASC: Cap refill less than 2 sec. Radial pulse +2 equal MUSC: Left UE - 5/5 Deltoid, 5/5 Triceps, 5/5 Biceps, 5/5 Wrist flexion, 5/5 Wrist Extension, 5/5 Finger extension, 5/5 Intrinsics, 4/5 University Professor Right UE -5/5 Deltoid, 5/5 Triceps, 5/5 Biceps, 5/5 Wrist flexion, 5/5 Wrist Extension, 5/5 Finger extension, 5/5 Intrinsics, 4/5 University Professor GAIT: The patient stands with a normal [...] mouth at bedtime. Presence of neurostimulator Comments: [employer] cervical SCS functioning properly Complex regional [...] week increase to 600mg if ineffective 2. [facility] paperwork for medical evaluations, doctors visits, PT [...] note were ge (more content not included)... [facility] 10-23-2022 Note HPI: Raphael Meehan is a 27 y.o. 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 She had a spinal cord stimulator placed in 04/26/2021 with 4vets in which she got 90% relief. She [...] with 90% relief - 04/26/21 SCS implant [employer] with > 90% relief Imaging: XR [...] today which did not show lead migrations. [employer] states SCS optimized and no conduction problems. ordered EMG testing to further investigate numbness in bilateral arms consider MRI cervical spine. Assessment/Plan Diagnoses and all orders for this visit: Malfunction of spinal cord stimulator, initial encounter ([facility]) Impingement syndrome of left shoulder region Plan: Physical Therapy- completed. Imaging- xray cervical spine reviewed, no lead migration noted. Consults-none Interventions- ordered EMG testing and consider MRI cervical to determine if other pathology causing numbness in bilateral arms. Medications- none Return to clinic-4 weeks OARRS reviewed [facility] Evaluation + Plan note Future Appointments Appointment Date:06/08/2023 10:00:00 AM Scheduled Provider:Debbie Bui Location:[facility] Appointment Type: [facility] Evaluation + Plan note Future Appointments Appointment Date:10/10/2023 03:40:00 PM Scheduled Provider:Debbie Bui Location:[facility] Appointment Type: Open [facility] Evaluation note [facility] Other Evaluation note No assessment inform ation available [facility] Work Phone: History general Narrative - Reported [facility] [employer] Other Hospital course Narrative No data available for this section [facility] Hospital Discharge instructions No data available for this section [facility] Progress note No data available for this section [facility] Summary Purpose Family History No Family [...] and content) DATE CREATED AUTHOR 03/02/2022 [facility] DATE CREATED AUTHOR AUTHOR'S ORGANIZ ATION 12/19/2022 [facility] DATE CREATED AUTHOR AUTHOR'S ORGANIZ ATION 03/02/2023 [facility] DATE CREATED AUTHOR AUTHOR'S ORGANIZ ATION 01/21/2024 [facility] DATE CREATED AUTHOR AUTHOR'S ORGANIZ ATION 02/03/2024 [facility] DATE CREATED AUTHOR AUTHOR'S ORGANIZ ATION 04/03/2024 [facility] DATE CREATED AUTHOR AUTHOR'S ORGANIZ ATION 04/05/2024 [facility] Patient Care team informatio n (unrecognized section and content) Team Status: Active Member Role Status Dates PHYSICIAN NO FAMILY Primary Care Provider Active Team Status: Inactive Member Role Status Dates PHYSICIAN NO FAMILY Primary Care Provider Active Start: February 27, 2024 End: February 27, 2024 Keith Cervantes DO Attending Provider Active Start : February 27, 2024 End: February 27, 2024 Team Status: Inactive Member Role Status Dates Keith Cervantes DO Attending Provider Active Start : March 27, 2024 End: March 27, 2024 Goals (unrecognized section and content) [...] BE BASED ON THE PRIMARY CLINICAL RECORDS. [facility]. provides no warranty or guarantee of the accuracy or completeness of information in this document.
--- NOTE | 2024-04-18 16:19 | ED_ITS ---
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 Approximately 3 weeks ago she had a hysterectomy. She is not bleeding vaginally. Her medication list indicate ibuprofen but we will double check to make sure is not on any anticoagulants. Vital signs were noted on arrival here and she does not have any tachycardia but she is anxious. Patient last ate at 1:00 today. She says she has not had any bleeding until today. She states that yesterday she was nauseated and was vomiting very forcefully and thinks that she may have strained herself. She has not had sexual intercourse. She has used 4 pads that were saturated today. She has no history of blood transfusions or anemia. She has no cardiovascular complaints or history. Related Data Previous Rx's ?Medication ?Instructions ?Recorded ibuprofen 800 mg tablet 800 mg PO Q8H PRN pain 14 days #40 03/27/24 tabs Allergies Allergy/AdvReac Type Severity Reaction Status Date / Time No Known Drug Allergies Allergy Verified 03/13/24 10:18 [facility] Medical History (Updated 03/13/24 @ 10:28 by Radha Pettit NP) Shoulder pain ?M25.519 - Pain in unspecified shoulder (ICD-10) COVID-19 ?U07.1 - COVID-19 (ICD-10) Pneumonia ?J18.9 - Pneumonia, unspecified organism (ICD-10) Dyspareunia Dysmenorrhea ?N94.6 - Dysmenorrhea, unspecified (ICD-10) Pelvic pain ?R10.2 - Pelvic and perineal pain (ICD-10) Menorrhagia ?N92.0 - Excessive and frequent menstruation with regular cycle (ICD-10) Heartburn ?R12 - Heartburn (ICD-10) Humerus fracture ?S42.309A - Unspecified fracture of shaft of humerus, unspecified arm, initial encounter for closed fracture (ICD-10) Biceps muscle tear ?S46.219A - Strain of muscle, fascia and tendon of other parts of biceps, unspecified arm, initial encounter (ICD-10) Sacral nerve stimulator present ?Z96.82 - Presence of neurostimulator (ICD-10) Surgical History (Updated 03/13/24 @ 10:28 by Radha Pettit NP) History of laparoscopy ?Z98.890 - Other specified postprocedural states (ICD-10) History of dilation and curettage ?Z98.890 - Other specified postprocedural states (ICD-10) History of endometrial ablation ?Z98.890 - Other specified postprocedural states (ICD-10) History of surgery on arm ?Z98.890 - Other specified postprocedural states (ICD-10) History of cholecystectomy ?Z90.49 - Acquired absence of other specified parts of digestive tract (ICD- 10) H/O shoulder surgery ?Z98.890 - Other specified postprocedural states (ICD-10) History of arthroscopy of shoulder ?Z98.890 - Other specified postprocedural states (ICD-10) Family History (Updated 03/13/24 @ 10:28 by Radha Pettit NP) Other Family history of cervical cancer Family history of hypertension Social History (Updated 03/13/24 @ 10:21 by Radha Pettit NP) Within the past year, how often did you have a drink containing alcohol: 2-4 times a month Smoking status: Current every day smoker What tobacco products do you use: cigarettes Cigarettes per day: 10 Years smoked: 12 Smoking pack-years: 6.00 Non-prescribed substance use: denies use Previous occupational history: Lead Front Desk Agent Highest level of school completed/degree received: some college, no degree Little interest or pleasure in doing things: not at all Feeling down, depressed, or hopeless: not at all Exam Narrative Exam Narrative: Patient is awake and alert vital signs are noted she is not tachycardic. Examination the abdomen shows multiple laparoscopic port incisions all of which have healed nicely and do not show any signs of infection. Palpation of the abdomen does not disclose any tenderness rebound rigidity or peritoneal findings. Overall she does not have any respiratory or chest complaints. Pelvic examination was done with female nurse. The external examination appears normal. A lubricated speculum was easily introduced in the vaginal vault and there is no blood clot, there is no bright red blood. There is brown secretions only. This was post having her ultrasound done. Constitutional Vital Signs, click to edit/add: Last Vital Signs Temp 98.8 F 04/18/24 16:12 Pulse 88 04/18/24 16:12 Resp 18 04/18/24 16:12 BP 152/105 H 04/18/24 16:12 Pulse Ox 96 04/18/24 16:12 O2 Del Method Room Air 04/18/24 16:12 Course Vital Signs Vital signs: Vital Signs Temperature 98.8 F 04/18/24 16:12 Pulse Rate 88 04/18/24 16:12 Respiratory Rate 18 04/18/24 16:12 Blood Pressure 152/105 H 04/18/24 16:12 Pulse Oximetry 96 04/18/24 16:12 Oxygen Delivery Method Room Air 04/18/24 16:12 Temperature 98.8 F 04/18/24 16:12 Pulse Rate 88 04/18/24 16:12 Respiratory Rate 18 04/18/24 16:12 Blood Pressure 152/105 H 04/18/24 16:12 Pulse Oximetry 96 04/18/24 16:12 Oxygen Delivery Method Room Air 04/18/24 16:12 MDM - Female Genitourinary MDM Narrative Medical decision making narrative: The patient was seen shortly after arrival and an ultrasound was ordered imm ediately however there was a substantial delay in finishing up that study. Post study, vaginal examination was done as noted above with no active blood. Her hemoglobin is stable. When the ultrasound report is finished we will contact Dr. Cervantes Discharge Plan Discharge Chief Complaint: Vaginal Bleeding Patient Disposition: Still a Patient Prescriptions / Home Meds: No Action ibuprofen 800 mg tablet 800 mg PO Q8H PRN (Reason: pain) 14 Days Qty: 40 0RF Print Language: [place] Referrals: DEBBIE COLE [Primary Care Provider] - 1 week
--- NOTE | 2024-04-18 16:25 | US_ITS ---
The [address] [address] Patient Name: RAPHAEL RICHARDSON MRN: [id number] date: 1995 Sex: F Assigned Patient Location: ED.MAIN Current Patient Location: ER Accession/Order Number: [id number] Exam Date: 04/18/2024 17:45 Report Date: 04/18/2024 18:56 At the request of: TARIQ SOTO Procedure: US pelvis transvaginal EXAM: US pelvis transvaginal HISTORY: Vaginal bleeding post laparoscopic hysterectomy COMPARISON: 01/18/2024 TECHNIQUE: Transvaginal and transabdominal imaging was performed utilizing grayscale, color Doppler, and spectral imaging. FINDINGS: Status post hysterectomy. Right ovary: Measurements: 2.8 x 2.4 x 2 cm. Description: Unremarkable appearance of the ovary without suspicious lesion. Vasculature: Normal color waveform. Left ovary: Oophorectomy. Adnexa: Unremarkable. Cul-de-sac: No free fluid. Additional findings: None. US/US pelvis transvaginal IMPRESSION: Status post hysterectomy and left oophorectomy. No acute process. Electronically authenticated by: ZABRINA ARNOLD Date: 04/18/2024 18:56
[2024-04-18] MEDS: 0.9 % SODIUM CHLORIDE 1,000 ML 999 ML IV (16:34)
[2024-04-18 16:46] LABS: Basophils Absolute Auto 0.1 10^3/uL (0.0-0.1); Basophils Percent Auto 0.9 % (0.2-2.0); Eosinophils Absolute Auto 1.1 10^3/uL (0.0-0.7); Eosinophils Percent Auto 7.7 % (0.9-7.0); Hematocrit 37.3 % (36.0-48.0); Hemoglobin 12.9 g/dL (12.0-16.0); Immature Granulocytes Abs Auto 0.09 10^3/uL (0.00-0.03); Immature Granulocytes Pct Auto 0.7 % (0.0-0.5); Lymphocytes Absolute Auto 4.3 10^3/uL (1.2-3.8); Lymphocytes Percent Auto 31.4 % (20.5-60.0); Mean Corpuscular HGB Conc 34.6 g/dL (29.9-35.2); Mean Corpuscular Hemoglobin 30.2 pg (26.7-34.0); Mean Corpuscular Volume 87.4 fL (81.0-99.0); Mean Platelet Volume 10.7 fL (9.5-13.5); Monocytes Absolute Auto 0.9 10^3/uL (0.3-0.8); Monocytes Percent Auto 6.4 % (1.7-12.0); Neutrophils Absolute Auto 7.3 10^3/uL (1.4-6.5); Neutrophils Percent Auto 52.9 % (43.0-75.0); Platelet Count 345 10^3/uL (150-450); Red Blood Count 4.27 10^6/uL (4.20-5.40); Red Cell Distribution Width 11.8 % (11.0-15.0); White Blood Count 13.8 10^3/uL (4.0-11.0)
[2024-04-18 16:50] LABS: Anion Gap 11.7; BUN Creatinine Ratio 15.3; Calcium 8.7 mg/dL (8.5-10.1); Chloride 102 mmol/L (98-107); Estimated GFR (African America >60 (>=60); Estimated GFR (Non-African Ame >60 (>=60); Glucose 113 mg/dL (74-106); Potassium 3.7 mmol/L (3.5-5.1); Sodium 137 mmol/L (136-145)
[2024-04-18 18:30] VITALS: BP 160/107; PULSE 75; O2SAT 98
[2024-04-18 19:11] VITALS: BP 150/94; PULSE 92; O2SAT 95
== END 2024-04-18 19:40 | disposition home or self-care (01) ==
PROVIDERS: Emergency Medicine Emergency Medical Services; Emergency Provider Internal Medicine; PCP Nurse Practitioner
DX: N93.9 Abnormal uterine and vaginal bleeding, unspecified (principal); Z90.710 Acquired absence of both cervix and uterus; F17.210 Nicotine dependence, cigarettes, uncomplicated
CPT/HCPCS: 36415; 76830; 80048; 85025; 99284

== ENCOUNTER 2024-06-04 07:19 | Outpatient (OUT) | payer BC, SELFPAY ==
--- OUTSIDE RECORDS SUMMARY | 2024-06-04 07:23 | XMS_ITS | CCD ---
Author Organization [facility] [employer] Care Team Providers Care Occupational Hygienist Name Role Phone Atiya Huerta Unavailable MEGJAKI LAMAIN Attending Unavailable SELF, REFERRED Primary Care Unavailable SELF, REFERRED Referring Unavailable MEG, AN Admitting Unavailable MEG, AN Surgeon Unavailable ME Procedure Practitioner Unavailab MIKE Griffiths Admitting Unavailable REQUEST, NONE LISTED Primary Care Unavaila MIKE Garcia Attending Unavailable MIKE PLATT Consulting Unavailable KARASIK ., DR FERNANDEZ Admitting Unavailabl e REQUEST, DR FERNÁNDEZ LISTED Primary Care Unavaila ble KARASIK ., [...] KARASIK ., DR FERNANDEZ Attending Unavailabl e RAPHAEL ERAZO Consulting Unavailable CEZAR DIAMOND [...] HAY ., DR SHEN Admitting Unavailable REQUEST, DR NONE LISTED Primary Care Unavaila ble HAY ., DR SHEN Attending Unavailable HAY ., DR SHEN Consulting Unavailable COLONGLENNY GRANT Consulting Unavailable SHERIDANCHARLENE Attending Unavailable SHERIDAN, CHARLENE Attending Unavailable SHERIDAN, CHARLENE Attending Unavailable SHERIDAN, CHARLENE Referring Unavailable MADISYN, WAQAR Referring Unavailable SHERIDAN, CHARLENE Attending Unavailable SHERIDAN, CHARLENE Attending Unavailable ALESIA APARICIO Attending Unavailable MADISYN, WAQAR Referring Unavailable Douglas, Debbie L Primary Care Physician [phone] NO FAMILY, PHYSICIAN Primary Care Provider Unava ilable Billy, DO Keith Attending Provider [phone] Billy, Keith Admitting Unavailable Billy, Keith Attending Unavailable NO FAMILY, PHYSICIAN Primary Care Unavailable Billy, Keith Admitting Unavailable Billy, Keith Attending Unavailable DOUGLAS, DEBBIE L Referring Unavailable NO PCP, NO PCP Primary Care Unavailable NO PCP, NO PCP Primary Care Unavailable ABRAHAM TORRES Attending Unavailable BRIAN, ABRAHAM Attending Unavailable TORRES, ABRAHAM Referring Unavailable NO PCP, NO PCP Primary Care Unavailable NO PCP, NO PCP Primary Care Unavailable CHANCE HUIZAR Attending Unavailable NO PCP, NO PCP Primary Care Unavailable SEAN BARNETT Attending Unavailable JAKE HUTCHINSON Admitting Unavailable INPATIENT, TELENEUROLOGY Consulting Unavail able Unavailable Primary Care Provider Unavailabl NEYMAR Stahl Admitting Unavailable NEYMAR LYONS Attending Unavailable VICTOR MANUEL GREENE Referring Unavailable NO PCP, NO PCP Primary Care Unavailable JAKE HUTCHINSONIT Referring Unavailable NO PCP, NO PCP Primary Care Unavailable Douglas, SPANISH LITERATURE PROFESSOR Debbie L Attending Unavailable Douglas, SPANISH LITERATURE PROFESSOR Debbie L Attending Unavailable Douglas, SPANISH LITERATURE PROFESSOR Debbie L Attending Unavailable Douglas, SPANISH LITERATURE PROFESSOR Debbie L Attending Unavailable Douglas, SPANISH LITERATURE PROFESSOR Debbie L Attending Unavailable Douglas, SPANISH LITERATURE PROFESSOR Debbie L Attending Unavailable Douglas, SPANISH LITERATURE PROFESSOR Debbie L Attending Unavailable Douglas, SPANISH LITERATURE PROFESSOR Debbie L Attending Unavailable Douglas, SPANISH LITERATURE PROFESSOR Debbie L Attending Unavailable Douglas, SPANISH LITERATURE PROFESSOR Debbie L Admitting Unavailable Juanjose Toscano Attending Unavailable BILLY, KEITH Attending Unavailable BILLY, KEITH Attending Unavailable LALA, MYRANDA Attending Unavailable LALA, MYRANDA Attending Unavailable RITO, JAEL Attending Unavailable RITO, JAEL Attending Unavailable Allergies Allergy Classification Reported Allergen(s) Allergy Type Date of Onset Reaction(s) Facility (1 source) nickel Drug Allergy rash [employer] water systems Other (1 source) nickel Drug Allergy 06-20-2021 [facility] Repository Medications Current Medications Medication Drug Class(es) Dates Sig (Normalized) Sig (Original) 12 hr acetaZOLAMIDE 500 mg extended release oral capsule (9 sources) Carbonic Anhydrase Inhibitor Start: 05-28-2024 take 2 capsules by mouth twice daily acetaZOLAMIDE (Diamox) 500 MG 12 hr capsule Indications: Idiopathic Intracranial Hypertension 2 po bid 120 capsule 2 05/28/2024 Active Start: 05-28-2024 take 2 capsules by m outh twice daily acetaZOLAMIDE (Diamox) 500 MG 12 hr capsule Indications: Idiopathic Intracranial Hypertension 2 po bid 120 capsule 2 05/28/2024 Active Start: 05-22-2024 End: 05-28-2024 take 2 capsules by mouth every hour in the morning, then take 1 capsule by mouth once in the evening acetaZOLAMIDE (Diamox) 500 MG 12 hr capsule Indications: IIH (idiopathic intracranial hypertension) 2 po q am and 1 po q pm 90 capsule 2 05/22/2024 05/28/2024 Discontinued (Reorder) Start: 05-21-2024 End: 05-22-2024 take 1 capsule by mouth every twelve hours in the morning acetaZOLAMIDE (Diamox) 500 MG 12 hr capsule Take 500 mg by mouth in the morning and 500 mg in the evening. 05/21/2024 05/22/2024 Discontinued (Reorder) [id number] 200 actuat albuterol 0.09 mg/actuat metered dose inhaler (1 source) beta2-Adrenergic Agonist Start: 06-20-2021 doxycycline monohydrate 100 mg oral tablet (1 source) Tetracycline-class Drug Start: 09-21-2023 End: 10-01-2023 take 1 tablet by mouth twice daily doxycycline monohydrate 100 mg oral tablet 100 mg = 1 tab(s), Oral, BID, X 10 day(s), # 20 tab(s), Refills(s) 0, Pharmacy: [facility]/pharmacy #[id number], 165.1, cm, 09/21/23 8:51:00 EST, Height/Length Dosing, 97.9, kg, 09/21/23 8:51:00 EST, Weight Dosing Start Date: 09/21/23 Stop Date: 10/01/23 Status: Ordered medroxyPROGESTERone (1 source) Progestin methylPREDNISolone (5 sources) Corticosteroid Start: 05-22-2024 End: 05-29-2024 methylPREDNISolone (Medrol Dospak) 4 MG tablets Indications: IIH (idiopathic intracranial hypertension) Follow schedule on package instructions 21 tablet 05/22/2024 05/29/2024 Active naproxen 500 mg delayed release oral tablet (2 sources) Nonsteroidal Anti-inflammatory Drug Start: 09-06-2023 take 1 tablet by mouth twice daily naproxen 500 mg oral enteric coated tablet 500 mg = 1 tab(s), Oral, BID, # 60 tab(s), Refills(s) 0, Pharmacy: [facility]/pharmacy #[id number], 164, cm, 08/07/23 9:50:00 EST, Height/Length Dosing, 96.4, kg, 08/07/23 9:50:00 EST, Weight Dosing Start Date: 09/06/23 Status: Ordered phentermine hydrochloride 37.5 mg oral tablet (2 sources) Sympathomimetic Amine Anorectic Start: 08-07-2023 take 1 tablet by mouth once daily phentermine 37.5 mg Tab 37.5 mg = 1 tab(s), Oral, Daily, # 30 tab(s), Refills(s) 0, Pharmacy: [facility]/pharmacy #[id number], 164, cm, 08/07/23 9:50:00 EST, Height/Length [...] Problem Classification Problem Date Documented Date Episodic/Chronic Acute cerebrovascular disease (1 source) Cerebral infarction, unspecified; Translations: [Cerebral infarction, unspecified] Onset: 05-19-2024 Chronic Acute cerebrovascular disease (1 source) Acute cerebrovascular disease Onset: 05-19-2024 Blindness and vision defects (1 source) Unqualified visual loss, right eye, normal vision left eye; Translations: [Unqualified visual loss, right eye, normal vision left eye] Onset: 05-19-2024 Chronic Blindness and vision defects (2 sources) Visual field scotoma; Translations: [Scotoma involving central area, unspecified eye] 05-22-2024 Episodic Conditions associated with dizziness or vertigo (2 sources) Dizziness 09-07-2023 Episodic Diabetes mellitus without complication (2 sources) Hyperglycemia 09-07-2023 Episodic Genitourinary symptoms and ill-defined conditions (3 sources) Polyuria 05-25-2023 Episodic Headache; including migraine (2 sources) Refractory migraine without aura; Translations: [Migraine without aura, intractable, without status migrainosus] 05-22-2024 Chronic Headache; including migraine (1 source) Headache Onset: 05-20-2024 Episodic Headache; including migraine (2 sources) Headache; including migraine; Translations: [Headache, unspecified] Onset: 05-19-2024 Immunizations and screening for infectious disease (2 [...] left upper limb] Onset: 12-07-2022 Chronic Other nervous system disorders (6 sources) Benign intracranial hypertension; Translations: [Benign intracranial hypertension] 05-22-2024 Chronic Other nervous system disorders (1 source) Benign intracranial hypertension; Translations: [Benign intracranial hypertension] Onset: 05-20-2024 Chronic Other nutritional; endocrine; and metabolic disorders (2 sources) Obesity caused by energy imbalance; Translations: [Class 2 obesity due to excess calories with body mass index (BMI) of 39.0 to 39.9 in adult, unspecified whether serious comorbidity present] 05-22-2024 Chronic Other nutritional; endocrine; and metabolic disorders [...] Spondylosis; intervertebral disc disorders; other back problems (8 sources) Radiculopathy, cervical region; Translations: [Neck pain] Onset: 10-23-2022 Episodic Substance-related disorders (2 sources) Nicotine dependence, cigarettes, uncomplicated; Translations: [Smoker] Onset: 05-22-2022 09-21-2023 Chronic Comment on above: Added secondary to d ocumentation in Social History. Unclassified (1 source) CONTACT W/AND (SUSP) EXPOS [...] electrode (lead), initial encounter] Onset: 10-23-2022 Episodic E Codes: Natural/environment (1 source) Bitten or stung by nonvenomous insect and other nonvenomous arthropods, initial encounter; Translations: [Bitten or stung by nonvenomous insect and other nonvenomous arthropods, initial encounter] Onset: 02-01-2024 Episodic Other connective tissue disease (2 sources) [...] OTH PART DIGESTV TRACT] Onset: 05-22-2022 Episodic Superficial injury; contusion (3 sources) Insect bite (nonvenomous) of right shoulder, initial encounter; Translations: [Insect bite (nonvenomous) of left shoulder, initial encounter] Onset: 02-01-2024 Episodic Unclassified (1 source) COUGH, UNSPECIFIED; Translations: [COUGH, UNSPECIFIED] Onset: 12-29-2021 Viral infection (1 source) COVID-19 Onset: 06-20-2021 Resolved: 06-20-2021 Results Test Name Value Interpretation Reference Range Facility Family Medicine Office/Clini c Noteon 05-26-2024 Family Medicine Office/Clinic Note Family Medicine Office/Clinic Note Chief Complaint tcm HPI Staff Pt presents today for TCM appt. Hospital: [facility] Admission date: 05/19 & 05/21 Discharge date: 05/22 Symptoms the patient presented with: headache for 2 weeks, diagnosed with IIH, started her on z pack and acetazolamide 500 mg, nothing is working, already called neuro surgeon, still having headache, wanted her to go to pcp because weight plays a factor in diagnosis, Current concerns: how to lose the weight, go over lab results with her, blurred vision, stiff neck History of Present Illness pt presents today for TCM follow up. was diagnosed with IIH Review of Systems PHQ Score Initial Depression Screen Score: 0 SCORE Physical Exam Vitals & Measurements HR: 79(Peripheral) BP: 130/98 SpO2: 99% HT: 65 in HT: 165 cm WT: 106.6 kg WT: 234.52 lb BMI: 39.16 General: alert, no acute distress ENMT: oral mucosa moist, no pharyngeal erythema or exudate Cardiovascular: regular rate and rhythm, normal peripheral perfusion Respiratory: Lungs CTA, respirations non labored Extremities: no deformity, no trauma Neurological: oriented x 4, LOC appropriate for age, CN II-XII intact, motor strength equal & normal bilaterally, speech normal Assessment/Plan 1. IIH (idiopathic intracranial hypertension) (G93.2: Benign intracranial hypertension) pt presents today for TCM follow up. was in hospital for IIH. Had spinal tap on Sunday. pressure started at 60 and was dropped to 18. pt is back to severe headache and blurred vision. is waiting to hear back from Dr. Veras to schedule another spinal tap. Neurology informed pt they will only do 4 spinal taps. after that if she still has symptoms she will need a shunt. pt was provided a note for work for light duty until her short term disability kicks in on Sunday. neurology instructed her to see PCP to help with weight loss. due to diagnosis we are unable to start her back on adipex. discussed ordering ozempic through pharmacy. if insurance will not cover it, will order through [facility] pharmacy. Ordered: semaglutide, 0.25 mg, SubCutaneous, qWeek, # 4 EA, Refills(s) 1, Pharmacy: [facility]/pharmacy #[id number], 165, cm, 05/26/24 10:41:00 EDT, Height/Length Dosing, 106.6, kg, 05/26/24 10:41:00 EDT, Weight Dosing [facility] 7 day disch [id number] 2. Abnormal weight gain (R63.5: Abnormal weight gain) pt is up 22 pounds since last visit Ordered: semaglutide, 0.25 mg, SubCutaneous, qWeek, # 4 EA, Refills(s) 1, [id number], 165, cm, 05/26/24 10:41:00 EDT, Height/Length Dosing, 106.6, kg, 05/26/24 10:41:00 EDT, Weight Dosing 3. Pre-diabetes (R73.03: Prediabetes) fasting gluicose >100. Ordered: semaglutide, 0.25 mg, SubCutaneous, qWeek, # 4 EA, Refills(s) 1, [id number], 165, cm, 05/26/24 10:41:00 EDT, Height/Length Dosing, 106.6, kg, 05/26/24 10:41:00 EDT, Weight Dosing 4. Insulin resistance (E88.819: Insulin resistance, unspecified) will order ozempic to help regulate sugars and help with weight loss Ordered: semaglutide, 0.25 mg, SubCutaneous, qWeek, # 4 EA, Refills(s) 1, [id number], 165, cm, 05/26/24 10:41:00 EDT, Height/Length Dosing, 106.6, kg, 05/26/24 10:41:00 EDT, Weight Dosing 5. BMI 39.0-39.9,adult (Z68.39: Body mass index [BMI] 39.0-39.9, adult) BMI education given Ordered: semaglutide, 0.25 mg, SubCutaneous, qWeek, # 4 EA, Refills(s) 1, [id number], 165, cm, 05/26/24 10:41:00 EDT, Height/Length Dosing, 106.6, kg, 05/26/24 10:41:00 EDT, Weight Dosing 6. Smoker (F17.200: Nicotine dependence, unspecified, uncomplicated) consider not smoking Ordered: phentermine, 37.5 mg = 1 tab(s), Oral, Daily, # 30 tab(s), Refills(s) 0, [id number], 164, cm, 08/07/23 9:50:00 EST, Height/Length Dosing, 96.4, kg, 08/07/23 9:50:00 EST, Weight Dosing Orders: ergocalciferol, 50,000 International_Unit = 1 cap(s), Oral, qWeek, # 12 cap(s), Refills(s) 3, [id number], 164, cm, 09/07/23 8:25:00 EST, Height/Length Dosing, 98.6, kg, 09/07/23 8:25:00 EST, Weight Dosing naproxen, 500 mg = 1 tab(s), Oral, BID, # 60 tab(s), Refills(s) 0, [id number], 164, cm, 08/07/23 9:50:00 EST, Height/Length Dosing, 96.4, kg, 08/07/23 9:50:00 EST, Weight Dosing Follow-up No qualifying data available Patient Education Idiopathic Intracranial Hypertension Problem List/Past Medical History Ongoing Abnormal weight gain Blood glucose elevated Cough Dizziness Encounter for weight management Excessive thirst Family history of diabetes mellitus Fatigue Insulin resistance Localized swelling of left lower leg Pain of left calf Polyuria Pre-diabetes Sinusitis Smoker Subcutaneous mass of both lower legs Subcutaneous mass of right lower leg Wellness examination Historical No qualifying data Procedure/Surgical History Hysterectomy (03/27/2024), Ablation, Cholecystectomy, Lumbar pu (more content not included)... [facility] Comment on above: Result Comment: Elec tronically Signed By: Debbie Bui\.br\Date and Time Signed: 05/26/24 11:14 EDT Provider Letteron 05-26-2024 Provider Letter Provider Letter May 26, 2024 RAPHAEL MEEHAN [address] [place] [phone] : 1995 To Whom It May Concern, Please excuse above patient from work. Date of Appointment: 05/26/2024 May Return to Work On: 05/26/2024 Sincerely, Family Medicine [address] [address] [facility] Provider Letter Provider Letter [address] [place] [address] May 26, 2024 RAPHAEL MEEHAN [address] [place] [phone] : 1995 To Whom It May Concern, Please allow the above named patient to do light duty during the work day. With her recent illness, it would be beneficial to her health to do light duty work until further notice. If you have any questions, please do not hesitate to call my office. Thank you. Sincerely, Debbie Cole, SPANISH LITERATURE PROFESSOR-C Normal [facility] CSF CULTUREon 05-21-2024 Bacteria identified Cx Nom (CSF) GRAM STAIN NO WHITE BLOOD CELLS PRESENT NO ORGANISMS SEEN ON CONCENTRATED SMEAR CULTURE RESULTS NO GROWTH 5 DAYS Normal [facility] Comment on above: Performed By: #### 6 06-4 #### [facility] ([id number]) [address], [address] [place] [address] Glucose (CSF) [Mass/Vol]on 1 CSF GLUCOSE 60 mg/dL Normal 40-70 [facility] Comment on above: Performed By: #### C [facility], 46345-5, 2342-4, 2880-3 #### [facility] ([id number]) [address], [address] [place] [address] IR SPINAL PUNCTURE LUMBAR DI AGNOSTICon 05-21-2024 IR SPINAL PUNCTURE LUMBAR DIAGNOSTIC IR SPINAL PUNCTURE LUMBAR DIAGNOSTIC LUMBAR PUNCTURE WITH FLUOROSCOPY CLINICAL INDICATION: Idiopathic intracranial hypertension. Headache. CONSENT: The reason for Lumbar Puncture was discussed with the patient. The procedure, expectations, risks, benefits, options and alternatives were discussed. Consent was obtained. Fluoroscopic time: 0.2 minutes Reference Air Kerma: 2.9 mGy Number of fluoroscopic images: 2 TIME OUT: [place] Protocol Time Out Verification performed. PROCEDURE: Automatic radiation exposure lowering techniques were utilized. Using sterile techniques, the lower back was prepped and draped in the usual fashion. The puncture site was infiltated with 1% lidocaine. Using real-time fluoroscopic guidance, a 20-gauge spinal needle was advanced through the left L3-4 interlaminar space into the subarachnoid space. A fluoroscopic spot image was obtained and saved in PACS. Free flow of clear CSF was visualized upon removal of stylette. The opening pressure was measured at 60 CM H2O. Approximately 26 cc of clear CSF obtained and sent for analysis. Closing pressure was measured at 18 cm H2O. The patient tolerated the procedure well and there were no immediate complications. A sterile bandage was applied. IMPRESSION: Fluoroscopic guided lumbar puncture revealing a significantly elevated opening pressure of 60 cm of H2O. Approximately 26 cc of clear CSF obtained and sent for analysis. Closing pressure measured at 18 cm H2O. Finalized by Aniket Mares MD on 05/21/2024 2:30 PM Normal [facility] MENINGITIS PANELon Meningitis+Encephalit is pathogens DNA and RNA panel TARAH+non-probe (CSF) SPECIMEN SOURCE CEREBROSPINAL FLUID E COLI K1 Not detected (qualifier value) H INFLUENZAE Not detected (qualifier value) L MONOCYTOGENES Not detected (qualifier value) N MENINGITIDIS Not detected (qualifier value) S AGALACTIAE Not detected (qualifier value) S PNEUMONIAE Not detected (qualifier value) CMV Not detected (qualifier value) ENTEROVIRUS Not detected (qualifier value) HERPES SIMPLEX 1 Not detected (qualifier value) HERPES SIMPLEX 2 Not detected (qualifier value) HERPES VIRUS 6 Not detected (qualifier value) PARECHOVIRUS Not detected (qualifier value) VARICELLA ZOSTER Not detected (qualifier value) C NEOFORMANS Not detected (qualifier value) Normal NDET [facility] Comment on above: Performed By: #### C [facility], 42688-5, 2342-4, 2880-3 #### [facility] ([id number]) [address], [address] [place] [address] Protein (CSF) [Mass/Vol]on 1 CSF TOTAL PROTEIN 18 mg/dL Normal 15-45 [facility] Comment on above: Performed By: #### C SFCT, 73172-1, 2342-4, 2880-3 #### [facility] ([id number]) [address], [address] [place] [address] SPINAL FLUID CELL CTon 05-21 CSF CLARITY CLEAR Normal [facility] Comment on above: Performed By: #### C SF[facility], 15249-8, 2342-4, 2880-3 #### [facility] ([id number]) [address], [address] [place] [address] CSF COLOR COLORLESS Normal [facility] Comment on above: Performed By: #### C SFCT, 60041-2, 2342-4, 2880-3 #### [facility] ([id number]) [address], [address] [place] [address] CSF COMMENT TUBE 3 Normal [facility] Comment on above: Performed By: #### C SFCT, 15460-1, 2342-4, 2880-3 #### [facility] ([id number]) [address], [address] [place] [address] CSF NUCLEATED CELLS 1 /uL Normal 0-5 [facility] Comment on above: Performed By: #### C SFCT, 62073-7, 2342-4, 2880-3 #### [facility] ([id number]) [address], [address] [place] [address] CSF RBC 1 /uL Normal 0-1 [facility] Comment on above: Performed By: #### C SFCT, 04977-7, 2342-4, 2880-3 #### [facility] ([id number]) [address], [address] [place] [address] CSF SUPERNATANT COLORLESS Normal [facility] Comment on above: Performed By: #### C SFCT, 95608-6, 2342-4, 2880-3 #### [facility] ([id number]) [address], [address] [place] [address] SF DIFF NUCLEATED CELLS <5/uL; DIFF NOT TESTED Normal [facility] Comment on above: Performed By: #### C SFCT, 29839-5, 2342-4, 2880-3 #### [facility] ([id number]) [address], [address] [place] [address] CBC AND AUTO DIFFon 05-20-20 24 ABSOLUTE BASOPHIL 0.2 X10E9/L Normal 0.0-0.2 [facility] Comment on above: Performed By: #### C JC, CMP, 58437-6 ####[facility] ([id number])[address] [place] [address]#### 23822-1 ####[facility] ([id number])[address] [address] ABSOLUTE NEUTROPHIL 14.9 X10E9/L High 1.5-6.6 [facility] Comment on above: Performed By: #### C JC, CMP, 02254-3 ####[facility] ([id number])[address] [place] [address]#### [id number] ####[facility] ([id number])[address] [place] [address] Basophils/100 WBC (Bld) 0.8 % Normal [facility] Comment on above: Performed By: #### C JC, CMP, 16617-2 ####[facility] ([id number])[address] [place] [address]#### 18910-8 ####[facility] ([id number])[address], [place] [address] Eosinophils (Bld) [#/Vol] 0.0 10*3/uL Normal 0.0-0.4 [facility] Comment on above: Performed By: #### C BCA, CMP, 65634-5 ####[facility] ([id number])[address] [place] [address]#### 16427-8 ####[facility] ([id number])[address] [address] Eosinophils/100 WBC (Bld) 0.2 % Normal [facility] Comment on above: Performed By: #### Fernando GREENE CMP, ####[facility] ([id number])[address] [place] [address] 23499#### 37789-0 ####[facility] ([id number])[address] [address] Erythrocyte distribution width (RBC) [Ratio] 12.2 % Normal 11.5-15.0 [facility] Comment on above: Performed By: #### Fernando GREENE CMP, ####[facility] ([id number])[address] [place] [address] 77111#### 81146-0 ####[facility] ([id number])[address], [address] [address] Hematocrit (Bld) [Volume fraction] 34.9 % Low 35-47 [facility] Comment on above: Performed By: #### Fernando GREENE CMP, ####[facility] ([id number])[address] [place] [address] 27556#### 05618-6 ####[facility] ([id number])[address] [address] Hemoglobin (Bld) [Mass/Vol] 11.7 g/dL Normal 11.7-15.5 [facility] Comment on above: Performed By: #### Fernando GREENE CMP, ####[facility] ([id number])[address] [place] [address] 88191#### 15603-2 ####[facility] ([id number])[address] [address] Lymphocytes (Bld) [#/Vol] 3.4 10*3/uL Normal 1.0-3.5 [facility] Comment on above: Performed By: #### Fernando GREENE CMP, 16883-6 ####[facility] ([id number])[address] [place] [address] 29596#### 90563-7 ####[facility] ([id number])[address], [address] [address] Lymphocytes/100 WBC (Bld) 17.1 % Normal [facility] Comment on above: Performed By: #### Fernando GREENE, [facility], ####[facility] ([id number])[address] [place] [address] 35860#### 31526-1 ####[facility] ([id number])[address], [address] [address] MCH (RBC) [Entitic mass] 29.1 pg Normal 27-34 [facility] Comment on above: Performed By: #### Fernando GREENE, [facility], ####[facility] ([id number])[address] [place] [address] 23921#### 36710-5 ####[facility] ([id number])[address], [address], [place] [address] MCHC (RBC) [Mass/Vol] 33.5 g/dL Normal 32-36 [facility] Comment on above: Performed By: #### Fernando GREENE, CMP, ####[facility] ([id number])[address] [place] [address] 66634#### 74214-3 ####[facility] ([id number])[address], [address] [address] MCV (RBC) [Entitic vol] 87 fL Normal 80-100 [facility] Comment on above: Performed By: #### C BCA, CMP, ####[facility] ([id number])[address] [place] [address] 07918#### 04679-3 ####[facility] ([id number])[address], [place] [address] Monocytes (Bld) [#/Vol] 1.2 10*3/uL High 0-0.9 [facility] Comment on above: Performed By: #### C BCA, CMP, ####[facility] ([id number])[address] [place] [address] 41117#### 79472-5 ####[facility] ([id number])[address], [address] [address] Monocytes/100 WBC (Bld) 6.1 % Normal [facility] Comment on above: Performed By: #### Fernando BCA, CMP, ####[facility] ([id number])[address] [place] [address] 85645#### 92924-5 ####[facility] ([id number])[address] [address] Neutrophils/100 WBC (Bld) 75.8 % Normal [facility] Comment on above: Performed By: #### C BCA, CMP, ####[facility] ([id number])[address] [place] [address] 86662#### 56689-8 ####[facility] ([id number])[address], [address], [place] [address] Platelet mean volume (Bld) [Entitic vol] 8.6 fL Normal 7-12 [facility] Comment on above: Performed By: #### C BCA, CMP, ####[facility] ([id number])[address] [place] [address] 44905#### 48129-4 ####[facility] ([id number])[address] [facility], [address] [place] [address] Platelets (Bld) [#/Vol] 346 10*3/uL Normal 150-450 [facility] Comment on above: Performed By: #### C BCA, CMP, 18828-4 ####[facility] ([id number])[address] [place] [address] 13087#### 07427-4 ####[facility] ([id number])[address] [place] [address], [address] [address] RBC COUNT 4.02 X10E12/L Normal 3.80-5.20 [facility] Comment on above: Performed By: #### C BCA, CMP, 14016-3 ####[facility] ([id number])[address] [place] [address] 80121#### 64374-7 ####[facility] ([id number])[address] [place] [address], [address] [place] [address] WBC (Bld) [#/Vol] 19.6 10*3/uL High 4.0-11.0 [facility] Comment on above: Performed By: #### Fernando BCA, CMP, 33415-2 ####[facility] ([id number])[address] [place] [address] 77451#### 54363-9 ####[facility] ([id number])[address] [facility], [address] [place] [address] COMPREHENSIVE METABOLIC PANE Tao 05-20-2024 Albumin [Mass/Vol] 3.6 g/dL Normal 3.2-5.3 [facility] Comment on above: Performed By: #### C BCA, CMP, 90740-2 ####[facility] ([id number])[address] [place] [address] 12456#### 48448-2 ####[facility] ([id number])[address], [address], [place] [address] ALP [Catalytic activity/Vol] 41 U/L Normal 39-130 [facility] Comment on above: Performed By: #### C BCA, CMP, 06198-5 ####[facility] ([id number])[address] [place] [address] 76860#### 88621-2 ####[facility] ([id number])[address], [address] [address] ALT [Catalytic activity/Vol] 23 U/L Normal 0-31 [facility] Comment on above: Performed By: #### C BCA, CMP, 94414-9 ####[facility] ([id number])[address] [place] [address] 28889#### 16611-7 ####[facility] ([id number])[address], [address], [place] [address] Anion gap [Moles/Vol] 11 mmol/L Normal 5-15 [facility] Comment on above: Performed By: #### C BCA, CMP, 63977-5 ####[facility] ([id number])[address] [place] [address] 01188#### 56937-3 ####[facility] ([id number])[address], [address] [address] AST [Catalytic activity/Vol] 17 U/L Normal 0-41 [facility] Comment on above: Performed By: #### C BCA, CMP, 02690-5 ####[facility] ([id number])[address] [place] [address] 74295#### 40771-4 ####[facility] ([id number])[address], [address] [address] Bilirubin [Mass/Vol] 0.6 mg/dL Normal 0.3-1.2 [facility] Comment on above: Performed By: #### C BCA, CMP, 65427-9 ####[facility] ([id number])[address] [place] [address] 79243#### 37647-1 ####[facility] ([id number])[address], [address] [place] [address] Calcium [Mass/Vol] 9.0 mg/dL Normal 8.5-10.5 [facility] Comment on above: Performed By: #### C BCA, CMP, 08343-8 ####[facility] ([id number])[address] [place] [address] 02888#### 97566-0 ####[facility] ([id number])[address], [address] [place] [address] Chloride [Moles/Vol] 105 mmol/L Normal 98-109 [facility] Comment on above: Performed By: #### C BCA, CMP, 92752-1 ####[facility] ([id number])[address] [place] [address] 00467#### 39535-7 ####[facility] ([id number])[address], [address] [place] [address] CO2 [Moles/Vol] 20 mmol/L Low 22-32 [facility] Comment on above: Performed By: #### C BCA, CMP, ####[facility] ([id number])[address] [place] [address] 47129#### 63523-1 ####[facility] ([id number])[address], [address] [address] Creatinine [Mass/Vol] 0.80 mg/dL Normal 0.40-1.00 [facility] Comment on above: Result Comment: METH OD TRACEABLE TO IDMS STANDARD Performed By: #### C ANABEL GREENE, 54114-1 ####[facility] ([id number])[address] [place] [address] 74833#### 38843-2 ####[facility] ([id number])[address] [address] [place] [address] eGFR (CKD-EPI) NON-RACE DEPENDENT >90 Normal >59 [facility] Comment on above: Result Comment: Reported eGFR is based on the CKD-EPI 2020 equation that does not use a race coefficient. Performed By: #### C ANABEL GREENE, 33965-7 ####[facility] ([id number])[address] [place] [address] 79956#### 07228-9 ####[facility] ([id number])[address] [address] Glucose [Mass/Vol] 119 mg/dL High 65-99 [facility] Comment on above: Performed By: #### C ANABEL GREENE, 49745-2 ####[facility] ([id number])[address] [place] [address] 81395#### 58760-3 ####[facility] ([id number])[address] [address] [place] [address] Potassium [Moles/Vol] 3.9 mmol/L Normal 3.5-5.0 [facility] Comment on above: Performed By: #### Fernando GREENE CMP, ####[facility] ([id number])[address] [place] [address] 88990#### 28508-3 ####[facility] ([id number])[address] [facility], [address] [place] [address] Protein [Mass/Vol] 6.7 g/dL Normal 6.0-8.0 [facility] Comment on above: Performed By: #### C BCA, CMP, 53324-6 ####[facility] ([id number])[address] [place] [address] 74705#### 90665-9 ####[facility] ([id number])[address] [facility], [address] [place] [address] Sodium [Moles/Vol] 136 mmol/L Normal 134-146 [facility] Comment on above: Performed By: #### C BCA, CMP, 86420-6 ####[facility] ([id number])[address] [place] [address] 54459#### 28730-2 ####[facility] ([id number])[address] [facility], [address] [place] [address] Urea nitrogen [Mass/Vol] 13 mg/dL Normal 5-23 [facility] Comment on above: Performed By: #### C BCA, CMP, 87787-3 ####[facility] ([id number])[address] [place] [address] 42718#### 80601-1 ####[facility] ([id number])[address], [address] [place] [address] Lipid 1996 panelon 4 Cholesterol [Mass/Vol] 205 mg/dL High 150-200 [facility] Comment on above: Performed By: #### C BCA, CMP, 50681-8 ####[facility] ([id number])[address] [place] [address] 16981#### 01327-3 ####[facility] ([id number])[address] [facility], [address] [place] [address] Cholesterol in HDL [Mass/Vol] 50 mg/dL Normal >39 [facility] Comment on above: Result Comment: HDL <40 mg/dL - High Risk HDL > or = 40mg/dL- Desirable HDL >60 mg/dL - Negative Risk Performed By: #### C JC, CMP, 12249-3 ####[facility] ([id number])[address] [place] [address] 50732#### 48392-9 ####[facility] ([id number])[address] [address] Cholesterol in LDL [Mass/Vol] 109 mg/dL Normal <130 [facility] Comment on above: Result Comment: LDL <100 mg/dL - Desirable LDL >160 mg/dL - High Risk Performed By: #### Fernando GREENE, CMP, 82672-5 ####[facility] ([id number])[address] [place] [address] 02125#### 88472-3 ####[facility] ([id number])[address] [address] Cholesterol in VLDL [Mass/Vol] 46 mg/dL High 0-30 [facility] Comment on above: Performed By: #### Fernando GREENE, CMP, 25576-0 ####[facility] ([id number])[address] [place] [address] 34661#### 55046-7 ####[facility] ([id number])[address] [facility], [address] [address] CHOLESTEROL:HDL 4.1 Normal 1.0-5.0 [facility] Comment on above: Performed By: #### C JC [facility], 11516-0 ####[facility] ([id number])[address] [place] [address] 92949#### 69547-9 ####[facility] ([id number])[address] [facility], [address] [address] Triglyceride [Mass/Vol] 228 mg/dL High 27-150 [facility] Comment on above: Performed By: #### C JC [facility], 37436-1 ####[facility] ([id number])[address] [place] [address] 70182#### 05687-5 ####[facility] ([id number])[address] [place] [address], [address] [address] MAGNESIUMon 05-20-2024 Magnesium [Mass/Vol] 2.2 mg/dL Normal 1.8-2.6 [facility] Comment on above: Performed By: #### Fernando GREENE [facility], 10018-9 ####[facility] ([id number])[address] [place] [address] 41645#### 72725-1 ####[facility] ([id number])[address] [place] [address], [address] [address] MR BRAIN W WO CONTon 024 MR BRAIN W WO CONT MR BRAIN W WO CONT EXAM: MR BRAIN W WO CONT TECHNIQUE: Routine multiplanar multisequence MR imaging of the brain was performed prior to and following the uneventful administration of intravenous contrast. CLINICAL HISTORY: Headache for 2 weeks. COMPARISON: Noncontrast head CT and CTA head and neck dated 05/19/2024 FINDINGS: There is no restricted diffusion. There is a single tiny nonaggressive focus of FLAIR hyperintensity within the right frontal white matter. There are no significant parenchymal signal abnormalities. The luna-white matter differentiation is preserved. There is no enhancing intracranial mass or mass effect. The ventricles are proportional to the overall brain volume without evidence for outflow obstruction. There is no shift of the midline structures and the basal cisterns are widely patent. There is no susceptibility to suggest the presence of intracranial blood degradation products. There is a partially empty sella turcica, most commonly seen as an incidental finding. The cranial cervical junction is within normal limits. There is localized mucosal thickening completely filling the left maxillary sinus. The remainder of the paranasal sinuses are well aerated. There is only a tiny amount of nonaggressive fluid in a few mastoid air cells. 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 IMPRESSION: 1. No acute abnormalities. 2. Single tiny nonaggressive focus of FLAIR hyperintensity within the right frontal white matter. This is nonspecific, though can be seen in the setting of chronic headaches. There is no evidence for an acute or chronic infarct. 3. No enhancing intracranial mass or mass effect. 4. Localized mucosal thickening completely filling the left maxillary sinus. Finalized by Arley Forrester MD on 05/20/2024 11:58 AM Normal [facility] PROTIME AND INRon 05-20-2024 INR Coag (PPP) [Relative time] 0.9 {INR} Normal 0.8-1.1 [facility] Comment on above: Performed By: #### P INR #### [facility] ([id number]) [address], [address] [place] [address] PT Coag (PPP) [Time] 10.7 s Normal 9.8-13.2 [facility] Comment on above: Performed By: #### P INR #### [facility] ([id number]) [address], [address] [place] [address] BASIC METABOLIC PANLon 05-19 Anion gap [Moles/Vol] 13 mmol/L Normal 5-15 [facility] Comment on above: Performed By: #### C BCA, BMP, THYR, 1987- #### [facility] ([id number]) [address] [place] [address] 53529 #### SHANTE, 63537-9 #### [facility] ([id number]) [address] [facility], [address] [place] [address] Calcium [Mass/Vol] 8.9 mg/dL Normal 8.5-10.5 [facility] Comment on above: Performed By: #### C BCA BMP, THYR, 1987-12 #### [facility] ([id number]) [address] [place] [address] 00396 #### SHANTE, 76422-2 #### [facility] ([id number]) [address] [facility], [address] [place] [address] Chloride [Moles/Vol] 104 mmol/L Normal 98-109 [facility] Comment on above: Performed By: #### Fernando BCA BMP, THYR, 1987-12 #### [facility] ([id number]) [address] [place] [address] 26629 #### SHANTE, 85515-6 #### [facility] ([id number]) [address] [facility], [address] [place] [address] CO2 [Moles/Vol] 19 mmol/L Low 22-32 [facility] Comment on above: Performed By: #### C BCA, BMP, THYR, 1987-12 #### [facility] ([id number]) [address] [place] [address] 61012 #### SHANTE, 16829-1 #### [facility] ([id number]) [address] [facility], [address] [place] [address] Creatinine [Mass/Vol] 0.90 mg/dL Normal 0.40-1.00 [facility] Comment on above: Result Comment: METH OD TRACEABLE TO IDMS STANDARD Performed By: #### Fernando BCA, BMP, THYR, 1987-12 #### [facility] ([id number]) [address] [place] [address] 10968 #### SHANTE 64016-4 #### [facility] ([id number]) [address] [place] [address] GFR/1.73 sq M.predicted among non-blacks MDRD (S/P/Bld) [Vol rate/Area] 89 mL/min/{1.73_m2} Normal >59 [facility] Comment on above: Result Comment: Reported eGFR is based on the CKD-EPI 2020 equation that does not use a race coefficient. Performed By: #### C CHANTELL GREENE THYR, 1987-12 #### [facility] ([id number]) [address] [place] [address] 20069 #### SHANTE 61573-3 #### [facility] ([id number]) [address] [facility], [address] [place] [address] Glucose [Mass/Vol] 121 mg/dL High 65-99 [facility] Comment on above: Performed By: #### CHANTELL King BCA, THYR, 1987-12 #### [facility] ([id number]) [address] [place] [address] 74169 #### SHANTE 94367-2 #### [facility] ([id number]) [address] [facility], [address] [place] [address] Potassium [Moles/Vol] 3.9 mmol/L Normal 3.5-5.0 [facility] Comment on above: Performed By: #### CHANTELL King BCA THYZac, 1987-12 #### [facility] ([id number]) [address] [place] [address] 86097 #### SHANTE 37697-8 #### [facility] ([id number]) [address] [facility], [address] [place] [address] Sodium [Moles/Vol] 136 mmol/L Normal 134-146 [facility] Comment on above: Performed By: #### CHANTELL King BCA, THYZac, 1987-12 #### [facility] ([id number]) [address] [place] [address] 39563 #### SHANTE 31622-2 #### [facility] ([id number]) [address] [facility], [address] [place] [address] Urea nitrogen [Mass/Vol] 9 mg/dL Normal 5-23 [facility] Comment on above: Performed By: #### CHANTELL King BCA THYZac, 1987-12 #### [facility] ([id number]) [address] [place] [address] 43917 #### SHANTE 33369-8 #### [facility] ([id number]) [address] [facility], [address] [place] [address] C REACTIVE PROTEINon 024 CRP [Mass/Vol] mg/L Normal 0.000-0.744 [facility] Comment on above: Performed By: #### CHANTELL King BCA, THYR, 1987-12 #### [facility] ([id number]) [address] [place] [address] 15121 #### SHANTE 25638-8 #### [facility] ([id number]) [address] [facility], [address] [place] [address] CBC AND AUTO DIFFon 05-19-20 24 ABSOLUTE BASOPHIL 0.1 X10E9/L Normal 0.0-0.2 [facility] Comment on above: Performed By: #### CHANTELL King BCA, THYZac, 1987-12 #### [facility] ([id number]) [address] [place] [address] 94942 #### SHANTE 51101-7 #### [facility] ([id number]) [address] [facility], [address] [place] [address] ABSOLUTE NEUTROPHIL 6.5 X10E9/L Normal 1.5-6.6 [facility] Comment on above: Performed By: #### Fernando GREENE BMP, THYR, 1987-12 #### [facility] ([id number]) [address] [place] [address] 59484 #### SHANTE 11487-3 #### [facility] ([id number]) [address] [facility], [address] [place] [address] Basophils/100 WBC (Bld) 1.0 % Normal [facility] Comment on above: Performed By: #### Fernando GREENE BMP, THYR, 1987-12 #### [facility] ([id number]) [address] [place] [address] 73953 #### SHANTE 80030-2 #### [facility] ([id number]) [address] [facility], [address] [place] [address] Eosinophils (Bld) [#/Vol] 0.6 10*3/uL High 0.0-0.4 [facility] Comment on above: Performed By: #### Fernando GREENE BMP, THYR, 1987-12 #### [facility] ([id number]) [address] [place] [address] 79353 #### SHANTE 03180-4 #### [facility] ([id number]) [address] [facility], [address] [place] [address] Eosinophils/100 WBC (Bld) 5.1 % Normal [facility] Comment on above: Performed By: #### Fernando GREENE BMP, THYR, 1987-12 #### [facility] ([id number]) [address] [place] [address] 32779 #### SHANTE 42647-0 #### [facility] ([id number]) [address] [place] [address] Erythrocyte distribution width (RBC) [Ratio] 12.5 % Normal 11.5-15.0 [facility] Comment on above: Performed By: #### Fernando BCA, BMP, THYR, 1987-12 #### [facility] ([id number]) [address] [place] [address] 91284 #### SHANTE 55273-0 #### [facility] ([id number]) [address] [facility], [address] [place] [address] Hematocrit (Bld) [Volume fraction] 37.4 % Normal 35-47 [facility] Comment on above: Performed By: #### Fernando BCA, BMP, THYR, 1987-12 #### [facility] ([id number]) [address] [place] [address] 89431 #### SHANTE 33357-9 #### [facility] ([id number]) [address] [facility], [address] [place] [address] Hemoglobin (Bld) [Mass/Vol] 12.7 g/dL Normal 11.7-15.5 [facility] Comment on above: Performed By: #### Fernando BCA, BMP, THYR, 1987-12 #### [facility] ([id number]) [address] [place] [address] #### SHANTE, [id number] #### [facility] ([id number]) [address], [address] [place] [address] Lymphocytes (Bld) [#/Vol] 3.9 10*3/uL High 1.0-3.5 [facility] Comment on above: Performed By: #### Fernando BCA, BMP, THYR, 1987-12 #### [facility] ([id number]) [address] [place] [id number] #### SHANTE [id number] #### [facility] ([id number]) [address], [address] [place] [address] Lymphocytes/100 WBC (Bld) 32.2 % Normal [facility] Comment on above: Performed By: #### Fernando BCA, BMP, THYR, 1987-12 #### [facility] ([id number]) [address] [place] [address] #### SHANTE, [id number] #### [facility] ([id number]) [address] [place] [address] MCH (RBC) [Entitic mass] 29.4 pg Normal 27-34 [facility] Comment on above: Performed By: #### Fernando BCA, BMP, THYR, 1987-12 #### [facility] ([id number]) [address] [place] [address] #### SHANTE [id number] #### [facility] ([id number]) [address] [place] [address] MCHC (RBC) [Mass/Vol] 34.0 g/dL Normal 32-36 [facility] Comment on above: Performed By: #### Fernando BCA, BMP, THYR, 1987-12 #### [facility] ([id number]) [address] [place] [address] #### SHANTE [id number] #### [facility] ([id number]) [address] [place] [address] MCV (RBC) [Entitic vol] 87 fL Normal 80-100 [facility] Comment on above: Performed By: #### Fernando BCA, BMP, THYR, 1987-12 #### [facility] [facility] ([id number]) [address] [place] [address] 464[address] #### SHANTE 25645-1 #### [facility] ([id number]) [address], [address] [place] [address] Monocytes (Bld) [#/Vol] 1.0 10*3/uL High 0-0.9 [facility] Comment on above: Performed By: #### Fernando BCA, BMP, THYR, 1986-12 #### [facility] ([id number]) [address] [place] [address] 31354 #### SHANTE 20683-5 #### [facility] ([id number]) [address] [place] [address] Monocytes/100 WBC (Bld) 8.0 % Normal [facility] Comment on above: Performed By: #### Fernando GREENE, BMP, THYR, 1986-12 #### [facility] ([id number]) [address] [place] [address] 48[address] #### SHANTE 61715-3 #### [facility] ([id number]) [address] [place] [address] Neutrophils/100 WBC (Bld) 53.7 % Normal [facility] Comment on above: Performed By: #### Fernando BCA, BMP, THYR, 1987-12 #### [facility] ([id number]) [address] [place] [address] 39[address] #### SHANTE, 11465-3 #### [facility] ([id number]) [address], [address] [place] [address] Platelet mean volume (Bld) [Entitic vol] 8.5 fL Normal 7-12 [facility] Comment on above: Performed By: #### Fernando BCA, BMP, THYR, 1987-12 #### [facility] ([id number]) [address] [place] [address] 46744 #### SHANTE 06877-9 #### [facility] ([id number]) [address] [place] [address] Platelets (Bld) [#/Vol] 347 10*3/uL Normal 150-450 [facility] Comment on above: Performed By: #### Fernando GREENE BMP, THYR, 1987-12 #### [facility] ([id number]) [address] [place] [address] 42062 #### SHANTE, 23306-3 #### [facility] ([id number]) [address] [facility], [facility] [address] [place] [address] RBC COUNT 4.32 X10E12/L Normal 3.80-5.20 [facility] Comment on above: Performed By: #### Fernando GREENE BMP, THYR, 1987-12 #### [facility] ([id number]) [address] [place] [address] #### SHANTE, 70300-1 #### [facility] ([id number]) [facility], [address] [address] WBC (Bld) [#/Vol] 12.1 10*3/uL High 4.0-11.0 [facility] Comment on above: Performed By: #### Fernando GREENE BMP, THYR, 1987-12 #### [facility] ([id number]) [address] [place] [address] 10060 #### SHANTE, 11492-6 #### [facility] ([id number]) [address], [address] [place] [address] BRAIN WO CONTon 4 CT BRAIN WO CONT CT BRAIN WO CONT Indication: Headache worsening blurry vision neck pain. TECHNIQUE: Unenhanced CT of the head is performed with no prior comparison. FINDINGS: Ventricles are not dilated. There is no shift of midline structures. No acute intracranial hemorrhage or abnormal mass effect. Bone windows show complete opacification of left maxillary sinus which is incompletely included. Density within the sinus noted which could represent a tooth but is incompletely included. 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 Remaining paranasal sinuses are clear. The pituitary gland shows empty sella appearance and appears slightly expanded. Cerebellar tonsils show a normal location. IMPRESSION: 1. Complete opacification of left maxillary sinus. Density within the left maxillary sinuses incompletely included may represent portions of a tooth. 2. Empty sella appearance to pituitary. Sella turcica appears mildly expanded. No other definite signs of intracranial hypertension. 3. No acute findings. All CT scans at this facility use dose modulation, iterative reconstruction, and/or weight based dosing when appropriate to reduce radiation dose to as low as reasonably achievable. Finalized by Divina Casarez MD on 05/19/2024 7:54 AM Normal [facility] CT CTA CAROTIDon 05-19-[address] CTA CAROTID CLINICAL HISTORY: A 29-year-old female with the history of the headaches, blurred vision and neck pain. Carotid artery dissection is suspected. TECHNIQUE: Multidetector spiral CT scan of the neck is performed by using CT angiogram protocol. The patient received 100 mL of Omnipaque 350 intravenously. Coronal and sagittal and 3-D volume rendered maximum intensity projection images generated on separate workstation. All CT scans at this facility use dose modulation, iterative reconstruction, and/or weight based dosing when appropriate to reduce radiation dose to as low as reasonably achievable. NOTE: The [place] Symptomatic Carotid Endarterectomy Trial (NASCET)calculation of ICA stenosis percentage using the following formula with a threshold of 60 to 70%: % ICA stenosis = (1 - [narrowest ICA diameter/diameter normal distal cervical ICA]) x 100 COMPARISON: Comparison is made with the CT scan of the brain of 05/19/2024. FINDINGS: CT angiogram reveals normal caliber of the aortic arch. The right innominate, left common carotid and left subclavian arteries are patent without evidence of aneurysm or significant stenosis. The right common carotid and right subclavian arteries are patent. Both cervical vertebral arteries are patent without evidence of significant stenosis or dissection. At both carotid bifurcations, there is no evidence of significant atherosclerotic disease or stenosis at the carotid bifurcation and proximal internal carotid arteries.There is no evidence of dissection of the cervical internal carotid arteries. There is a spinal neural stimulator with the distal tip at the level of C2. IMPRESSION: 1. Both carotid bifurcations are patent without evidence of significant atherosclerotic disease or stenosis. 2. Both cervical vertebral arteries are patent. 3. Great vessels of the aortic arch are patent without evidence of aneurysm or significant stenosis. Finalized by Sandoval Sinha MD on 05/19/2024 8:01 AM Normal [facility] CT CTA HEADon 05-19-[address] CTA HEAD CT angiogram head with contrast History: Carotid artery dissection. Technique: CT angiogram of the head was performed following intravenous administration of 100 cc Omnipaque 350 nonionic intravenous contrast. 3-D maximum intensity projection images generated and reviewed under concurrent physician supervision. Automated exposure control was utilized. Arterial blood flow was measured to assist the stroke clinical team in the diagnosis of large vessel occlusion in patients undergoing screening for acute ischemic stroke using Rapid AI software when clinically indicated. Findings: Suboptimal bolus timing. Head and neck dictated separately. Grossly unremarkable visualized intracranial internal carotid arteries, anterior, middle, posterior cerebral arteries. Fenestrated proximal basilar artery, which appears patent. Patent intracranial vertebral arteries. No sizable, saccular aneurysm. Flat pituitary. Opacified left maxillary sinus. Unremarkable orbits, scalp soft tissues. CSF engorged optic nerve sheaths. Impression: Suboptimal exam quality, substantial venous contamination. No convincing acute large vessel occlusion. Features suggestive of idiopathic intracranial hypertension, please correlate clinically. All CT scans at this facility use dose modulation, iterative reconstruction, and/or weight based dosing when appropriate to reduce radiation dose to as low as reasonably achievable. Finalized by Samuel Man MD on 05/19/2024 8:00 AM Normal [facility] ESR Photometric method (Bld) [Velocity]on 05-19-2024 ESR, ERYTHROCYTE SEDIMENTATION RATE 9 mm/h Normal 0-20 [facility] Comment on above: Performed By: #### C JC, BMP, THYR, 1987-12 ####[facility] ([id number])[address] [place] [address]#### HA1C, 22553-7 ####[facility] ([id number])[address] [address] Glucose Glucometer (BldC) [M ass/Vol]on 05-19-2024 Glucose [Mass/Vol] 110 mg/dL High 65-99 [facility] HGB A1C (GLYCO-HGB)on 2023 Glucose [Mass/Vol] 111 mg/dL Normal [facility] Comment on above: Performed By: #### C CHANTELL GREENE THYR, 1987-12 #### [facility] ([id number]) [address] [place] [address] 35739 #### SHANTE, 51894-4 #### [facility] ([id number]) [facility], [address] [place] [address] HbA1c (Bld) [Mass fraction] 5.5 % Normal 4.4-5.6 [facility] Comment on above: Result Comment: NOTE ADA Guidelines Result HgbA1c Normal : less than 5.7 % Prediabetes : 5.7 % to 6.4 % Diabetes : > 6.4 % Use with caution in patients with abnormal hemoglobin variants as the half-life of red blood cells and in vivo glycation rates are affected. Performed By: #### C CHATNELL GREENE THYZac, 1986-12 #### [facility] ([id number]) [address] [place] [address] 40114 #### SHANTE, 79256-2 #### [facility] ([id number]) [address], [address] [place] [address] THYROID PROFILEon 05-19-2024 Free T4 [Mass/Vol] 0.99 ng/dL Normal 0.61-1.60 [facility] Comment on above: Performed By: #### CHANTELL King BCA, THYZac, 1987-12 #### [facility] ([id number]) [address] [place] [address] [place] [address] #### HA1C, 72696-9 #### [facility] ([id number]) [address] [facility], [address] [place] [address] TSH 2.56 uIU/mL Normal 0.49-4.67 [facility] Comment on above: Performed By: #### C BCA, BMP, THYR, 1987- #### [facility] ([id number]) [address] [facility], [place] [address] #### HA1C, 55036-3 #### [facility] ([id number]) [address] [facility], [address] [place] [address] XR SPINE CERVICAL 3 VWS OR L ESSon 05-19-2024 XR SPINE CERVICAL 3 VWS OR LESS XR SPINE CERVICAL 3 VWS OR LESS XR SPINE CERVICAL 3 VWS OR LESS Clinical history:Neck pain cervical neck pain Comparison: None. Findings: Cervical stimulator device is in place. No prevertebral soft tissue swelling. No vertebral body height loss. Alignment and mineralization appear to be within normal limits. Impression: No evidence of acute ossific abnormality. Finalized by Jone Guzman MD on 05/19/2024 6:15 PM Normal [facility] Tao 03-30-2024 L Specimen: [id number] Received: 03/31/24 Status: KOFI Abbais Num: [id number] Spec Type: Surgical Subm Dr: Keith Cervantes Tissues: A Uterus w/ or w/o tubes ovaries except neoplastic or prolap (UTERUS, CERVIX B Soft Tissue Mass - Biopsy (LEFT OVARIAN CYST WALL) Procedures: HE/13, Gross/Micro L5/2 Age/ Patient Sex Location Account Attending Physician Raphael Meehan / LABELL [id number] Keith Cervantes SPEC NUM: [id number] RECD: 03/31/24 STATUS: KOFI ABBASI NUM: [id number] CHELSEA: 03/30/[address]: Keith Cervantes ENTERED: 03/31/[address] [facility] [address]: SPEC TYPE: Surgical DEPT: [facility] ENTERED BY: [id number] RECV BY: [id number] ORDERED: HE, Gross/Micro L5/2 ORDERED: HE, Gross/Micro L5/2 Pathological Diagnosis Uterus, Cervix, Bilateral [...] fimbriated fallopian tubes. The first -------- Specimen: [id number] Received: 03/31/24 Status: KOFI Fidencio Num: [id number] Spec Type: Surgical Subm Dr: Keith Cervantes Tissues: A Uterus w/ or w/o tubes ovaries except neoplastic or prolap (UTERUS, CERVIX B Soft Tissue Mass - Biopsy (LEFT OVARIAN CYST WALL) Procedures: , Gross/Micro L5/2 -------- Patient: MeehanAugustina ledbetterfeliciano Butler [id number] (Continued) -------- Specimen: [id number] Received: 03/31/24 (Continued) Gross Description (Continued) Signed (signature on file) Diana Massey MD 04/03/24 1648 -------- Specimen: [id number] Received: 03/31/24 Status: KOFI Abbasi Num: [id number] Spec Type: Surgical Subm Dr: Keith Cervantes Tissues: A Uterus w/ or w/o tubes ovaries except neoplastic or prolap (UTERUS, CERVIX B Soft Tissue Mass - Biopsy (LEFT OVARIAN CYST WALL) Procedures: , Gross/Micro L5/2 -------- Patient: Raphael Meehan [id number] (Continued) -------- Specimen: [id number] Received: 03/31/24-104 (Continued) Gross Description (Continued) fallopian tube measures [...] measures 2.0 x 1.5 x 1.0 cm. Photo Intern sections are as follows: A1 anterior cervix A2 calcified vessels from the anterior cervix A3 anterior endomyometrium A4 anterior leiomyomas A5 posterior cervix A6 posterior endomyometrium A7 posterior leiomyomas A8 first fimbria serially sectioned A 9 safety representative sections of the first fallopian tube A 10-second fimbria serially sectioned A11 safety representative sections of the second fallopian tube Part B received in formalin with the patient's name and left ovarian cyst wall and consists of 2 irregular shaped portions of aguilar fibrous soft tissue ranging in size from 0.5 to 1.5 cm in greatest dimension. The largest portions is trisected. The specimen is entirely submitted in cassette B1. CPT Codes 73140 -------- -------- Specimen: [id number] Received: 03/31/24 Status: KOFI Maradiagaheide Num: [id number] Spec Type: Surgical (more content not included)... Normal [facility] 02-27-2024 L Specimen: [id number] Received: 02/28/24 Status: LUBNASadiq Abbasi Num: [id number] Spec Type: Surgical Subm Dr: Keith Cervantes Tissues: A Endometrium - Biopsy (EMBX) Procedures: HE/2, Gross/Micro L4 Age/ Patient Sex Location Account Attending Physician Raphael Meehan L / LABELL [id number] Keith Cervantes SPEC NUM: [id number] RECD: 02/28/24 STATUS: KOFI ABBASI NUM: [id number] CHELSEA: 02/27/[address]: Keith Cervantes ENTERED: 02/28/[address] [facility] [address]: Dorian,Lab SPEC TYPE: Surgical DEPT: [facility] ORDERED: [...] cm, entirely submitted in A1. CPT Codes 49687 -------- -------- Specimen: [id number] Received: 02/28/24-125 Status: KOFI Maradiagaheide Num: [id number] Spec Type: Surgical Subm Dr: Keith Cervantes Tissues: A Endometrium - Biopsy (EMBX) Procedures: HE/Ernestina, Gross/Micro L4 -------- Patient: Raphael Meehan [id number] (Continued) -------- Signed (signature on file) Diana Massey MD 03/03/24 1751 Normal [facility] RAD - Ultrasound Reporton RAD - Ultrasound Report [id number]. 00TIFF Normal [facility] HCG ( test) Ql (U)o n 01-15-2024 Beta HCG ( test) Ql (U) Negative Normal NEG [facility] Comment on above: Performed By: #### 2 106-3 #### [facility] ([id number]) [address] [place] [address] [place] [address] URN MACROSCOPIC NURon 2023 BILIRUBIN DAINA Negative Normal [facility] Comment on above: Performed By: #### N UM #### [facility] ([id number]) [address] [place] [address] [place] [address] BLOOD/HGB DAINA Small Abnormal NEG [facility] Comment on above: Performed By: #### N UM #### [facility] ([id number]) [address] [place] [address] [place] [address] GLUCOSE DAINA Negative Normal NEG [facility] Comment on above: Performed By: #### N UM #### [facility] ([id number]) [address] [place] [address] [place] [address] KETONES DAINA Negative Normal NEG [facility] Comment on above: Performed By: #### N UM #### [facility] ([id number]) [address] [place] [address] [place] [address] LEUKOCYTE ESTERASE DAINA Negative Normal NEG [facility] Comment on above: Performed By: #### N UM #### [facility] ([id number]) [address] [place] [address] [place] [address] NITRITE DAINA Negative Normal NEG [facility] Comment on above: Performed By: #### N UM #### [facility] ([id number]) [address] [place] [address] [place] [address] PH DAINA 6.5 Normal 5.0-8.5 [facility] Comment on above: Performed By: #### N UM #### [facility] ([id number]) [address] [place] [address] PROTEIN DAINA Negative Normal NEG [facility] Comment on above: Performed By: #### N UM #### [facility] ([id number]) [address] [place] [address] SPECIFIC GRAVITY DAINA 1.025 Normal 1.003-1.035 [facility] Comment on above: Performed By: #### N UM #### [facility] ([id number]) [address] [place] [address] UROBILINOGEN DAINA 0.2 eu/dL Normal <1.1 [facility] Comment on above: Performed By: #### N UM #### [facility] ([id number]) [address] [place] [address] XR SPINE LUMBAR 2 OR 3 VWSon [...] Galvez MD on 01/15/2024 1:20 PM Normal [facility] ED Note-Physicianon 10-17-19 ED Note-Physician [id number] .00TIFF Normal [facility] RAD - CT Reporton 10-17-2023 RAD - CT Report [id number] .00TIFF Normal [facility] ED Note-Physicianon 09-22-19 ED Note-Physician Basic Information [...] days, # 30 cap(s), Refills(s) 0, [id number], 165.1, cm, 09/21/23 8:51:00 EST, Height/Length Dosing, 97.9, kg, 09/21/23 8:51:00 EST, Weight Dosing doxycycline, 100 mg = 1 tab(s), Oral, BID, X 10 day(s), # 20 tab(s), Refills(s) 0, [id number], 165.1, cm, 09/21/23 8:51:00 EST, Height/Length [...] Information Debbie Cole In 3 days 09/24/[address] [facility] (1) Additional Instructions: Patient Education Cellulitis, Adult [...] made to ensure accuracy, however, inadvertently computerized quality management coordinator mistakes may be present. Appropriate healthcare PPE [...] tab(s), Oral, Chloe (more content not included)... [facility] Comment on above: Result Comment: Elec tronically Signed By: Reece Oh PA-C\.br\Date and Time Signed: 09/21/23 09:59 EST\.br\Electronically Co-Signed By: Juanjose Toscano DO\.br\Date and Time Co-Signed: 09/22/23 07:13 EST Ambulatory Visit Summaryon 0 09-21-2023 Ambulatory Visit Summary MEEHANRAPHAEL :1995 Visit Date:09/21/2023 Ambulatory Visit Instructions Your [...] 3:40 PM EST With: Debbie Bui Where: [facility] Consent for Treatmenton Consent for Treatment [id number] .00TIFF [facility] Discharge Instructionson Discharge Instructions [id number] .00TIFF Normal [facility] ED Clinical Summaryon 2023 ED Clinical Summary [address] [id number] ED Clinical Summary Person Information Name: RAPHAEL MEEHAN [place] Age: 28 Years : 1995 Sex: Female Language: Lithuanian PCP: Debbie uBi Marital Status: Single Visit Id: Visit Reason: [...] 09/21/2023 10:00:31 09/21/2023 10:00:31 09/21/2023 10:00:31 ADDRESS: [address] [place] [id number] PHYS DOC NOTES: MEDICAL INFORMATION: Prescriptions Given: New Medications [id number], [address] [place], [place] [id number], [phone] cephalexin (Keflex 500 mg Cap) 1 Capsules [...] Instructions: Cellulitis, Adult Follow up: With: Address: Rock: Debbie Cole [address] [place], [place] [id number] Business (1) In 3 days 09/24/2023 DIAGNOSIS: Cellulitis Normal [facility] ED Patient Education Noteon 09-21-2023 ED Patient [...] these instructions at home: Medicines ? Take htyi-sgg-nmwrbmd and prescription medicines only as told by [...] as antibiotic medicines or antihistamines. ? Take dybh-ecr-uidasjd and prescription medicines only as told by [...] Reviewed: 05/11/2022 Elsevier Patient Education ? 2022 [employer] Normal [facility] ED Patient Summaryon 024 ED Patient Summary [address] [address] Patient Discharge Instructions Person Information Name: RAPHAEL MEEHAN Age: 28 Years Arrival Date: 09/21/2023 08:45:38 Discharge Diagnosis: Cellulitis Primary Care Physician: Debbie Bui Provider Information Primary Provider: Juanjose Toscano DO Advanced Insurance Coordinator:Reece Oh PA-C The exam and treatment you received in the Emergency Department were for an urgent problem and are not intended as complete care. It is important that you follow up with a doctor, nurse practitioner, or physician?s assistant spa manager for ongoing care. If your symptoms become worse or you do not improve as expected and you are unable to reach your usual health care provider, you should return to the Emergency Department. We are available 24 hours a day. RAPHAEL MEEHAN has been given the following list of patient education materials, prescriptions and follow-up instructions: Follow-up Instructions: With: Address: When: Debbie Cole [address] [place] [address] Business (1) In 3 days 09/24/2023 In the event that this physician does not participate in your insurance network, please consult with your insurance company to find a nearby participating provider. Patient Education Materials: Cellulitis, Adult A MESSAGE TO ALL PATIENTS REGARDING OPIOIDS PRESCRIPTION OPIOIDS: WHAT YOU NEED TO KNOW Prescription opioids can be used to help relieve skrjeiuw-bl-sboewl pain and are often prescribed following a [...] be struggling with addiction, tell your health adult day care worker and ask for guidance or call [facility]?S National Helpline at 0-894-984-EZCH. b Source: [place] Departm (more content not included)... Normal [facility] Office/Clini c Noteon 09-21-2023 Family [...] 50,000 intl units (1.25 mg) oral capsule, [address] International_Unit= 1 cap(s), Oral, qWeek, 3 refills [...] Refuses diphtheria/pertussis, acel/tetanus adult 07/09/2017 Recorded Normal [facility] Comment on above: Result Comment: Elec tronically Signed By: Debbie Bui.rudy\Date and Time Signed: 09/21/23 08:30 EST Provider Letteron 09-21-2023 Provider Letter September 21, [address] [address] : 1995 To Whom It May Concern, Please excuse above patient from work. Date of Illness: From: 09/21/2023 To: 09/21/2023 May Return to Work On: 09/24/2023 Restrictions: _ Comments: _ Sincerely, [place] [address] [facility] US LE Venous Duplex Lefton 0 [...] Isaias Palma MD Transcribed by: ILDA Technologist: HW [facility] Ambulatory Visit Summaryon 0 09-07-2023 Ambulatory [...] 3:40 PM EST With: Debbie Bui Where: [facility] Dorian Normal [facility] CBC w/ Auto Diffon 4 Basophil Absolute 0.1 E9/L Normal 0.0-0.2 [facility] Comment on above: Performed By: #### 2 [id number], [id number], [id number], [id number], [id number], [id number] ####[facility] [address] [place] [address] Basophils/100 WBC (Bld) 0.8 % Normal 0.0-2.0 [facility] Comment on above: Performed By: #### 2 753079, [id number], [id number], [id number], [id number], [id number] ####[facility] [address] [place] [address] Eos Absolute 0.9 E9/L High 0.0-0.5 [facility] Comment on above: Performed By: #### 2 804912, [id number], 3171274, [id number], [id number], [id number] ####[facility] [address] [place] [address] Eosinophils/100 WBC (Bld) 6.8 % Normal 0.0-8.0 [facility] Comment on above: Performed By: #### 2 139977, [id number], 6785542, 81396947, [id number], [id number] ####[facility] [address] [place] [address] Erythrocyte distribution width (RBC) [Ratio] 13.1 % Normal 10.9-14.2 [facility] Comment on above: Performed By: #### 2 013995, [id number], 3982404, 56491304, [id number], 1470855 ####[facility] [address] [place] [address] Hematocrit (Bld) [Volume fraction] 39.0 % Normal 34.0-46.0 [facility] Comment on above: Performed By: #### 2 024294, [id number], 2960839, [id number], [id number], 4216439 ####[facility] [address] [place] [address] Hemoglobin (Bld) [Mass/Vol] 12.7 g/dL Normal 12.0-16.0 [facility] Comment on above: Performed By: #### 2 333829, [id number], 3287945, 48101220, 788527428, 1457979 ####[address] [address] Lymph Absolute 4.0 E9/L Normal 1.0-4.0 [facility] Comment on above: Performed By: #### 2 839349, 469523577, 7401630, 13569981, 006423644, 9202201 ####[address] [address] Lymphocytes/100 WBC (Bld) 30.3 % Normal 14.0-50.0 [facility] Comment on above: Performed By: #### 2 301217, 975654159, 4137223, 76053582, 470492554, 6049194 ####[address] [address] MCH (RBC) [Entitic mass] 29.2 pg Normal 27.0-34.0 [facility] Comment on above: Performed By: #### 2 515593, 740803715, 5771122, 00790733, 834386480, 5649978 ####[address] [address] MCHC (RBC) [Mass/Vol] 32.7 g/dL Normal 31.4-36.0 [facility] Comment on above: Performed By: #### 2 107667, 502413542, 7930496, 41881688, 398869768, 1381834 ####[facility] [address] [place] [address] MCV (RBC) [Entitic vol] 89.3 fL Normal 80.0-100.0 [facility] Comment on above: Performed By: #### 2 714170, 363509996, 4473218, 10278967, 832731595, 1108104 ####[address] [place] [address] [place] Absolute 0.9 E9/L Normal 0.2-1.0 [facility] Comment on above: Performed By: #### 2 185828, 184301475, 3325399, 84637193, 598456050, 0285666 ####[address] [address] Monocytes/100 WBC (Bld) 6.9 % Normal 4.0-14.0 [facility] Comment on above: Performed By: #### 2 265458, 635919765, 9901113, 88583178, 030345135, 9807775 ####[address] [address] Neutro Absolute 7.3 E9/L Normal 2.0-7.5 [facility] Comment on above: Performed By: #### 2 421396, 759176781, 6792126, 49082729, 347657150, 9156164 ####[address] [address] Neutro Auto 55.2 % Normal 36.0-75.0 [facility] Comment on above: Performed By: #### 2 446118, 444690487, 5328597, 93146863, 687297799, 6444832 ####[address] [place] [address] Platelet 327.0 E9/L Normal 150.0-500.0 [facility] Comment on above: Performed By: #### 2 087203, 472625549, 9863736, 31491793, 250730806, 6842593 ####[facility] [address] [place] [address] Platelet mean volume (Bld) [Entitic vol] 8.8 fL Normal 6.4-10.8 [facility] Comment on above: Performed By: #### 2 331411, 620990841, 9383602, 87733166, 913899593, 6137025 ####[facility] [address] [place] [address] RBC 4.4 E12/L Normal 4.3-5.9 [facility] Comment on above: Performed By: #### 2 911725, 077869847, 4556776, 60643754, 499833084, 0951970 ####[facility] [address] [place] [address] WBC 13.2 E9/L High 4.0-11.0 [facility] Comment on above: Performed By: #### 2 709661, 947703588, 8162974, 82358165, 456221513, 2297734 ####[facility] [address] [place] [address] CHEMISTRYOrdered By: SYSTEM SYSTEM on 09-07-2023 Albumin [...] 100.0 ng/mL Remisol Chem CHEMISTRYOrdered By: Dale Mccray ertolasio on 09-07-2023 HbA1c (Bld) [Mass fraction] 5.2 % Normal <=5.9% [facility] ChemAutoSS CMPon 09-07-2023 Albumin [Mass/Vol] 3.6 g/dL Normal 3.3-5.0 [facility] Comment on above: Performed By: #### 2 429077, 624163789, 9312564, 11820520, 144004130, 1778941 ####[facility] [address] [place] [address] Albumin/Globulin [Mass ratio] 1.9 {ratio} Normal 1.1-2.2 [facility] Comment on above: Performed By: #### 2 123397, 062992074, 3562780, 81822794, 535796602, 0439099 ####[facility] [address] [place] [address] Alk Phos 41 Int._Unit/L Normal 21-98 [facility] Comment on above: Performed By: #### 2 844033, 927820687, 7475956, 38257512, 282515390, 0870300 ####[facility] [address] [place] [address] ALT 29 Int._Unit/L Normal 6-46 [facility] Comment on above: Performed By: #### 2 127544, 680164126, 0557103, 35173899, 557845629, 6672293 ####[facility] [address] [place] [address] Anion gap [Moles/Vol] 12 mmol/L Normal 6-16 [facility] Comment on above: Performed By: #### 2 725058, 660820620, 7909839, 34766068, 491840832, 2028868 ####[address] [place] [address] AST 25 Int._Unit/L Normal 5-43 [facility] Comment on above: Performed By: #### 2 108574, 381944499, 8291577, 44660415, 163104564, 8592105 ####[facility] [address] [place] [address] Bili Total 0.4 mg/dL Normal 0.0-1.1 [facility] Comment on above: Performed By: #### 2 012866, 605708254, 2996246, 35782238, 022112994, 4410296 ####[facility] [address] [place] [address] BUN/Creat Ratio 10 No Units Normal 10-20 [facility] Comment on above: Performed By: #### 2 237380, 005887249, 5449591, 29994550, 585704429, 7217365 ####[facility] [address] [place] [address] Calcium [Mass/Vol] 8.3 mg/dL Low 8.9-11.1 [facility] Comment on above: Performed By: #### 2 148037, 606125681, 3871135, 65586663, 905169603, 3532000 ####[facility] [address] [place] [address] Chloride [Moles/Vol] 107 mmol/L Normal 101-111 [facility] Comment on above: Performed By: #### 2 275926, 127295144, 5478251, 65885478, 168531726, 3113174 ####[facility] [address] [place] [address] CO2 [Moles/Vol] 24 mmol/L Normal 21-31 [facility] Comment on above: Performed By: #### 2 192563, 747900368, 1933822, 29926226, 668517579, 4292654 ####[facility] [address] [place] [address] Creatinine [Mass/Vol] 0.7 mg/dL Normal 0.5-1.3 [facility] Comment on above: Performed By: #### 2 152521, 994033445, 3195459, 82324444, 750358054, 4154010 ####[facility] [address] [place] [address] Globulin (S) [Mass/Vol] 1.9 g/dL Normal 1.4-4.0 [facility] Comment on above: Performed By: #### 2 774714, 071054882, 8464046, 68861044, 753646529, 2658299 ####[facility] [address] [place] [address] Glucose [Mass/Vol] 91 mg/dL Normal 55-199 [facility] Comment on above: Performed By: #### 2 919307, 233122627, 2440846, 25715328, 697940672, 6644365 ####[facility] [address] [place] [address] Potassium [Moles/Vol] 4.3 mmol/L Normal 3.5-5.3 [facility] Comment on above: Performed By: #### 2 341979, 046465274, 0404269, 65028632, 697122452, 9127683 ####[facility] [address] [place] [address] Protein [Mass/Vol] 5.5 g/dL Low 6.0-7.8 [facility] Comment on above: Performed By: #### 2 568726, 904490470, 8315639, 66852220, 719879247, 7718843 ####[facility] [address] [place] [address] Sodium [Moles/Vol] 139 mmol/L Normal 135-145 [facility] Comment on above: Performed By: #### 2 468479, 242553883, 3279199, 10787857, 373843484, 3038149 ####[facility] [address] [place] [address] Urea nitrogen [Mass/Vol] 7 mg/dL Normal 5-21 [facility] Comment on above: Performed By: #### 2 498525, 313072605, 5266364, 29935481, 673565851, 0827763 ####[facility] [address] [place] [address] Family Medicine Office/Clini c Noteon 09-07-2023 Family [...] is over 500 , pt went to [facility] and states she just have iv fluids placed and the didn't check any lab work. pt states for about 2 years she will feel shaky and clammy and always thirsty. History of Present Illness pt having episodes of dizziness. BS was checked at she was told it was over 500. Went to [facility] gave her IV fluids. Feels shaky, [...] Comprehensive Metabolic Panel HgbA1c Lab Specimen Collect 77508 Vitamin B12 Level Vitamin D 25 Hydroxy 2. Excessive thirst (R63.1: Polydipsia) excessively thirsty. will check labs today Ordered: CBC w/ Auto Diff Comprehensive Metabolic Panel HgbA1c Lab Specimen Collect 97771 Vitamin B12 Level Vitamin D 25 Hydroxy 3. Blood glucose elevated (R73.9: Hyperglycemia, unspecified) pt was dizzy at work. nurse checked BS ans was above 500. went to ER. received IV fluids. will check HGBA1C. last check was WNL Ordered: CBC w/ Auto Diff Comprehensive Metabolic Panel HgbA1c Lab Specimen Collect 92009 Vitamin B12 Level Vitamin D 25 Hydroxy 4. Fatigue (R53.83: Other fatigue) c/o worsening fatigue Ordered: CBC w/ Auto Diff Comprehensive Metabolic Panel HgbA1c Lab Specimen Collect 96269 Vitamin B12 Level Vitamin D 25 Hydroxy [...] Refuses diphtheria/pertussis, acel/tetanus adult 07/09/2017 Recorded Normal [facility] Comment on above: Result Comment: Elec tronically Signed By: Debbie Bui\.rudy\Date and Time Signed: 09/07/23 12:26 EST HEMATOLOGYOrdered [...] Normal 80.0 - 100.0 fL Remisol Heme [place] Absolute 0.9 E9/L Normal 0.2 - 1.0 [...] High 4.0 - 11.0 E9/L Remisol Heme [id number] 09-07-2023 HbA1c (Bld) [Mass fraction] 5.2 % Normal <=5.9 [facility] Comment on above: Performed By: #### 2 074158, 298331619, 2002718, 96248013, 944214081, 2379341 ####[facility] [address] [place] [address] Vit B12on 09-07-2023 Cobalamin (Vitamin B12) [Mass/Vol] 294 pg/mL Normal 50-1500 [facility] Comment on above: Performed By: #### 2 571907, 430207046, 8978060, 87649738, 930152300, 0149821 ####[facility] [address] [place] [address] Vitamin D 25 Hydroxyon 09-07 Vitamin D 25 Hydroxy 9.8 ng/mL Low 30.0-100.0 [facility] Comment on above: Performed By: #### 2 488946, 124266881, 1054334, 83229826, 371859914, 7985217 ####[address] [place] [address] eGFRon 09-07-2023 eGFR 121 mL/min/1.73 m2 Normal >=59 [facility] Comment on above: Order Comment: Order added by Discern Expert. Performed By: #### 2 456687, 934075959, 6053846, 98890425, 937580663, 7072835 ####[address] [place] [address] RAD - Ultrasound Reporton RAD - Ultrasound Report [id number] .00TIFF Normal [facility] US EXT NON-VASC LT LIMITEDon 08-08-2023 US [...] Granger MD on 08/08/2023 1:38 PM Normal [facility] US EXT NON-VASC RT LIMITEDon 08-08-2023 [...] Valero MD on 08/08/2023 12:20 PM Normal [facility] Ambulatory Visit Summaryon 1 10-08-2022 Ambulatory [...] 3:20 PM EST With: Debbie Bui Where: [facility] Medicine Dorian Normal [facility] Office/Clini c Noteon 08-07-2023 [facility] Medicine Office/Clinic Note HPI Staff Raphael is [...] Refuses diphtheria/pertussis, acel/tetanus adult 07/09/2017 Recorded Normal [facility] Comment on above: Result Comment: Elec tronically [...] Daily, # 30 tab(s), Refills(s) 0, [facility]acy: [id number], 164, cm, 07/09/23 15:22:00 EST, Height/Length Dosing, 98.9, kg, 07/09/23 15:22:00 EST, Weight Dosing phentermine, 37.5 mg = 1 tab(s), Oral, Daily, # 30 tab(s), Refills(s) 0, Pharmacy: [id number], 164.4, cm, 06/08/23 10:01:00 EDT, Height/Length [...] Daily, # 30 tab(s), Refills(s) 0, [id number], cm, 07/09/23 15:22:00 EST, Height/Length Dosing, 98.9, kg, 07/09/23 15:22:00 EST, Weight Dosing phentermine, 37.5 mg = 1 tab(s), Oral, Daily, # 30 tab(s), Refills(s) 0, [id number], 164.4, cm, 06/08/23 10:01:00 EDT, Height/Length Dosing, 102, kg, 06/08/23 10:01:00 EDT, Weight Dosing Smoker (F17.200: Nicotine dependence, unspecified, uncomplicated) consider not smoking Ordered: phentermine, 37.5 mg = 1 tab(s), Oral, Daily, # 30 tab(s), Refills(s) 0, [id number], 164, cm, 07/09/23 15:22:00 EST, Height/Length Dosing, 98.9, kg, 07/09/23 15:22:00 EST, Weight Dosing phentermine, 37.5 mg = 1 tab(s), Oral, Daily, # 30 tab(s), Refills(s) 0, [id number], 164.4, cm, 06/08/23 10:01:00 EDT, Height/Length Dosing, 102, kg, 06/08/23 10:01:00 EDT, Weight Dosing Orders: azithromycin, = 1 packet(s), Oral, As Directed, as directed on package labeling, X 5 day(s), # 6 tab(s), Refills(s) 0, [id number], 164, cm, 07/09/23 15:22:00 EST, Height/Length Dosing, 98.9, kg, 07/09/23 15:22:00 EST, Weight Dosing methylPREDNISolone, = 1 packet(s), Oral, As Directed, as directed on package labeling, X 6 day(s), # 21 tab(s), Refills(s) 0, Pharmacy: [facility] #[id number], 164, cm, 07/09/23 15:22:00 EST, Height/Length [...] Given P (more content not included)... Normal [facility] Comment on above: Result Comment: Elec tronically [...] 3:00 PM EST With: Debbie Bui Where: [facility] Ambulatory Visit Summaryon 1 Ambulatory Visit Summary AUGUSTINA MEEHANTANShani Butler :1995 Visit Date:06/08/2023 Ambulatory Visit Instructions Your [...] 3:20 PM EST With: Debbie Bui Where: [facility] Family Medicine Office/Clini c Noteon 06-08-2023 [...] Daily, # 30 tab(s), Refills(s) 0, [id number], 164.4, cm, 06/08/23 10:01:00 EDT, Height/Length Dosing, 102, kg, 06/08/23 10:01:00 EDT, Weight Dosing 2. Abnormal weight gain (R63.5: Abnormal weight gain) see above 3. BMI 37.0-37.9, adult (Z68.37: Body mass index [BMI] 37.0-37.9, adult) BMI education complete Ordered: phentermine, 37.5 mg = 1 tab(s), Oral, Daily, # 30 tab(s), Refills(s) 0, Pharmacy: [facility] #[id number], 164.4, cm, 06/08/23 10:01:00 EDT, Height/Length Dosing, 102, kg, 06/08/23 10:01:00 EDT, Weight Dosing 4. Smoker (F17.200: Nicotine dependence, unspecified, uncomplicated) consider not smoking Ordered: phentermine, 37.5 mg = 1 tab(s), Oral, Daily, # 30 tab(s), Refills(s) 0, Pharmacy: [facility]/pharmacy #3471, 164.4, cm, 06/08/23 10:01:00 EDT, Height/Length [...] Refuses diphtheria/pertussis, acel/tetanus adult 07/09/2017 Recorded Normal [facility] Comment on above: Result Comment: Elec tronically Signed By: Debbie Bui\.br\Date and Time Signed: 06/08/23 10:34 EDT Medication Consenton 023 Medication Consent [id number] .[id number] Normal [facility] CHEMISTRYOrdered By: SYSTEM SYSTEM on 05-25-2023 Albumin [...] 90 mL/min/1.73 m2 Normal >=59mL/min/1 .73 m2 [facility] Chem S Comment on above: Interpretive Data: [...] ratio] 11 mg/mg Normal 10 - 20 [facility] Remisol CHEMISTRYOrdered By: Debbie Brush on 05-25-2023 HbA1c (Bld) [Mass fraction] 5.3 % Normal <=5.9% [facility] ChemAutoSS HEMATOLOGYOrdered By: SYSTEM SYSTEM on 05-25-2023 Basophils/100 [...] High 4.0 - 11.0 E9/L [facility] HemeAutoSS HPon 01-16-2023 HP H&P reviewed. The patient was examined and there are no changes to the H&P. Normal [facility] Orders Onlyon 01-15-2023 Orders Only [id number] Raphael Meehan 1995 F Date Provider Department Center 01/15/2023 ROM ORTEGA [facility]IN [facility] Family History Family history unknown: Yes Normal [facility] Follow-Upon 01-04-2023 Follow-Up [id number] Raphael Meehan 1995 F Date Provider Department Center 01/04/2023 CHARLENE BYNUM PAIN [facility] Family History Family history unknown: Yes Level of Service:08861 ME OFFICE/OUTPATIENT ESTABLISHED MOD MDM 30-39 MIN Reason for Visit and Comments: Shoulder Pain [340767] - Left shoulder down the arm Follow-up [482142] [facility] 01-04-2023 [place] [address] Subjective Patient ID: Raphael Meehan is a [...] refill ROM full with pain on extension. Electrical Lineman strength preserved. Gait: normal PROCEDURE NOTE: Risks [...] refill 3. MAPS/OARRS pulled and reviewed. 4. [place] paperwork for ongoing Dr Garcia q2-3 months [...] this note were generated using voice recognition [employer] dictation software. Although every effort was made to ensure the accuracy of this automated quality management coordinator, some errors in quality management coordinator may have occurred. Normal [facility] PAP ACOG PANEL 2: 21 to 29on 12-18-2022 . . Normal [facility] Comment on above: Result Comment: Perf ormed at: [facility] Performed By: #### 4 [id number] #### [facility] [address] [place] [address] Dr. Michele Gallo Age Gdln ACOG Testing 21-29 [facility] Comment on above: Performed By: #### 4 [id number] #### [facility] [address] [place] [address] Dr. Michele Gallo DIAGNOSIS: Comment Normal [facility] Comment on above: Result Comment: NEGA TIVE FOR INTRAEPITHELIAL LESION OR MALIGNANCY. Performed at: [facility] Performed By: #### 4 136617 #### [facility] [address] [place] [address] Dr. Michele Gallo Methodology: Comment [facility] Comment on above: Result Comment: This liquid based ThinPrep(R) pap test was screened with the use of an image guided system. Performed at: [facility] Performed By: #### 4 [id number] #### [facility] [address] [place] [address] Dr. Michele Gallo Note: Comment [facility] Comment on above: Result Comment: The Pap smear is a screening test designed to aid in the detection of premalignant and malignant conditions of the uterine cervix. It is not a diagnostic procedure and should not be used as the sole means of detecting cervical cancer. Both false-positive and false-negative reports do occur. . Performed at: [facility] Performed By: #### 4 [id number] #### [facility] [address] [place] [address] Dr. Michele Gallo Performed by: Comment Normal [facility] Comment on above: Result Comment: Elmer Collins, Sample Checker (ASCP) Performed at: [facility] Performed By: #### 4 [id number] #### [facility] [address] [place] [address] Dr. Michele Gallo Reflex Criteria: Comment [facility] Comment on above: Result Comment: The HPV DNA reflex criteria were not met with this specimen result therefore, no HPV testing was performed. . Performed at: [facility] Performed By: #### 4 [id number] #### [facility] [address] [place] [address] Dr. Michele Gallo Specimen adequacy: Comment Normal [facility] Comment on above: Result Comment: Sati sfactory for evaluation. Endocervical and/or squamous metaplastic cells (endocervical component) are present. Performed at: [facility] Performed By: #### 4 [id number] #### [facility] [address] [address] [address] Michele Gallo Procedure Visiton 12-15-2022 Procedure Visit Kenan Meehanshani Butler 1995 F Date Provider Department Center 12/15/2022 ALESIA PAGE MP PHYS MED [facility] Family History Family history unknown: Yes Level of Service:15368 ME OFFICE/OUTPT VISIT,PROCEDURE ONLY Reason for Visit and Comments: EMG [Other] - BUE Normal [facility] Follow-Upon 12-07-2022 Follow-Up [id number] Kenan Meehanshani Butler 1995 Date Provider Department Center 12/07/2022 CHARLENE BYNUM MP PAIN [facility] Family History Family history unknown: Yes Level of Service:99380 ME OFFICE/OUTPATIENT ESTABLISHED MOD MDM 30-39 MIN Reason for Visit and Comments: Follow-up [246896] - SCS (BS) follow up [facility] Follow-Upon 10-23-2022 Follow-Up [id number] Raphael Meehan Carrie 1995 Provider Department Center 10/23/2022 CHARLENE BYNUM MP PAIN [facility] Family History Family history unknown: Yes Level of Service:09784 ME OFFICE/OUTPATIENT ESTABLISHED LOW MDM 20-29 MIN Reason for Visit and Comments: Follow-up [629932] - SCS (BS) Normal [facility] US PELVIS AND TRANSVAGon US PELVIS [...] CHANCE ARMAS Date: 2022-05-24 13:13 Normal [facility] CBC AUTO DIFFon 05-15-2022 BASO # 0.1 103/ul Normal 0.0-0.1 [facility] Comment on above: Performed By: #### P REG #### [facility] [address] [address] [address] Michele Gallo Basophils/100 WBC (Bld) 1.0 % Normal 0.2-2.0 [facility] Comment on above: Performed By: #### P REG #### [facility] [address] [address] [address] Michele Gallo EO # 0.3 103/ul Normal 0.0-0.7 [facility] Comment on above: Performed By: #### P REG #### [facility] [address] [address] [address] Michele Gallo Eosinophils/100 WBC (Bld) 2.0 % Normal 0.9-7.0 [facility] Comment on above: Performed By: #### P REG #### [facility] [address] [address] [address] Michele Gallo Erythrocyte distribution width (RBC) [Ratio] 11.7 % Normal 11.0-15.0 [facility] Comment on above: Performed By: #### P REG #### [facility] [address] [address] [address] Michele Gallo Hematocrit (Bld) [Volume fraction] 39.4 % Normal 36.0-48.0 [facility] Comment on above: Performed By: #### P REG #### [facility] [address] [address] [address] Michele Gallo Hemoglobin (Bld) [Mass/Vol] 13.2 g/dL Normal 12.0-16.0 [facility] Comment on above: Performed By: #### P REG #### [facility] [address] [address] [address] Michele Gallo IG # 0.11 10e3/ul Critically high 0.00-0.03 [facility] Comment on above: Performed By: #### P REG #### [facility] [address] [address] [address] Michele Gallo IG % 0.8 % Critically high 0.0-0.5 [facility] Comment on above: Performed By: #### P REG #### [facility] [address] [address] [address] Michele Gallo LYMPH # 4.5 103/ul Critically high 1.2-3.8 [facility] Comment on above: Performed By: #### P REG #### [facility] [address] [place] [address] Dr. Michele Gallo Lymphocytes/100 WBC (Bld) 33.3 % Normal 20.5-60.0 [facility] Comment on above: Performed By: #### P REG #### [facility] [address] [place] [address] Dr. Michele Gallo MANUAL DIFF REQ NO Normal [facility] Comment on above: Performed By: #### P REG #### [facility] [address] [address] [address] Michele Gallo MCH (RBC) [Entitic mass] 29.7 pg Normal 26.7-34.0 [facility] Comment on above: Performed By: #### P REG #### [facility] [address] [address] [address] Michele Gallo MCHC (RBC) [Mass/Vol] 33.5 g/dL Normal 29.9-35.2 [facility] Comment on above: Performed By: #### P REG #### [facility] [address] [address] [address] Michele Gallo MCV (RBC) [Entitic vol] 88.7 fL Normal 81.0-99.0 [facility] Comment on above: Performed By: #### P REG #### [facility] [address] [address] [address] Michele Gallo MONO # 0.8 103/ul Normal 0.3-0.8 [facility] Comment on above: Performed By: #### P REG #### [facility] [address] [address] [address] Michele Gallo Monocytes/100 WBC (Bld) 6.3 % Normal 1.7-12.0 [facility] Comment on above: Performed By: #### P REG #### [facility] [address] [place] [address] Dr. Michele Gallo NEUT # 7.6 103/ul Critically high 1.4-6.5 [facility] Comment on above: Performed By: #### P REG #### [facility] [address] [place] [address] Dr. Michele Gallo Neutrophils/100 WBC (Bld) 56.6 % Normal 43.0-75.0 [facility] Comment on above: Performed By: #### P REG #### [facility] [address] [place] [address] Dr. Michele Gallo Platelet mean volume (Bld) [Entitic vol] 10.3 fL Normal 9.5-13.5 [facility] Comment on above: Performed By: #### P REG #### [facility] [address] [place] [address] Dr. Michele Gallo PLT 363 103/ul Normal 150-450 [facility] Comment on above: Performed By: #### P REG #### [facility] [address] [address] [address] Michele Gallo RBC 4.44 106/ul Normal 4.20-5.40 [facility] Comment on above: Performed By: #### P REG #### [facility] [address] [place] [address] Dr. Michele Gallo WBC 13.4 103/ul Critically high 4.0-11.0 [facility] Comment on above: Performed By: #### P REG #### [facility] [address] [place] [address] Dr. Michele Gallo CULTURE BLOODon 05-15-2022 Microscopic examination of blood, culture Culture Observations: No growth at 5 days. Normal [facility] Comment on above: Performed By: #### P REG #### [facility] [address] [place] [address] Dr. Michele Gallo Microscopic examination of blood, culture Culture Observations: No growth at 5 days. Normal [facility] Comment on above: Performed By: #### B LDCX1 #### [facility] [address] [place] [address] Dr. Michele Gallo ER URINE PROFILEon Bilirubin Ql (U) Negative Normal NEGATIVE [facility] Comment on above: Performed By: #### U MICRO, ERUR #### [facility] [address] [place] [address] Dr. Michele Gallo Clarity (U) CLEAR Normal CLEAR [facility] Comment on above: Performed By: #### U MICRO, ERUR #### [facility] [address] [place] [address] Dr. Michele Gallo Color (U) LT. YELLOW Normal YELLOW [facility] Comment on above: Performed By: #### U MICRO, ERUR #### [facility] [address] [place] [address] Dr. Michele Gallo ERUAHD A micrscopic examination will be performed if indicated. Normal [facility] Comment on above: Performed By: #### U MICRO, ERUR #### [facility] [address] [place] [address] Dr. Michele Gallo Glucose Ql (U) Negative Normal NEGATIVE [facility] Comment on above: Performed By: #### U MICRO, ERUR #### [facility] [address] [place] [address] Dr. Michele Gallo Hemoglobin Ql (U) MODERATE Abnormal NEGATIVE [facility] Comment on above: Performed By: #### U MICRO, ERUR #### [facility] [address] [address] [address] Michele Gallo Ketones Ql (U) Negative Normal NEGATIVE [facility] Comment on above: Performed By: #### U MICRO, ERUR #### [facility] [address] [place] [address] Dr. Michele Gallo LEUKOCYTES Negative Normal NEGATIVE [facility] Comment on above: Performed By: #### U MICRO, ERUR #### [facility] [address] [place] [address] Dr. Michele Gallo Nitrite Ql (U) Negative Normal NEGATIVE [facility] Comment on above: Performed By: #### U MICRO, ERUR #### [facility] [address] [place] [address] Dr. Michele Gallo pH (U) 7.0 [pH] Normal 5-9 [facility] Comment on above: Performed By: #### U MICRO, ERUR #### [facility] [address] [place] [address] Dr. Michele Gallo SPEC GRAVITY 1.020 Normal 1.005-<=1.02 5 [facility] Comment on above: Performed By: #### U MICRO, ERUR #### [facility] [address] [place] [address] Dr. Michele Gallo UA PROTEIN TRACE Normal NEGATIVE/ TRACE [facility] Comment on above: Performed By: #### U MICRO, ERUR #### [facility] [address] [address] [address] Michele Gallo UR MICRO IND INDICATED Normal [facility] Comment on above: Performed By: #### U MICRO, ERUR #### [facility] [address] [address] [address] Michele Gallo Urobilinogen Qn (U) 0.2 {Norm'U}/dL Normal 0.2 - 1. 0 [facility] Comment on above: Performed By: #### U MICRO, ERUR #### [facility] [address] [place] [address] Dr. Michele Gallo PROF CHEM 8 (BAS METB)on Anion gap [Moles/Vol] 14.8 mmol/L Normal [facility] Comment on above: Performed By: #### B MP #### [facility] [address] [address] [address] Michele Gallo Calcium [Mass/Vol] 9.0 mg/dL Normal 8.5-10.1 [facility] Comment on above: Performed By: #### B MP #### [facility] [address] [address] [address] Michele Gallo Chloride [Moles/Vol] 102 mmol/L Normal 98-107 [facility] Comment on above: Performed By: #### B MP #### [facility] [address] [place] [address] Dr. Michele Gallo CO2 [Moles/Vol] 24.2 mmol/L Normal 21.0-32.0 [facility] Comment on above: Performed By: #### B MP #### [facility] [address] [place] [address] Dr. Michele Gallo Creatinine [Mass/Vol] 0.89 mg/dL Normal 0.55-1.02 [facility] Comment on above: Performed By: #### B MP #### [facility] [address] [place] [address] Dr. Michele Gallo EGFR-AF CITIZEN OF [place] >60 Normal >=60 [facility] Comment on above: Performed By: #### B MP #### [facility] [address] [address] [address] Michele Gallo EGFR-NON AF CITIZEN OF [place] >60 Normal >=60 [facility] Comment on above: Performed By: #### B MP #### [facility] [address] [place] [address] Dr. Michele Gallo Glucose [Mass/Vol] 100 mg/dL Normal 74-106 [facility] Comment on above: Performed By: #### B MP #### [facility] [address] [place] [address] Dr. Michele Gallo Potassium [Moles/Vol] 4.0 mmol/L Normal 3.5-5.1 [facility] Comment on above: Performed By: #### B MP #### [facility] [address] [address] [address] Michele Gallo Sodium [Moles/Vol] 137 mmol/L Normal 136-145 [facility] Comment on above: Performed By: #### B MP #### [facility] [address] [address] [address] Michele Gallo Urea nitrogen [Mass/Vol] 15.0 mg/dL Normal 7.0-18.0 [facility] Comment on above: Performed By: #### B MP #### [facility] [address] [place] [address] Dr. Michele Gallo Urea nitrogen/Creatinine [Mass ratio] 16.9 mg/mg Normal [facility] Comment on above: Performed By: #### B MP #### [facility] [address] [place] [address] Dr. Michele Gallo URINE MICROSCOPIC ONLYon BACTERIA NONE SEEN Normal NONE SEEN [facility] Comment on above: Performed By: #### U MICRO, ERUR #### [facility] [address] [place] [address] Dr. Michele Gallo Bacteria identified Cx Nom (U) NOT INDICATED Normal [facility] Comment on above: Performed By: #### U MICRO, ERUR #### [facility] [address] [place] [address] Dr. Michele Gallo CAST NONE SEEN Normal NONE SEEN [facility] Comment on above: Performed By: #### U MICRO, ERUR #### [facility] [address] [place] [address] Dr. Michele Gallo Crystals LM Nom (Urine sed) NONE SEEN Normal NONE SEEN [facility] Comment on above: Performed By: #### U MICRO, ERUR #### [facility] [address] [place] [address] Dr. Michele Gallo Epithelial cells LM Ql (Urine sed) MANY Abnormal NONE SEEN /RARE [facility] Comment on above: Performed By: #### U MICRO, ERUR #### [facility] [address] [address] [address] Michele Gallo MUCOUS TRACE Abnormal NONE SEEN [facility] Comment on above: Performed By: #### U MICRO, ERUR #### [facility] [address] [address] [address] Michele Gallo RBC 10-20 Abnormal 0-2 [facility] Comment on above: Performed By: #### U MICRO, ERUR #### [facility] [address] [place] [address] Dr. Michele Gallo WBC NONE SEEN Normal NONE SEEN [facility] Comment on above: Performed By: #### U MICRO, ERUR #### [facility] [address] [place] [address] Dr. Michele Gallo US PELVIS TRANSVAGon 022 [...] GLENNY COLON Date: 2022-05-15 14:07 Normal [facility] CBC AUTO DIFFon 05-08-2022 BASO # 0.1 103/ul Normal 0.0-0.1 [facility] Comment on above: Performed By: #### C BC #### [facility] [address] [place] [address] Dr. Michele Gallo Basophils/100 WBC (Bld) 1.3 % Normal 0.2-2.0 [facility] Comment on above: Performed By: #### C BC #### [facility] [address] [place], [place] [id number] Dr. Michele Gallo EO # 0.4 103/ul Normal 0.0-0.7 [facility] Comment on above: Performed By: #### C BC #### [facility] [address] [place] [address] Dr. Michele Gallo Eosinophils/100 WBC (Bld) 3.9 % Normal 0.9-7.0 [facility] Comment on above: Performed By: #### C BC #### [facility] [address] [place] [address] Dr. Michele Gallo Erythrocyte distribution width (RBC) [Ratio] 11.6 % Normal 11.0-15.0 [facility] Comment on above: Performed By: #### C BC #### [facility] [address] [place] [address] Dr. Michele aGllo Hematocrit (Bld) [Volume fraction] 37.3 % Normal 36.0-48.0 [facility] Comment on above: Performed By: #### C BC #### [facility] [address] [place] [address] Dr. Michele Gallo Hemoglobin (Bld) [Mass/Vol] 12.6 g/dL Normal 12.0-16.0 [facility] Comment on above: Performed By: #### C BC #### [facility] [address] [place] [address] Dr. Michele Gallo IG # 0.05 10e3/ul Critically high 0.00-0.03 [facility] Comment on above: Performed By: #### C BC #### [facility] [address] [place] [address] Dr. Michele Gallo IG % 0.5 % Normal 0.0-0.5 [facility] Comment on above: Performed By: #### C BC #### [facility] [address] [place] [address] Dr. Michele Gallo LYMPH # 3.1 103/ul Normal 1.2-3.8 [facility] Comment on above: Performed By: #### C BC #### [facility] [address] [place] [address] Dr. Michele Gallo Lymphocytes/100 WBC (Bld) 30.3 % Normal 20.5-60.0 [facility] Comment on above: Performed By: #### C BC #### [facility] [address] [place] [address] Dr. Michele Gallo MANUAL DIFF REQ NO Normal [facility] Comment on above: Performed By: #### C BC #### [facility] [address] [place] [address] Dr. Michele Gallo MCH (RBC) [Entitic mass] 29.9 pg Normal 26.7-34.0 [facility] Comment on above: Performed By: #### C BC #### [facility] [address] [place] [address] Dr. Michele Gallo MCHC (RBC) [Mass/Vol] 33.8 g/dL Normal 29.9-35.2 [facility] Comment on above: Performed By: #### C BC #### [facility] [address] [place] [address] Dr. Michele Gallo MCV (RBC) [Entitic vol] 88.6 fL Normal 81.0-99.0 [facility] Comment on above: Performed By: #### C BC #### [facility] [address] [place] [address] Dr. Michele Gallo MONO # 0.7 103/ul Normal 0.3-0.8 [facility] Comment on above: Performed By: #### C BC #### [facility] [address] [place] [address] Dr. Michele Gallo Monocytes/100 WBC (Bld) 7.2 % Normal 1.7-12.0 [facility] Comment on above: Performed By: #### C BC #### [facility] [address] [place] [address] Dr. Michele Gallo NEUT # 5.8 103/ul Normal 1.4-6.5 [facility] Comment on above: Performed By: #### C BC #### [facility] [address] [place] [address] Dr. Michele Gallo Neutrophils/100 WBC (Bld) 56.8 % Normal 43.0-75.0 [facility] Comment on above: Performed By: #### C BC #### [facility] [address] [place] [address] Dr. Michele Gallo Platelet mean volume (Bld) [Entitic vol] 10.0 fL Normal 9.5-13.5 [facility] Comment on above: Performed By: #### C BC #### [facility] [address] [place] [address] Dr. Michele Gallo PLT 311 103/ul Normal 150-450 [facility] Comment on above: Performed By: #### C BC #### [facility] [address] [place] [address] Dr. Michele Gallo RBC 4.21 106/ul Normal 4.20-5.40 [facility] Comment on above: Performed By: #### C BC #### [facility] [address] [place] [address] Dr. Michele Gallo WBC 10.3 103/ul Normal 4.0-11.0 [facility] Comment on above: Performed By: #### C BC #### [facility] [address] [place] [address] Dr. Michele Gallo PREG HCG QUALon 05-08-2022 , QUAL Negative Normal NEGATIVE [facility] Comment on above: Performed By: #### P REG #### [facility] [address] [place] [address] Dr. Michele Gallo Covid-19 PCR (CVDTB)on 04-14 SARS-CoV-2 (COVID-19) RNA TARAH+probe Ql (Unsp spec) Not detected Normal NOT DETECTED [facility] Comment on above: Result Comment: This test is not yet approved or cleared by the [place] FDA. When there are no FDA-approved or cleared tests available, and other criteria are met, FDA can make tests available under an emergency access mechanism called an Emergency Use Authorization (EUA). The EUA for this test is supported by the Road [employer] Draftsperson of Health and Human Service's (HHS's) declaration [...] SARS-CoV-2. Performed By: #### C VDTB #### [facility] [address] [address] [address] Michele Gallo COVID Quick Testingon 2020 Result Positive [employer] water systems Other Operative Reporton 1 Operative Report MR#: [id number] [facility] Pt. Name: Raphael Meehan Room #: 0 Discharge Date: Birthdate: 1995 OPERATIVE REPORT DATE [...] to interact and give feedback. The x-ray field technician was supervised and instructed to operate [...] electrodes using the torque wrench provided by popcorn vendor and then they were secured to the prevertebral fascia using fixate device provided by popcorn vendor on each anchor. Then a planned left [...] midline incision using a tunneler provided by popcorn vendor. The permanent leads were then tunneled through to the pocket, to the generator site, connected to the generator with confirmation, and the entire system was working. The permanent leads were then secured to the generator using the torque wrench provided by [employer] and both pockets were then irrigated with [...] avoid (more content not included)... Normal [facility] POC GLUCOSE LABon 04-26-2021 Glucose [Mass/Vol] 111 mg/dL High 70-100 [facility] Comment on above: Performed By: #### 8 [id number] #### [address] POC URINE PREGNANCYon 2020 Beta HCG ( test) Ql (U) Negative Normal NEGATIVE [facility] Comment on above: Result Comment: Perf ormed in PACU Performed By: #### 8 [id number] #### [address] THORACIC SPINEon 04-26-2021 THORACIC SPINE [facility] Department of Radiology [address] [place] [id number] Patient Name: RAPHAEL MEEHAN : 1995 [...] purposes. Electronically signed: Bill Rapp. Transcribed by: [email or web address], User Resident: Electronically Signed by: BILL RAPP @ 04/27/2021 03:18 PM Normal [facility] Comment on above: Order Comment: SPINA L CORD STIMULATOR PLACEMENT *MRSA/MSSA DNA NASALon 04-14 *MRSA/MSSA DNA NASAL Clinical Report: (D ) Specimen: NASAL SWAB Collected: 04/14/2021 08:50 Status: Final Last Updated: 04/14/2021 15:28 MSSA DNA (Final) Negative MRSA DNA (Final) Negative Normal [facility] Comment on above: Performed By: #### 3 1595 #### [address] [place] [address], [facility] APTTon 04-14-2021 aPTT Coag (Bld) [Time] 26.3 s Normal 25.0-35.0 [facility] Comment on above: Result Comment: ALL [...] THIS PURPOSE. Performed By: #### 5 [id number], [id number] #### [facility] [address] [place] [address], [facility] BASIC METABOLIC PANELon 09-0 -2020 Calcium [Mass/Vol] 9.2 mg/dL Normal 8.6-10.3 [facility] Comment on above: Performed By: #### 0 0071 #### [facility] [address] [place] [address], [facility] Chloride [Moles/Vol] 107 mmol/L Normal 98-107 [facility] Comment on above: Performed By: #### 0 0071 #### [facility] [address] [place] [address], [facility] CO2 [Moles/Vol] 23 mmol/L Normal 21-31 [facility] Comment on above: Performed By: #### 0 0071 #### [facility] [address] [facility] [place] [address], [facility] Creatinine [Mass/Vol] 0.90 mg/dL Normal 0.60-1.20 [facility] Comment on above: Performed By: #### 0 0071 #### [facility] [address] [place] [address], [facility] GFR/1.73 sq M.predicted among blacks MDRD (S/P/Bld) [Vol rate/Area] mL/min/{1.73_m2} Normal >60 [facility] Comment on above: Performed By: #### 0 0071 #### [facility] [address] [place] [address], [facility] GFR/1.73 sq M.predicted among non-blacks MDRD (S/P/Bld) [Vol rate/Area] mL/min/{1.73_m2} Normal >60 [facility] Comment on above: Performed By: #### 0 0071 #### [facility] [address] [place] [address], [facility] Glucose [Mass/Vol] 94 mg/dL Normal 70-100 [facility] Comment on above: Performed By: #### 0 0071 #### [facility] [address] [facility] [place] [address], [facility] Potassium [Moles/Vol] 4.2 mmol/L Normal 3.5-5.1 [facility] Comment on above: Performed By: #### 0 0071 #### [facility] [address] [facility] [place] [address], [facility] Sodium [Moles/Vol] 139 mmol/L Normal 136-145 [facility] Comment on above: Performed By: #### 0 0071 #### [facility] [address] [facility] [place] [address], [facility] Urea nitrogen [Mass/Vol] 8 mg/dL Normal 7-25 [facility] Comment on above: Performed By: #### 0 0071 #### [facility] [address] [facility] [place] [address], [facility] CBC W/DIFFon 04-14-2021 ABS IMM GRANS 0.1 10*3/uL Normal 0.0-0.2 The [facility] Comment on above: Performed By: #### 5 102 #### [facility] [address] [place] [address], [facility] ABS NEUTROPHILS 5.5 10*3/uL Normal 1.6-7.6 [facility] Comment on above: Performed By: #### 5 102 #### [facility] [address] [place] [address], [facility] Basophils (Bld) [#/Vol] 0.1 10*3/uL Normal 0.0-0.2 [facility] Comment on above: Performed By: #### 5 0103 #### [facility] [address] [place] [address], [facility] Basophils/100 WBC (Bld) 1.4 % High 0.0-1.0 [facility] Comment on above: Performed By: #### 5 0103 #### [facility] [address] [place] [address], [facility] Eosinophils (Bld) [#/Vol] 0.5 10*3/uL Normal 0.0-0.5 [facility] Comment on above: Performed By: #### 5 0103 #### [facility] [address] [place] [address], [facility] Eosinophils/100 WBC (Bld) 4.7 % Normal 0.0-6.0 [facility] Comment on above: Performed By: #### 5 0103 #### [facility] [address] [facility] [place] [address], [facility] Erythrocyte distribution width (RBC) [Ratio] 11.9 % Normal 11.5-15.0 [facility] Comment on above: Performed By: #### 5 0103 #### [facility] [address] [facility] [address], [facility] Hematocrit (Bld) [Volume fraction] 45.7 % High 36.0-45.0 [facility] Comment on above: Performed By: #### 5 0103 #### [facility] [address] [place] [address], [facility] Hemoglobin (Bld) [Mass/Vol] 15.6 g/dL High 12.0-15.0 [facility] Comment on above: Performed By: #### 5 0103 #### [facility] [address] [place] [address], [facility] IMMATURE GRANS 0.7 % Normal 0.0-1.0 [facility] Comment on above: Performed By: #### 5 0103 #### [facility] [address] [facility] [place] [address], [facility] Lymphocytes (Bld) [#/Vol] 2.9 10*3/uL Normal 1.2-4.0 [facility] Comment on above: Performed By: #### 5 0103 #### [facility] [address] [facility] [place] [address], [facility] Lymphocytes/100 WBC (Bld) 29.2 % Normal 20.0-45.0 [facility] Comment on above: Performed By: #### 5 0103 #### [facility] [address] [facility] [place] [address], [facility] MCH (RBC) [Entitic mass] 30.2 pg Normal 27.0-33.0 [facility] Comment on above: Performed By: #### 5 0103 #### [facility] [address] [facility] [address] MCHC (RBC) [Mass/Vol] 34.1 g/dL Normal 32.0-35.0 [facility] Comment on above: Performed By: #### 5 0103 #### [facility] [address] [facility] [place] [address], [facility] MCV (RBC) [Entitic vol] 88.6 fL Normal 82.0-98.0 [facility] Comment on above: Performed By: #### 5 3 #### [facility] [address] [facility] [place] [address], [facility] Monocytes (Bld) [#/Vol] 1.0 10*3/uL Normal 0.1-1.0 [facility] Comment on above: Performed By: #### 3 #### [facility] [address] [place] [address], [facility] MONOS 9.4 % Normal 5.0-12.0 [facility] Comment on above: Performed By: #### 5 0103 #### [facility] [address] [place] [address], [facility] Neutrophils/100 WBC (Bld) 54.6 % Normal 40.0-72.0 [facility] Comment on above: Performed By: #### 5 0103 #### [facility] [address] [facility] [place] [address], [facility] Nucleated RBC/100 WBC (Bld) [Ratio] 0 % Normal 0-0 [facility] Comment on above: Performed By: #### 5 0103 #### [facility] [address] [facility] [place] [address], [facility] PLAT CNT 290 10*3/uL Normal 150-400 [facility] Comment on above: Performed By: #### 5 0103 #### [facility] [address] [facility] [place] [address], [facility] RBC (Bld) [#/Vol] 5.16 10*6/uL High 3.80-5.00 [facility] Comment on above: Performed By: #### 5 0103 #### [facility] [address] [facility] [place] [address], [facility] WBC (Bld) [#/Vol] 10.07 10*3/uL Normal 4.00-10.60 [facility] Comment on above: Performed By: #### 5 0103 #### [facility] [address] [facility] [place] [address], [facility] PROTHROMBIN TIMEon 1 INR Coag (PPP) [Relative time] 0.98 {INR} Normal 0.91-1.16 [facility] Comment on above: Result Comment: [facility] P RECOMMENDED INR FOR WARFARIN THERAPY -------- [...] CHEST 1995;[id number]. Performed By: #### 5 [id number], [id number] #### [facility] [address] PT Coag (PPP) [Time] 13.0 s Normal 12.3-14.8 [facility] Comment on above: Result Comment: ALL RESULTS MUST BE INTERPRETED WITH RESPECT TO BLOOD DRAWING ARTIFACT OR DILUTION ERROR OF ANTICOAGULANT AT THE TIME OF SAMPLING. Performed By: #### 5 [id number], [id number] #### [facility] [address] [facility] [address] Vital Signs Date Time Vital Sign Value Performing Clinician Facility 05-28-2024 09:11-0400 Diastolic blood pressure 112 mm[Hg] Sprinklr DO Work Phone: [facility] 05-28-2024 09:11-0400 Heart rate 69 /min Jael Rito DO Work Phone: [facility] 05-28-2024 09:11-0400 SaO2% (BldA) [Mass fraction] 100 % Jael Listen Up DO Work Phone: [facility] 05-28-2024 09:11-0400 Systolic blood pressure 168 mm[Hg] Jael Rito DO Work Phone: [facility] 05-22-2024 11:15-0400 Body height 165.1 cm Jael Rito DO Work Phone: [facility] 05-22-2024 11:15-0400 Body mass index (BMI) [Ratio] 39.01 kg/m2 Jael Rito DO Work Phone: [facility] 05-22-2024 11:15-0400 Body weight 106.32 kg Jael Rito DO Work Phone: [facility] 05-22-2024 11:15-0400 Diastolic blood pressure 98 mm[Hg] Jael Rito DO Work Phone: [facility] 05-22-2024 11:15-0400 Heart rate 93 /min Jael Rito DO Work Phone: [facility] 05-22-2024 11:15-0400 SaO2% (BldA) [Mass fraction] 99 % Jael Rito DO Work Phone: [facility] 05-22-2024 11:15-0400 Systolic blood pressure 163 mm[Hg] Jael Rito DO Work Phone: [facility] 09-21-2023 08:48-0500 Body temperature 98.42 [degF] Juanjose De Jesuse [facility] 09-21-2023 08:48-0500 Diastolic blood pressure 90 mm[Hg] Juanjose De Jesuse [facility] 09-21-2023 08:48-0500 Heart rate 106 /min Juanjose Everton [facility] 09-21-2023 08:48-0500 Respiratory rate 16 /min Juanjose Everton [facility] 09-21-2023 08:48-0500 SaO2% (BldA) [Mass fraction] 100 % Juanjose De Jesuse [facility] 09-21-2023 08:48-0500 Systolic blood pressure 150 mm[Hg] Juanjose De Jesuse [facility] 06-20-2021 12:15-0500 Body height 165.1 cm Atiya Huerta Other [facility] Other 06-20-2021 12:15-0500 Body mass index (BMI) [Ratio] 35.94 kg/m2 Atiya Huerta Other [facility] Other 06-20-2021 12:15-0500 Body temperature 100.3 [degF] Atiya Huerta Other [facility] Other 06-20-2021 12:15-0500 Body weight 97.98 kg Atiya Huerta Other [facility] Other 06-20-2021 12:15-0500 SaO2% (BldA) [Mass fraction] 98 % Atiya Huerta Other [facility] Other Encounters Encounter Date Encounter Type Care Provider Facility Start: 05-28-2024 End: 05-28-2024 Bamboo flowsheet Jael Veras DO Work Phone: [facility] Start: 05-28-2024 End: 05-28-2024 Bamboo flowsheet Jael Veras DO Work Phone: [facility] Start: 05-28-2024 End: 05-28-2024 Patient encounter procedure Jael Veras DO Work Phone: [facility] Comment on above: IIH (idiopathic intr acranial hypertension) Start: 05-28-2024 End: 05-28-2024 ambulatory JAEL VERAS Not Available Start: 05-26-2024 End: 05-26-2024 ambulatory SPANISH LITERATURE PROFESSOR Debbie Cole Facility:[facility] Start: 05-26-2024 End: 05-26-2024 ambulatory [facility] Start: 05-22-2024 End: 05-22-2024 Bamboo flowsheet Jael Veras DO Work Phone: [facility] Start: 05-22-2024 End: 05-22-2024 Bamboo flowsheet Jael Veras DO Work Phone: [facility] Start: 05-22-2024 End: 05-22-2024 Office outpatient new 60 minutes Jael Andinoner DO Work Phone: [facility] Comment on above: IIH (idiopathic intr acranial hypertension) (Primary Dx); Intractable migraine without aura and without status migrainosus (CMS/HCC); Neck pain; Visual field scotoma, unspecified laterality; Class 2 obesity due to excess calories with body mass index (BMI) of 39.0 to 39.9 in adult, unspecified whether serious comorbidity present Start: 05-22-2024 End: 05-22-2024 ambulatory JAEL VERAS Not Available Start: 05-20-2024 End: 05-21-2024 Evaluation and management of inpatient [facility] Start: 05-20-2024 End: 05-20-2024 ambulatory SPANISH LITERATURE PROFESSOR Debbie Cole Facility:[facility] Start: 05-19-2024 End: 05-20-2024 ambulatory NO PCP NO PCP [facility] Start: 05-07-2024 End: 05-07-2024 ambulatory MYRANDA REDDY Not Available Start: 04-02-2024 End: 04-02-2024 ambulatory MYRANDA REDDY Not Available Start: 03-27-2024 End: 03-27-2024 ambulatory PHYSICIAN NO [facility] Work Phone: Start: 03-27-2024 End: 03-27-2024 Departed Referred PHYSICIAN NO [facility] Start: 02-27-2024 End: 02-27-2024 Departed Referred PHYSICIAN NO [facility] [facility] Start: 02-27-2024 End: 02-27-2024 ambulatory PHYSICIAN NO [facility] Work Phone: Start: 02-01-2024 End: 02-01-2024 Emergency department patient visit NO PCP NO PCP [facility] Start: 01-16-2024 End: 01-16-2024 ambulatory KEITH CERVANTES Not Available Start: 01-15-2024 End: 01-16-2024 Emergency department patient visit ABRAHAM TORRES [facility] Start: 10-16-2023 End: 10-16-2023 ambulatory SPANISH LITERATURE PROFESSOR Debbie L Douglas Facility:[facility] Start: 09-21-2023 End: 09-21-2023 Emergency department patient visit Juanjose [facility] Start: 09-21-2023 End: 09-21-2023 ambulatory SPANISH LITERATURE PROFESSOR Debbie L Douglas Facility: [facility] [place] [facility] Start: 09-07-2023 End: 09-07-2023 Lab Drop off Debbie L Douglas [facility] Start: 09-07-2023 End: 09-07-2023 ambulatory SPANISH LITERATURE PROFESSOR Debbie L Douglas Facility[facility] Start: 08-08-2023 End: 08-08-2023 ambulatory DEBBIE L DOUGLAS [facility] Start: 08-07-2023 End: 08-07-2023 ambulatory SPANISH LITERATURE PROFESSOR Debbie L Douglas Facility: [facility] [place] [facility] Start: 08-02-2023 ambulatory SPANISH LITERATURE PROFESSOR Debbie Douglas Facilit y:[facility] [place] Start: 07-09-2023 End: 07-09-2023 ambulatory SPANISH LITERATURE PROFESSOR Debbie L Douglas Facility:[facility] [place] [facility] Start: 06-08-2023 End: 06-08-2023 ambulatory SPANISH LITERATURE PROFESSOR Debbie L Douglas Facility:[facility] [place] [facility] Start: 05-25-2023 End: 05-25-2023 Lab Drop off Debbie L Douglas [facility] Start: 03-01-2023 End: 03-01-2023 ambulatory [facility] Start: 01-16-2023 End: 01-17-2023 ambulatory [facility] Start: 01-04-2023 ambulatory [facility] Start: 12-15-2022 ambulatory ALESIA BEATRICE [facility] Start: 12-08-2022 End: 12-08-[address] REBECCA MANN . Facility:[facility] Start: 12-07-2022 ambulatory [facility] Start: 10-23-2022 End: 10-24-2022 ambulatory WAQAR MADISYN [facility] Start: 05-24-2022 End: 05-25-[address] REBECCA MANN . Facility:[facility] Start: 05-15-2022 End: 05-15-[address] HERMELINDA JACKSON . Facility:[facility] Start: 05-08-2022 Encounter for preprocedural laboratory examination DR REBECCA MANN . [facility] Start: 05-08-2022 End: 05-08-[address] REBECCA MANN . Facility:[facility] Start: 05-04-2022 End: 05-05-[address] REBECCA MANN . Facility:[facility] Start: 05-04-2022 End: 05-05-2022 Encounter for preprocedural laboratory examination DR REBECCA MANN . Facility:[facility] Start: 04-30-2022 Encounter for other preprocedural examination DR REBECCA MANN . [facility] Start: 04-26-2022 End: 04-27-[address] REBECCA MANN . Facility:[facility] Start: 04-26-2022 End: 04-27-2022 Encounter for other preprocedural examination DR REBECCA MANN . Facility:[facility] Start: 12-29-2021 End: 12-29-2021 ambulatory MIKE PLATT Facility:[facility] Start: 06-20-2021 (URG) Urgent Care Visit At[facility] Start: 06-20-2021 End: 06-20-2021 ambulatory Atiya Huerta Other [facility] Other Start: 04-26-2021 End: 04-27-2021 ambulatory AN MEG Facility:[facility] Procedures Date Procedure Procedure Detail Performing Clinician Start: 04-26-2021 ANESTH PERC IMG TX SP PROC AN LR Start: 04-26-2021 IMPLANT NEUROELECTRODES AN MEG Start: 04-26-2021 INSRT/REDO SPINE N GENERATOR AN LR Ablation - action (q ualifier value) Debbie Douglas Cholecystectomy Debbie Douglas Surgery (qualifier value) Yolis di Douglas Surgical procedure Debbie Schw ab Plan of Treatment Date Care Activity Detail Author Start: 05-11-2025 End: 05-11-2025 Patient encounter procedure 05/11/2025 11:00 AM EDT Office Visit [facility] [address] [address] Myranda Reddy PA [address] [place] [address] [facility] Start: 07-02-2024 End: 07-02-2024 Patient encounter procedure 07/02/2024 2:20 PM EST Office [facility] [address] [place] [phone] Radha Franks NP [address] [place], [place] [facility] [address] [facility] Start: 05-28-2024 End: 05-28-2024 Patient encounter procedure 05/28/2024 8:30 AM EDT Office Visit [facility] [address] [place] [address] Jael Veras DO [address] [place] [address] Arrived [facility] Comment on above: Arrived Start: 05-22-2024 End: 05-22-2024 Patient encounter procedure 05/22/2024 11:30 AM EDT Office Visit [facility] [address] [facility] [place] [phone] Jael Veras DO [address] [place] [address] Arrived [facility] Comment on above: Arrived Lumbar Puncture Lumbar Puncture Procedures Routine IIH (idiopathic intracranial hypertension) Ordered: 05/28/2024 [facility] Work Phone: Comment on above: Ordered: 05/28/2024 Immunizations Immunization Date Immunization Notes Care Provider Fa cility 07-09-2017 tetanus toxoid, reduced diphtheria toxoid, and acellular pertussis vaccine, adsorbed Debbie Douglas [facility] NEGATED: Highlighted row has not occurred!05-25-2023 influenza virus vaccine, unspecified formulation Debbie Douglas [facility] Payers Date Payer Category Payer Self-pay 2023 [facility] [id number] 2023 Unknown [id number] 2023 Unknown [id number] 1996 Unknown [id number] 2.16.840.1.244175.3.579.2 .647 1996 Unknown [id number] 2.16.840.1.362630.3.579.2 .593 1996 Unknown [id number] 2.16.840.1.446768.3.579.2 .59 1996 Unknown [id number] 2.16.840.1.886517.3.579.2 .593 1996 Unknown [id number] 2.16840.1.138015.3.579.2 .59 1996 Unknown [id number] 2.16.840.1.665405.3.579.2 .59 1996 Unknown [id number] 2.840.1.171723.3.579.2 .59 1996 Unknown [id number] 2.840.1.719994.3.579.2 .59 1996 Unknown [id number] 2.840.1.622273.3.579.2 .1285 1996 Unknown [id number] 2.840.1.099923.3.579.2 .1285 1996 Unknown [id number] 2.840.1.445431.3.579.2 .1285 1996 Unknown [id number] 2.840.1.622805.3.579.2 .1285 1996 Unknown [id number] 2.840.1.160541.3.579.2 .1285 1996 Unknown [id number] 2.840.1.520393.3.579.2 .1285 1996 Unknown [id number] 2.16840.1.151288.3.579.2 .1285 1996 Unknown [id number] 2.16840.1.654494.3.579.2 .727 1996 Unknown [id number] 2.16840.1.296027.3.579.2 .727 1996 Unknown [id number] 2.16.840.1.551430.3.579.2 .1996 Unknown [id number] 2.16.840.1.638530.3.579.2 .1996 Unknown [id number] 2.16.840.1.257195.3.579.2 .1996 Unknown [id number] 2.16.840.1.344546.3.579.2 .1996 Unknown [id number] 2.16.840.1.292310.3.579.2 .1996 Unknown [id number] 2.16.840.1.314617.3.579.2 .1996 Unknown [id number] 2.16.840.1.406241.3.579.2 .1996 Unknown [id number] 2.840.1.574804.3.579.2 .1996 Unknown [id number] 2.16840.1.947723.3.579.2 .1258 1996 Unknown [id number] 2.16.840.1.846449.3.579.2 .1258 1996 Unknown [id number] 2.16.840.1.877424.3.579.2 .1258 1996 Unknown [id number] 2.16.840.1.205387.3.579.2 .1258 1996 Unknown [id number] 2.16.840.1.505214.3.579.2 .1258 1996 Unknown [id number] 2.16.840.1.422418.3.579.2 .9 1959 Unknown [id number] 2.16840.1.230648.19 Unknown [facility] [id number] Unknown HCAP/HFA/FAP Active [id number] Unknown [id number] 2.16.840.1.205724.3.579.2 .531 Unknown [id number] 2.16.840.1.242226.3.579.2 .531 Social History Date Type Detail Facility Unknown if ever smoked [facility] Other Start: 05-25-2023 Tobacco smoking status Never s moked tobacco (finding) [facility] Start: 06-04-2023 End: 05-22-2024 Sex Assigned At Female [facility] Start: 09-07-2023 End: 09-21-2023 Tobacco smoking status Light tobacco smoker (finding) [facility] Start: 1995 Sex Assigned At Female [facility] Start: 02-27-2024 End: 05-22-2024 Tobacco smoking status NHIS Smokes tobacco daily [facility] History of tobacco use Cigarette Smoker [facility] Start: 02-27-2024 End: 05-22-2024 Cigarettes smoked current (pack per day) - Reported 0.5 [facility] Start: 05-22-2024 Alcoholic beverage intake Current drinker of alcohol (finding) [facility] Start: 06-04-2023 Alcohol Comment Moderate alcoh ol- drinks beer on weekends Caffeine; 20 oz Mt. Dew Daily [facility] Start: 1996 Sex assigned at Not on file [facility] Start: 05-22-2024 Tobacco use and exposure Smokeless tobacco non-user [facility] Functional Status Date Assessment Result Facility 09-21-2023 Functional Status N/A [facility] Clinical Notes 10-23-2022 to 05-28-2024 Jael Veras, DO - 05/28/2024 8:30 AM EDTJael Veras, DO - 05/22/2024 11:30 AM EDT Note Date & Type Note Facility 05-28-2024 History of Present illness Narrative Associated Order(s): Lumbar Puncture Images from the original note were not included. Procedure: Lumbar Puncture Surgeon: Dr. Jael Veras DO Assist: Purpose of the procedure: Raphael Meehan is a 29 y.o. year old female patient with referred for Idiopathic intracranial hypertension / pseudotumor cerebri. The patient had severe headaches starting suddenly. She was seen at the ER and at [facility] is found to have an MRI with flattening of the globes of her eyes felt to be consistent with increased it cranial hypertension. She had an LP last Sunday / 1 week ago that showed an elevated pressure that was documented at 60 cm of water. She was drained and placed on Diamox. She was seen the day after in our office and her headache had already started to return. She was given a steroid pack but that was not helpful. Her Diamox was increased but that was not helpful. She comes in today for repeat lumbar puncture to assess her pressure Due to this concern it was decided that a Lumbar Puncture was necessary. The purpose of the procedure was explained to the patient and Significant other. Both verbal and written consent were obtained. Risks and benefits of the procedure were explained the risks included but were not limited to headache hematoma and infection. The patient decided to proceed with the procedure. Procedure: The patient was laid in the left lateral decubitus position. The L3-L4 interspace was identified. The area was cleaned and draped in the usual sterile fashion. Approximately 2ml of lidocaine was used to anesthetize the area locally. Utilizing a 3.5 inch spinal needle access to the subarachnoid space was achieved. Upon removal of the stylet clear /colorless spinal fluid was noted. The legs were carefully extended with this assist of nursing staff and an opening pressure was measured. The opening pressure was 420 mmH2O. Approximately 28 ml of clear turning pink (was obviously near a vessel) spinal fluid was collected. The closing pressure was measured at 140 mmH2O. The stylet was replaced and the stylet and the needle were removed as a unit. The patient tolerated the procedure well without complication. The patient laid flat for approximately 45-60 minutes after the procedure. The patient was counseled to drink plenty of fluids and rest tonight and resume normal nonstrenuous activity tomorrow. The patient is not to lift, strain or do strenuous activity for 24-48 hours. Patient was counseled that should a headache develop to drink plenty of fluids and add some caffeine. If there are any major issues the patient is to call our office or call [facility] and ask for the Neurologist radiology receptionist. She will be off work today and tomorrow. She was given a note that she can wear her sunglasses at work if her headache is bad due to the photophobia. We will send for an MRV as that was not done and I want to rule out dural venous sinus thrombosis especially since this was so sudden and since just 1 week later she required a 2nd lumbar puncture. We will up her Diamox to a 1000 mg twice a day. If she appears to be building again we may need to consider sending her for a REGISTERED NURSE AMBULATORY or lumbar shunt.Patient ID: Raphael Meehan is a 29 y.o. female. Lumbar Puncture Date/Time: 05/28/2024 9:57 AM Performed by: Jael Veras DO Authorized by: Jael Veras DO Consent: Consent obtained: Verbal and written Consent given by: Patient Risks, benefits, and alternatives were discussed: yes Risks discussed: Bleeding, infection, pain, headache, nerve damage and repeat procedure [place] protocol: Procedure explained and questions answered to patient or proxy's satisfaction: yes Relevant documents present and verified: yes Test results available: yes Imaging studies available: yes Pre-procedure details: Procedure purpose: Therapeutic Post-procedure details: Procedure completion: Tolerated well, no immediate complications documented in this encounter [facility] 05-26-2024 Note Patient Education Neurology Idiopathic Intracranial Hypertension Idiopathic intracranial hypertension (IIH) is a condition that increases pressure around the brain. The fluid that surrounds the brain and spinal cord (cerebrospinal fluid, or CSF) increases and causes the pressure. Idiopathic means that the cause of this condition is not known. IIH affects the brain and spinal cord. If this condition is not treated, it can cause vision loss or blindness. What are the causes? The cause of this condition is not known. What increases the risk? The following factors may make you more likely to develop this condition: ? Being obese. ? Being a person who is female, between the ages of 20 and 50 years old, and who has not gone through menopause. ? Taking certain medicines, such as control, acne medicines, or steroids. What are the signs or symptoms? Symptoms of this condition include: ? Headaches. This is the most common symptom. ? Brief periods of total blindness. ? Double vision, blurred vision, or poor side (peripheral) vision. ? Pain in the shoulders or neck. ? Nausea and vomiting. ? A sound like rushing water or a pulsing sound within the ears (pulsatile tinnitus), or ringing in the ears. How is this diagnosed? This condition may be diagnosed based on: ? Your symptoms and medical history. ? Imaging tests of the brain, such as: ? CT scan. ? MRI. ? Magnetic resonance venogram (MRV) to check the veins. ? Diagnostic lumbar puncture. This is a procedure to remove and examine a sample of CSF. This procedure can determine whether your fluid pressure is too high. ? An eye exam to check for swelling or nerve damage in the eyes. How is this treated? Treatment for this condition depends on the symptoms. The goal of treatment is to decrease the pressure around your brain. Common treatments include: ? Weight loss through healthy eating, salt restriction, and exercise, if you are overweight. ? Medicines to decrease the production of CSF and lower the pressure within your skull. ? Medicines to prevent or treat headaches. Other treatments may include: ? Surgery to place drains (shunts) in your brain to remove extra fluid. ? Lumbar puncture to remove extra CSF. Follow these instructions at home: ? If you are overweight or obese, work with your health care provider to lose weight. ? Take [id number]-wmlqmim and prescription medicines only as told by your health care provider. ? Ask your health care provider if the medicine prescribed to you requires you to avoid driving or using machinery. ? Do not use any products that contain nicotine or tobacco. These products include cigarettes, chewing tobacco, and vaping devices, such as e-cigarettes. If you need help quitting, ask your health care provider. ? Keep all follow-up visits. Your health care provider will need to monitor you regularly. Contact a health care provider if: ? You have changes in your vision, such as: ? Double vision. ? Blurred vision. ? Poor peripheral vision. Get help right away if: ? You have any of the following symptoms and they get worse or do not get better: ? Headaches. ? Nausea. ? Vomiting. ? Sudden trouble seeing. This information is not intended to replace advice given to you by your health care provider. Make sure you discuss any questions you have with your health care provider. Document Revised: 12/26/2022 Document Reviewed: 12/05/2022 [employer] Patient Education ? 2023 [employer]. [facility] 05-22-2024 History of Present illness Narrative Images from the original note were not included. Chief Complaint Patient presents with IIH Subjective Raphael Meehan, 29 y.o., female here for Neurology evaluation. SELF REFERRAL, IIH Patient is a 29 year old who is being seen in outpatient neurological consultation for headache and neck pain. Her PCP is Sharonda Reynoso. The patient states that she had a hysterectomy 7 weeks ago. She had general sedation with the hyst and did not have a VILLELA right away. She was given 3 percocets and ibuprofen. She has had a headache for the past 2 weeks. The VILLELA hit hard the first. She does not have a history of headaches. The pain starts in her neck and is in her whole head. She describes the pain as pressure or throbbing. The pain is worse if she coughs or bends over. She states that she has neck stiffness and unable to turn her head. She states that she is seeing an eclipse in her vision and states that her vision feels like she is cross eyed. She states that her headache is constant. She has photophobia and phonophobia. She denies nausea or vomiting. She states that she can feel her heartbeat in her ears when she is lying down. She was transferred from [place] to [place] for work up. She had work up there including a Lumbar Puncture. She was told that she has IIH. She felt good last night. She states that when she woke up and she is feeling worse and has the neck pain again. She was DC yesterday. She was put on the diamox and took it last night and this morning. Past Medical History: Diagnosis Date Chlamydia 11/15/2015 Current every day smoker LLQ pain Obesity (BMI 30.0-34.9) Ovarian cyst S/P endometrial ablation Past Surgical History: Procedure Laterality Date CHOLECYSTECTOMY 09/26/2015 CT GUIDED TRANSVAGINAL TRANSRECTAL FLUID DRAIN 05/19/2024 CT GUIDED TRANSVAGINAL TRANSRECTAL FLUID DRAIN 05/19/2024 DILATION AND CURETTAGE OF UTERUS 06/12/2015 ENDOMETRIAL ABLATION 05/08/2022 Ora IR LUMBAR PUNCTURE 05/21/2024 IR LUMBAR PUNCTURE 05/21/2024 LAPAROSCOPIC HYSTERECTOMY 03/27/2024 Robotic LAPAROSCOPY DIAGNOSTIC / BIOPSY / ASPIRATION / LYSIS 06/28/2020 hysteroscopy and D & C OTHER SURGICAL HISTORY 03/23/2013 RT arm external fixature OTHER SURGICAL HISTORY 12/20/2015 Nexplanon insertion/REMOVAL 02-11-16 Family History Problem Relation Name Age of Onset Cervical cancer Mother Minerva age 30's Hypertension Mother Minerva Ovarian cancer Mother Minerva Diabetes type II Brother stable Social History Tobacco Use Smoking status: Every Day Current packs/day: 0.50 Average packs/day: 0.5 packs/day for 10.0 years (5.0 ttl pk-yrs) Types: Cigarettes Smokeless tobacco: Never Substance Use Topics Alcohol use: Yes Alcohol/week: 6.0 standard drinks of alcohol Types: 6 Cans of beer per week Comment: Moderate alcohol- drinks beer on weekends Caffeine; 20 oz Mt. Dew Daily Allergies: Patient has no known allergies. General: No fever or chills HEENT: No nasal congestion or runny nose Pulmonary: No shortness of breath or cough Cardiovascular: No chest pain or palpitations GI: No nausea or vomiting : No dysuria or hematuria Musculoskeletal: No new aches or pains or muscle weakness Infectious: no recurrent fevers or infections Dermatologic: No rashes or skin lesions Neurologic: No new headaches or dizziness Vitals: 05/22/24 1115 BP: (!) 163/98 Pulse: 93 SpO2: 99% Body mass index is 39.01 kg/m . weight: 234 lb 6.4 oz Neurologic exam: General: obese, cooperative, pleasant Mental status: Awake, alert to person, place and time. Recent and remote memory are intact. Attention and concentration are normal. Fund of knowledge is appropriate for level of education. HEENT: NC/AT Cranial nerves: CN II: Visual robledo full to confrontation. No loss of vision CN III, IV, : pupils equal round and reactive to light. Extraocular movements intact. No ptosis present. CN V: Facial sensation is normal. CN VII: Full and symmetric facial movement. CN VIII: Hearing is normal CN IX and X: Palate elevates symmetrically. CN XI: Shoulder shrug is normal bilaterally. CN XII: Tongue is midline without atrophy or fasciculation. Speech: Clear and fluent no aphasia or dysarthria Pronator drift: Negative bilateral upper extremity Coordination: Intact, no signs of dysmetria Good finger to nose and rapid alternating movements Sensory: Sensation is intact to light, temperature and vibratory touch throughout four extremities. Pinprick intact in all four extremities. Motor: LUE 5/5 RUE 5/5 LLE 5/5 RLE 5/5 Tone: Physiologic, no tremor, bradykinesia or rigidity DTR: Bilateral Biceps 2/4 Bilateral BR 2/4 Bilateral Patellar 2/4 No spasticity Gait: Normal to casual gait Romberg's Negative Review and summary of old records: Assessment/Plan Diagnoses and all orders for this visit: IIH (idiopathic intracranial hypertension) - methylPREDNISolone (Medrol Dospak) 4 MG tablets; Follow schedule on package instructions Intractable migraine without aura and without status migrainosus (CMS/HCC) Neck pain Visual field scotoma, unspecified laterality Class 2 obesity due to excess calories with body mass index (BMI) of 39.0 to 39.9 in adult, unspecified whether serious comorbidity present 29-year-old female who had a sudden onset of headache about 2 weeks ago. She denies any problematic headaches prior to that. She did have a hysterectomy and unilateral oophorectomy 7 weeks ago but did not have headaches right after. She states she did have general anesthesia and not a spinal. She states she had a severe headache and then a couple of days later developed some vision abnormalities with crescent type of scotoma in her vision. Couple of days after the headache she developed some stiff neck and neck pain. She went into [facility]. There they did a CT scan that was nonacute. She had a CTA that showed no signs of vascular stenosis occlusion or aneurysm. She ended up with an MRI of the brain that did show some nonspecific white matter changes and flattening of the globe of her eye which with idiopathic intracranial hypertension. She was sent to [facility] where they did a lumbar puncture. She had an opening pressure of 600 mm of water. She had 26 ml of clear CSF obtained and drained. She had a closing pressure of 180 mm of water. At this time I am not convinced to 600 mm of water is correct as I do not think the manometer goes up to 600. Regardless it was elevated. She did feel immediately better after the lumbar puncture which was yesterday. She was placed on Diamox 500 mg twice a day. She did take it last night after her discharge and took 1 this morning. She was able to get in with us today as I had a cancellation however she is feeling worse today than she did previously. She states the headache is back her neck pain is worse. She is not feeling quite as bad as she went into the hospital for but is still not feeling like she did yesterday. Is very atypical that the symptoms started suddenly. I also would not expect the symptoms to occur backs so quickly after her lumbar puncture yesterday. I have however seeing someone build up pressure every few days and that person we had to send for a REGISTERED NURSE AMBULATORY shunt. Her workup was reviewed in great detail with her. We will go ahead and give her a steroid pack and see if that will help lower her CSF and pressure. She will increase her Diamox to a 1000 mg in the morning and 500 at dinnertime. We will see how she does with that. She was counseled she needs to go to the emergency room if she has any loss of vision. She is to call us on Sunday and let us know how she feels and we may need to repeat a lumbar puncture early next week depending on how she feels. She was counseled that weight loss can be curative of IIH. She does have underlying obesity and needs to be aggressive with diet exercise weight loss. She was counseled she should join a program such as weight watchers or other. Plan She does have a large amount of records here that were reviewed including all of the above imaging. Her CSF did not show any signs of meningitis as her WBC count was 1, RBC count was 1 Increase the Diamox to a 1000 mg in the morning and 500 at dinnertime, she will take an extra when she gets home We will do a trial of a Medrol Dosepak and see if that helps her symptoms She is to call us Sunday morning tell us how she is feeling and we will consider repeating lumbar puncture pending her course She was counseled on proper diet exercise and weight loss Go to the ER if she has any signs of loss of vision The patient was counseled to monitor their blood pressure and to follow up with PCP regarding the same. May need to consider an MRV however there was no evidence of back flow or venous congestion on her imaging The diagnosis was all discussed with the patient. All questions were answered and they agreed with the treatment plan. Patient will call if there are any new issues or questions. Pt has been fully educated on their diagnosis, treatment options, follow up plan, and return instructions Return to clinic: 1 month documented in this encounter [facility] 09-21-2023 Hospital Discharge instructions Patient Education 09/21/2023 [...] Follow these instructions at home: Medicines Take ocnm-egx-gqirpul and prescription medicines only as told by [...] such as antibiotic medicines or antihistamines. Take uxcn-gta-ctnnerc and prescription medicines only as told by [...] provider. Document Revised: 05/10/2022 Document Reviewed: 05/11/2022 [employer] Patient Education 2022 [employer]. Follow Up Care 09/21/2023 08:47:27 With:Debbie Cole Address: [address] [place] [address] Business (1) When:09/24/2023 09:54:01 [facility] 01-17-2023 Note Subjective s/p Rt wr ist inj median nerve Patient reports Pain Level 2. Pre-procedure pain level 7 on 01/16/23. Denies complications, side effects, problems, or any questions about discharge instruction. Next appointment on 03/01/23 at 1300. [facility] 01-04-2023 Note Pain Medicine Medical [address] [address] Subjective Patient ID: Raphael Meehan is a [...] refill ROM full with pain on extension. Electrical Lineman strength preserved. Gait: normal PROCEDURE NOTE: Risks [...] this note were generated using voice recognition [employer] dictation software. Although every effort was made to ensure the accuracy of this automated quality management coordinator, some errors in quality management coordinator may have occurred. [facility] 12-15-2022 Note Attestation signed by Alesia [...] a 27 y.o. female who presents to [facility] today for bilateral upper extremity [...] no other evide (more content not included)... [facility] 12-07-2022 Note Pain Medicine Medical [address] [address] Subjective Patient ID: Raphael Meehan is a [...] Focal neurologic deficits are not Noted symmetric bulb sorter strength VASC: Cap refill less than 2 sec. Radial pulse +2 equal [facility]: Left UE - 5/5 Deltoid, 5/5 Triceps, 5/5 Biceps, 5/5 Wrist flexion, 5/5 Wrist Extension, 5/5 Finger extension, 5/5 Intrinsics, 4/5 Electrical Lineman Right UE -5/5 Deltoid, 5/5 Triceps, 5/5 Biceps, 5/5 Wrist flexion, 5/5 Wrist Extension, 5/5 Finger extension, 5/5 Intrinsics, 4/5 Electrical Lineman GAIT: The patient stands with a normal [...] mouth at bedtime. Presence of neurostimulator Comments: [place] cervical SCS functioning properly Complex regional pain [...] week increase to 600mg if ineffective 2. FMLA paperwork for medical evaluations, doctors visits, PT [...] note were ge (more content not included)... [facility] 10-23-2022 Note HPI: Raphael Meehan is a 27 y.o. 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 She had a spinal cord stimulator placed in 04/26/2021 with [employer] in which she got 90% relief. She [...] with 90% relief - 04/26/21 SCS implant [employer] with > 90% relief Imaging: XR [...] today which did not show lead migrations. [place] states SCS optimized and no conduction problems. ordered EMG testing to further investigate numbness in bilateral arms consider MRI cervical spine. Assessment/Plan Diagnoses and all orders for this visit: Malfunction of spinal cord stimulator, initial encounter ([facility] Impingement syndrome of left shoulder region Plan: Physical Therapy- completed. Imaging- xray cervical spine reviewed, no lead migration noted. Consults-none Interventions- ordered EMG testing and consider MRI cervical to determine if other pathology causing numbness in bilateral arms. Medications- none Return to clinic-4 weeks OARRS reviewed [facility] Evaluation + Plan note Future Appointments Appointment Date:06/08/2023 10:00:00 AM Scheduled Provider:Debbie Bui Location:[facility] Appointment Type:[facility] Evaluation + Plan note Future Appointments Appointment Date:10/10/2023 03:40:00 PM Scheduled Provider:Debbie Bui [facility] Type:[facility] Evaluation note [facility] [employer] Other Evaluation note No assessment inform ation available [facility] Work Phone: Evaluation note Diagnosis IIH (idiopathic intracranial hypertension)- Primary Benign intracranial hypertension Intractable migraine without aura and without status migrainosus (CMS/HCC) Neck pain Cervicalgia Visual field scotoma, unspecified laterality Class 2 obesity due to excess calories with body mass index (BMI) of 39.0 to 39.9 in adult, unspecified whether serious comorbidity present [facility] this encounter [facility] Diagnosis IIH (idiopathic intracranial hypertension) Benign intracranial hypertension documented in this encounter [facility] N[facility]ative - [facility]orted[facility] Other Hospital course Narrative No data available for this section [facility] No data available for this section [facility] No data available for this section [facility] Summary Purpose Family History Relationship Condition Age at Onset Recorded Date/T tong mother Hypertension Unknown Advance Directives No Advanced Directives Records FoundNo Advanced Directives Records FoundNo Advanced Directives Records FoundNo Advanced Directives Records FoundNo Advanced Directives Records FoundNo Advanced Directives Records FoundNo Advanced Directives Records FoundNo Advanced Directives Records Found Additional Source Comments INFORMATION SOURCE (unrecogn ized section and content) DATE CREATED AUTHOR 03/02/2022 [facility] DATE CREATED AUTHOR AUTHOR'S ORGANIZ ATION 12/19/2022 [facility] DATE CREATED AUTHOR AUTHOR'S ORGANIZ ATION 03/02/2023 [facility] DATE CREATED AUTHOR AUTHOR'S ORGANIZ ATION 04/05/2024 [facility] DATE CREATED AUTHOR AUTHOR'S ORGANIZ ATION 05/21/2024 [facility] DATE CREATED AUTHOR AUTHOR'S ORGANIZ ATION 05/27/2024 [facility] DATE CREATED AUTHOR AUTHOR'S ORGANIZ ATION 05/27/2024 [facility] DATE CREATED AUTHOR AUTHOR'S ORGANIZ ATION 05/30/2024 [facility] EPIC Patient Care team informatio n (unrecognized section [...] be documented in a n alternate section Reason for Visit (unrecogniz ed section and content) Reason Comments IIH Reason Comments IIH FOR RECORDS PERTAINING TO PATIENTS WHO ARE [...] BE BASED ON THE PRIMARY CLINICAL RECORDS. [facility] provides no warranty or guarantee of the accuracy or completeness of information in this document.
--- NOTE | 2024-06-04 07:24 | MR_ITS ---
The [address] [address] Patient Name: RAPHAEL RICHARDSON MRN: [id number] date: 1995 Sex: F Assigned Patient Location: MRI Current Patient Location: Accession/Order Number: [id number] Exam Date: 06/04/2024 07:35 Report Date: 06/05/2024 12:29 At the request of: JAEL CARABALLO Procedure: MR venography head wo con EXAM: MR venography head wo con HISTORY: Idiopathic Intracranial Hypertension, G93.2 COMPARISON: None. TECHNIQUE: 2-D lazt-di-eplxka axial and coronal MRV imaging of the head was performed with maximum intensity projection reformats. FINDINGS: No overt filling defect to suggest dural venous sinus thrombosis. Superficial anastomotic veins and deep cerebral veins are widely patent. There is heterogeneous signal involving the bilateral transverse sinuses likely relating to in plane flow. Slight asymmetric small size of the left transverse and sigmoid sinus compared to that of the right with narrowing greater medially. MR/MR venography head wo con IMPRESSION: Asymmetric small size of the left transverse and sigmoid sinus compared to the right with greater medial narrowing. This can be seen with normal anatomic variation although can also be seen with unilateral transverse sinus stenosis. Electronically authenticated by: SHANA CALDERÓN Date: 06/05/2024 12:29
== END 2024-06-04 07:20 | disposition home or self-care (01) ==
LOC: MRI 07:20
PROVIDERS: PCP Nurse Practitioner; Visit Provider Psychiatry & Neurology Neurology
DX: G93.2 Benign intracranial hypertension (principal)
CPT/HCPCS: 70544